=== PATIENT | female | born 1995 | race Caucasian/White ===

== ENCOUNTER 2023-06-30 10:59 | Outpatient (OUT) | payer OTHER, SELFPAY ==
[2023-06-30 11:35] LABS: HCG Quantitative <1 mIU/mL
== END 2023-06-30 11:00 | disposition home or self-care (01) ==
LOC: LAB 10:59
PROVIDERS: Visit Provider Obstetrics & Gynecology
DX: N97.0 Female infertility associated with anovulation (principal)
CPT/HCPCS: 36415; 84702

== ENCOUNTER 2023-11-11 10:37 | Outpatient (RCR) | payer OTHER, SELFPAY ==
[2023-11-11 12:44] LABS: HCG Quantitative 1284 mIU/mL
== END 2023-11-12 12:00 | disposition home or self-care (01) ==
LOC: LAB 10:37
PROVIDERS: Visit Provider Obstetrics & Gynecology
DX: N92.6 Irregular menstruation, unspecified (principal)
CPT/HCPCS: 36415; 84702

== ENCOUNTER 2023-11-13 10:53 | Outpatient (OUT) | payer OTHER, SELFPAY ==
[2023-11-13 13:01] LABS: HCG Quantitative 2647 mIU/mL
--- OUTSIDE RECORDS SUMMARY | 2023-12-04 08:49 | XMS_ITS | CCD ---
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 [place] [address] Dr. Ashley Castaneda pH (U) 7.0 [pH] Normal 5-9 [facility] Comment on above: Performed By: #### H BSANS #### [facility] [address] [place] [address] Dr. Ashley Castaneda SPEC GRAVITY 1.010 Normal 1.005-<=1.02 5 [facility] Comment on above: Performed By: #### H BSANS #### [facility] [address] [place] [address] Dr. Ashley Castaneda UA PROTEIN Negative Normal NEGATIVE/ TRACE [facility] Comment on above: Performed By: #### H BSANS #### [facility] [address] [place] [address] Dr. Ashley Castaneda UR MICRO IND INDICATED Normal [facility] Comment on above: Performed By: #### H BSANS #### [facility] [address] [place] [address] Dr. Ashley Castaneda Urobilinogen Qn (U) 0.2 {Dorothy'U}/dL Normal 0.2 - 1. 0 [facility] Comment on above: Performed By: #### H BSANS #### [facility] [address] [place] [address] Dr. Ashley Castaneda URINE MICROSCOPIC ONLYon BACTERIA NONE SEEN Normal NONE SEEN [facility] Comment on above: Performed By: #### H BSANS #### [facility] [address] [place] [address] Dr. Ashley Castaneda Bacteria identified Cx Nom (U) NOT INDICATED Normal [facility] Comment on above: Performed By: #### H BSANS #### [facility] [address] [place] [address] Dr. Ashley Castaneda CAST NONE SEEN Normal NONE SEEN [facility] Comment on above: Performed By: #### H BSANS #### [facility] [address] [place] [address] Dr. Ashley Castaneda Crystals LM Nom (Urine sed) NONE SEEN Normal NONE SEEN [facility] Comment on above: Performed By: #### H BSANS #### [facility] [address] [place] [address] Dr. Ashley Castaneda Epithelial cells LM Ql (Urine sed) RARE Normal NONE SEEN /RARE [facility] Comment on above: Performed By: #### H BSANS #### [facility] [address] [place] [address] Dr. Ashley Castaneda MUCOUS NONE SEEN Normal NONE SEEN [facility] Comment on above: Performed By: #### H BSANS #### [facility] [address] [place] [address] Dr. Ashley Castaneda RBC 0-2 Normal 0-2 [facility] Comment on above: Performed By: #### H BSANS #### [facility] [address] [place] [address] Dr. Ashley Castaneda WBC 0-2 Abnormal NONE SEEN [facility] Comment on above: Performed By: #### H BSANS #### [facility] [address] [place] [address] Dr. Ashley Castaneda GROUP B STREP CULTUREon S. agalactiae Ag Ql (Unsp spec) Culture Observations: NEGATIVE FOR GROUP B STREPTOCOCCUS. Normal [facility] Comment on above: Performed By: #### G BSCX #### [facility] [address] [place] [address] Dr. Ashley Castaneda PREG GROWTHon 10-21-2022 US PREG GROWTH EXAMINATION: US PREG GROWTH HISTORY: Uterine size for dates discrepancy COMPARISON: Ultrasound growth 09/30/2022 FINDINGS: Heart Rate: 160.7 bpm Number: 1.0 Position: CEPHALIC Amniotic Fluid Volume: 15.3 cm Maximum Vertical Pocket: 6.0 cm BIOMETRY: BPD: 9.7 cm cm; 39 weeks 4 days; >97% HC: 32.8 cmcm; 37 weeks 2 days; 56% AC: 33.4 cm cm; 37 weeks 2 days; 92% FL: 6.9 cm cm; 35 weeks 3 days; 36% EFW: 3113.0 grams; 85% FL/AC: 20.7 FL/BPD: 71.2 HC/AC: 1.0 GESTATIONAL AGE: Age by EDC: 35 weeks 5 days ANTONIO by EDC: 11/20/2022 Age by US: 37 weeks 3 days ANTONIO by US: 11/08/2022 IMPRESSION: 1. Single live intrauterine with growth detailed above. 2. BPD greater than 97th percentile. Electronically authenticated by: ASPEN KIRKLAND Date: 2022-10-21 16:22 Normal [facility] US PREG GROWTHon 10-01-2022 US PREG GROWTH EXAMINATION: US PREG GROWTH HISTORY: Uterine size for dates discrepancy COMPARISON: No relevant comparison available. FINDINGS: Heart Rate: 131.1 bpm Amniotic Fluid Volume: 17.0 cm Number: 1.0 Position: Cephalic presentation, longitudinal lie Maximum Vertical Pocket: 7.3 cm cm 2.5 cm cm 3.0 cm cm 4.2 cm cm BIOMETRY: BPD: 9.3 cm cm; 37 weeks 4 days; > 97% HC: 32.1 cmcm; 36 weeks 1 days, 92% AC: 31.0 cm cm; 35 weeks 0 days, 96% FL: 5.9 cm cm; 30 weeks 5 days; 3.8 % % EFW: 2366.3 grams, 5 lbs. 3 oz., 84% FL/AC: 19.0 FL/BPD: 63.7 HC/AC: 1.0 GESTATIONAL AGE: Age by EDC: 32 weeks 5 days ANTONIO by EDC: 11/20/2022 Age by US: 34 weeks 6 days ANTONIO by US: 11/05/2022 IMPRESSION: BPD greater than the 97th percentile Abdominal circumference 96th percentile Estimated weight 84th percentile Electronically authenticated by: YENI LINO Date: 2022-10-01 16:02 Normal [facility] OVA AND PARASITE EXAMINATION on 09-18-2022 Ova + Parasite Exam Final report Normal [facility] Comment on above: Result Comment: Thes e results were obtained using wet preparation(s) and trichrome stained smear. This test does not include testing for Cryptosporidium parvum, Cyclospora, or Microsporidia. Performed By: #### B MP #### [facility] [address] [place] [address] Dr. Ashley Castaneda Result 1 Comment [facility] Comment on above: Result Comment: No o va, cysts, or parasites seen. . One negative specimen does not rule out the possibility of a parasitic infection. Performed By: #### B MP #### [facility] [address] [place] [address] Dr. Ashley Castaneda PAP ACOG PANEL 2: 21 to 29on 08-28-2022 . . Normal [facility] Comment on above: Performed By: #### [id number] #### [facility] [address] [place] [address] Dr. Ashley Castaneda Age Gdln ACOG Testing 21-29 [facility] Comment on above: Performed By: #### [id number] #### [facility] [address] [place] [address] Dr. Ashley Castaneda DIAGNOSIS: Comment Normal [facility] Comment on above: Result Comment: NEGA TIVE FOR INTRAEPITHELIAL LESION OR MALIGNANCY. Performed By: #### [id number] #### [facility] [address] [place] [address] Dr. Ashley Castaneda Methodology: Comment [facility] Comment on above: Result Comment: This liquid based ThinPrep(R) pap test was screened with the use of an image guided system. Performed By: #### [id number] #### [facility] [address] [place] [address] Dr. Ashley Castaneda Note: Comment Normal [facility] Comment on above: Result Comment: The Pap smear is a screening test designed to aid in the detection of premalignant and malignant conditions of the uterine cervix. It is not a diagnostic procedure and should not be used as the sole means of detecting cervical cancer. Both false-positive and false-negative reports do occur. . Performed By: #### [id number] #### [facility] [address] [place] [address] Dr. Ashley Castaneda Performed by: Comment Normal [facility] Comment on above: Result Comment: Marialuisa [employer], [employer] (ASCP) Performed By: #### [id number] #### [facility] [address] [place] [address] Dr. Ashley Castaneda Reflex Criteria: Comment Normal [facility] Comment on above: Result Comment: The HPV DNA reflex criteria were not met with this specimen result therefore, no HPV testing was performed. . Performed By: #### [id number] #### [facility] [address] [place] [address] Dr. Ashley Castaneda Specimen adequacy: Comment Normal [facility] Comment on above: Result Comment: Sati sfactory for evaluation. No endocervical component is identified. Performed By: #### [id number] #### [facility] [address] [place] [address] Dr. Ashley Castaneda CHLAMYDIA/GONOCOCCUS LANE (SW AB/URINE/PAPon 08-22-[address] trachomatis, LANE Negative Normal Negative [facility] Comment on above: Performed By: #### H BSANS #### [facility] [address] [place] [address] Dr. Ashley Castaneda Neisseria gonorrhoeae, LANE Negative Normal Negative [facility] Comment on above: Performed By: #### H BSANS #### [facility] [address] [place] [address] Dr. Ashley Castaneda VAGINITIS/VAGINOSIS DNA PROB Stephon 08-21-2022 Brina species Negative Normal Negative [facility] Comment on above: Performed By: #### V AGINT #### [facility] [address] [address] [address] Ashley Castaneda Gardnerella vaginalis Negative Normal Negative [facility] Comment on above: Performed By: #### V AGINT #### [facility] [address] [address] [address] Ashley Castaneda Trichomonas vaginalis Negative Normal Negative [facility] Comment on above: Performed By: #### V AGINT #### [facility] [address] [address] [address] Ashley Castaneda US PREG PLACENTAon 2 US PREG PLACENTA EXAMINATION: US PREG PLACENTA HISTORY: Low lying placenta COMPARISON: Ultrasound anatomy single 07/03/2022 FINDINGS: PLACENTA: Posterior-fundal, grade 0, with lower margin 7.0 cm from internal os. CERVIX LENGTH: Not measured. HEART RATE: 167 bpm OTHER: None. IMPRESSION: 1. Posterior-fundal placenta which is no longer low-lying. 2. Single live intrauterine . Electronically authenticated by: ASPEN KIRKLAND Date: 2022-08-20 06:34 Normal [facility] GTT 3 HR PREGon 08-09-2022 Glucose [Mass/Vol] 96 mg/dL Normal 74-106 [facility] Comment on above: Performed By: #### G TT3P #### [facility] [address] [place] [address] Dr. Ashley Castaneda Glucose [Mass/Vol] 155 mg/dL Normal [facility] Comment on above: Performed By: #### G TT3P #### [facility] [address] [address] [address] Ashley Castaneda Glucose [Mass/Vol] 141 mg/dL Normal [facility] Comment on above: Performed By: #### G TT3P #### [facility] [address] [place] [address] Dr. Aslhey Castaneda Glucose [Mass/Vol] 129 mg/dL Normal [facility] Comment on above: Performed By: #### G TT3P #### [facility] [address] [address] [address] Ashley Castaneda CBC AUTO DIFFon 08-02-2022 BASO # 0.1 103/ul Normal 0.0-0.1 [facility] Comment on above: Performed By: #### B MP #### [facility] [address] [address] [address] Ashley Castaneda Basophils/100 WBC (Bld) 0.6 % Normal 0.2-2.0 [facility] Comment on above: Performed By: #### B MP #### [facility] [address] [address] [address] Ashley Castaneda EO # 0.1 103/ul Normal 0.0-0.7 [facility] Comment on above: Performed By: #### B MP #### [facility] [address] [place] [address] Dr. Ashley Castaneda Eosinophils/100 WBC (Bld) 0.9 % Normal 0.9-7.0 [facility] Comment on above: Performed By: #### B MP #### [facility] [address] [place] [address] Dr. Ashley Castaneda Erythrocyte distribution width (RBC) [Ratio] 13.4 % Normal 11.0-15.0 [facility] Comment on above: Performed By: #### B MP #### [facility] [address] [place] [address] Dr. Ashley Castaneda Hematocrit (Bld) [Volume fraction] 36.2 % Normal 36.0-48.0 [facility] Comment on above: Performed By: #### B MP #### [facility] [address] [place] [address] Dr. Ashley Castaneda Hemoglobin (Bld) [Mass/Vol] 12.6 g/dL Normal 12.0-16.0 [facility] Comment on above: Performed By: #### B MP #### [facility] [address] [place] [address] Dr. Ashley Castaneda IG # 0.18 10e3/ul Critically high 0.00-0.03 [facility] Comment on above: Performed By: #### B MP #### [facility] [address] [place] [address] Dr. Ashley Castaneda IG % 1.7 % Critically high 0.0-0.5 [facility] Comment on above: Performed By: #### B MP #### [facility] [address] [place] [address] Dr. Ashley Castaneda LYMPH # 1.7 103/ul Normal 1.2-3.8 [facility] Comment on above: Performed By: #### B MP #### [facility] [address] [place] [address] Dr. Ashley Castaneda Lymphocytes/100 WBC (Bld) 16.6 % Critically low 20.5-6 0.0 [facility] Comment on above: Performed By: #### B MP #### [facility] [address] [place] [address] Dr. Ashley Castaneda MANUAL DIFF REQ NO Normal [facility] Comment on above: Performed By: #### B MP #### [facility] [address] [place] [address] Dr. Ashley Castaneda MCH (RBC) [Entitic mass] 30.3 pg Normal 26.7-34.0 [facility] Comment on above: Performed By: #### B MP #### [facility] [address] [place] [address] Dr. Ashley Castaneda MCHC (RBC) [Mass/Vol] 34.8 g/dL Normal 29.9-35.2 [facility] Comment on above: Performed By: #### B MP #### [facility] [address] [place] [address] Dr. Ashley Castaneda MCV (RBC) [Entitic vol] 87.0 fL Normal 81.0-99.0 [facility] Comment on above: Performed By: #### B MP #### [facility] [address] [place] [address] Dr. Ashley Castaneda MONO # 0.7 103/ul Normal 0.3-0.8 [facility] Comment on above: Performed By: #### B MP #### [facility] [address] [place] [address] Dr. Ashley Castaneda Monocytes/100 WBC (Bld) 6.8 % Normal 1.7-12.0 [facility] Comment on above: Performed By: #### B MP #### [facility] [address] [address] [address] Ashley Castaneda NEUT # 7.7 103/ul Critically high 1.4-6.5 [facility] Comment on above: Performed By: #### B MP #### [facility] [address] [address] [address] Ashley Castaneda Neutrophils/100 WBC (Bld) 73.4 % Normal 43.0-75.0 [facility] Comment on above: Performed By: #### B MP #### [facility] [address] [place] [address] Dr. Ashley Castaneda Platelet mean volume (Bld) [Entitic vol] 10.1 fL Normal 9.5-13.5 [facility] Comment on above: Performed By: #### B MP #### [facility] [address] [address] [address] Ashley Castaneda PLT 232 103/ul Normal 150-450 [facility] Comment on above: Performed By: #### B MP #### [facility] [address] [place] [address] Dr. Ashley Castaneda RBC 4.16 106/ul Critically low 4.20-5.40 [facility] Comment on above: Performed By: #### B MP #### [facility] [address] [address] [address] Ashley Castaneda WBC 10.5 103/ul Normal 4.0-11.0 [facility] Comment on above: Performed By: #### B MP #### [facility] [address] [address] [address] Ashley Castaneda GLUCOSE - 1HRon 08-02-2022 Glucose [Mass/Vol] 152 mg/dL Critically high 74-106 [facility] Comment on above: Performed By: #### V AGINT #### [facility] [address] [place] [address] Dr. Ashley Castaneda AFP MATERNAL FOR SPINA BIFID Aon 2022 AFP MoM 0.45 Normal [facility] Comment on above: Performed By: #### A FPMAT #### [facility] [address] [address] [address] Ashley Castaneda AFP Value 22.5 ng/mL Normal [facility] Comment on above: Performed By: #### A FPMAT #### [facility] [address] [address] [address] Ashley Castaneda AFP, Serum for Spina Bifida Report Normal [facility] Comment on above: Performed By: #### A FPMAT #### [facility] [address] [address] [address] Ashley Castaneda Comment Comment Normal [facility] Comment on above: Result Comment: Duncan Koo, Ph.D., [facility] Director . References: Available Upon Request. . Multiples Of Median Cutoffs For AFP Elevations Chavez 2.5 Black 2.8 IDD 2.0 Twins 4.5 Abbreviation Definitions IDD - Insulin Dep Diabetes OSBR - Open Spina Bifida Risk . For further inquiries contact [employer] at [phone]. . This test was developed and its performance characteristics determined by [employer]. It has not been cleared or approved by the Food and Drug Administration. Performed By: #### A FPMAT #### [facility] [address] [place] [address] Dr. Ashley Morin Age Collection Date 20.0 weeks Normal [facility] Comment on above: Performed By: #### A FPMAT #### [facility] [address] [place] [address] Dr. Ashley Castaneda Gestat, Age Based on ANTONIO [facility] Comment on above: Result Comment: 05/2023 Recalculations are not recommended when gestational dating by LMP and ultrasound are within 10 days. Performed By: #### A FPMAT #### [facility] [address] [place] [address] Dr. Ashley Castaneda Insulin Dep Diabetes No Normal [facility] Comment on above: Performed By: #### A FPMAT #### [facility] [address] [place] [address] Dr. Ashley Castaneda Interpretation Comment Normal [facility] Comment on above: Result Comment: Inte rpretation: Screen Negative . This result is screen negative for OSB. The AFP MoM calculated is based on the gestational age provided. MS-AFP can identify up to 80% of open neural tube defects. Closed neural tube defects and some open defects may not be detected by this test. This test does not screen for Down Syndrome or Trisomy 18. If screening for Down Syndrome or Trisomy 18 is desired, contact [employer] to discuss available options. The [employer] recommends amniocentesis be offered to women age 35 and older. Performed By: #### A FPMAT #### [facility] [address] [place] [address] Dr. Ashley Castaneda [age] Normal [facility] Comment on above: Performed By: #### A FPMAT #### [facility] [address] [place] [address] Dr. Ashley Castaneda Multiple Gestation No Normal [facility] Comment on above: Performed By: #### A FPMAT #### [facility] [address] [place] [address] Dr. Ashley Castaneda OSBR [place] [id number] Normal [facility] Comment on above: Performed By: #### A FPMAT #### [facility] [address] [place] [address] Dr. Ashley Castaneda PDF . Normal [facility] Comment on above: Performed By: #### A FPMAT #### [facility] [address] [place] [address] Dr. Ashley Castaneda Race Normal [facility] Comment on above: Performed By: #### A FPMAT #### [facility] [address] [place] [address] Dr. Ashley Castaneda Test Results: Negative Normal [facility] Comment on above: Performed By: #### A FPMAT #### [facility] [address] [place] [address] Dr. Ashley Castaneda PREG ANATOMY SINGLEon US PREG ANATOMY SINGLE EXAMINATION: US PREG ANATOMY SINGLE HISTORY: screening COMPARISON: No relevant comparison available. TECHNIQUE: Transabdominal sonographic examination was performed for obstetrical and evaluation. FINDINGS: Number: 1 Heart Rate: 166.0 bpm H.B. /min Amniotic Fluid Volume: Subjectively normal position: Cephalic presentation, longitudinal lie Placental Location: Posterior, low lying. Grade 0. Placental edge 2.1 cm from the cervical os Cervix Length: 6.8 cm, closed Normally visualized anatomy: Cerebellum, choroid plexus, cisterna magna, lateral cerebral ventricles, orbits, midline falx, hard palate, four-chamber heart, RVOT, LVOT, stomach, kidneys, bladder, umbilical cord insertion into the abdomen, three-vessel cord, cervical spine, thoracic spine, lumbar spine, sacral spine, right upper extremity, left upper extremity, right lower extremity, left lower extremity Suboptimally visualized anatomy: None BIOMETRY: BPD: 5.1 cm 21 weeks 3 days , 93% HC: 18.3 cm 20 weeks 5 days, 74% AC: 16.5 cm 21 weeks 4 days, 88% FL: 3.3 cm 20 weeks 3 days, 59% GESTATIONAL AGE: Age by EDC: 20 weeks 0 days ANTONIO by EDC: 11/20/2022 Age by current US: 21 weeks 0 days ANTONIO by current US: 11/13/2022 IMPRESSION: Low lying placenta, 2.1 cm from the cervical os Otherwise normal anatomy scan *Reference: AIUM Practice Guideline for the performance of Obstetric Ultrasound Examinations, June 14, 2007. Electronically authenticated by: YENI LINO Date: 2022-07-03 16:45 Normal [facility] HEP B SURFACE ANTIGEN SCREEN on 05-01-2022 HBsAg Screen Negative Normal Negative [facility] Comment on above: Performed By: #### H BSANS #### [facility] [address] [place] [address] Dr. Ashley Castaneda HEPATITIS C VIRUS AB W/ REFL EX QUANTon 05-01-2022 HCV AB <0.1 Normal 0.0-0.9 [facility] Comment on above: Performed By: #### V AGINT #### [facility] [address] [place] [address] Dr. Ashley Castaneda Interpretation: Comment Normal [facility] Comment on above: Result Comment: Nega tive Not infected with HCV, unless recent infection is suspected or other evidence exists to indicate HCV infection. Performed By: #### V AGINT #### [facility] [address] [place] [address] Dr. Ashley Castaneda HIV 1 AND 2 WITH REFLEXon HIV Screen 4th Generation wRfx Non-Reactive Normal Non Reactive [facility] Comment on above: Result Comment: HIV Negative HIV-1/HIV-2 antibodies and HIV-1 p24 antigen were NOT detected. There is no laboratory evidence of HIV infection. Performed By: #### B MP #### [facility] [address] [place] [address] Dr. Ashley Castaneda RPR QUANTon 05-01-2022 Rapid Plasma Reagin, Quant Non-Reactive Normal NonRea< 1:1 [facility] Comment on above: Result Comment: Plea se Note: This test does not meet current guidelines for screening and diagnosis of syphilis. This test is intended for following treatment response in patients being treated for syphilis infection. To screen for syphilis infection, a reflex cascade that includes both RPR and a treponema-specific assay should be utilized, such as Treponema pallidum (Syphilis) Screening [place] (331827) or Rapid Plasma Reagin (RPR) Test With Reflex to Quantitative RPR and Confirmatory Treponema pallidum Antibodies (686364). Performed By: #### B MP #### [facility] [address] [place] [address] Dr. Ashley Castaneda RUBELLA AB IGGon 05-01-2022 Rubella Antibodies, IgG 4.62 index Normal Immune >0.99 [facility] Comment on above: Result Comment: Non- immune <0.90 Equivocal 0.90 - 0.99 Immune >0.99 Performed By: #### B MP #### [facility] [address] [place] [address] Dr. Ashley Castaneda CBC AUTO DIFFon 04-30-2022 BASO # 0.0 103/ul Normal 0.0-0.1 [facility] Comment on above: Performed By: #### H BSANS #### [facility] [address] [address] [address] Ashley Castaneda Basophils/100 WBC (Bld) 0.3 % Normal 0.2-2.0 [facility] Comment on above: Performed By: #### H BSANS #### [facility] [address] [address] [address] Ashley Castaneda EO # 0.1 103/ul Normal 0.0-0.7 [facility] Comment on above: Performed By: #### H BSANS #### [facility] [address] [address] [address] Ashley Castaneda Eosinophils/100 WBC (Bld) 0.9 % Normal 0.9-7.0 [facility] Comment on above: Performed By: #### H BSANS #### [facility] [address] [place] [address] Dr. Ashley Castaneda Erythrocyte distribution width (RBC) [Ratio] 12.2 % Normal 11.0-15.0 [facility] Comment on above: Performed By: #### H BSANS #### [facility] [address] [address] [address] Ashley Castaneda Hematocrit (Bld) [Volume fraction] 40.5 % Normal 36.0-48.0 [facility] Comment on above: Performed By: #### H BSANS #### [facility] [address] [place] [address] Dr. Ashley Castaneda Hemoglobin (Bld) [Mass/Vol] 14.0 g/dL Normal 12.0-16.0 [facility] Comment on above: Performed By: #### H BSANS #### [facility] [address] [address] [address] Ashley Castaneda IG # 0.08 10e3/ul Critically high 0.00-0.03 [facility] Comment on above: Performed By: #### H BSANS #### [facility] [address] [address] [address] Ashley Castaneda IG % 0.8 % Critically high 0.0-0.5 [facility] Comment on above: Performed By: #### H BSANS #### [facility] [address] [address] [address] Ashley Castaneda LYMPH # 1.9 103/ul Normal 1.2-3.8 [facility] Comment on above: Performed By: #### H BSANS #### [facility] [address] [address] [address] Ashley Castaneda Lymphocytes/100 WBC (Bld) 19.4 % Critically low 20.5-6 0.0 [facility] Comment on above: Performed By: #### H BSANS #### [facility] [address] [address] [address] Ashley Castaneda MANUAL DIFF REQ NO Normal [facility] Comment on above: Performed By: #### H BSANS #### [facility] [address] [address] [address] Ashley Castaneda MCH (RBC) [Entitic mass] 30.9 pg Normal 26.7-34.0 [facility] Comment on above: Performed By: #### H BSANS #### [facility] [address] [address] [address] Ashley Castaneda MCHC (RBC) [Mass/Vol] 34.6 g/dL Normal 29.9-35.2 [facility] Comment on above: Performed By: #### H BSANS #### [facility] [address] [address] [address] Ashley Castaneda MCV (RBC) [Entitic vol] 89.4 fL Normal 81.0-99.0 [facility] Comment on above: Performed By: #### H BSANS #### [facility] [address] [address] [address] Ashley Castaneda MONO # 0.8 103/ul Normal 0.3-0.8 [facility] Comment on above: Performed By: #### H BSANS #### [facility] [address] [address] [address] Ashley Castaneda Monocytes/100 WBC (Bld) 8.4 % Normal 1.7-12.0 [facility] Comment on above: Performed By: #### H BSANS #### [facility] [address] [address] [address] Ashley Castaneda NEUT # 7.0 103/ul Critically high 1.4-6.5 [facility] Comment on above: Performed By: #### H BSANS #### [facility] [address] [address] [address] Ashley Castaneda Neutrophils/100 WBC (Bld) 70.2 % Normal 43.0-75.0 [facility] Comment on above: Performed By: #### H BSANS #### [facility] [address] [address] [address] Ashley Castaneda Platelet mean volume (Bld) [Entitic vol] 10.1 fL Normal 9.5-13.5 [facility] Comment on above: Performed By: #### H BSANS #### [facility] [address] [place] [address] Dr. Ashley Castaneda PLT 234 103/ul Normal 150-450 [facility] Comment on above: Performed By: #### H BSANS #### [facility] [address] [address] [address] Ashley Castaneda RBC 4.53 106/ul Normal 4.20-5.40 [facility] Comment on above: Performed By: #### H BSANS #### [facility] [address] [address] [address] Ashley Castaneda WBC 10.0 103/ul Normal 4.0-11.0 [facility] Comment on above: Performed By: #### H BSANS #### [facility] [address] [place] [address] Dr. Ashley Castaneda CULTURE URINEon 04-30-2022 CULTURE URINE Culture Observations: NO GROWTH. Normal [facility] Comment on above: Performed By: #### H BSANS #### [facility] [address] [place] [address] Dr. Ashley Castaneda GLYCOHEMOGLOBIN A1Con 2021 ADA RECOMMENDATION SEE BELOW Normal [facility] Comment on above: Result Comment: ADA RECOMMENDED LIMIT 4.0 - 6.0 ADA THERAPEUTIC TARGET < 7.0 ACTION SUGGESTED > 7.0 Performed By: #### A FPMAT #### [facility] [address] [address] [address] Ashley Castaneda Glucose [Mass/Vol] 100 mg/dL Normal [facility] Comment on above: Performed By: #### A FPMAT #### [facility] [address] [address]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 0.1.272968.3.579.2.593 1996 Unknown [id number] 2.16.84 0.1.530310.3.579.2.593 1996 Unknown [id number] 2.16.84 0.1.309397.3.579.2.593 1996 Unknown [id number] 2.16.84 0.1.939714.3.579.2.593 1996 Unknown [id number] 2.16.84 0.1.400440.3.579.2.593 1996 Unknown [id number] 2.16.84 0.1.471923.3.579.2.593 1996 Unknown [id number] 2.16.84 0.1.706904.3.579.2.593 1996 Unknown [id number] 2.16.84 0.1.424110.3.579.2.593 1996 Unknown [id number] 2.16.84 0.1.291869.3.579.2.593 1996 Unknown [id number] 2.16.84 0.1.251733.3.579.2.593 1959 Private Health Insurance [id number] Self-pay [id number] Unknown [id number] 2.16.84 0.1.176343.3.579.2.593 Social History Date Type Detail Facility Tobacco smoking stat [facility] Unknown if ever smoked [facility] Work Phone: Start: 1995 Sex Assigned At Female F [facility] Evaluation note Note Date & Type Note Facility Evaluation note No assessment information availa ble [facility] Work Phone: Summary Purpose Family History No Family History Records FoundNo Family History Records Found Advance Directives No Advanced Directives Records Found Advance Directive Response Recorded Date/ Time Advance Directives No April 16 022 2:03am Chief Complaint and Reason for Visit Chief Complaint Additional Source Comments INFORMATION SOURCE (unrecogn ized section and content) DATE CREATED AUTHOR 04/26/2022 [facility] DATE CREATED AUTHOR AUTHOR'S ORGANIZ ATION 11/24/2022 [facility] Care Teams (unrecognized sec tion and content) Team Status: Inactive Member Role Status Dates Swetha Phoenix MD Primary Care Provider Active Stoney Good MD Attending Provider Active Team Status: Active Member Role Status Dates Swetha Phoenix MD Primary Care Provider Active Goals (unrecognized section and content) Goals may be documented in a n alternate section FOR RECORDS PERTAINING TO PATIENTS WHO ARE OR HAVE BEEN ENROLLED IN A CHEMICAL DEPENDENCY/SUBSTANCEABUSE PROGRAM, SOME INFORMATION MAY BE OMITTED. This clinical summary was aggregated from multiple sources. Caution should be exercised in using it in the provision of clinical care. This summary normalizes information from multiple sources, and as a consequence, information in this document may materially change the coding, format and clinical context of patient data. In addition, data may be omitted in some cases. CLINICAL DECISIONS SHOULD BE BASED ON THE PRIMARY CLINICAL RECORDS. [facility] provides no warranty or guarantee of the accuracy or completeness of information in this document.
== END 2023-11-13 10:54 | disposition home or self-care (01) ==
LOC: LAB 12-04 08:45
PROVIDERS: Visit Provider Obstetrics & Gynecology
DX: N92.6 Irregular menstruation, unspecified (principal)
CPT/HCPCS: 36415; 84702

== ENCOUNTER 2023-12-18 09:28 | Outpatient (OUT) | payer OTHER, SELFPAY ==
--- OUTSIDE RECORDS SUMMARY | 2023-12-18 09:45 | XMS_ITS | CCD ---
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 Name Role Phone MD Swetha Phoenix Primary Care Provider MD Stoney Good Attending Provider YULIYA ., DR HAZEL Admitting Unavailable YULIYA ., DR HAZEL Attending Unavailable MISC, DR CHAMPION Primary Care Unavailable YULIYA ., DR HAZEL Consulting Unavailable ZIEBER, DR APSEN Abrams Consulting Unavailable YULIYA ., DR HAZEL Admitting Unavailable YULIYA ., DR HAZEL Attending Unavailable MISC, DR CHAMPION Primary Care Unavailable KILLDEER, DR EYNI Cuenca Consulting Unavailable YULIYA ., DR HAZEL Consulting Unavailable YULIYA ., DR HAZEL Admitting Unavailable YULIYA ., DR HAZEL Attending Unavailable [facility] Unava ilable YULIYA ., DR HAZEL Consulting Unavailable YULIYA ., DR HAZEL Admitting Unavailable YULIYA ., DR HAZEL Attending Unavailable [facility] Care Unava ilable YULIYA ., DR HAZEL Admitting Unavailable YULIYA ., DR HAZEL Attending Unavailable [facility] Unava ilable YULIYA ., DR HAZEL Consulting [...] Unavailable YULIYA ., DR HAZEL Attending Unavailable [facility] Unava ilable YULIYA ., DR HAZEL Consulting [...] Unavailable MISC, DR CHAMPION Primary Care Unavailable KILLDEER, DR YENI Cuenca Consulting Unavailable CASSANDRA ., [...] Unavailable YULIYA ., DR HAZEL Attending Unavailable [facility] Unava ilable YULIYA ., DR HAZEL Consulting Unavailable YULIYA ., DR HAZEL Admitting Unavailable YULIYA ., DR HAZEL Attending Unavailable [facility] Primary Care Unavailable YULIYA ., DR HAZEL Admitting Unavailable YULIYA ., DR HAZEL Attending Unavailable [facility] Primary Care Unava ilable KILLDEER, DR YENI Cuenca Consulting Unavailable YULIYA ., [...] Unavailable YULIYA ., DR HAZEL Attending Unavailable [facility] Primary Care Unavailable YULIYA ., DR [...] advice on procreation; Translations: [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 Ashley Castaneda Basophils/100 WBC (Bld) 0.1 % Critically low 0.2-2.0 [facility] Comment on above: Performed By: #### V AGINT #### [facility] [address] [place] [address] Dr. Ashley Castaneda EO # 0.0 103/ul Normal 0.0-0.7 [facility] Comment on above: Performed By: #### V AGINT #### [facility] [address] [place] [address] Dr. Ashley Castaneda Eosinophils/100 WBC (Bld) 0.0 % Critically low 0.9-7. 0 [facility] Comment on above: Performed By: #### V AGINT #### [facility] [address] [place] [address] Dr. Ashley Castaneda Erythrocyte distribution width (RBC) [Ratio] 14.8 % Normal 11.0-15.0 [facility] Comment on above: Performed By: #### V AGINT #### [facility] [address] [place] [address] Dr. Ashley Castaneda Hematocrit (Bld) [Volume fraction] 35.5 % Critically low 36.0-48.0 [facility] Comment on above: Performed By: #### V AGINT #### [facility] [address] [place] [address] Dr. Ashley Castaneda Hemoglobin (Bld) [Mass/Vol] 11.8 g/dL Critically low 12.0-16.0 [facility] Comment on above: Performed By: #### V AGINT #### [facility] [address] [place] [address] Dr. Ashley Castaneda IG # 0.07 10e3/ul Critically high 0.00-0.03 [facility] Comment on above: Performed By: #### V AGINT #### [facility] [address] [place] [address] Dr. Ashley Castaneda IG % 0.5 % Normal 0.0-0.5 [facility] Comment on above: Performed By: #### V AGINT #### [facility] [address] [address] [address] Ashley Castaneda LYMPH # 1.7 103/ul Normal 1.2-3.8 [facility] Comment on above: Performed By: #### V AGINT #### [facility] [address] [address] [address] Ashley Castaneda Lymphocytes/100 WBC (Bld) 12.8 % Critically low 20.5-6 0.0 [facility] Comment on above: Performed By: #### V AGINT #### [facility] [address] [place] [address] Dr. Ashley Castaneda MANUAL DIFF REQ NO Normal [facility] Comment on above: Performed By: #### V AGINT #### [facility] [address] [place] [address] Dr. Ashley Castaneda MCH (RBC) [Entitic mass] 27.9 pg Normal 26.7-34.0 [facility] Comment on above: Performed By: #### V AGINT #### [facility] [address] [place] [address] Dr. Ashley Castaneda MCHC (RBC) [Mass/Vol] 33.2 g/dL Normal 29.9-35.2 [facility] Comment on above: Performed By: #### V AGINT #### [facility] [address] [place] [address] Dr. Ashley Castaneda MCV (RBC) [Entitic vol] 83.9 fL Normal 81.0-99.0 [facility] Comment on above: Performed By: #### V AGINT #### [facility] [address] [place] [address] Dr. Ashley Castaneda MONO # 1.3 103/ul Critically high 0.3-0.8 [facility] Comment on above: Performed By: #### V AGINT #### [facility] [address] [place] [address] Dr. Ashley Castaneda Monocytes/100 WBC (Bld) 9.7 % Normal 1.7-12.0 [facility] Comment on above: Performed By: #### V AGINT #### [facility] [address] [address] [address] Ashley Castaneda NEUT # 10.3 103/ul Critically high 1.4-6.5 [facility] Comment on above: Performed By: #### V AGINT #### [facility] [address] [place] [address] Dr. Ashley Castaneda Neutrophils/100 WBC (Bld) 76.9 % Critically high 43.0- 75.0 [facility] Comment on above: Performed By: #### V AGINT #### [facility] [address] [place] [address] Dr. Ashley Castaneda Platelet mean volume (Bld) [Entitic vol] 11.1 fL Normal 9.5-13.5 [facility] Comment on above: Performed By: #### V AGINT #### [facility] [address] [place] [address] Dr. Ashley Castaneda PLT 186 103/ul Normal 150-450 [facility] Comment on above: Performed By: #### V AGINT #### [facility] [address] [place] [address] Dr. Ashley Castaneda RBC 4.23 106/ul Normal 4.20-5.40 [facility] Comment on above: Performed By: #### V AGINT #### [facility] [address] [place] [address] Dr. Ashley Castaneda WBC 13.5 103/ul Critically high 4.0-11.0 [facility] Comment on above: Performed By: #### V AGINT #### [facility] [address] [place] [address] Dr. Ashley Castaneda CBC AUTO DIFFon 11-04-2022 BASO # 0.0 103/ul Normal 0.0-0.1 [facility] Comment on above: Performed By: #### B MP #### [facility] [address] [place] [address] Dr. Ashley Castaneda Basophils/100 WBC (Bld) 0.2 % Normal 0.2-2.0 [facility] Comment on above: Performed By: #### B MP #### [facility] [address] [address] [address] Ashley Castaneda EO # 0.0 103/ul Normal 0.0-0.7 [facility] Comment on above: Performed By: #### B MP #### [facility] [address] [address] [address] Ashley Castaneda Eosinophils/100 WBC (Bld) 0.1 % Critically low 0.9-7. 0 [facility] Comment on above: Performed By: #### B MP #### [facility] [address] [place] [address] Dr. Ashley Castaneda Erythrocyte distribution width (RBC) [Ratio] 14.6 % Normal 11.0-15.0 [facility] Comment on above: Performed By: #### B MP #### [facility] [address] [place] [address] Dr. Ashley Castaneda Hematocrit (Bld) [Volume fraction] 39.9 % Normal 36.0-48.0 [facility] Comment on above: Performed By: #### B MP #### [facility] [address] [place] [address] Dr. Ashley Castaneda Hemoglobin (Bld) [Mass/Vol] 13.6 g/dL Normal 12.0-16.0 [facility] Comment on above: Performed By: #### B MP #### [facility] [address] [address] [address] Ashley Castaneda IG # 0.06 10e3/ul Critically high 0.00-0.03 [facility] Comment on above: Performed By: #### B MP #### [facility] [address] [address] [address] Ashley Castaneda IG % 0.7 % Critically high 0.0-0.5 [facility] Comment on above: Performed By: #### B MP #### [facility] [address] [address] [address] Ashley Castaneda LYMPH # 1.6 103/ul Normal 1.2-3.8 [facility] Comment on above: Performed By: #### B MP #### [facility] [address] [place] [address] Dr. Ashley Castaneda Lymphocytes/100 WBC (Bld) 18.3 % Critically low 20.5-6 0.0 [facility] Comment on above: Performed By: #### B MP #### [facility] [address] [place] [address] Dr. Ashley Castaneda MANUAL DIFF REQ NO Normal [facility] Comment on above: Performed By: #### B MP #### [facility] [address] [place] [address] Dr. Ashley Castaneda MCH (RBC) [Entitic mass] 28.2 pg Normal 26.7-34.0 [facility] Comment on above: Performed By: #### B MP #### [facility] [address] [place] [address] Dr. Ashley Castaneda MCHC (RBC) [Mass/Vol] 34.1 g/dL Normal 29.9-35.2 [facility] Comment on above: Performed By: #### B MP #### [facility] [address] [place] [address] Dr. Ashley Castaneda MCV (RBC) [Entitic vol] 82.8 fL Normal 81.0-99.0 [facility] Comment on above: Performed By: #### B MP #### [facility] [address] [place] [address] Dr. Ashley Castaneda MONO # 0.8 103/ul Normal 0.3-0.8 [facility] Comment on above: Performed By: #### B MP #### [facility] [address] [place] [address] Dr. Ashley Castaneda Monocytes/100 WBC (Bld) 9.4 % Normal 1.7-12.0 [facility] Comment on above: Performed By: #### B MP #### [facility] [address] [place] [address] Dr. Ashley Castaneda NEUT # 6.3 103/ul Normal 1.4-6.5 [facility] Comment on above: Performed By: #### B MP #### [facility] [address] [place] [address] Dr. Ashley Castaneda Neutrophils/100 WBC (Bld) 71.3 % Normal 43.0-75.0 [facility] Comment on above: Performed By: #### B MP #### [facility] [address] [place] [address] Dr. Ashley Castaneda Platelet mean volume (Bld) [Entitic vol] 10.9 fL Normal 9.5-13.5 [facility] Comment on above: Performed By: #### B MP #### [facility] [address] [place] [address] Dr. Ashley Castaneda PLT 216 103/ul Normal 150-450 [facility] Comment on above: Performed By: #### B MP #### [facility] [address] [place] [address] Dr. Ashley Castaneda RBC 4.82 106/ul Normal 4.20-5.40 [facility] Comment on above: Performed By: #### B MP #### [facility] [address] [place] [address] Dr. Ashley Castaneda WBC 8.9 103/ul Normal 4.0-11.0 [facility] Comment on above: Performed By: #### B MP #### [facility] [address] [place] [address] Dr. Ashley Castaneda DRUG SCREEN RAPID (URINE)on 11-04-2022 AMP Negative Normal NEGATIVE [facility] Comment on above: Performed By: #### A FPMAT #### [facility] [address] [place] [address] Dr. Ashley Castaneda BAR Negative Normal NEGATIVE [facility] Comment on above: Performed By: #### A FPMAT #### [facility] [address] [place] [address] Dr. Ashley Castaneda BUP Negative Normal NEGATIVE [facility] Comment on above: Performed By: #### A FPMAT #### [facility] [address] [place] [address] Dr. Ashley Castaneda BZO Negative Normal NEGATIVE [facility] Comment on above: Performed By: #### A FPMAT #### [facility] [address] [place] [address] Dr. Ashley Castaneda ROMELIA Negative Normal NEGATIVE [facility] Comment on above: Performed By: #### A FPMAT #### [facility] [address] [place] [address] Dr. Ashley Castaneda CUT-OFFS SEE BELOW Normal [facility] Comment on above: Result Comment: AMP (Amphetamine): 500ng/mL, BAR (Barbituates): 200 ng/mL, BZO (Benzodiazepines): 150 ng/mL, BUP (Buprenorphine): 10 ng/mL, ROMELIA (Cocaine): 150 ng/mL, mAMP (Methamphetamine): 500 ng/mL, MTD (Methadone): 200 ng/mL, OPI (Opiates): 100 ng/mL, OXY (Oxycodone): 100 ng/mL, PCP (Phencyclidine): 25 ng/mL, PPX (Propoxyphene): 300 ng/mL, THC (Cannabinoids): 50 ng/mL, TCA (Trycyclic Antidepressants): 300 ng/mL Performed By: #### A FPMAT #### [facility] [address] [place] [address] Dr. Ashley Castaneda DRUG CUT HEADER DRUG CLASS TEST SYSTEM CUT-OFF CONCENTRATIONS ARE FOLLOWS: Normal [facility] Comment on above: Performed By: #### A FPMAT #### [facility] [address] [place] [address] Dr. Ashley Castaneda mAMP Negative Normal NEGATIVE [facility] Comment on above: Performed By: #### A FPMAT #### [facility] [address] [place] [address] Dr. Ashley Castaneda MTD Negative Normal NEGATIVE [facility] Comment on above: Performed By: #### A FPMAT #### [facility] [address] [place] [address] Dr. Ashley Castaneda OPI Negative Normal NEGATIVE [facility] Comment on above: Performed By: #### A FPMAT #### [facility] [address] [place] [address] Dr. Ashley Castaneda OXY Negative Normal NEGATIVE [facility] Comment on above: Performed By: #### A FPMAT #### [facility] [address] [place] [address] Dr. Ashley Castaneda PCP Negative Normal NEGATIVE [facility] Comment on above: Performed By: #### A FPMAT #### [facility] [address] [place] [address] Dr. Ashley Castaneda PPX Negative Normal NEGATIVE [facility] Comment on above: Performed By: #### A FPMAT #### [facility] [address] [place] [address] Dr. Ashley Castaneda TCA Negative Normal NEGATIVE [facility] Comment on above: Performed By: #### A FPMAT #### [facility] [address] [place] [address] Dr. Ashley Castaneda THC Negative Normal NEGATIVE [facility] Comment on above: Performed By: #### A FPMAT #### [facility] [address] [place] [address] Dr. Ashley Castaneda TYPE AND SCREENon 11-04-2022 TYPE AND SCREEN Negative Normal [facility] Comment on above: Performed By: #### T NS #### [facility] [address] [place] [address] Dr. Ashley Castaneda CBC AUTO DIFFon 10-24-2022 BASO # 0.1 103/ul Normal 0.0-0.1 [facility] Comment on above: Performed By: #### V AGINT #### [facility] [address] [place] [address] Dr. Ashley Castaneda Basophils/100 WBC (Bld) 0.5 % Normal 0.2-2.0 [facility] Comment on above: Performed By: #### V AGINT #### [facility] [address] [place] [address] Dr. Ashley Castaneda EO # 0.0 103/ul Normal 0.0-0.7 [facility] Comment on above: Performed By: #### V AGINT #### [facility] [address] [place] [address] Dr. Ashley Castaneda Eosinophils/100 WBC (Bld) 0.4 % Critically low 0.9-7. 0 [facility] Comment on above: Performed By: #### V AGINT #### [facility] [address] [place] [address] Dr. Ashley Castaneda Erythrocyte distribution width (RBC) [Ratio] 14.2 % Normal 11.0-15.0 [facility] Comment on above: Performed By: #### V AGINT #### [facility] [address] [place] [address] Dr. Ashley Castaneda Hematocrit (Bld) [Volume fraction] 39.1 % Normal 36.0-48.0 [facility] Comment on above: Performed By: #### V AGINT #### [facility] [address] [place] [address] Dr. Ashley Castaneda Hemoglobin (Bld) [Mass/Vol] 13.4 g/dL Normal 12.0-16.0 [facility] Comment on above: Performed By: #### V AGINT #### [facility] [address] [place] [address] Dr. Ashley Castaneda IG # 0.14 10e3/ul Critically high 0.00-0.03 [facility] Comment on above: Performed By: #### V AGINT #### [facility] [address] [place] [address] Dr. Ashley Castaneda IG % 1.3 % Critically high 0.0-0.5 [facility] Comment on above: Performed By: #### V AGINT #### [facility] [address] [place] [address] Dr. Ashley Castaneda LYMPH # 2.6 103/ul Normal 1.2-3.8 [facility] Comment on above: Performed By: #### V AGINT #### [facility] [address] [place] [address] Dr. Ashley Castaneda Lymphocytes/100 WBC (Bld) 24.3 % Normal 20.5-60.0 [facility] Comment on above: Performed By: #### V AGINT #### [facility] [address] [place] [address] Dr. Ashley Castaneda MANUAL DIFF REQ NO Normal [facility] Comment on above: Performed By: #### V AGINT #### [facility] [address] [place] [address] Dr. Ashley Castaneda MCH (RBC) [Entitic mass] 28.6 pg Normal 26.7-34.0 [facility] Comment on above: Performed By: #### V AGINT #### [facility] [address] [place] [address] Dr. Ashley Castaneda MCHC (RBC) [Mass/Vol] 34.3 g/dL Normal 29.9-35.2 [facility] Comment on above: Performed By: #### V AGINT #### [facility] [address] [place] [address] Dr. Ashley Castaneda MCV (RBC) [Entitic vol] 83.5 fL Normal 81.0-99.0 [facility] Comment on above: Performed By: #### V AGINT #### [facility] [address] [place] [address] Dr. Ashley Castaneda MONO # 1.1 103/ul Critically high 0.3-0.8 [facility] Comment on above: Performed By: #### V AGINT #### [facility] [address] [place] [address] Dr. Ashley Castaneda Monocytes/100 WBC (Bld) 9.9 % Normal 1.7-12.0 [facility] Comment on above: Performed By: #### V AGINT #### [facility] [address] [place] [address] Dr. Ashley Castaneda NEUT # 6.9 103/ul Critically high 1.4-6.5 [facility] Comment on above: Performed By: #### V AGINT #### [facility] [address] [place] [address] Dr. Ashley Castaneda Neutrophils/100 WBC (Bld) 63.6 % Normal 43.0-75.0 [facility] Comment on above: Performed By: #### V AGINT #### [facility] [address] [place] [address] Dr. Ashley Castaneda Platelet mean volume (Bld) [Entitic vol] 11.2 fL Normal 9.5-13.5 [facility] Comment on above: Performed By: #### V AGINT #### [facility] [address] [place] [address] Dr. Ashley Castaneda PLT 260 103/ul Normal 150-450 [facility] Comment on above: Performed By: #### V AGINT #### [facility] [address] [place] [address] Dr. Ashley Castaneda RBC 4.68 106/ul Normal 4.20-5.40 [facility] Comment on above: Performed By: #### V AGINT #### [facility] [address] [place] [address] Dr. Ashley Castaneda WBC 10.9 103/ul Normal 4.0-11.0 [facility] Comment on above: Performed By: #### V AGINT #### [facility] [address] [place] [address] Dr. Ashley Castaneda TYPE AND SCREENon 10-24-2022 TYPE AND SCREEN Negative Normal [facility] Comment on above: Performed By: #### T NS #### [facility] [address] [place] [address] Dr. 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 Ashley Castaneda Clarity (U) CLEAR Normal CLEAR [facility] Comment on above: Performed By: #### H BSANS #### [facility] [address] [place] [address] Dr. Ashley Castaneda Color (U) LT. YELLOW Normal YELLOW [facility] Comment on above: Performed By: #### H BSANS #### [facility] [address] [place] [address] Dr. Ashley Castaneda Glucose Ql (U) Negative Normal NEGATIVE [facility] Comment on above: Performed By: #### H BSANS #### [facility] [address] [place] [address] Dr. Ashley Castaneda Hemoglobin Ql (U) TRACE-INTACT Abnormal NEGATIVE [facility] Comment on above: Performed By: #### H BSANS #### [facility] [address] [address] [address] Ashley Castaneda Ketones Ql (U) Negative Normal NEGATIVE [facility] Comment on above: Performed By: #### H BSANS #### [facility] [address] [place] [address] Dr. Ashley Castaneda LEUKOCYTES SMALL Abnormal NEGATIVE [facility] Comment on above: Performed By: #### H BSANS #### [facility] [address] [place] [address] Dr. Ashley Castaneda Nitrite Ql (U) Negative Normal NEGATIVE [facility] Comment on above: Performed By: #### H BSANS #### [facility] [address] [place] [address] Dr. Ashley Castaneda pH (U) 7.0 [pH] Normal 5-9 [facility] Comment on above: Performed By: #### H BSANS #### [facility] [address] [place] [address] Dr. Ashley Castaneda SPEC GRAVITY 1.010 Normal 1.005-<=1.02 5 [facility] Comment on above: Performed By: #### H BSANS #### [facility] [address] [place] [address] Dr. Ashley Castaneda UA PROTEIN Negative Normal NEGATIVE/ TRACE [facility] Comment on above: Performed By: #### H BSANS #### [facility] [address] [place] [address] Dr. Ashley Castaneda UR MICRO IND INDICATED Normal [facility] Comment on above: Performed By: #### H BSANS #### [facility] [address] [place] [address] Dr. Ashley Castaneda Urobilinogen Qn (U) 0.2 {Dorothy'U}/dL Normal 0.2 - 1. 0 [facility] Comment on above: Performed By: #### H BSANS #### [facility] [address] [place] [address] Dr. Ashley Castaneda URINE MICROSCOPIC ONLYon BACTERIA NONE SEEN Normal NONE SEEN [facility] Comment on above: Performed By: #### H BSANS #### [facility] [address] [place] [address] Dr. Ashley Castaneda Bacteria identified Cx Nom (U) NOT INDICATED Normal [facility] Comment on above: Performed By: #### H BSANS #### [facility] [address] [place] [address] Dr. Ashley Castaneda CAST NONE SEEN Normal NONE SEEN [facility] Comment on above: Performed By: #### H BSANS #### [facility] [address] [place] [address] Dr. Ashley Castaneda Crystals LM Nom (Urine sed) NONE SEEN Normal NONE SEEN [facility] Comment on above: Performed By: #### H BSANS #### [facility] [address] [place] [address] Dr. Ashley Castaneda Epithelial cells LM Ql (Urine sed) RARE Normal NONE SEEN /RARE [facility] Comment on above: Performed By: #### H BSANS #### [facility] [address] [place] [address] Dr. Ashley Castaneda MUCOUS NONE SEEN Normal NONE SEEN [facility] Comment on above: Performed By: #### H BSANS #### [facility] [address] [place] [address] Dr. Ashley Castaneda RBC 0-2 Normal 0-2 [facility] Comment on above: Performed By: #### H BSANS #### [facility] [address] [place] [address] Dr. Ashley Castaneda WBC 0-2 Abnormal NONE SEEN [facility] Comment on above: Performed By: #### H BSANS #### [facility] [address] [place] [address] Dr. Ashley Castaneda GROUP B STREP CULTUREon S. agalactiae Ag Ql (Unsp spec) Culture Observations: NEGATIVE FOR GROUP B STREPTOCOCCUS. Normal [facility] Comment on above: Performed By: #### G BSCX #### [facility] [address] [place] [address] Dr. Ashley Castaneda PREG GROWTHon 10-21-2022 US [...] ASPEN KIRKLAND Date: 2022-10-21 16:22 Normal [facility] US PREG GROWTHon 10-01-2022 US PREG GROWTH [...] by: YENI LINO Date: 2022-10-01 16:02 Normal [facility] OVA AND PARASITE EXAMINATION on 09-18-2022 Ova + Parasite Exam Final report Normal [facility] Comment on above: Result Comment: Thes e results were obtained using wet preparation(s) and trichrome stained smear. This test does not include testing for Cryptosporidium parvum, Cyclospora, or Microsporidia. Performed By: #### B MP #### [facility] [address] [place] [address] Dr. Ashley Castaneda Result 1 Comment [facility] Comment on above: Result Comment: No o va, cysts, or parasites seen. . One negative specimen does not rule out the possibility of a parasitic infection. Performed By: #### B MP #### [facility] [address] [place] [address] Dr. Ashley Castaneda PAP ACOG PANEL 2: 21 to 29on 08-28-2022 . . Normal [facility] Comment on above: Performed By: #### [id number] #### [facility] [address] [place] [address] Dr. Ashley Castaneda Age Gdln ACOG Testing 21-29 [facility] Comment on above: Performed By: #### [id number] #### [facility] [address] [place] [address] Dr. Ashley Castaneda DIAGNOSIS: Comment Normal [facility] Comment on above: Result Comment: NEGA TIVE FOR INTRAEPITHELIAL LESION OR MALIGNANCY. Performed By: #### [id number] #### [facility] [address] [place] [address] Dr. Ashley Castaneda Methodology: Comment [facility] Comment on above: Result Comment: This liquid based ThinPrep(R) pap test was screened with the use of an image guided system. Performed By: #### [id number] #### [facility] [address] [place] [address] Dr. Ashley Castaneda Note: Comment Normal [facility] Comment on above: Result Comment: The Pap smear is a screening test designed to aid in the detection of premalignant and malignant conditions of the uterine cervix. It is not a diagnostic procedure and should not be used as the sole means of detecting cervical cancer. Both false-positive and false-negative reports do occur. . Performed By: #### [id number] #### [facility] [address] [place] [address] Dr. Ashley Castaneda Performed by: Comment Normal [facility] Comment on above: Result Comment: Marialuisa Mo, Dining Room Supervisor (ASCP) Performed By: #### [id number] #### [facility] [address] [place] [address] Dr. Ashley Castaneda Reflex Criteria: Comment Normal [facility] Comment on above: Result Comment: The HPV DNA reflex criteria were not met with this specimen result therefore, no HPV testing was performed. . Performed By: #### [id number] #### [facility] [address] [place] [address] Dr. Ashley Castaneda Specimen adequacy: Comment Normal [facility] Comment on above: Result Comment: Sati sfactory for evaluation. No endocervical component is identified. Performed By: #### [id number] #### [facility] [address] [place] [address] Dr. Ashley Castaneda CHLAMYDIA/GONOCOCCUS LANE (SW AB/URINE/PAPon 08-22-[address]ydia trachomatis, LANE Negative Normal Negative [facility] Comment on above: Performed By: #### H BSANS #### [facility] [address] [place] [address] Dr. Ashley Castaneda Neisseria gonorrhoeae, LANE Negative Normal Negative [facility] Comment on above: Performed By: #### H BSANS #### [facility] [address] [place] [address] Dr. Ashley Castaneda VAGINITIS/VAGINOSIS DNA PROB Stephon 08-21-2022 Brina species Negative Normal Negative [facility] Comment on above: Performed By: #### V AGINT #### [facility] [address] [address] [address] Ashley Castaneda Gardnerella vaginalis Negative Normal Negative [facility] Comment on above: Performed By: #### V AGINT #### [facility] [address] [address] [address] Ashley Castaneda Trichomonas vaginalis Negative Normal Negative [facility] Comment on above: Performed By: #### V AGINT #### [facility] [address] [address] [address] Ashley Castaneda US PREG PLACENTAon 2 [...] ASPEN KIRKLAND Date: 2022-08-20 06:34 Normal [facility] GTT 3 HR PREGon 08-09-2022 Glucose [Mass/Vol] 96 mg/dL Normal 74-106 [facility] Comment on above: Performed By: #### G TT3P #### [facility] [address] [place] [address] Dr. Ashley Castaneda Glucose [Mass/Vol] 155 mg/dL Normal [facility] Comment on above: Performed By: #### G TT3P #### [facility] [address] [address] [address] Ashley Castaneda Glucose [Mass/Vol] 141 mg/dL Normal [facility] Comment on above: Performed By: #### G TT3P #### [facility] [address] [place] [address] Dr. Ashley Castaneda Glucose [Mass/Vol] 129 mg/dL Normal [facility] Comment on above: Performed By: #### G TT3P #### [facility] [address] [address] [address] Ashley Castaneda CBC AUTO DIFFon 08-02-2022 BASO # 0.1 103/ul Normal 0.0-0.1 [facility] Comment on above: Performed By: #### B MP #### [facility] [address] [address] [address] Ashley Castaneda Basophils/100 WBC (Bld) 0.6 % Normal 0.2-2.0 [facility] Comment on above: Performed By: #### B MP #### [facility] [address] [address] [address] Ashley Castaneda EO # 0.1 103/ul Normal 0.0-0.7 [facility] Comment on above: Performed By: #### B MP #### [facility] [address] [place] [address] Dr. Ashley Castaneda Eosinophils/100 WBC (Bld) 0.9 % Normal 0.9-7.0 [facility] Comment on above: Performed By: #### B MP #### [facility] [address] [place] [address] Dr. Ashley Castaneda Erythrocyte distribution width (RBC) [Ratio] 13.4 % Normal 11.0-15.0 [facility] Comment on above: Performed By: #### B MP #### [facility] [address] [place] [address] Dr. Ashley Castaneda Hematocrit (Bld) [Volume fraction] 36.2 % Normal 36.0-48.0 [facility] Comment on above: Performed By: #### B MP #### [facility] [address] [place] [address] Dr. Ashley Castaneda Hemoglobin (Bld) [Mass/Vol] 12.6 g/dL Normal 12.0-16.0 [facility] Comment on above: Performed By: #### B MP #### [facility] [address] [place] [address] Dr. Ashley Castaneda IG # 0.18 10e3/ul Critically high 0.00-0.03 [facility] Comment on above: Performed By: #### B MP #### [facility] [address] [place] [address] Dr. Ashley Castaneda IG % 1.7 % Critically high 0.0-0.5 [facility] Comment on above: Performed By: #### B MP #### [facility] [address] [place] [address] Dr. Ashley Castaneda LYMPH # 1.7 103/ul Normal 1.2-3.8 [facility] Comment on above: Performed By: #### B MP #### [facility] [address] [place] [address] Dr. Ashley Castaneda Lymphocytes/100 WBC (Bld) 16.6 % Critically low 20.5-6 0.0 [facility] Comment on above: Performed By: #### B MP #### [facility] [address] [place] [address] Dr. Ashley Castaneda MANUAL DIFF REQ NO Normal [facility] Comment on above: Performed By: #### B MP #### [facility] [address] [place] [address] Dr. Ashley Castaneda MCH (RBC) [Entitic mass] 30.3 pg Normal 26.7-34.0 [facility] Comment on above: Performed By: #### B MP #### [facility] [address] [place] [address] Dr. Ashley Castaneda MCHC (RBC) [Mass/Vol] 34.8 g/dL Normal 29.9-35.2 [facility] Comment on above: Performed By: #### B MP #### [facility] [address] [place] [address] Dr. Ashley Castaneda MCV (RBC) [Entitic vol] 87.0 fL Normal 81.0-99.0 [facility] Comment on above: Performed By: #### B MP #### [facility] [address] [place] [address] Dr. Ashley Castaneda MONO # 0.7 103/ul Normal 0.3-0.8 [facility] Comment on above: Performed By: #### B MP #### [facility] [address] [place] [address] Dr. Ashley Castaneda Monocytes/100 WBC (Bld) 6.8 % Normal 1.7-12.0 [facility] Comment on above: Performed By: #### B MP #### [facility] [address] [address] [address] Ashley Castaneda NEUT # 7.7 103/ul Critically high 1.4-6.5 [facility] Comment on above: Performed By: #### B MP #### [facility] [address] [address] [address] Ashley Castaneda Neutrophils/100 WBC (Bld) 73.4 % Normal 43.0-75.0 [facility] Comment on above: Performed By: #### B MP #### [facility] [address] [place] [address] Dr. Ashley Castaneda Platelet mean volume (Bld) [Entitic vol] 10.1 fL Normal 9.5-13.5 [facility] Comment on above: Performed By: #### B MP #### [facility] [address] [address] [address] Ashley Castaneda PLT 232 103/ul Normal 150-450 [facility] Comment on above: Performed By: #### B MP #### [facility] [address] [place] [address] Dr. Ashley Castaneda RBC 4.16 106/ul Critically low 4.20-5.40 [facility] Comment on above: Performed By: #### B MP #### [facility] [address] [address] [address] Ashley Castaneda WBC 10.5 103/ul Normal 4.0-11.0 [facility] Comment on above: Performed By: #### B MP #### [facility] [address] [address] [address] Ashley Castaneda GLUCOSE - 1HRon 08-02-2022 Glucose [Mass/Vol] 152 mg/dL Critically high 74-106 [facility] Comment on above: Performed By: #### V AGINT #### [facility] [address] [place] [address] Dr. Ashley Castaneda AFP MATERNAL FOR SPINA BIFID Aon 2022 AFP MoM 0.45 Normal [facility] Comment on above: Performed By: #### A FPMAT #### [facility] [address] [address] [address] Ashley Castaneda AFP Value 22.5 ng/mL Normal [facility] Comment on above: Performed By: #### A FPMAT #### [facility] [address] [address] [address] Ashley Castaneda AFP, Serum for Spina Bifida Report Normal [facility] Comment on above: Performed By: #### A FPMAT #### [facility] [address] [address] [address] Ashley Castaneda Comment Comment Normal [facility] Comment on above: Result Comment: Duncan Koo, Ph.D., [facility] Director . References: Available Upon Request. . Multiples Of Median Cutoffs For AFP Elevations Chavez 2.5 Black 2.8 IDD 2.0 Twins 4.5 Abbreviation Definitions IDD - Insulin Dep Diabetes OSBR - Open Spina Bifida Risk . For further inquiries contact [employer] [facility] at [phone]. . This test was developed and its performance characteristics determined by [facility]. It has not been cleared or approved by the Food and Drug Administration. Performed By: #### A FPMAT #### [facility] [address] [place] [address] Dr. Ashley Morin Age Collection Date 20.0 weeks Normal [facility] Comment on above: Performed By: #### A FPMAT #### [facility] [address] [place] [address] Dr. Ashley Castaneda Gestat, Age Based on ANTONIO [facility] Comment on above: Result Comment: 05/2023 Recalculations are not recommended when gestational dating by LMP and ultrasound are within 10 days. Performed By: #### A FPMAT #### [facility] [address] [place] [address] Dr. Ashley Castaneda Insulin Dep Diabetes No Normal [facility] Comment on above: Performed By: #### A FPMAT #### [facility] [address] [place] [address] Dr. Ashley Castaneda Interpretation Comment Normal [facility] Comment on above: Result Comment: [...] Customer Services to discuss available options. The [employer] recommends amniocentesis be offered to women age 35 and older. Performed By: #### A FPMAT #### [facility] [address] [place] [address] Dr. Ashley Castaneda [age] Normal [facility] Comment on above: Performed By: #### A FPMAT #### [facility] [address] [place] [address] Dr. Ashley Castaneda Multiple Gestation No Normal [facility] Comment on above: Performed By: #### A FPMAT #### [facility] [address] [place] [address] Dr. Ashley Castaneda OSBR [place] 1 [place] [address] Normal [facility] Comment on above: Performed By: #### A FPMAT #### [facility] [address] [place] [address] Dr. Ashley Castaneda PDF . Normal [facility] Comment on above: Performed By: #### A FPMAT #### [facility] [address] [place] [address] Dr. Ashley Castaneda Race Normal [facility] Comment on above: Performed By: #### A FPMAT #### [facility] [address] [place] [address] Dr. Ashley Castaneda Test Results: Negative Normal [facility] Comment on above: Performed By: #### A FPMAT #### [facility] [address] [place] [address] Dr. Ashley Castaneda PREG ANATOMY SINGLEon US [...] by: YENI LINO Date: 2022-07-03 16:45 Normal [facility] HEP B SURFACE ANTIGEN SCREEN on 05-01-2022 HBsAg Screen Negative Normal Negative [facility] Comment on above: Performed By: #### H BSANS #### [facility] [address] [place] [address] Dr. Ashley Castaneda HEPATITIS C VIRUS AB W/ REFL EX QUANTon 05-01-2022 HCV AB <0.1 Normal 0.0-0.9 [facility] Comment on above: Performed By: #### V AGINT #### [facility] [address] [place] [address] Dr. Ashley Castaneda Interpretation: Comment Normal [facility] Comment on above: Result Comment: Nega tive Not infected with HCV, unless recent infection is suspected or other evidence exists to indicate HCV infection. Performed By: #### V AGINT #### [facility] [address] [place] [address] Dr. Ashley Castaneda HIV 1 AND 2 WITH REFLEXon HIV Screen 4th Generation wRfx Non-Reactive Normal Non Reactive [facility] Comment on above: Result Comment: HIV Negative HIV-1/HIV-2 antibodies and HIV-1 p24 antigen were NOT detected. There is no laboratory evidence of HIV infection. Performed By: #### B MP #### [facility] [address] [place] [address] Dr. Ashley Castaneda RPR QUANTon 05-01-2022 Rapid Plasma Reagin, Quant Non-Reactive Normal NonRea< 1:1 [facility] Comment on above: Result Comment: Plea se Note: This test does not meet current guidelines for screening and diagnosis of syphilis. This test is intended for following treatment response in patients being treated for syphilis infection. To screen for syphilis infection, a reflex cascade that includes both RPR and a treponema-specific assay should be utilized, such as Treponema pallidum (Syphilis) Screening [place] (379187) or Rapid Plasma Reagin (RPR) Test With Reflex to Quantitative RPR and Confirmatory Treponema pallidum Antibodies (733889). Performed By: #### B MP #### [facility] [address] [place] [address] Dr. Ashley Castaneda RUBELLA AB IGGon 05-01-2022 Rubella Antibodies, IgG 4.62 index Normal Immune >0.99 [facility] Comment on above: Result Comment: Non- immune <0.90 Equivocal 0.90 - 0.99 Immune >0.99 Performed By: #### B MP #### [facility] [address] [place] [address] Dr. Ashley Castaneda CBC AUTO DIFFon 04-30-2022 BASO # 0.0 103/ul Normal 0.0-0.1 [facility] Comment on above: Performed By: #### H BSANS #### [facility] [address] [address] [address] Ashley Castaneda Basophils/100 WBC (Bld) 0.3 % Normal 0.2-2.0 [facility] Comment on above: Performed By: #### H BSANS #### [facility] [address] [address] [address] Ashley Castaneda EO # 0.1 103/ul Normal 0.0-0.7 [facility] Comment on above: Performed By: #### H BSANS #### [facility] [address] [address] [address] Ashley Castaneda Eosinophils/100 WBC (Bld) 0.9 % Normal 0.9-7.0 [facility] Comment on above: Performed By: #### H BSANS #### [facility] [address] [place] [address] Dr. Ashley Castaneda Erythrocyte distribution width (RBC) [Ratio] 12.2 % Normal 11.0-15.0 [facility] Comment on above: Performed By: #### H BSANS #### [facility] [address] [address] [address] Ashley Castaneda Hematocrit (Bld) [Volume fraction] 40.5 % Normal 36.0-48.0 [facility] Comment on above: Performed By: #### H BSANS #### [facility] [address] [place] [address] Dr. Ashley Castaneda Hemoglobin (Bld) [Mass/Vol] 14.0 g/dL Normal 12.0-16.0 [facility] Comment on above: Performed By: #### H BSANS #### [facility] [address] [address] [address] Ashley Castaneda IG # 0.08 10e3/ul Critically high 0.00-0.03 [facility] Comment on above: Performed By: #### H BSANS #### [facility] [address] [address] [address] Ashley Castaneda IG % 0.8 % Critically high 0.0-0.5 [facility] Comment on above: Performed By: #### H BSANS #### [facility] [address] [address] [address] Ashley Castaneda LYMPH # 1.9 103/ul Normal 1.2-3.8 [facility] Comment on above: Performed By: #### H BSANS #### [facility] [address] [address] [address] Ashley Castaneda Lymphocytes/100 WBC (Bld) 19.4 % Critically low 20.5-6 0.0 [facility] Comment on above: Performed By: #### H BSANS #### [facility] [address] [address] [address] Ashley Castaneda MANUAL DIFF REQ NO Normal [facility] Comment on above: Performed By: #### H BSANS #### [facility] [address] [address] [address] Ashley Castaneda MCH (RBC) [Entitic mass] 30.9 pg Normal 26.7-34.0 [facility] Comment on above: Performed By: #### H BSANS #### [facility] [address] [address] [address] Ashley Castaneda MCHC (RBC) [Mass/Vol] 34.6 g/dL Normal 29.9-35.2 [facility] Comment on above: Performed By: #### H BSANS #### [facility] [address] [address] [address] Ashley Castaneda MCV (RBC) [Entitic vol] 89.4 fL Normal 81.0-99.0 [facility] Comment on above: Performed By: #### H BSANS #### [facility] [address] [address] [address] Ashley Castaneda MONO # 0.8 103/ul Normal 0.3-0.8 [facility] Comment on above: Performed By: #### H BSANS #### [facility] [address] [address] [address] Ashley Castaneda Monocytes/100 WBC (Bld) 8.4 % Normal 1.7-12.0 [facility] Comment on above: Performed By: #### H BSANS #### [facility] [address] [address] [address] Ashley Castaneda NEUT # 7.0 103/ul Critically high 1.4-6.5 [facility] Comment on above: Performed By: #### H BSANS #### [facility] [address] [address] [address] Ashley Castaneda Neutrophils/100 WBC (Bld) 70.2 % Normal 43.0-75.0 [facility] Comment on above: Performed By: #### H BSANS #### [facility] [address] [address] [address] Ashley Castaneda Platelet mean volume (Bld) [Entitic vol] 10.1 fL Normal 9.5-13.5 [facility] Comment on above: Performed By: #### H BSANS #### [facility] [address] [place] [address] Dr. Ashley Castaneda PLT 234 103/ul Normal 150-450 [facility] Comment on above: Performed By: #### H BSANS #### [facility] [address] [address] [address] Ashley Castaneda RBC 4.53 106/ul Normal 4.20-5.40 [facility] Comment on above: Performed By: #### H BSANS #### [facility] [address] [address] [address] Ashley Castaneda WBC 10.0 103/ul Normal 4.0-11.0 [facility] Comment on above: Performed By: #### H BSANS #### [facility] [address] [place] [address] Dr. Ashley Castaneda CULTURE URINEon 04-30-2022 CULTURE URINE Culture Observations: NO GROWTH. Normal [facility] Comment on above: Performed By: #### H BSANS #### [facility] [address] [place] [address] Dr. Ashley Castaneda GLYCOHEMOGLOBIN A1Con 2021 ADA RECOMMENDATION SEE BELOW Normal [facility] Comment on above: Result Comment: ADA RECOMMENDED LIMIT 4.0 - 6.0 ADA THERAPEUTIC TARGET < 7.0 ACTION SUGGESTED > 7.0 Performed By: #### A FPMAT #### [facility] [address] [address] [address] Ashley Castaneda Glucose [Mass/Vol] 100 mg/dL Normal [facility] Comment on above: Performed By: #### A FPMAT #### [facility] [address] [address] [address] Ashley Castaneda HbA1c (Bld) [Mass fraction] 5.1 % Normal 4.5-6.2 [facility] Comment on above: Performed By: #### A FPMAT #### [facility] [address] [place] [address] Dr. Ashley Castaneda DELILAH BOX TEST PT SEND OUTo n 04-30-2022 SENT TO REF LAB 04/30/2022 Normal [facility] Comment on above: Performed By: #### V AGINT #### [facility] [address] [place] [address] Dr. Ashley Castaneda TYPE AND SCREENon 04-30-2022 TYPE AND SCREEN Negative Normal [facility] Comment on above: Performed By: #### T NS #### [facility] [address] [place] [address] Dr. Ashley Castaneda GENITAL CULTUREon 04-23-2022 Genital Culture, Routine Final report Normal [facility] Comment on above: Result Comment: Spec imen stability note: A swab transport (ie., ESwab, Amies agar gel) received by the lab more than 24 hours after collection may result in reduced recovery of Neisseria gonorrhoeae (GC). (This is informational only and may not apply to this specimen.) Performed By: #### G TT3P #### [facility] [address] [place] [address] Dr. Ashley Castaneda Result 1 Comment Normal [facility] Comment on above: Result Comment: Rout ine genital jordan. Performed By: #### G TT3P #### [facility] [address] [place] [address] Dr. Ashley Castaneda US PREG TVon 04-22-2022 [...] YENI LINO Date: 2022-04-22 18:29 Normal [facility] ABO AND RH TYPEon 04-16-2022 ABO and Rh group Nom (Bld) ABO Rh Typing A Rh Positive Normal [facility] Comment on above: Performed By: #### H BSANS #### [facility] [address] [place] [address] Dr. Ashley Castaneda CBC AUTO DIFFon 04-16-2022 BASO # 0.0 103/ul Normal 0.0-0.1 [facility] Comment on above: Performed By: #### H BSANS #### [facility] [address] [place] [address] Dr. Ashley Castaneda Basophils/100 WBC (Bld) 0.2 % Normal 0.2-2.0 [facility] Comment on above: Performed By: #### H BSANS #### [facility] [address] [place] [address] Dr. Ashley Castaneda EO # 0.1 103/ul Normal 0.0-0.7 [facility] Comment on above: Performed By: #### H BSANS #### [facility] [address] [place] [address] Dr. Ashley Castaneda Eosinophils/100 WBC (Bld) 0.5 % Critically low 0.9-7. 0 [facility] Comment on above: Performed By: #### H BSANS #### [facility] [address] [place] [address] Dr. Ashley Castaneda Erythrocyte distribution width (RBC) [Ratio] 12.0 % Normal 11.0-15.0 [facility] Comment on above: Performed By: #### H BSANS #### [facility] [address] [place] [address] Dr. Ashley Castaneda Hematocrit (Bld) [Volume fraction] 40.2 % Normal 36.0-48.0 [facility] Comment on above: Performed By: #### H BSANS #### [facility] [address] [place] [address] Dr. Ashley Castaneda Hemoglobin (Bld) [Mass/Vol] 13.8 g/dL Normal 12.0-16.0 [facility] Comment on above: Performed By: #### H BSANS #### [facility] [address] [place] [address] Dr. Ashley Castaneda IG # 0.07 10e3/ul Critically high 0.00-0.03 [facility] Comment on above: Performed By: #### H BSANS #### [facility] [address] [place] [address] Dr. Ashley Castaneda IG % 0.5 % Normal 0.0-0.5 [facility] Comment on above: Performed By: #### H BSANS #### [facility] [address] [place] [address] Dr. Ashley Castaneda LYMPH # 2.7 103/ul Normal 1.2-3.8 [facility] Comment on above: Performed By: #### H BSANS #### [facility] [address] [place] [address] Dr. Ashley Castaneda Lymphocytes/100 WBC (Bld) 19.8 % Critically low 20.5-6 0.0 [facility] Comment on above: Performed By: #### H BSANS #### [facility] [address] [place] [address] Dr. Ashley Castaneda MANUAL DIFF REQ NO Normal [facility] Comment on above: Performed By: #### H BSANS #### [facility] [address] [place] [address] Dr. Ashley Castaneda MCH (RBC) [Entitic mass] 30.7 pg Normal 26.7-34.0 [facility] Comment on above: Performed By: #### H BSANS #### [facility] [address] [place] [address] Dr. Ashley Castaneda MCHC (RBC) [Mass/Vol] 34.3 g/dL Normal 29.9-35.2 [facility] Comment on above: Performed By: #### H BSANS #### [facility] [address] [place] [address] Dr. Ashley Castaneda MCV (RBC) [Entitic vol] 89.5 fL Normal 81.0-99.0 [facility] Comment on above: Performed By: #### H BSANS #### [facility] [address] [place] [address] Dr. Ashley Castaneda MONO # 1.0 103/ul Critically high 0.3-0.8 [facility] Comment on above: Performed By: #### H BSANS #### [facility] [address] [place] [address] Dr. Ashley Castaneda Monocytes/100 WBC (Bld) 7.7 % Normal 1.7-12.0 [facility] Comment on above: Performed By: #### H BSANS #### [facility] [address] [place] [address] Dr. Ashley Castaneda NEUT # 9.6 103/ul Critically high 1.4-6.5 [facility] Comment on above: Performed By: #### H BSANS #### [facility] [address] [place] [address] Dr. Ashley Castaneda Neutrophils/100 WBC (Bld) 71.3 % Normal 43.0-75.0 [facility] Comment on above: Performed By: #### H BSANS #### [facility] [address] [place] [address] Dr. Ashley Castaneda Platelet mean volume (Bld) [Entitic vol] 10.2 fL Normal 9.5-13.5 [facility] Comment on above: Performed By: #### H BSANS #### [facility] [address] [place] [address] Dr. Ashley Castaneda PLT 243 103/ul Normal 150-450 [facility] Comment on above: Performed By: #### H BSANS #### [facility] [address] [place] [address] Dr. Ashley Castaneda RBC 4.49 106/ul Normal 4.20-5.40 [facility] Comment on above: Performed By: #### H BSANS #### [facility] [address] [place] [address] Dr. Ashley Castaneda WBC 13.5 103/ul Critically high 4.0-11.0 [facility] Comment on above: Performed By: #### H BSANS #### [facility] [address] [place] [address] Dr. Ashley Castaneda ER URINE PROFILEon 2 Bilirubin Ql (U) Negative Normal NEGATIVE [facility] Comment on above: Performed By: #### A FPMAT #### [facility] [address] [place] [address] Dr. Ashley Castaneda Clarity (U) CLEAR Normal CLEAR [facility] Comment on above: Performed By: #### A FPMAT #### [facility] [address] [place] [address] Dr. Ashley Castaneda Color (U) LT. YELLOW Normal YELLOW [facility] Comment on above: Performed By: #### A FPMAT #### [facility] [address] [place] [address] Dr. Ashley SUMMERSSarah A micrscopic examination will be performed if indicated. Normal [facility] Comment on above: Performed By: #### A FPMAT #### [facility] [address] [place] [address] Dr. Ashley Castaneda Glucose Ql (U) Negative Normal NEGATIVE [facility] Comment on above: Performed By: #### A FPMAT #### [facility] [address] [place] [address] Dr. Ashley Castaneda Hemoglobin Ql (U) Negative Normal NEGATIVE The [facility] Comment on above: Performed By: #### A FPMAT #### [facility] [address] [place] [address] Dr. Ashley Castaneda Ketones Ql (U) Negative Normal NEGATIVE [facility] Comment on above: Performed By: #### A FPMAT #### [facility] [address] [place] [address] Dr. Ashley Castaneda LEUKOCYTES Negative Normal NEGATIVE [facility] Comment on above: Performed By: #### A FPMAT #### [facility] [address] [place] [address] Dr. Ashley Castaneda Nitrite Ql (U) Negative Normal NEGATIVE [facility] Comment on above: Performed By: #### A FPMAT #### [facility] [address] [place] [address] Dr. Ashley Castaneda pH (U) 6.0 [pH] Normal 5-9 [facility] Comment on above: Performed By: #### A FPMAT #### [facility] [address] [place] [address] Dr. Ashley Castaneda SPEC GRAVITY 1.025 Normal 1.005-<=1.02 5 [facility] Comment on above: Performed By: #### A FPMAT #### [facility] [address] [place] [address] Dr. Ashley Castaneda UA PROTEIN Negative Normal NEGATIVE/ TRACE [facility] Comment on above: Performed By: #### A FPMAT #### [facility] [address] [place] [address] Dr. Ashley Castaneda UR MICRO IND NOT INDICATED Normal [facility] Comment on above: Performed By: #### A FPMAT #### [facility] [address] [place] [address] Dr. Ashley Castaneda Urobilinogen Qn (U) 0.2 {Dorothy'U}/dL Normal 0.2 - 1. 0 [facility] Comment on above: Performed By: #### A FPMAT #### [facility] [address] [place] [address] Dr. Ashley Castaneda HCG,Quantitativeon 2 HCG,Quantitative 488132.00 m[iU]/mL Normal [facility] Comment on above: Order Comment: LISA Mirlande FAX TO [phone] Result Comment: Appr oximate Approximate hCG Gestational Age Range (mIU/ml) (weeks) 0.2-1 5-50 1-2 50-500 2-3 100-5,000 3-4 500-10,000 4-5 1,000-50,000 5-6 10,000-100,000 6-8 15,000-200,000 8-12 10,000-100,000 PERFORMED BY: [place] [address] PATHOLOGIST PETROLOGY TEACHER KASSANDRA JONES M.D. Performed By: #### H CGQNT #### [place] [address] [place] PREG QUANT HCGon 04-16-2022 HCG QUANT 358590 mIU/mL Normal [facility] Comment on above: Performed By: #### B MP #### [facility] [address] [place] [address] Dr. Ashley Castaneda HCG RANGE SEE BELOW Normal [facility] Comment on above: Result Comment: 5-50 0.2-1 WEEK 50-500 1-2 WEEKS 100-5,000 2-3 WEEKS 500-10,000 3-4 WEEKS 1,000-50,000 4-5 WEEKS 10,000-100,000 5-6 WEEKS 15,000-200,000 6-8 WEEKS 10,000-100,000 2-3 MONTHS Performed By: #### B MP #### [facility] [address] [address] [address] Ashley Castaneda Result Comment: TEST PERFORMED AT: [facility] [address] [place] [address] URon 04-16-2022 , QUAL Positive Abnormal NEGATIVE [facility] Comment on above: Performed By: #### A FPMAT #### [facility] [address] [place] [address] Dr. Ashley Castaneda PROF CHEM 8 (BAS METB)on Anion gap [Moles/Vol] 13.3 mmol/L Normal Th e [facility] Comment on above: Performed By: #### B MP #### [facility] [address] [address] [address] Ashley Castaneda Calcium [Mass/Vol] 9.4 mg/dL Normal 8.5-10.1 [facility] Comment on above: Performed By: #### B MP #### [facility] [address] [address] [address] Ashley Castaneda Chloride [Moles/Vol] 101 mmol/L Normal 98-107 [facility] Comment on above: Performed By: #### B MP #### [facility] [address] [address] [address] Ashley Castaneda CO2 [Moles/Vol] 26.8 mmol/L Normal 21.0-32.0 [facility] Comment on above: Performed By: #### B MP #### [facility] [address] [place] [address] Dr. Ashley Castaneda Creatinine [Mass/Vol] 0.70 mg/dL Normal 0.55-1.02 [facility] Comment on above: Performed By: #### B MP #### [facility] [address] [place] [address] Dr. Ashley Castaneda EGFR-AF ISRAELI >60 Normal >=60 [facility] Comment on above: Performed By: #### B MP #### [facility] [address] [place] [address] Dr. Ashley Castaneda EGFR-NON AF ISRAELI >60 Normal >=60 [facility] Comment on above: Performed By: #### B MP #### [facility] [address] [address] [address] Ashley Castaneda Glucose [Mass/Vol] 99 mg/dL Normal 74-106 [facility] Comment on above: Performed By: #### B MP #### [facility] [address] [place] [address] Dr. Ashley Castaneda Potassium [Moles/Vol] 4.1 mmol/L Normal 3.5-5.1 [facility] Comment on above: Performed By: #### B MP #### [facility] [address] [place], [place] [address] Dr. Ashley Castaneda Sodium [Moles/Vol] 137 mmol/L Normal 136-145 [facility] Comment on above: Performed By: #### B MP #### [facility] [address] [place], [place] [address] Dr. Ashley Castaneda Urea nitrogen [Mass/Vol] 14.0 mg/dL Normal 7.0-18.0 [facility] Comment on above: Performed By: #### B MP #### [facility] [address] [place], [place] [address] Dr. Ashley Castaneda Urea nitrogen/Creatinine [Mass ratio] 20.0 mg/mg Normal [facility] Comment on above: Performed By: #### B MP #### [facility] [address], [place] [address] Dr. Ashley Castnaeda Serum or plasma beta choriog onadotropin measurement (units/volume)Ordered By: Stoney Good on 04-16-2022 HCG.beta subunit Qn 613913.00 m[IU]/mL [facility] Comment on above: Approximate Approxim ate hCG [...] ASPEN KIRKLAND Date: 2022-04-16 17:18 Normal [facility] WET PREPon 04-16-2022 CLUE CELLS NONE SEEN Normal NONE SEEN [facility] Comment on above: Performed By: #### B MP #### [facility] [address] [address] [address] Ashley Castaneda FUNGAL ELEMENTS NONE SEEN Normal NONE SEEN [facility] Comment on above: Performed By: #### B MP #### [facility] [address] [place] [address] Dr. Ashley Castaneda RBC -WET PREP NONE SEEN Normal NONE SEEN [facility] Comment on above: Performed By: #### B MP #### [facility] [address] [address] [address] Ashley Castaneda TRICHOMONAS NONE SEEN Normal NONE SEEN [facility] Comment on above: Performed By: #### B MP #### [facility] [address] [address] [address] Ashley Castaneda WBC- WET PREP RARE Abnormal NONE SEEN [facility] Comment on above: Performed By: #### B MP #### [facility] [address] [address] [address] Ashley Castaneda WET PREP BACTERIA FEW Abnormal NONE SEEN The [facility] Comment on above: Performed By: #### B MP #### [facility] [address] [place] [address] Dr. Ashley Castaneda PREG QUANT HCGon 03-13-2022 HCG QUANT 155 mIU/mL Normal [facility] Comment on above: Performed By: #### H BSANS #### [facility] [address] [place] [address] Dr. Ashley Castaneda HCG RANGE SEE BELOW Normal [facility] Comment on above: Result Comment: 5-50 0-1 WEEK 40-300 1-2 WEEKS 100-1,000 2-3 WEEKS 500-6,000 3-4 WEEKS 5,000-200,000 1-2 MONTHS 10,000-100,000 2-3 MONTHS 3,000-50,000 2ND TRIMESTER 1,000-50,000 3RD TRIMESTER Performed By: #### H BSANS #### [facility] [address] [address] [address] Ashley Castaneda PREG QUANT HCGon 03-11-2022 HCG QUANT 53 mIU/mL Normal [facility] Comment on above: Performed By: #### B MP #### [facility] [address] [address] [address] Ashley Castaneda HCG RANGE SEE BELOW Normal [facility] Comment on above: Result Comment: 5-50 0-1 WEEK 40-300 1-2 WEEKS 100-1,000 2-3 WEEKS 500-6,000 3-4 WEEKS 5,000-200,000 1-2 MONTHS 10,000-100,000 2-3 MONTHS 3,000-50,000 2ND TRIMESTER 1,000-50,000 3RD TRIMESTER Performed By: #### B MP #### [facility] [address] [place] [address] Dr. Ashley Castaneda DHEA SERUMon 01-29-2022 Dehydroepiandrosterone (DHEA) 459 ng/dL Normal 31-701 [facility] Comment on above: Result Comment: Age 2 [...] [birth year] Performed By: #### V AGINT #### [facility] [address] [place] [address] Dr. Ashley Castaneda DHEA-SULFATEon 01-17-2022 DHEA-Sulfate 292.0 ug/dL Normal 84.8-378.0 [facility] Comment on above: Performed By: #### V AGINT #### [facility] [address] [address] [address] Ashley Castaneda FSHon 01-17-2022 FSH 5.2 mIU/mL Normal [facility] Comment on above: Result Comment: Adul t Female: Follicular phase 3.5 - 12.5 Ovulation phase 4.7 - 21.5 Luteal phase 1.7 - 7.7 Postmenopausal 25.8 - 134.8 Performed By: #### B MP #### [facility] [address] [place] [address] Dr. Ashley Castaneda LUTEINIZING HORMONE (LH)on 0 01-17-2022 LH 7.5 mIU/mL Normal [facility] Comment on above: Result Comment: Adul t Female: Follicular phase 2.4 - 12.6 Ovulation phase 14.0 - 95.6 Luteal phase 1.0 - 11.4 Postmenopausal 7.7 - 58.5 Performed By: #### V AGINT #### [facility] [address] [place] [address] Dr. Ashley Castaneda CBC AUTO DIFFon 01-16-2022 BASO # 0.0 103/ul Normal 0.0-0.1 [facility] Comment on above: Performed By: #### A FPMAT #### [facility] [address] [place] [address] Dr. Ashley Castaneda Basophils/100 WBC (Bld) 0.5 % Normal 0.2-2.0 [facility] Comment on above: Performed By: #### A FPMAT #### [facility] [address] [place] [address] Dr. Ashley Castaneda EO # 0.0 103/ul Normal 0.0-0.7 [facility] Comment on above: Performed By: #### A FPMAT #### [facility] [address] [place] [address] Dr. Ashley Castaneda Eosinophils/100 WBC (Bld) 0.5 % Critically low 0.9-7. 0 [facility] Comment on above: Performed By: #### A FPMAT #### [facility] [address] [place] [address] Dr. Ashley Castaneda Erythrocyte distribution width (RBC) [Ratio] 12.3 % Normal 11.0-15.0 [facility] Comment on above: Performed By: #### A FPMAT #### [facility] [address] [place] [address] Dr. Ashley Castaneda Hematocrit (Bld) [Volume fraction] 43.0 % Normal 36.0-48.0 [facility] Comment on above: Performed By: #### A FPMAT #### [facility] [address] [place] [address] Dr. Ashley Castaneda Hemoglobin (Bld) [Mass/Vol] 14.7 g/dL Normal 12.0-16.0 [facility] Comment on above: Performed By: #### A FPMAT #### [facility] [address] [place] [address] Dr. Ashley Castaneda IG # 0.02 10e3/ul Normal 0.00-0.03 [facility] Comment on above: Performed By: #### A FPMAT #### [facility] [address] [place] [address] Dr. Ashley Castaneda IG % 0.4 % Normal 0.0-0.5 [facility] Comment on above: Performed By: #### A FPMAT #### [facility] [address] [place] [address] Dr. Ashley Castaneda LYMPH # 2.0 103/ul Normal 1.2-3.8 [facility] Comment on above: Performed By: #### A FPMAT #### [facility] [address] [place] [address] Dr. Ashley Castaneda Lymphocytes/100 WBC (Bld) 36.0 % Normal 20.5-60.0 [facility] Comment on above: Performed By: #### A FPMAT #### [facility] [address] [place] [address] Dr. Ashley Castaneda MANUAL DIFF REQ NO Normal [facility] Comment on above: Performed By: #### A FPMAT #### [facility] [address] [place] [address] Dr. Ashley Castaneda MCH (RBC) [Entitic mass] 30.6 pg Normal 26.7-34.0 [facility] Comment on above: Performed By: #### A FPMAT #### [facility] [address] [place] [address] Dr. Ashley Castaneda MCHC (RBC) [Mass/Vol] 34.2 g/dL Normal 29.9-35.2 [facility] Comment on above: Performed By: #### A FPMAT #### [facility] [address] [place] [address] Dr. Ashley Castaneda MCV (RBC) [Entitic vol] 89.6 fL Normal 81.0-99.0 [facility] Comment on above: Performed By: #### A FPMAT #### [facility] [address] [place] [address] Dr. Ashley Castaneda MONO # 0.4 103/ul Normal 0.3-0.8 [facility] Comment on above: Performed By: #### A FPMAT #### [facility] [address] [place] [address] Dr. Ashley Castaneda Monocytes/100 WBC (Bld) 7.9 % Normal 1.7-12.0 [facility] Comment on above: Performed By: #### A FPMAT #### [facility] [address] [place] [address] Dr. Ashley Castaneda NEUT # 3.0 103/ul Normal 1.4-6.5 [facility] Comment on above: Performed By: #### A FPMAT #### [facility] [address] [place] [address] Dr. Ashley Castaneda Neutrophils/100 WBC (Bld) 54.7 % Normal 43.0-75.0 [facility] Comment on above: Performed By: #### A FPMAT #### [facility] [address] [place] [address] Dr. Ashley Castaneda Platelet mean volume (Bld) [Entitic vol] 9.8 fL Normal 9.5-13.5 [facility] Comment on above: Performed By: #### A FPMAT #### [facility] [address] [place] [address] Dr. Ashley Castaneda PLT 266 103/ul Normal 150-450 [facility] Comment on above: Performed By: #### A FPMAT #### [facility] [address] [place] [address] Dr. Ashley Castaneda RBC 4.80 106/ul Normal 4.20-5.40 [facility] Comment on above: Performed By: #### A FPMAT #### [facility] [address] [address] [address] Ashley Castaneda WBC 5.5 103/ul Normal 4.0-11.0 [facility] Comment on above: Performed By: #### A FPMAT #### [facility] [address] [place] [address] Dr. Ashley Castaneda FREE T3on 01-16-2022 FREE T3 2.66 pg/mlL Normal 2.18-3.98 [facility] Comment on above: Performed By: #### V AGINT #### [facility] [address] [place] [address] Dr. Ashley Castaneda GLYCOHEMOGLOBIN A1Con 2021 ADA RECOMMENDATION SEE BELOW Normal [facility] Comment on above: Result Comment: ADA RECOMMENDED LIMIT 4.0 - 6.0 ADA THERAPEUTIC TARGET < 7.0 ACTION SUGGESTED > 7.0 Performed By: #### H BSANS #### [facility] [address] [place] [address] Dr. Ashley Castaneda Glucose [Mass/Vol] 100 mg/dL Normal [facility] Comment on above: Performed By: #### H BSANS #### [facility] [address] [place] [address] Dr. Ashley Castaneda HbA1c (Bld) [Mass fraction] 5.1 % Normal 4.5-6.2 [facility] Comment on above: Performed By: #### H BSANS #### [facility] [address] [place] [address] Dr. Ashley Castaneda TSHon 01-16-2022 TSH 1.242 uIU/mL Normal 0.358-3.740 [facility] Comment on above: Performed By: #### V AGINT #### [facility] [address] [place] [address] Dr. Ashley Castaneda TSH RANGE SEE BELOW Normal [facility] Comment on above: Result Comment: <0.3 4 UIU/ml HYPERTHYROID 0.34-5.60 UIU/ml EUTHYROID >5.60 UIU/ml HYPOTHYROID Performed By: #### V AGINT #### [facility] [address] [address] [address] Ashley Castaneda Vital Signs Date Time Vital Sign Value Performing Clinician Samra singh 2022 17:06-0400 Body weight 89.[address] ILIR DWYER . [facility] Comment on above: Performed By: #### A FPMAT #### [facility] [address] [address] [address] Ashley Castaneda Encounters Encounter Date Encounter [...] Departed Referred MD Swetha Phoenix Work Phone: [facility] [place] Start: 04-16-2022 End: 04-16-[address] DOCTOR [...] . Payers Date Payer Category Payer Unknown [id number] 2.16.84 [id number] 1996 Unknown [id number] 2.16.84 [id number] 1996 Unknown [id number] 2.16.84 0.1.953581.3.579.2.593 1996 Unknown [id number] 2.16.84 0.1.517725.3.579.2.593 1996 Unknown [id number] 2.16.84 0.1.462548.3.579.2.593 1996 Unknown [id number] 2.16.84 0.1.423643.3.579.2.593 1996 Unknown [id number] 2.16.84 0.1.058576.3.579.2.593 1996 Unknown [id number] 2.16.84 0.1.136264.3.579.2.593 1996 Unknown [id number] 2.16.84 0.1.847380.3.579.2.593 1996 Unknown [id number] 2.16.84 0.1.466019.3.579.2.593 1996 Unknown [id number] 2.16.84 0.1.162029.3.579.2.593 1996 Unknown [id number] 2.16.84 0.1.929866.3.579.2.593 1996 Unknown [id number] 2.16.84 0.1.756785.3.579.2.593 1996 Unknown [id number] 2.16.84 0.1.576863.3.579.2.593 1996 Unknown [id number] 2.16.84 0.1.387149.3.579.2.593 1996 Unknown [id number] 2.16.84 0.1.189301.3.579.2.593 1996 Unknown [id number] 2.16.84 0.1.191449.3.579.2.593 1996 Unknown [id number] 2.16.84 0.1.981755.3.579.2.593 1996 Unknown [id number] 2.16.84 0.1.219030.3.579.2.593 1996 Unknown [id number] 2.16.84 0.1.253271.3.579.2.593 1996 Unknown [id number] 2.16.84 0.1.626261.3.579.2.593 1996 Unknown [id number] 2.16.84 0.1.240445.3.579.2.593 1996 Unknown [id number] 2.16.84 0.1.112213.3.579.2.593 1959 Private Health Insurance [id number] Self-pay [id number] Unknown [id number] 2.16.84 0.1.375209.3.579.2.593 Social History Date Type Detail Facility Tobacco smoking stat [facility] Unknown if ever smoked [facility] Work Phone: Start: 1995 Sex Assigned At Female [facility] Evaluation note Note Date & Type Note Facility Evaluation note No assessment information availa ble [facility] Work Phone: Summary Purpose Family History No Family History Records FoundNo Family History Records Found Advance Directives No Advanced Directives Records Found Advance Directive Response Recorded Date/ Time Advance Directives No April 16 022 2:03am Chief Complaint and Reason for Visit Chief Complaint Additional Source Comments INFORMATION SOURCE (unrecogn ized section and content) DATE CREATED AUTHOR 04/26/2022 [facility] DATE CREATED AUTHOR AUTHOR'S ORGANIZ ATION 11/24/2022 [facility] Care Teams (unrecognized sec tion and [...] BE BASED ON THE PRIMARY CLINICAL RECORDS. [facility] [employer] [facility]. provides no warranty or guarantee of the accuracy or completeness of information in this document.
--- NOTE | 2023-12-18 10:34 | US_ITS ---
[address] [address] Patient Name: BRYON PONCE MRN: [id number] date: 1995 Sex: F Assigned Patient Location: [facility] Current Patient Location: [facility] Accession/Order Number: [id number] Exam Date: 12/18/2023 10:34 Report Date: 12/18/2023 11:24 At the request of: ILIR DWYER Procedure: US OB transvaginal EXAMINATION: US OB transvaginal HISTORY: MISSED MENSES COMPARISON: No relevant comparison available. FINDINGS: GESTATIONAL SAC: Present and normal appearing. YOLK SAC: Present and normal appearing. POLE: Present and normal appearing. CARDIAC: Present. UTERUS: Normal size and appearance. OVARIES: Right: Normal. Left: Normal. CERVIX: 3.9 cm in length and closed. CUL-DE-SAC: Normal. OTHER: None. AGE BY LMP: 10 weeks 1 day ANTONIO BY LMP: 07/14/2024 AGE BY US CRL: 9 weeks 5 days ANTONIO BY US CRL: 07/17/2024 US/US OB transvaginal IMPRESSION: 1. Single live intrauterine . Electronically authenticated by: ASPEN KIRKLAND Date: 12/18/2023 11:24
== END 2023-12-18 09:29 | disposition home or self-care (01) ==
LOC: NOMS 09:28
PROVIDERS: Visit Provider Obstetrics & Gynecology
DX: Z34.91 Encounter for supervision of normal pregnancy, unspecified, first trimester (principal); Z3A.10 10 weeks gestation of pregnancy
CPT/HCPCS: 76817

== ENCOUNTER 2023-12-18 11:28 | Outpatient (OUT) | payer OTHER, SELFPAY ==
[2023-12-18 12:43] LABS: Basophils Percent Auto 0.3 % (0.2-2.0); Eosinophils Percent Auto 0.3 % (0.9-7.0); Hematocrit 42.2 % (36.0-48.0); Hemoglobin 14.1 g/dL (12.0-16.0); Immature Granulocytes Abs Auto 0.03 10^3/uL (0.00-0.03); Immature Granulocytes Pct Auto 0.3 % (0.0-0.5); Lymphocytes Absolute Auto 1.9 10^3/uL (1.2-3.8); Lymphocytes Percent Auto 20.8 % (20.5-60.0); Mean Corpuscular HGB Conc 33.4 g/dL (29.9-35.2); Mean Corpuscular Hemoglobin 29.7 pg (26.7-34.0); Mean Corpuscular Volume 88.8 fL (81.0-99.0); Mean Platelet Volume 10.3 fL (9.5-13.5); Monocytes Absolute Auto 0.8 10^3/uL (0.3-0.8); Monocytes Percent Auto 8.4 % (1.7-12.0); Neutrophils Absolute Auto 6.3 10^3/uL (1.4-6.5); Neutrophils Percent Auto 69.9 % (43.0-75.0); Platelet Count 248 10^3/uL (150-450); Red Blood Count 4.75 10^6/uL (4.20-5.40); Red Cell Distribution Width 12.3 % (11.0-15.0)
[2023-12-18 12:59] LABS: Estimated Average Glucose 88 mg/dL; Glycohemoglobin A1C 4.7 % (4.5-6.2)
[2023-12-19 06:09] LABS: HBsAg Screen Negative (Negative); HCV Ab Non Reactive (Non Reactive); HIV Ab/p24 Ag Screen Non Reactive (Non Reactive); Rubella Antibodies, IgG 4.56 index (Immune >0.99)
[2023-12-19 12:08] LABS: Rapid Plasma Reagin, Quant Non Reactive titer (NonRea<1:1)
== END 2023-12-18 11:29 | disposition home or self-care (01) ==
LOC: LAB 11:30
PROVIDERS: Visit Provider Obstetrics & Gynecology
DX: Z36.0 Encounter for antenatal screening for chromosomal anomalies (principal); Z3A.10 10 weeks gestation of pregnancy
CPT/HCPCS: 36415; 76817; 83036; 85025; 86592; 86762; 86803; 86850; 86900; 86901; 87086; 87340; 87389

== ENCOUNTER 2024-02-15 20:52 | Outpatient (REF) | payer OTHER, SELFPAY ==
--- OUTSIDE RECORDS SUMMARY | 2024-02-15 20:58 | XMS_ITS ---
Patient Summarization (C-CDA 2.1 CCD) Created on: February 15, 2024 BRYON PONCE : 1995 Sex: Female Author Organization Sample organization Care Team Providers Care Inside Sales Coordinator Name Role Phone MD Swetha Phoenix Primary Care Provider MD Stoney Good Attending Provider YULIYA ., DR HAZEL Admitting Unavailable YULIYA ., DR HAZEL Attending Unavailable MISC, DR CHAMPION Primary Care Unavailable YULIYA ., DR HAZEL Consulting Unavailable ZIEBER, DR ASPEN Abrams Consulting Unavailable YULIYA ., DR HAZEL Admitting Unavailable YULIYA ., DR HAZEL Attending Unavailable MISC, DR CHAMPION Primary Care Unavailable KERBY, DR YENI Cuenca Consulting Unavailable YULIYA ., DR HAZEL Consulting Unavailable YULIYA ., DR HAZEL Admitting Unavailable YULIYA ., DR HAZEL Attending Unavailable [facility] Unava ilable YULIYA ., DR HAZEL Consulting Unavailable YULIYA ., DR HAZEL Admitting Unavailable YULIYA ., DR HAZEL Attending Unavailable [facility] Unava ilable YULIYA ., DR HAZEL Admitting Unavailable YULIYA ., DR HAZEL Attending Unavailable [facility] Unava ilable YULIYA ., DR HAZEL Consulting [...] Unavailable YULIYA ., DR HAZEL Attending Unavailable [facility] Unava ilable YULIYA ., DR HAZEL Consulting [...] Unavailable MISC, DR CHAMPION Primary Care Unavailable KERBY, DR YENI Cuenca Consulting Unavailable CASSANDRA ., [...] Unavailable YULIYA ., DR HAZEL Attending Unavailable [facility] Unava ilable YULIYA ., DR HAZEL Consulting Unavailable YULIYA ., DR HAZEL Admitting Unavailable YULIYA ., DR HAZEL Attending Unavailable [facility] Unavailable YULIYA ., DR HAZEL Admitting Unavailable YULIYA ., DR HAZEL Attending Unavailable [facility] Primary Care Unava ilable KERBY, DR YENI Cuenca Consulting Unavailable YULIYA ., DR HAZEL Consulting Unavailable YULIYA ., DR HAZEL Admitting Unavailable YULIYA ., DR HAZEL Attending Unavailable REQUEST, DR NONE LISTED Primary Care Unavaila ble YULIYA ., DR HAZEL Consulting Unavailable MIS, DR CHAMPION Primary Care Unavailable STONEY GOOD Admitting Unavailable STONEY GOOD Attending Unavailable STONEY GOOD Consulting Unavailable YULIYA ., DR HAZEL Admitting Unavailable YULIYA ., DR HAZEL Attending Unavailable [facility] Primary Care Unavailable YULIYA ., DR HAZLE Consulting Unavailable YULIYA ., DR HAZEL Procedure Practitioner Unavail able PHOENIX, SWETHA Primary Care Unavailable KARASIK ., DR COLON Admitting Unavailabl e KARASIK ., DR COLON Attending Unavailabl e KARASIK ., DR COLON Consulting Unavailabl e YULIYA ., DR HAZEL Consulting Unavailable YULIYA ., DR HAZEL Admitting Unavailable YULIYA ., DR HAZEL Attending Unavailable MIS, DOCTOR Primary Care Unavailable YULIYA ., DR HAZEL Consulting Unavailable YULIYA, ILIR Attending Unavailable Encounters Encounter Date Encounter Type Care Provider Facility Start: 01-18-2024 End: 01-18-2024 ambulatory ILIR DWYER Not Available Start: 12-18-2023 End: 12-18-2023 ambulatory ILIR DWYER Not Available Start: 11-11-2022 End: 11-11-[address] ILIR DWYER . Facility: Start: 11-04-2022 End: 11-06-2022 Evaluation and management of inpatient DR ILIR DWYER . Facility: Start: 10-23-2022 End: 10-24-2022 ambulatory SWETHA PHOENIX Facility:[facility] Start: 10-21-2022 End: 10-21-[address] ILIR DWYER . Facility: Start: 10-21-2022 End: 10-22-2022 ambulatory BHUMI TRUJILLO [...] Departed Referred MD Swetha Phoenix Work Phone: [facility] [place] Start: 04-16-2022 End: 04-16-[address] DOCTOR AVALOS Facility:[facility] Start: 03-13-2022 End: 03-14-[address] ILIR DWYER . Facility:[facility] Start: 03-11-2022 End: 03-12-[address] ILIR DWYER . Facility:[facility] Start: 01-16-2022 End: 01-17-[address] ILIR DWYER . Facility:[facility] Payers Date Payer Category Payer Unknown [id number] . [id number] 1995 Unknown [id number] 2..84 [id number] 1995 Unknown [id number] 2..84 0.1.935401.3.579.2.593 1996 Unknown [id number] 2..84 0.1.733867.3.579.2.593 1996 Unknown [id number] 2..84 0.1.723644.3.579.2.593 1996 Unknown [id number] 2..84 0.1.225275.3.579.2.593 1996 Unknown [id number] 2.16.84 0.1.159597.3.579.2.593 1996 Unknown [id number] 2.16.84 0.1.971962.3.579.2.593 1996 Unknown [id number] 2.16.84 0.1.943312.3.579.2.593 1996 Unknown [id number] 2.16.84 0.1.602973.3.579.2.593 1996 Unknown [id number] 2.16.84 0.1.522718.3.579.2.593 1996 Unknown [id number] 2.16.84 0.1.230655.3.579.2.593 1996 Unknown [id number] 2.16.84 0.1.879321.3.579.2.593 1996 Unknown [id number] 2.16.84 0.1.239549.3.579.2.593 1996 Unknown [id number] 2.16.84 0.1.629629.3.579.2.593 1996 Unknown [id number] 2.16.84 0.1.508317.3.579.2.593 1996 Unknown [id number] 2.16.84 0.1.328745.3.579.2.593 1996 Unknown [id number] 2.16.84 0.1.350630.3.579.2.593 1996 Unknown [id number] 2.16.84 0.1.197811.3.579.2.593 1996 Unknown [id number] 2.16.84 0.1.223057.3.579.2.593 1996 Unknown [id number] 2.16.84 0.1.830080.3.579.2.593 1996 Unknown [id number] 2.16.84 0.1.568162.3.579.2.593 1996 Unknown [id number] 2.16.84 0.1.527720.3.579.2.593 1996 Unknown [id number] 2.16.84 0.1.073279.3.579.2.1259 1996 Unknown [id number] 2.16.84 0.1.528093.3.579.2.1259 1958 Private Health Insurance [id number] Self-pay [id number] Unknown [id number] 2.16.84 0.1.957856.3.579.2.593 Problems Active Problems Problem Classification Problem Date [...] advice on procreation; Translations: [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 Results Test Name Value Interpretation Reference Range Facility CBC AUTO DIFFon 11-05-2022 BASO # 0.0 103/ul Normal 0.0-0.1 [facility] Comment on above: Performed By: #### V AGINT #### [facility] [address] [place] [address] Dr. Ashley Castaneda Basophils/100 WBC (Bld) 0.1 % Critically low 0.2-2.0 [facility] Comment on above: Performed By: #### V AGINT #### [facility] [address] [place] [address] Dr. Ashley Castaneda EO # 0.0 103/ul Normal 0.0-0.7 [facility] Comment on above: Performed By: #### V AGINT #### [facility] [address] [place] [address] Dr. Ashley Castaneda Eosinophils/100 WBC (Bld) 0.0 % Critically low 0.9-7. 0 [facility] Comment on above: Performed By: #### V AGINT #### [facility] [address] [address] [address] Ashley Castaneda Erythrocyte distribution width (RBC) [Ratio] 14.8 % Normal 11.0-15.0 [facility] Comment on above: Performed By: #### V AGINT #### [facility] [address] [place] [address] Dr. Ashley Castaneda Hematocrit (Bld) [Volume fraction] 35.5 % Critically low 36.0-48.0 [facility] Comment on above: Performed By: #### V AGINT #### [facility] [address] [address] [address] Ashley Castaneda Hemoglobin (Bld) [Mass/Vol] 11.8 g/dL Critically low 12.0-16.0 [facility] Comment on above: Performed By: #### V AGINT #### [facility] [address] [address] [address] Ashley Castaneda IG # 0.07 10e3/ul Critically high 0.00-0.03 [facility] Comment on above: Performed By: #### V AGINT #### [facility] [address] [address] [address] Ashley Castaneda IG % 0.5 % Normal 0.0-0.5 [facility] Comment on above: Performed By: #### V AGINT #### [facility] [address] [place] [address] Dr. Ashley Castaneda LYMPH # 1.7 103/ul Normal 1.2-3.8 [facility] Comment on above: Performed By: #### V AGINT #### [facility] [address] [place] [address] Dr. Ashley Castaneda Lymphocytes/100 WBC (Bld) 12.8 % Critically low 20.5-6 0.0 [facility] Comment on above: Performed By: #### V AGINT #### [facility] [address] [place] [address] Dr. Ashley Castaneda MANUAL DIFF REQ NO Normal [facility] Comment on above: Performed By: #### V AGINT #### [facility] [address] [place] [address] Dr. Ashley Castaneda MCH (RBC) [Entitic mass] 27.9 pg Normal 26.7-34.0 [facility] Comment on above: Performed By: #### V AGINT #### [facility] [address] [place] [address] Dr. Ashley Castaneda MCHC (RBC) [Mass/Vol] 33.2 g/dL Normal 29.9-35.2 [facility] Comment on above: Performed By: #### V AGINT #### [facility] [address] [address] [address] Ashley Castaneda MCV (RBC) [Entitic vol] 83.9 fL Normal 81.0-99.0 [facility] Comment on above: Performed By: #### V AGINT #### [facility] [address] [place] [address] Dr. Ashley Castaneda MONO # 1.3 103/ul Critically high 0.3-0.8 [facility] Comment on above: Performed By: #### V AGINT #### [facility] [address] [place] [address] Dr. Ashley Castaneda Monocytes/100 WBC (Bld) 9.7 % Normal 1.7-12.0 [facility] Comment on above: Performed By: #### V AGINT #### [facility] [address] [place] [address] Dr. Ashley Castaneda NEUT # 10.3 103/ul Critically high 1.4-6.5 [facility] Comment on above: Performed By: #### V AGINT #### [facility] [address] [place] [address] Dr. Ashley Castaneda Neutrophils/100 WBC (Bld) 76.9 % Critically high 43.0- 75.0 [facility] Comment on above: Performed By: #### V AGINT #### [facility] [address] [place] [address] Dr. Ashley Castaneda Platelet mean volume (Bld) [Entitic vol] 11.1 fL Normal 9.5-13.5 [facility] Comment on above: Performed By: #### V AGINT #### [facility] [address] [place] [address] Dr. Ashley Castaneda PLT 186 103/ul Normal 150-450 [facility] Comment on above: Performed By: #### V AGINT #### [facility] [address] [place] [address] Dr. Ashley Castaneda RBC 4.23 106/ul Normal 4.20-5.40 [facility] Comment on above: Performed By: #### V AGINT #### [facility] [address] [place] [address] Dr. Ashley Castaneda WBC 13.5 103/ul Critically high 4.0-11.0 [facility] Comment on above: Performed By: #### V AGINT #### [facility] [address] [place] [address] Dr. Ashley Castaneda CBC AUTO DIFFon 11-04-2022 BASO # 0.0 103/ul Normal 0.0-0.1 [facility] Comment on above: Performed By: #### B MP #### [facility] [address] [place] [address] Dr. Ashley Castaneda Basophils/100 WBC (Bld) 0.2 % Normal 0.2-2.0 [facility] Comment on above: Performed By: #### B MP #### [facility] [address] [place] [address] Dr. Ashley Castaneda EO # 0.0 103/ul Normal 0.0-0.7 [facility] Comment on above: Performed By: #### B MP #### [facility] [address] [place] [address] Dr. Ashley Castaneda Eosinophils/100 WBC (Bld) 0.1 % Critically low 0.9-7. 0 [facility] Comment on above: Performed By: #### B MP #### [facility] [address] [place] [address] Dr. Ashley Castaneda Erythrocyte distribution width (RBC) [Ratio] 14.6 % Normal 11.0-15.0 [facility] Comment on above: Performed By: #### B MP #### [facility] [address] [place] [address] Dr. Ashley Castaneda Hematocrit (Bld) [Volume fraction] 39.9 % Normal 36.0-48.0 [facility] Comment on above: Performed By: #### B MP #### [facility] [address] [place] [address] Dr. Ashley Castaneda Hemoglobin (Bld) [Mass/Vol] 13.6 g/dL Normal 12.0-16.0 [facility] Comment on above: Performed By: #### B MP #### [facility] [address] [address] [address] Ashley Castaneda IG # 0.06 10e3/ul Critically high 0.00-0.03 [facility] Comment on above: Performed By: #### B MP #### [facility] [address] [address] [address] Ashley Castaneda IG % 0.7 % Critically high 0.0-0.5 [facility] Comment on above: Performed By: #### B MP #### [facility] [address] [place] [address] Dr. Ashley Castaneda LYMPH # 1.6 103/ul Normal 1.2-3.8 [facility] Comment on above: Performed By: #### B MP #### [facility] [address] [place] [address] Dr. Ashley Castaneda Lymphocytes/100 WBC (Bld) 18.3 % Critically low 20.5-6 0.0 [facility] Comment on above: Performed By: #### B MP #### [facility] [address] [place] [address] Dr. Ashley Castaneda MANUAL DIFF REQ NO Normal [facility] Comment on above: Performed By: #### B MP #### [facility] [address] [place] [address] Dr. Ashley Castaneda MCH (RBC) [Entitic mass] 28.2 pg Normal 26.7-34.0 [facility] Comment on above: Performed By: #### B MP #### [facility] [address] [place] [address] Dr. Ashley Castaneda MCHC (RBC) [Mass/Vol] 34.1 g/dL Normal 29.9-35.2 [facility] Comment on above: Performed By: #### B MP #### [facility] [address] [place] [address] Dr. Ashley Castaneda MCV (RBC) [Entitic vol] 82.8 fL Normal 81.0-99.0 [facility] Comment on above: Performed By: #### B MP #### [facility] [address] [place] [address] Dr. Ashley Castaneda MONO # 0.8 103/ul Normal 0.3-0.8 [facility] Comment on above: Performed By: #### B MP #### [facility] [address] [place] [address] Dr. Ashley Castaneda Monocytes/100 WBC (Bld) 9.4 % Normal 1.7-12.0 [facility] Comment on above: Performed By: #### B MP #### [facility] [address] [place] [address] Dr. Ashley Castaneda NEUT # 6.3 103/ul Normal 1.4-6.5 [facility] Comment on above: Performed By: #### B MP #### [facility] [address] [place] [address] Dr. Ashley Castaneda Neutrophils/100 WBC (Bld) 71.3 % Normal 43.0-75.0 [facility] Comment on above: Performed By: #### B MP #### [facility] [address] [place] [address] Dr. Ashley Castaneda Platelet mean volume (Bld) [Entitic vol] 10.9 fL Normal 9.5-13.5 [facility] Comment on above: Performed By: #### B MP #### [facility] [address] [place] [address] Dr. Ashley Castanead PLT 216 103/ul Normal 150-450 [facility] Comment on above: Performed By: #### B MP #### [facility] [address] [place] [address] Dr. Ashley Castaneda RBC 4.82 106/ul Normal 4.20-5.40 [facility] Comment on above: Performed By: #### B MP #### [facility] [address] [place] [address] Dr. Ashley Castaneda WBC 8.9 103/ul Normal 4.0-11.0 [facility] Comment on above: Performed By: #### B MP #### [facility] [address] [place] [address] Dr. Ashley Castaneda DRUG SCREEN RAPID (URINE)on 11-04-2022 AMP Negative Normal NEGATIVE [facility] Comment on above: Performed By: #### A FPMAT #### [facility] [address] [place] [address] Dr. Ashley Castaneda BAR Negative Normal NEGATIVE [facility] Comment on above: Performed By: #### A FPMAT #### [facility] [address] [place] [address] Dr. Ashley Castaneda BUP Negative Normal NEGATIVE [facility] Comment on above: Performed By: #### A FPMAT #### [facility] [address] [place] [address] Dr. Ashley Castaneda BZO Negative Normal NEGATIVE [facility] Comment on above: Performed By: #### A FPMAT #### [facility] [address] [place] [address] Dr. Ashley Castaneda ROMELIA Negative Normal NEGATIVE [facility] Comment on above: Performed By: #### A FPMAT #### [facility] [address] [place] [address] Dr. Ashley Castaneda CUT-OFFS SEE BELOW Normal [facility] Comment on above: Result Comment: AMP (Amphetamine): 500ng/mL, BAR (Barbituates): 200 ng/mL, BZO (Benzodiazepines): 150 ng/mL, BUP (Buprenorphine): 10 ng/mL, ROMELIA (Cocaine): 150 ng/mL, mAMP (Methamphetamine): 500 ng/mL, MTD (Methadone): 200 ng/mL, OPI (Opiates): 100 ng/mL, OXY (Oxycodone): 100 ng/mL, PCP (Phencyclidine): 25 ng/mL, PPX (Propoxyphene): 300 ng/mL, THC (Cannabinoids): 50 ng/mL, TCA (Trycyclic Antidepressants): 300 ng/mL Performed By: #### A FPMAT #### [facility] [address] [place] [address] Dr. Ashley Castaneda DRUG CUT HEADER DRUG CLASS TEST SYSTEM CUT-OFF CONCENTRATIONS ARE FOLLOWS: Normal [facility] Comment on above: Performed By: #### A FPMAT #### [facility] [address] [place] [address] Dr. Ashley Castaneda mAMP Negative Normal NEGATIVE [facility] Comment on above: Performed By: #### A FPMAT #### [facility] [address] [address] [address] Ashley Castaneda MTD Negative Normal NEGATIVE [facility] Comment on above: Performed By: #### A FPMAT #### [facility] [address] [place] [address] Dr. Ashley Castaneda OPI Negative Normal NEGATIVE [facility] Comment on above: Performed By: #### A FPMAT #### [facility] [address] [place] [address] Dr. Ashley Castaneda OXY Negative Normal NEGATIVE [facility] Comment on above: Performed By: #### A FPMAT #### [facility] [address] [place] [address] Dr. Ashley Castaneda PCP Negative Normal NEGATIVE [facility] Comment on above: Performed By: #### A FPMAT #### [facility] [address] [place] [address] Dr. Ashley Castaneda PPX Negative Normal NEGATIVE [facility] Comment on above: Performed By: #### A FPMAT #### [facility] [address] [place] [address] Dr. Ashley Castaneda TCA Negative Normal NEGATIVE [facility] Comment on above: Performed By: #### A FPMAT #### [facility] [address] [place] [address] Dr. Ashley Castaneda THC Negative Normal NEGATIVE [facility] Comment on above: Performed By: #### A FPMAT #### [facility] [address] [place] [address] Dr. Ashley Castaneda TYPE AND SCREENon 11-04-2022 TYPE AND SCREEN Negative Normal [facility] Comment on above: Performed By: #### T NS #### [facility] [address] [place] [address] Dr. Ashley Castaneda CBC AUTO DIFFon 10-24-2022 BASO # 0.1 103/ul Normal 0.0-0.1 [facility] Comment on above: Performed By: #### V AGINT #### [facility] [address] [place] [address] Dr. Ashley Castaneda Basophils/100 WBC (Bld) 0.5 % Normal 0.2-2.0 [facility] Comment on above: Performed By: #### V AGINT #### [facility] [address] [place] [address] Dr. Ashley Castaneda EO # 0.0 103/ul Normal 0.0-0.7 [facility] Comment on above: Performed By: #### V AGINT #### [facility] [address] [place] [address] Dr. Ashley Castaneda Eosinophils/100 WBC (Bld) 0.4 % Critically low 0.9-7. 0 [facility] Comment on above: Performed By: #### V AGINT #### [facility] [address] [place] [address] Dr. Ashley Castaneda Erythrocyte distribution width (RBC) [Ratio] 14.2 % Normal 11.0-15.0 [facility] Comment on above: Performed By: #### V AGINT #### [facility] [address] [place] [address] Dr. Ashley Castaneda Hematocrit (Bld) [Volume fraction] 39.1 % Normal 36.0-48.0 [facility] Comment on above: Performed By: #### V AGINT #### [facility] [address] [place] [address] Dr. Ashley Castaneda Hemoglobin (Bld) [Mass/Vol] 13.4 g/dL Normal 12.0-16.0 [facility] Comment on above: Performed By: #### V AGINT #### [facility] [address] [place] [address] Dr. Ashley Castaneda IG # 0.14 10e3/ul Critically high 0.00-0.03 [facility] Comment on above: Performed By: #### V AGINT #### [facility] [address] [place] [address] Dr. Ashley Castaneda IG % 1.3 % Critically high 0.0-0.5 [facility] Comment on above: Performed By: #### V AGINT #### [facility] [address] [place] [address] Dr. Ashley Castaneda LYMPH # 2.6 103/ul Normal 1.2-3.8 [facility] Comment on above: Performed By: #### V AGINT #### [facility] [address] [place] [address] Dr. Ashley Castaneda Lymphocytes/100 WBC (Bld) 24.3 % Normal 20.5-60.0 [facility] Comment on above: Performed By: #### V AGINT #### [facility] [address] [place] [address] Dr. Ashley Castaneda MANUAL DIFF REQ NO Normal [facility] Comment on above: Performed By: #### V AGINT #### [facility] [address] [place] [address] Dr. Ashley Castaneda MCH (RBC) [Entitic mass] 28.6 pg Normal 26.7-34.0 [facility] Comment on above: Performed By: #### V AGINT #### [facility] [address] [place] [address] Dr. Ashley Castaneda MCHC (RBC) [Mass/Vol] 34.3 g/dL Normal 29.9-35.2 [facility] Comment on above: Performed By: #### V AGINT #### [facility] [address] [place] [address] Dr. Ashley Castaneda MCV (RBC) [Entitic vol] 83.5 fL Normal 81.0-99.0 [facility] Comment on above: Performed By: #### V AGINT #### [facility] [address] [place] [address] Dr. Ashley Castaneda MONO # 1.1 103/ul Critically high 0.3-0.8 [facility] Comment on above: Performed By: #### V AGINT #### [facility] [address] [place] [address] Dr. Ashley Castaneda Monocytes/100 WBC (Bld) 9.9 % Normal 1.7-12.0 [facility] Comment on above: Performed By: #### V AGINT #### [facility] [address] [place] [address] Dr. Ashley Castaneda NEUT # 6.9 103/ul Critically high 1.4-6.5 [facility] Comment on above: Performed By: #### V AGINT #### [facility] [address] [place] [address] Dr. Ashley Castaneda Neutrophils/100 WBC (Bld) 63.6 % Normal 43.0-75.0 [facility] Comment on above: Performed By: #### V AGINT #### [facility] [address] [place] [address] Dr. Ashley Castaneda Platelet mean volume (Bld) [Entitic vol] 11.2 fL Normal 9.5-13.5 [facility] Comment on above: Performed By: #### V AGINT #### [facility] [address] [place] [address] Dr. Ashley Castaneda PLT 260 103/ul Normal 150-450 [facility] Comment on above: Performed By: #### V AGINT #### [facility] [address] [place] [address] Dr. Ashley Castaneda RBC 4.68 106/ul Normal 4.20-5.40 [facility] Comment on above: Performed By: #### V AGINT #### [facility] [address] [place] [address] Dr. Ashley Castaneda WBC 10.9 103/ul Normal 4.0-11.0 [facility] Comment on above: Performed By: #### V AGINT #### [facility] [address] [place] [address] Dr. Ashley Castaneda TYPE AND SCREENon 10-24-2022 TYPE AND SCREEN Negative Normal [facility] Comment on above: Performed By: #### T NS #### [facility] [address] [place] [address] Dr. 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 Ashley Castaneda Clarity (U) CLEAR Normal CLEAR [facility] Comment on above: Performed By: #### H BSANS #### [facility] [address] [place] [address] Dr. Ashley Castaneda Color (U) LT. YELLOW Normal YELLOW [facility] Comment on above: Performed By: #### H BSANS #### [facility] [address] [place] [address] Dr. Ashley Castaneda Glucose Ql (U) Negative Normal NEGATIVE [facility] Comment on above: Performed By: #### H BSANS #### [facility] [address] [place] [address] Dr. Ashley Castaneda Hemoglobin Ql (U) TRACE-INTACT Abnormal NEGATIVE [facility] Comment on above: Performed By: #### H BSANS #### [facility] [address] [place] [address] Dr. Ashley Castaneda Ketones Ql (U) Negative Normal NEGATIVE [facility] Comment on above: Performed By: #### H BSANS #### [facility] [address] [place] [address] Dr. Ashley Castaneda LEUKOCYTES SMALL Abnormal NEGATIVE [facility] Comment on above: Performed By: #### H BSANS #### [facility] [address] [place] [address] Dr. Ashley Castaneda Nitrite Ql (U) Negative Normal NEGATIVE [facility] Comment on above: Performed By: #### H BSANS #### [facility] [address] [place] [address] Dr. Ashley Castaneda pH (U) 7.0 [pH] Normal 5-9 [facility] Comment on above: Performed By: #### H BSANS #### [facility] [address] [place] [address] Dr. Ashley Castaneda SPEC GRAVITY 1.010 Normal 1.005-<=1.02 5 [facility] Comment on above: Performed By: #### H BSANS #### [facility] [address] [address] [address] Ashley Castaneda UA PROTEIN Negative Normal NEGATIVE/ TRACE [facility] Comment on above: Performed By: #### H BSANS #### [facility] [address] [address] [address] Ashley Castaneda UR MICRO IND INDICATED Normal [facility] Comment on above: Performed By: #### H BSANS #### [facility] [address] [place] [address] Dr. Ashley Castaneda Urobilinogen Qn (U) 0.2 {Dorothy'U}/dL Normal 0.2 - 1. 0 [facility] Comment on above: Performed By: #### H BSANS #### [facility] [address] [place] [address] Dr. Ashley Castnaeda URINE MICROSCOPIC ONLYon BACTERIA NONE SEEN Normal NONE SEEN [facility] Comment on above: Performed By: #### H BSANS #### [facility] [address] [place] [address] Dr. Ashley Castaneda Bacteria identified Cx Nom (U) NOT INDICATED Normal [facility] Comment on above: Performed By: #### H BSANS #### [facility] [address] [place] [address] Dr. Ashley Castaneda CAST NONE SEEN Normal NONE SEEN [facility] Comment on above: Performed By: #### H BSANS #### [facility] [address] [place] [address] Dr. Ashley Castaneda Crystals LM Nom (Urine sed) NONE SEEN Normal NONE SEEN [facility] Comment on above: Performed By: #### H BSANS #### [facility] [address] [place] [address] Dr. Ashley Castaneda Epithelial cells LM Ql (Urine sed) RARE Normal NONE SEEN /RARE [facility] Comment on above: Performed By: #### H BSANS #### [facility] [address] [place] [address] Dr. Ashley Castaneda MUCOUS NONE SEEN Normal NONE SEEN [facility] Comment on above: Performed By: #### H BSANS #### [facility] [address] [address] [address] Ashley Castaneda RBC 0-2 Normal 0-2 [facility] Comment on above: Performed By: #### H BSANS #### [facility] [address] [address] [address] Ashley Castaneda WBC 0-2 Abnormal NONE SEEN [facility] Comment on above: Performed By: #### H BSANS #### [facility] [address] [address] [address] Ashley Castaneda GROUP B STREP CULTUREon S. agalactiae Ag Ql (Unsp spec) Culture Observations: NEGATIVE FOR GROUP B STREPTOCOCCUS. Normal [facility] Comment on above: Performed By: #### G BSCX #### [facility] [address] [place] [address] Dr. Ashley Castaneda US PREG GROWTHon 10-21-2022 US PREG GROWTH EXAMINATION: [...] ASPEN KIRKLAND Date: 2022-10-21 16:22 Normal [facility] US PREG GROWTHon 10-01-2022 US PREG [...] by: YENI LINO Date: 2022-10-01 16:02 Normal [facility] OVA AND PARASITE EXAMINATION on 09-18-2022 Ova + Parasite Exam Final report Normal [facility] Comment on above: Result Comment: Thes e results were obtained using wet preparation(s) and trichrome stained smear. This test does not include testing for Cryptosporidium parvum, Cyclospora, or Microsporidia. Performed By: #### B MP #### [facility] [address] [place] [address] Dr. Ashley Castaneda Result 1 Comment Normal [facility] Comment on above: Result Comment: No o va, cysts, or parasites seen. . One negative specimen does not rule out the possibility of a parasitic infection. Performed By: #### B MP #### [facility] [address] [place] [address] Dr. Ashley Castaneda PAP ACOG PANEL 2: 21 to 29on 08-28-2022 . . Normal [facility] Comment on above: Performed By: #### [id number] #### [facility] [address] [place] [address] Dr. Ashley Castaneda Age Gdln ACOG Testing 21-29 Normal [facility] Comment on above: Performed By: #### [id number] #### [facility] [address] [place] [address] Dr. Ashley Castaneda DIAGNOSIS: Comment Normal [facility] Comment on above: Result Comment: NEGA TIVE FOR INTRAEPITHELIAL LESION OR MALIGNANCY. Performed By: #### [id number] #### [facility] [address] [place] [address] Dr. Ashley Castaneda Methodology: Comment Normal [facility] Comment on above: Result Comment: This liquid based ThinPrep(R) pap test was screened with the use of an image guided system. Performed By: #### [id number] #### [facility] [address] [place] [address] Dr. Ashley Castaneda Note: Comment Normal [facility] Comment on above: Result Comment: The Pap smear is a screening test designed to aid in the detection of premalignant and malignant conditions of the uterine cervix. It is not a diagnostic procedure and should not be used as the sole means of detecting cervical cancer. Both false-positive and false-negative reports do occur. . Performed By: #### 4 [id number] #### [facility] [address] [place] [address] Dr. Ashley Castaneda Performed by: Comment Normal [facility] Comment on above: Result Comment: Marialuisa Mo Black Topper (ASCP) Performed By: #### [id number] #### [facility] [address] [place] [address] Dr. Ashley Castaneda Reflex Criteria: Comment Normal [facility] Comment on above: Result Comment: The HPV DNA reflex criteria were not met with this specimen result therefore, no HPV testing was performed. . Performed By: #### [id number] #### [facility] [address] [place] [address] Dr. Ashley Castaneda Specimen adequacy: Comment Normal [facility] Comment on above: Result Comment: Sati sfactory for evaluation. No endocervical component is identified. Performed By: #### [id number] #### [facility] [address] [address] [address] Ashley Castaneda CHLAMYDIA/GONOCOCCUS LANE ( AB/URINE/PAPon 08-22-[address] trachomatis, LANE Negative Normal Negative [facility] Comment on above: Performed By: #### H BSANS #### [facility] [address] [address] [address] Ashley Castaneda Neisseria gonorrhoeae, LANE Negative Normal Negative [facility] Comment on above: Performed By: #### H BSANS #### [facility] [address] [address] [address] Ashley Castaneda VAGINITIS/VAGINOSIS DNA PROB Stephon 08-21-2022 Brina species Negative Normal Negative [facility] Comment on above: Performed By: #### V AGINT #### [facility] [address] [place] [address] Dr. Ashley Castaneda Gardnerella vaginalis Negative Normal Negative [facility] Comment on above: Performed By: #### V AGINT #### [facility] [address] [place] [address] Dr. Ashley Castaneda Trichomonas vaginalis Negative Normal Negative [facility] Comment on above: Performed By: #### V AGINT #### [facility] [address] [place] [address] Dr. Ashley Castaneda US PREG PLACENTAon 2 [...] ASPEN KIRKLAND Date: 2022-08-20 06:34 Normal [facility] GTT 3 HR PREGon 08-09-2022 Glucose [Mass/Vol] 96 mg/dL Normal 74-[address] [facility] Comment on above: Performed By: #### G TT3P #### [facility] [address] [place] [address] Dr. Ashley Castaneda Glucose [Mass/Vol] 155 mg/dL Normal [facility] Comment on above: Performed By: #### G TT3P #### [facility] [address] [place] [address] Dr. Ashley Castaneda Glucose [Mass/Vol] 141 mg/dL Normal [facility] Comment on above: Performed By: #### G TT3P #### [facility] [address] [place] [address] Dr. Ashley Castaneda Glucose [Mass/Vol] 129 mg/dL Normal [facility] Comment on above: Performed By: #### G TT3P #### [facility] [address] [place] [address] Dr. Ashley Castaneda CBC AUTO DIFFon 08-02-2022 BASO # 0.1 103/ul Normal 0.0-0.1 [facility] Comment on above: Performed By: #### B MP #### [facility] [address] [place] [address] Dr. Ashley Castaneda Basophils/100 WBC (Bld) 0.6 % Normal 0.2-2.0 [facility] Comment on above: Performed By: #### B MP #### [facility] [address] [place] [address] Dr. Ashley Castaneda EO # 0.1 103/ul Normal 0.0-0.7 [facility] Comment on above: Performed By: #### B MP #### [facility] [address] [place] [address] Dr. Ashley Castaneda Eosinophils/100 WBC (Bld) 0.9 % Normal 0.9-7.0 [facility] Comment on above: Performed By: #### B MP #### [facility] [address] [place] [address] Dr. Ashley Castaneda Erythrocyte distribution width (RBC) [Ratio] 13.4 % Normal 11.0-15.0 [facility] Comment on above: Performed By: #### B MP #### [facility] [address] [place] [address] Dr. Ashley Castaneda Hematocrit (Bld) [Volume fraction] 36.2 % Normal 36.0-48.0 [facility] Comment on above: Performed By: #### B MP #### [facility] [address] [place] [address] Dr. Ashley Castaneda Hemoglobin (Bld) [Mass/Vol] 12.6 g/dL Normal 12.0-16.0 [facility] Comment on above: Performed By: #### B MP #### [facility] [address] [place] [address] Dr. Ashley Castaneda IG # 0.18 10e3/ul Critically high 0.00-0.03 [facility] Comment on above: Performed By: #### B MP #### [facility] [address] [place] [address] Dr. Ashley Castaneda IG % 1.7 % Critically high 0.0-0.5 [facility] Comment on above: Performed By: #### B MP #### [facility] [address] [place] [address] Dr. Ashley Castaneda LYMPH # 1.7 103/ul Normal 1.2-3.8 [facility] Comment on above: Performed By: #### B MP #### [facility] [address] [place] [address] Dr. Ashley Castaneda Lymphocytes/100 WBC (Bld) 16.6 % Critically low 20.5-6 0.0 [facility] Comment on above: Performed By: #### B MP #### [facility] [address] [place] [address] Dr. Ashley Castaneda MANUAL DIFF REQ NO Normal [facility] Comment on above: Performed By: #### B MP #### [facility] [address] [place] [address] Dr. Ashley Castaneda MCH (RBC) [Entitic mass] 30.3 pg Normal 26.7-34.0 [facility] Comment on above: Performed By: #### B MP #### [facility] [address] [place] [address] Dr. Ashley Castaneda MCHC (RBC) [Mass/Vol] 34.8 g/dL Normal 29.9-35.2 [facility] Comment on above: Performed By: #### B MP #### [facility] [address] [address] [address] Ashley Castaneda MCV (RBC) [Entitic vol] 87.0 fL Normal 81.0-99.0 [facility] Comment on above: Performed By: #### B MP #### [facility] [address] [address] [address] Ashley Castaneda MONO # 0.7 103/ul Normal 0.3-0.8 [facility] Comment on above: Performed By: #### B MP #### [facility] [address] [place] [address] Dr. Ashley Castaneda Monocytes/100 WBC (Bld) 6.8 % Normal 1.7-12.0 [facility] Comment on above: Performed By: #### B MP #### [facility] [address] [place] [address] Dr. Ashley Castaneda NEUT # 7.7 103/ul Critically high 1.4-6.5 [facility] Comment on above: Performed By: #### B MP #### [facility] [address] [place] [address] Dr. Ashley Castaneda Neutrophils/100 WBC (Bld) 73.4 % Normal 43.0-75.0 [facility] Comment on above: Performed By: #### B MP #### [facility] [address] [place] [address] Dr. Ashley Castaneda Platelet mean volume (Bld) [Entitic vol] 10.1 fL Normal 9.5-13.5 [facility] Comment on above: Performed By: #### B MP #### [facility] [address] [place] [address] Dr. Ashley Castaneda PLT 232 103/ul Normal 150-450 [facility] Comment on above: Performed By: #### B MP #### [facility] [address] [place] [address] Dr. Ashley Castaneda RBC 4.16 106/ul Critically low 4.20-5.40 [facility] Comment on above: Performed By: #### B MP #### [facility] [address] [address] [address] Ashley Castaneda WBC 10.5 103/ul Normal 4.0-11.0 [facility] Comment on above: Performed By: #### B MP #### [facility] [address] [address] [address] Ashley Castaneda GLUCOSE - 1HRon 08-02-2022 Glucose [Mass/Vol] 152 mg/dL Critically high 74-106 T [facility] Comment on above: Performed By: #### V AGINT #### [facility] [address] [address] [address] Ashley Castaneda AFP MATERNAL FOR SPINA BIFID Aon 2022 AFP MoM 0.45 Normal [facility] Comment on above: Performed By: #### A FPMAT #### [facility] [address] [address] [address] Ashley Castaneda AFP Value 22.5 ng/mL Normal [facility] Comment on above: Performed By: #### A FPMAT #### [facility] [address] [address] [address] Ashley Castaneda AFP, Serum for Spina Bifida Report Normal [facility] Comment on above: Performed By: #### A FPMAT #### [facility] [address] [address] [address] Ashley Castaneda Comment Comment Normal [facility] Comment on above: Result Comment: Duncan Koo, Ph.D., [facility] Director . References: Available Upon Request. . Multiples Of Median Cutoffs For AFP Elevations Chavez 2.5 Black 2.8 IDD 2.0 Twins 4.5 Abbreviation Definitions IDD - Insulin Dep Diabetes OSBR - Open Spina Bifida Risk . For further inquiries contact [employer] at [phone]. . This test was developed and its performance characteristics determined by [employer]. It has not been cleared or approved by the Food and Drug Administration. Performed By: #### A FPMAT #### [facility] [address] [address] [address] Ashley Castaneda Gest Age Collection Date 20.0 weeks Normal [facility] Comment on above: Performed By: #### A FPMAT #### [facility] [address] [place] [address] Dr. Ashley Castaneda Gestat, Age Based on ANTONIO Normal [facility] Comment on above: Result Comment: 05/2023 Recalculations are not recommended when gestational dating by LMP and ultrasound are within 10 days. Performed By: #### A FPMAT #### [facility] [address] [address] [address] Ashley Castaneda Insulin Dep Diabetes No Normal [facility] Comment on above: Performed By: #### A FPMAT #### [facility] [address] [address] [address] Ashley Castaneda Interpretation Comment Normal [facility] Comment on above: Result Comment: Inte rpretation: [...] Customer Services to discuss available options. The [employer] recommends amniocentesis be offered to women age 35 and older. Performed By: #### A FPMAT #### [facility] [address] [place] [address] Dr. Ashley Castaneda [age] Normal [facility] Comment on above: Performed By: #### A FPMAT #### [facility] [address] [address] [address] Ashley Castaneda Multiple Gestation No Normal [facility] Comment on above: Performed By: #### A FPMAT #### [facility] [address] [place] [address] Dr. Ashley Castaneda [place] [address] Normal [facility] Comment on above: Performed By: #### A FPMAT #### [facility] [address] [address] [address] Ashley Castaneda PDF . Normal [facility] Comment on above: Performed By: #### A FPMAT #### [facility] [address] [address] [address] Ashley Castaneda Race Normal [facility] Comment on above: Performed By: #### A FPMAT #### [facility] [address] [address] [address] Ashley Castaneda Test Results: Negative [facility] Comment on above: Performed By: #### A FPMAT #### [facility] [address] [address] [address] Ashley Castaneda US PREG ANATOMY SINGLEon US PREG ANATOMY SINGLE [...] by: YENI LINO Date: 2022-07-03 16:45 Normal [facility] HEP B SURFACE ANTIGEN SCREEN on 05-01-2022 HBsAg Screen Negative Normal Negative [facility] Comment on above: Performed By: #### H BSANS #### [facility] [address] [place] [address] Dr. Ashley Castaneda HEPATITIS C VIRUS AB W/ REFL EX QUANTon 05-01-2022 HCV AB <0.1 Normal 0.0-0.9 [facility] Comment on above: Performed By: #### V AGINT #### [facility] [address] [place] [address] Dr. Ashley Castaneda Interpretation: Comment Normal [facility] Comment on above: Result Comment: Nega tive Not infected with HCV, unless recent infection is suspected or other evidence exists to indicate HCV infection. Performed By: #### V AGINT #### [facility] [address] [address] [address] Ashley Castaneda HIV 1 AND 2 WITH REFLEXon HIV Screen 4th Generation wRfx Non-Reactive Normal Non Reactive [facility] Comment on above: Result Comment: HIV Negative HIV-1/HIV-2 antibodies and HIV-1 p24 antigen were NOT detected. There is no laboratory evidence of HIV infection. Performed By: #### B MP #### [facility] [address] [place] [address] Dr. Ashley Castaneda RPR QUANTon 05-01-2022 Rapid Plasma Reagin, Quant Non-Reactive Normal NonRea< 1:1 [facility] Comment on above: Result Comment: Plea se Note: This test does not meet current guidelines for screening and diagnosis of syphilis. This test is intended for following treatment response in patients being treated for syphilis infection. To screen for syphilis infection, a reflex cascade that includes both RPR and a treponema-specific assay should be utilized, such as Treponema pallidum (Syphilis) Screening Knott (233297) or Rapid Plasma Reagin (RPR) Test With Reflex to Quantitative RPR and Confirmatory Treponema pallidum Antibodies (525624). Performed By: #### B MP #### [facility] [address] [place] [address] Dr. Ashley Castaneda RUBELLA AB IGGon 05-01-2022 Rubella Antibodies, IgG 4.62 index Normal Immune >0.99 [facility] Comment on above: Result Comment: Non- immune <0.90 Equivocal 0.90 - 0.99 Immune >0.99 Performed By: #### B MP #### [facility] [address] [place] [address] Dr. Ashley Castaneda CBC AUTO DIFFon 04-30-2022 BASO # 0.0 103/ul Normal 0.0-0.1 [facility] Comment on above: Performed By: #### H BSANS #### [facility] [address] [place] [address] Dr. Ashley Castaneda Basophils/100 WBC (Bld) 0.3 % Normal 0.2-2.0 [facility] Comment on above: Performed By: #### H BSANS #### [facility] [address] [place] [address] Dr. Ashley Castaneda EO # 0.1 103/ul Normal 0.0-0.7 [facility] Comment on above: Performed By: #### H BSANS #### [facility] [address] [place] [address] Dr. Ashley Castaneda Eosinophils/100 WBC (Bld) 0.9 % Normal 0.9-7.0 [facility] Comment on above: Performed By: #### H BSANS #### [facility] [address] [place] [address] Dr. Ashley Castaneda Erythrocyte distribution width (RBC) [Ratio] 12.2 % Normal 11.0-15.0 [facility] Comment on above: Performed By: #### H BSANS #### [facility] [address] [place] [address] Dr. Ashley Castaneda Hematocrit (Bld) [Volume fraction] 40.5 % Normal 36.0-48.0 [facility] Comment on above: Performed By: #### H BSANS #### [facility] [address] [place] [address] Dr. Ashley Castaneda Hemoglobin (Bld) [Mass/Vol] 14.0 g/dL Normal 12.0-16.0 [facility] Comment on above: Performed By: #### H BSANS #### [facility] [address] [address] [address] Ashley Castaneda IG # 0.08 10e3/ul Critically high 0.00-0.03 [facility] Comment on above: Performed By: #### H BSANS #### [facility] [address] [address] [address] Ashley Castaneda IG % 0.8 % Critically high 0.0-0.5 [facility] Comment on above: Performed By: #### H BSANS #### [facility] [address] [address] [address] Ashley Castaneda LYMPH # 1.9 103/ul Normal 1.2-3.8 [facility] Comment on above: Performed By: #### H BSANS #### [facility] [address] [address] [address] Ashley Castaneda Lymphocytes/100 WBC (Bld) 19.4 % Critically low 20.5-6 0.0 [facility] Comment on above: Performed By: #### H BSANS #### [facility] [address] [place] [address] Dr. Ashley Castaneda MANUAL DIFF REQ NO Normal [facility] Comment on above: Performed By: #### H BSANS #### [facility] [address] [address] [address] Ashley Castaneda MCH (RBC) [Entitic mass] 30.9 pg Normal 26.7-34.0 [facility] Comment on above: Performed By: #### H BSANS #### [facility] [address] [address] [address] Ashley Castaneda MCHC (RBC) [Mass/Vol] 34.6 g/dL Normal 29.9-35.2 [facility] Comment on above: Performed By: #### H BSANS #### [facility] [address] [address] [address] Ashley Castaneda MCV (RBC) [Entitic vol] 89.4 fL Normal 81.0-99.0 [facility] Comment on above: Performed By: #### H BSANS #### [facility] [address] [place] [address] Dr. Ashley Castaneda MONO # 0.8 103/ul Normal 0.3-0.8 [facility] Comment on above: Performed By: #### H BSANS #### [facility] [address] [address] [address] Ashley Castaneda Monocytes/100 WBC (Bld) 8.4 % Normal 1.7-12.0 [facility] Comment on above: Performed By: #### H BSANS #### [facility] [address] [place] [address] Dr. Ashley Castaneda NEUT # 7.0 103/ul Critically high 1.4-6.5 [facility] Comment on above: Performed By: #### H BSANS #### [facility] [address] [place] [address] Dr. Ashley Castaneda Neutrophils/100 WBC (Bld) 70.2 % Normal 43.0-75.0 [facility] Comment on above: Performed By: #### H BSANS #### [facility] [address] [place] [address] Dr. Ashley Castaneda Platelet mean volume (Bld) [Entitic vol] 10.1 fL Normal 9.5-13.5 [facility] Comment on above: Performed By: #### H BSANS #### [facility] [address] [place] [address] Dr. Ashley Castaneda PLT 234 103/ul Normal 150-450 [facility] Comment on above: Performed By: #### H BSANS #### [facility] [address] [address] [address] Ashley Castaneda RBC 4.53 106/ul Normal 4.20-5.40 [facility] Comment on above: Performed By: #### H BSANS #### [facility] [address] [place] [address] Dr. Ashley Castaneda WBC 10.0 103/ul Normal 4.0-11.0 [facility] Comment on above: Performed By: #### H BSANS #### [facility] [address] [place] [address] Dr. Ashley Castaneda CULTURE URINEon 04-30-2022 CULTURE URINE Culture Observations: NO GROWTH. Normal [facility] Comment on above: Performed By: #### H BSANS #### [facility] [address] [place] [address] Dr. Ashley Castaneda GLYCOHEMOGLOBIN A1Con 2021 ADA RECOMMENDATION SEE BELOW Normal [facility] Comment on above: Result Comment: ADA RECOMMENDED LIMIT 4.0 - 6.0 ADA THERAPEUTIC TARGET < 7.0 ACTION SUGGESTED > 7.0 Performed By: #### A FPMAT #### [facility] [address] [place] [address] Dr. Ashley Castaneda Glucose [Mass/Vol] 100 mg/dL Normal [facility] Comment on above: Performed By: #### A FPMAT #### [facility] [address] [place] [address] Dr. Ashley Castaneda HbA1c (Bld) [Mass fraction] 5.1 % Normal 4.5-6.2 [facility] Comment on above: Performed By: #### A FPMAT #### [facility] [address] [place] [address] Dr. Ashley Castaneda DELILAH BOX TEST PT SEND OUTo n 04-30-2022 SENT TO REF LAB 04/30/2022 Normal [facility] Comment on above: Performed By: #### V AGINT #### [facility] [address] [place] [address] Dr. Ashley Castaneda TYPE AND SCREENon 04-30-2022 TYPE AND SCREEN Negative Normal [facility] Comment on above: Performed By: #### T NS #### [facility] [address] [place] [address] Dr. Ashley Castaneda GENITAL CULTUREon 04-23-2022 Genital Culture, Routine Final report Normal [facility] Comment on above: Result Comment: Spec imen stability note: A swab transport (ie., ESwab, Amies agar gel) received by the lab more than 24 hours after collection may result in reduced recovery of Neisseria gonorrhoeae (GC). (This is informational only and may not apply to this specimen.) Performed By: #### G TT3P #### [facility] [address] [address] [address] Ashley Castaneda Result 1 Comment Normal [facility] Comment on above: Result Comment: Rout ine genital jordan. Performed By: #### G TT3P #### [facility] [address] [address] [address] Ashley Castaneda US PREG TVon 04-22-2022 [...] YENI LINO Date: 2022-04-22 18:29 Normal [facility] ABO AND RH TYPEon 04-16-2022 ABO and Rh group Nom (Bld) ABO Rh Typing A Rh Positive Normal [facility] Comment on above: Performed By: #### H BSANS #### [facility] [address] [address] [address] Ashley Castaneda CBC AUTO DIFFon 04-16-2022 BASO # 0.0 103/ul Normal 0.0-0.1 [facility] Comment on above: Performed By: #### H BSANS #### [facility] [address] [address] [address] Ashley Castaneda Basophils/100 WBC (Bld) 0.2 % Normal 0.2-2.0 [facility] Comment on above: Performed By: #### H BSANS #### [facility] [address] [place] [address] Dr. Ashley Castaneda EO # 0.1 103/ul Normal 0.0-0.7 [facility] Comment on above: Performed By: #### H BSANS #### [facility] [address] [place] [address] Dr. Ashley Castaneda Eosinophils/100 WBC (Bld) 0.5 % Critically low 0.9-7. 0 [facility] Comment on above: Performed By: #### H BSANS #### [facility] [address] [place] [address] Dr. Ashley Castaneda Erythrocyte distribution width (RBC) [Ratio] 12.0 % Normal 11.0-15.0 [facility] Comment on above: Performed By: #### H BSANS #### [facility] [address] [place] [address] Dr. Ashley Castaneda Hematocrit (Bld) [Volume fraction] 40.2 % Normal 36.0-48.0 [facility] Comment on above: Performed By: #### H BSANS #### [facility] [address] [place] [address] Dr. Ashley Castaneda Hemoglobin (Bld) [Mass/Vol] 13.8 g/dL Normal 12.0-16.0 [facility] Comment on above: Performed By: #### H BSANS #### [facility] [address] [place] [address] Dr. Ashley Castaneda IG # 0.07 10e3/ul Critically high 0.00-0.03 [facility] Comment on above: Performed By: #### H BSANS #### [facility] [address] [place] [address] Dr. Ashley Castaneda IG % 0.5 % Normal 0.0-0.5 [facility] Comment on above: Performed By: #### H BSANS #### [facility] [address] [place] [address] Dr. Ashley Castaneda LYMPH # 2.7 103/ul Normal 1.2-3.8 [facility] Comment on above: Performed By: #### H BSANS #### [facility] [address] [place] [address] Dr. Ashley Castaneda Lymphocytes/100 WBC (Bld) 19.8 % Critically low 20.5-6 0.0 [facility] Comment on above: Performed By: #### H BSANS #### [facility] [address] [place] [address] Dr. Ashley Castaneda MANUAL DIFF REQ NO Normal [facility] Comment on above: Performed By: #### H BSANS #### [facility] [address] [place] [address] Dr. Ashley Castaneda MCH (RBC) [Entitic mass] 30.7 pg Normal 26.7-34.0 [facility] Comment on above: Performed By: #### H BSANS #### [facility] [address] [place] [address] Dr. Ashley Castaneda MCHC (RBC) [Mass/Vol] 34.3 g/dL Normal 29.9-35.2 [facility] Comment on above: Performed By: #### H BSANS #### [facility] [address] [place] [address] Dr. Ashley Castaneda MCV (RBC) [Entitic vol] 89.5 fL Normal 81.0-99.0 [facility] Comment on above: Performed By: #### H BSANS #### [facility] [address] [place] [address] Dr. Ashley Castaneda MONO # 1.0 103/ul Critically high 0.3-0.8 [facility] Comment on above: Performed By: #### H BSANS #### [facility] [address] [place] [address] Dr. Ashley Castaneda Monocytes/100 WBC (Bld) 7.7 % Normal 1.7-12.0 [facility] Comment on above: Performed By: #### H BSANS #### [facility] [address] [place] [address] Dr. Ashley Castaneda NEUT # 9.6 103/ul Critically high 1.4-6.5 [facility] Comment on above: Performed By: #### H BSANS #### [facility] [address] [place] [address] Dr. Ashley Castaneda Neutrophils/100 WBC (Bld) 71.3 % Normal 43.0-75.0 [facility] Comment on above: Performed By: #### H BSANS #### [facility] [address] [place] [address] Dr. Ashley Castaneda Platelet mean volume (Bld) [Entitic vol] 10.2 fL Normal 9.5-13.5 [facility] Comment on above: Performed By: #### H BSANS #### [facility] [address] [place] [address] Dr. Ashley Castaneda PLT 243 103/ul Normal 150-450 [facility] Comment on above: Performed By: #### H BSANS #### [facility] [address] [place] [address] Dr. Ashley Castaneda RBC 4.49 106/ul Normal 4.20-5.40 [facility] Comment on above: Performed By: #### H BSANS #### [facility] [address] [place] [address] Dr. Ashley Castaneda WBC 13.5 103/ul Critically high 4.0-11.0 [facility] Comment on above: Performed By: #### H BSANS #### [facility] [address] [place] [address] Dr. Ashley Castaneda ER URINE PROFILEon 2 Bilirubin Ql (U) Negative Normal NEGATIVE [facility] Comment on above: Performed By: #### A FPMAT #### [facility] [address] [place] [address] Dr. Ashley Castaneda Clarity (U) CLEAR Normal CLEAR [facility] Comment on above: Performed By: #### A FPMAT #### [facility] [address] [place] [address] Dr. Ashley Castaneda Color (U) LT. YELLOW Normal YELLOW [facility] Comment on above: Performed By: #### A FPMAT #### [facility] [address] [place] [address] Dr. Ashley Shah micrscopic examination will be performed if indicated. Normal [facility] Comment on above: Performed By: #### A FPMAT #### [facility] [address] [place] [address] Dr. Ashley Castaneda Glucose Ql (U) Negative Normal NEGATIVE [facility] Comment on above: Performed By: #### A FPMAT #### [facility] [address] [address] [address] Ashley Castaneda Hemoglobin Ql (U) Negative Normal NEGATIVE [facility] Comment on above: Performed By: #### A FPMAT #### [facility] [address] [place] [address] Dr. Ashley Castaneda Ketones Ql (U) Negative Normal NEGATIVE [facility] Comment on above: Performed By: #### A FPMAT #### [facility] [address] [place] [address] Dr. Ashley Castaneda LEUKOCYTES Negative Normal NEGATIVE [facility] Comment on above: Performed By: #### A FPMAT #### [facility] [address] [place] [address] Dr. Ashley Castaneda Nitrite Ql (U) Negative Normal NEGATIVE [facility] Comment on above: Performed By: #### A FPMAT #### [facility] [address] [place] [address] Dr. Ashley Castaneda pH (U) 6.0 [pH] Normal 5-9 [facility] Comment on above: Performed By: #### A FPMAT #### [facility] [address] [place] [address] Dr. Ashley Castaneda SPEC GRAVITY 1.025 Normal 1.005-<=1.02 5 [facility] Comment on above: Performed By: #### A FPMAT #### [facility] [address] [place] [address] Dr. Ashley Castaneda UA PROTEIN Negative Normal NEGATIVE/ TRACE [facility] Comment on above: Performed By: #### A FPMAT #### [facility] [address] [address] [address] Ashley Castaneda UR MICRO IND NOT INDICATED Normal [facility] Comment on above: Performed By: #### A FPMAT #### [facility] [address] [id number] Ashley Castaneda Urobilinogen Qn (U) 0.2 {Dorothy'U}/dL Normal 0.2 - 1. 0 [facility] Comment on above: Performed By: #### A FPMAT #### [facility] [address] [address] [address] Ashley Castaneda HCG,Quantitativeon HCG,Quantitative [id number] m[iU]/mL Normal [facility] Comment on above: Order Comment: LISA Nogueira FAX TO [phone] Result Comment: Appr oximate Approximate hCG Gestational Age Range (mIU/ml) (weeks) 0.2-1 5-50 1-2 50-500 2-3 100-5,000 3-4 500-10,000 4-5 1,000-50,000 5-6 10,000-100,000 6-8 15,000-200,000 8-12 10,000-100,000 PERFORMED BY: [place] [address] PATHOLOGIST NURSE[employer] COMPANION KASSANDRA JONES M.D. Performed By: #### H CGQNT #### [facility] [address] [place] [address] [place] PREG QUANT HCGon 04-16-2022 HCG QUANT [id number] mIU/mL Normal [facility] Comment on above: Performed By: #### B MP #### [facility] [address] [place] [address] Dr. Ashley Castaneda HCG RANGE SEE BELOW Normal [facility] Comment on above: Result Comment: 5-50 0.2-1 WEEK 50-500 1-2 WEEKS 100-5,000 2-3 WEEKS 500-10,000 3-4 WEEKS 1,000-50,000 4-5 WEEKS 10,000-100,000 5-6 WEEKS 15,000-200,000 6-8 WEEKS 10,000-100,000 2-3 MONTHS Performed By: #### B MP #### [facility] [address] [place] [address] Dr. Ashley Castaneda Result Comment: TEST PERFORMED AT: [facility] [address] [place] [address] URon 04-16-2022 , QUAL Positive Abnormal NEGATIVE [facility] Comment on above: Performed By: #### A FPMAT #### [facility] [address] [place] [address] Dr. Ashley Castaneda PROF CHEM 8 (BAS METB)on Anion gap [Moles/Vol] 13.3 mmol/L Normal [facility] Comment on above: Performed By: #### B MP #### [facility] [address] [place] [address] Dr. Ashley Castaneda Calcium [Mass/Vol] 9.4 mg/dL Normal 8.5-10.1 [facility] Comment on above: Performed By: #### B MP #### [facility] [address] [place] [address] Dr. Ashley Castaneda Chloride [Moles/Vol] 101 mmol/L Normal 98-107 [facility] Comment on above: Performed By: #### B MP #### [facility] [address] [place] [address] Dr. Ashley Castaneda CO2 [Moles/Vol] 26.8 mmol/L Normal 21.0-32.0 [facility] Comment on above: Performed By: #### B MP #### [facility] [address] [place] [address] Dr. Ashley Castaneda Creatinine [Mass/Vol] 0.70 mg/dL Normal 0.55-1.02 [facility] Comment on above: Performed By: #### B MP #### [facility] [address] [place] [address] Dr. Ashley Castaneda EGFR-AF DANISH >60 Normal >=60 [facility] Comment on above: Performed By: #### B MP #### [facility] [address] [address] [address] Ashley Castaneda EGFR-NON AF DANISH >60 Normal >=60 [facility] Comment on above: Performed By: #### B MP #### [facility] [address] [address] [address] Ashley Castaneda Glucose [Mass/Vol] 99 mg/dL Normal 74-[address] [facility] Comment on above: Performed By: #### B MP #### [facility] [address] [address] [address] Ashley Castaneda Potassium [Moles/Vol] 4.1 mmol/L Normal 3.5-5.1 [facility] Comment on above: Performed By: #### B MP #### [facility] [address] [address] [address] Ashley Castaneda Sodium [Moles/Vol] 137 mmol/L Normal 136-[address] [facility] Comment on above: Performed By: #### B MP #### [facility] [address] [address] [address] Ashley Castaneda Urea nitrogen [Mass/Vol] 14.0 mg/dL Normal 7.0-18.0 [facility] Comment on above: Performed By: #### B MP #### [facility] [address] [address] [address] Ashley Castaneda Urea nitrogen/Creatinine [Mass ratio] 20.0 mg/mg Normal [facility] Comment on above: Performed By: #### B MP #### [facility] [address] [address] [address] Ashley Castaneda Serum or plasma beta choriog onadotropin measurement (units/volume)Ordered By: Stoney Good on 04-16-2022 HCG.beta subunit Qn [id number] m[IU]/mL [facility] Comment on above: Approximate Approxim ate [...] ASPEN KIRKLAND Date: 2022-04-16 17:18 Normal [facility] WET PREPon 04-16-2022 CLUE CELLS NONE SEEN Normal NONE SEEN [facility] Comment on above: Performed By: #### B MP #### [facility] [address] [place] [address] Dr. Ashley Castaneda FUNGAL ELEMENTS NONE SEEN Normal NONE SEEN [facility] Comment on above: Performed By: #### B MP #### [facility] [address] [address] [address] Ashley Castaneda RBC -WET PREP NONE SEEN Normal NONE SEEN [facility] Comment on above: Performed By: #### B MP #### [facility] [address] [address] [address] Ashley Castaneda TRICHOMONAS NONE SEEN Normal NONE SEEN [facility] Comment on above: Performed By: #### B MP #### [facility] [address] [address] [address] Ashley Castaneda WBC- WET PREP RARE Abnormal NONE SEEN [facility] Comment on above: Performed By: #### B MP #### [facility] [address] [address] [address] Ashley Castaneda WET PREP BACTERIA FEW Abnormal NONE SEEN [facility] Comment on above: Performed By: #### B MP #### [facility] [address] [place] [address] Dr. Ashley Castaneda PREG QUANT HCGon 03-13-2022 HCG QUANT 155 mIU/mL Normal [facility] Comment on above: Performed By: #### H JERRY #### [facility] [address] [place] [address] Dr. Ashley Castaneda HCG RANGE SEE BELOW Normal [facility] Comment on above: Result Comment: 5-50 0-1 WEEK 40-300 1-2 WEEKS 100-1,000 2-3 WEEKS 500-6,000 3-4 WEEKS 5,000-200,000 1-2 MONTHS 10,000-100,000 2-3 MONTHS 3,000-50,000 2ND TRIMESTER 1,000-50,000 3RD TRIMESTER Performed By: #### H JERRY #### [facility] [address] [place] [address] Dr. Ashley Castaneda PREG QUANT HCGon 03-11-2022 HCG QUANT 53 mIU/mL Normal [facility] Comment on above: Performed By: #### B MP #### [facility] [address] [place] [address] Dr. Ashley Castaneda HCG RANGE SEE BELOW Normal [facility] Comment on above: Result Comment: 5-50 0-1 WEEK 40-300 1-2 WEEKS 100-1,000 2-3 WEEKS 500-6,000 3-4 WEEKS 5,000-200,000 1-2 MONTHS 10,000-100,000 2-3 MONTHS 3,000-50,000 2ND TRIMESTER 1,000-50,000 3RD TRIMESTER Performed By: #### B MP #### [facility] [address] [place] [address] Dr. Ashley Castaneda DHEA SERUMon 01-29-2022 Dehydroepiandrosterone (DHEA) 459 ng/dL Normal [facility] Comment on above: Result Comment: Age 1 - 5 years 0 - 67 6 - 7 years 0 - 110 8 - 10 years 0 - 185 11 - 12 years 0 - 201 13 - 14 years 0 - 318 15 - 16 years 39 - 481 17 - 19 years 40 - 491 >19 years 31 - 70 Performed By: #### V AGINT #### [facility] [address] [place] [address] Dr. Ashley Castaneda DHEA-SULFATEon 01-17-2022 DHEA-Sulfate 292.0 ug/dL Normal 84.8-378.[address] [facility] Comment on above: Performed By: #### V AGINT #### [facility] [address] [place] [address] Dr. Ashley Castaneda FSHon 01-17-2022 FSH 5.2 mIU/mL Normal [facility] Comment on above: Result Comment: Adul t Female: Follicular phase 3.5 - 12.5 Ovulation phase 4.7 - 21.5 Luteal phase 1.7 - 7.7 Postmenopausal 25.8 - 134.8 Performed By: #### B MP #### [facility] [address] [place] [address] Dr. Ashley Castaneda LUTEINIZING HORMONE (LH)on 0 01-17-2022 LH 7.5 mIU/mL Normal [facility] Comment on above: Result Comment: Adul t Female: Follicular phase 2.4 - 12.6 Ovulation phase 14.0 - 95.6 Luteal phase 1.0 - 11.4 Postmenopausal 7.7 - 58.5 Performed By: #### V AGINT #### [facility] [address] [place] [address] Dr. Ashley Castaneda CBC AUTO DIFFon 01-16-2022 BASO # 0.0 103/ul Normal 0.0-0.1 [facility] Comment on above: Performed By: #### A FPMAT #### [facility] [address] [place] [address] Dr. Ashley Castaneda Basophils/100 WBC (Bld) 0.5 % Normal 0.2-2.0 [facility] Comment on above: Performed By: #### A FPMAT #### [facility] [address] [place] [address] Dr. Ashley Castaneda EO # 0.0 103/ul Normal 0.0-0.7 [facility] Comment on above: Performed By: #### A FPMAT #### [facility] [address] [place] [address] Dr. Ashley Castaneda Eosinophils/100 WBC (Bld) 0.5 % Critically low 0.9-7. 0 [facility] Comment on above: Performed By: #### A FPMAT #### [facility] [address] [place] [address] Dr. Ashley Castaneda Erythrocyte distribution width (RBC) [Ratio] 12.3 % Normal 11.0-15.0 [facility] Comment on above: Performed By: #### A FPMAT #### [facility] [address] [place] [address] Dr. Ashley Castaneda Hematocrit (Bld) [Volume fraction] 43.0 % Normal 36.0-48.0 [facility] Comment on above: Performed By: #### A FPMAT #### [facility] [address] [place] [address] Dr. Ashley Castaneda Hemoglobin (Bld) [Mass/Vol] 14.7 g/dL Normal 12.0-16.0 [facility] Comment on above: Performed By: #### A FPMAT #### [facility] [address] [place] [address] Dr. Ashley Castaneda IG # 0.02 10e3/ul Normal 0.00-0.03 [facility] Comment on above: Performed By: #### A FPMAT #### [facility] [address] [place] [address] Dr. Ashley Castaneda IG % 0.4 % Normal 0.0-0.5 [facility] Comment on above: Performed By: #### A FPMAT #### [facility] [address] [place] [address] Dr. Ashley Castaneda LYMPH # 2.0 103/ul Normal 1.2-3.8 [facility] Comment on above: Performed By: #### A FPMAT #### [facility] [address] [place] [address] Dr. Ashley Castaneda Lymphocytes/100 WBC (Bld) 36.0 % Normal 20.5-60.0 [facility] Comment on above: Performed By: #### A FPMAT #### [facility] [address] [place] [address] Dr. Ashley Castaneda MANUAL DIFF REQ NO Normal [facility] Comment on above: Performed By: #### A FPMAT #### [facility] [address] [place] [address] Dr. Ashley Castaneda MCH (RBC) [Entitic mass] 30.6 pg Normal 26.7-34.0 [facility] Comment on above: Performed By: #### A FPMAT #### [facility] [address] [place] [address] Dr. Ashley Castaneda MCHC (RBC) [Mass/Vol] 34.2 g/dL Normal 29.9-35.2 [facility] Comment on above: Performed By: #### A FPMAT #### [facility] [address] [place] [address] Dr. Ashley Castaneda MCV (RBC) [Entitic vol] 89.6 fL Normal 81.0-99.0 [facility] Comment on above: Performed By: #### A FPMAT #### [facility] [address] [place] [address] Dr. Ashley Castaneda MONO # 0.4 103/ul Normal 0.3-0.8 [facility] Comment on above: Performed By: #### A FPMAT #### [facility] [address] [place] [address] Dr. Ashley Castaneda Monocytes/100 WBC (Bld) 7.9 % Normal 1.7-12.0 [facility] Comment on above: Performed By: #### A FPMAT #### [facility] [address] [place] [address] Dr. Ashley Castaneda NEUT # 3.0 103/ul Normal 1.4-6.5 [facility] Comment on above: Performed By: #### A FPMAT #### [facility] [address] [place] [address] Dr. Ashley Castaneda Neutrophils/100 WBC (Bld) 54.7 % Normal 43.0-75.0 [facility] Comment on above: Performed By: #### A FPMAT #### [facility] [address] [address] [address] Ashley Castaenda Platelet mean volume (Bld) [Entitic vol] 9.8 fL Normal 9.5-13.5 [facility] Comment on above: Performed By: #### A FPMAT #### [facility] [address] [place] [address] Dr. Ashley Castaneda PLT 266 103/ul Normal 150-450 [facility] Comment on above: Performed By: #### A FPMAT #### [facility] [address] [address] [address] Ashley Castaneda RBC 4.80 106/ul Normal 4.20-5.40 [facility] Comment on above: Performed By: #### A FPMAT #### [facility] [address] [place] [address] Dr. Ashley Castaneda WBC 5.5 103/ul Normal 4.0-11.0 [facility] Comment on above: Performed By: #### A FPMAT #### [facility] [address] [place] [address] Dr. Ashley Castaneda FREE T3on 01-16-2022 FREE T3 2.66 pg/mlL Normal 2.18-3.98 [facility] Comment on above: Performed By: #### V AGINT #### [facility] [address] [place] [address] Dr. Ashley Castaneda GLYCOHEMOGLOBIN A1Con 2021 ADA RECOMMENDATION SEE BELOW Normal [facility] Comment on above: Result Comment: ADA RECOMMENDED LIMIT 4.0 - 6.0 ADA THERAPEUTIC TARGET < 7.0 ACTION SUGGESTED > 7.0 Performed By: #### H BSANS #### [facility] [address] [place] [address] Dr. Ashley Castaneda Glucose [Mass/Vol] 100 mg/dL Normal [facility] Comment on above: Performed By: #### H BSANS #### [facility] [address] [place] [address] Dr. Ashley Castaneda HbA1c (Bld) [Mass fraction] 5.1 % Normal 4.5-6.2 [facility] Comment on above: Performed By: #### H BSANS #### [facility] [address] [place], [place] [address] Dr. Ashley Castaneda TSHon 01-16-2022 TSH 1.242 uIU/mL Normal 0.358-3.[address] [facility] Comment on above: Performed By: #### V AGINT #### [facility] [address] [id number] Ashley Castaneda TSH RANGE SEE BELOW Normal [facility] Comment on above: Result Comment: <0.3 4 UIU/ml HYPERTHYROID 0.34-5.60 UIU/ml EUTHYROID >5.60 UIU/ml HYPOTHYROID Performed By: #### V AGINT #### [facility] [address] [address] [address] Ashley Castaneda Social History Date Type Detail Facility Start: 1995 Sex Assigned At Female F [facility] Tobacco smoking stat [facility] Unknown if ever smoked [facility] Work Phone: Vital Signs Date Time Vital Sign Value Performing Clinician Faci lity 2022 17:06-0400 Body weight 89.[address] ILIR DWYER . [facility] Comment on above: Performed By: #### A FPMAT #### [facility] [address] [place] [address] Dr. Ashley Castaneda Evaluation note Note Date & Type Note Facility Evaluation note No assessment information availa ble [facility] Work Phone: Summary Purpose Family History No Family History Records FoundNo Family History Records FoundNo Family History Records Found Advance Directives No Advanced Directives Records Found Advance Directive Response Recorded Date/ Time Advance Directives No April 16 022 2:03am Chief Complaint and Reason for Visit Chief Complaint Additional Source Comments INFORMATION SOURCE (unrecogn ized section and content) DATE CREATED AUTHOR 04/26/2022 [facility] DATE CREATED AUTHOR AUTHOR'S ORGANIZ ATION 11/24/2022 [facility] DATE CREATED AUTHOR AUTHOR'S ORGANIZ ATION 01/19/2024 [facility] EPIC Care Teams (unrecognized sec tion and content) [...] BE BASED ON THE PRIMARY CLINICAL RECORDS. [employer] provides no warranty or guarantee of the accuracy or completeness of information in this document.
== END 2024-02-15 20:53 | disposition home or self-care (01) ==
LOC: LAB 20:52
PROVIDERS: Visit Provider Obstetrics & Gynecology
DX: Z01.419 Encounter for gynecological examination (general) (routine) without abnormal findings (principal)
CPT/HCPCS: 88175

== ENCOUNTER 2024-02-26 10:47 | Outpatient (OUT) | payer OTHER, SELFPAY ==
--- NOTE | 2024-02-26 10:56 | US_ITS ---
[address] [address] Patient Name: BRYON PONCE MRN: [id number] date: 1995 Sex: F Assigned Patient Location: LAB Current Patient Location: LAB Accession/Order Number: [id number] Exam Date: 02/26/2024 11:05 Report Date: 02/26/2024 12:18 At the request of: ILIR DWYER Procedure: US OB cervical length EXAMINATION: US OB anatomy, US OB cervical length HISTORY: Screening For Anatomic Survey Z36.89 COMPARISON: No relevant comparison available. TECHNIQUE: Transabdominal sonographic examination was performed for obstetrical and evaluation. FINDINGS: Number: 1 Heart Rate: 147.5 bpm H.B. /min Amniotic Fluid Volume: Subjectively normal position: Cephalic presentation, longitudinal lie Placental Location: Posterior, grade 1. Placental edge is 3.4 cm from the internal os Cervix Length: 3.8 cm, closed Normal anatomy: Lateral ventricles, cerebellum, posterior fossa, nose, lips, orbits, four-chamber heart, RVOT, LVOT, diaphragm, stomach, kidneys, abdominal cord insertion, bladder, umbilical arteries, three-vessel cord, spine, extremities BIOMETRY: BPD: 4.8 cm 20 weeks 4 days , 71% HC: 17.6 cm 20 weeks 1 days, 41% AC: 14.2 cm 19 weeks 4 days, 25% FL: 3.0 cm 19 weeks 2 days , 16% EFW:298.2 grams; 11 ounces, 17% FL/AC: 21.3 FL/BPD: 62.3 HC/AC: 1.2 GESTATIONAL AGE: Age by EDC: 20 weeks 1 days ANTONIO by EDC: 07/14/2024 Age by current US: 19 weeks 6 days ANTONIO by current US: 07/16/2024 US/US OB cervical length IMPRESSION: Normal anatomy scan Closed cervix measuring 3.8 cm normal *Reference: [employer] Practice Guideline for the performance of Obstetric Ultrasound Examinations, June 14, 2007. Electronically authenticated by: YENI LINO Date: 02/26/2024 12:18
--- NOTE | 2024-02-26 10:56 | US_ITS ---
[address] [address] Patient Name: BRYON PONCE MRN: [id number] date: 1995 Sex: F Assigned Patient Location: LAB Current Patient Location: LAB Accession/Order Number: [id number] Exam Date: 02/26/2024 11:05 Report Date: 02/26/2024 12:18 At the request of: ILIR DWYER Procedure: US OB anatomy EXAMINATION: US OB anatomy, US OB cervical length HISTORY: Screening For Anatomic Survey Z36.89 COMPARISON: No relevant comparison available. TECHNIQUE: Transabdominal sonographic examination was performed for obstetrical and evaluation. FINDINGS: Number: 1 Heart Rate: 147.5 bpm H.B. /min Amniotic Fluid Volume: Subjectively normal position: Cephalic presentation, longitudinal lie Placental Location: Posterior, grade 1. Placental edge is 3.4 cm from the internal os Cervix Length: 3.8 cm, closed Normal anatomy: Lateral ventricles, cerebellum, posterior fossa, nose, lips, orbits, four-chamber heart, RVOT, LVOT, diaphragm, stomach, kidneys, abdominal cord insertion, bladder, umbilical arteries, three-vessel cord, spine, extremities BIOMETRY: BPD: 4.8 cm 20 weeks 4 days , 71% HC: 17.6 cm 20 weeks 1 days, 41% AC: 14.2 cm 19 weeks 4 days, 25% FL: 3.0 cm 19 weeks 2 days , 16% EFW:298.2 grams; 11 ounces, 17% FL/AC: 21.3 FL/BPD: 62.3 HC/AC: 1.2 GESTATIONAL AGE: Age by EDC: 20 weeks 1 days ANTONIO by EDC: 07/14/2024 Age by current US: 19 weeks 6 days ANTONIO by current US: 07/16/2024 US/US OB anatomy IMPRESSION: Normal anatomy scan Closed cervix measuring 3.8 cm normal *Reference: [employer] Practice Guideline for the performance of Obstetric Ultrasound Examinations, June 14, 2007. Electronically authenticated by: YENI LINO Date: 02/26/2024 12:18
--- OUTSIDE RECORDS SUMMARY | 2024-02-26 11:03 | XMS_ITS | CCD ---
Author Organization [facility]ini[facility] Care Team Providers Care Extension Educator Name Role Phone MD Swetha Phoenix Primary Care Provider [phone] MD Stoney Good Attending Provider [phone] YULIYA ., DR HAZEL Admitting Unavailable YULIYA ., DR HAZEL Attending Unavailable MISC, DR CHAMPION Primary Care Unavailable YULIYA ., DR HAZEL Consulting Unavailable ZIEBER, DR ASPEN Abrams Consulting Unavailable YULIYA ., DR HAZEL Admitting Unavailable YULIYA ., DR HAZEL Attending Unavailable MISC, DR CHAMPION Primary Care Unavailable DALE, DR YENI Cuenca Consulting Unavailable YULIYA ., DR HAZEL Consulting Unavailable YULIYA ., DR HAZEL Admitting Unavailable YULIYA ., DR HAZEL Attending Unavailable [facility] Unava ilable YULIYA ., DR HAZEL Consulting Unavailable YULIYA ., DR HAZEL Admitting Unavailable YULIYA ., DR HAZEL Attending Unavailable [facility] Unava ilable YULIYA ., DR HAZEL Admitting Unavailable YULIYA ., DR HAZEL Attending Unavailable [facility] Unava ilable YULIYA ., DR HAZEL [...] ., DR HAZEL Attending Unavailable [facility] Primary Care Unava ilable YULIYA ., DR HAZEL [...] Unavailable MISC, DR CHAMPION Primary Care Unavailable DALE, DR YENI Cuenca Consulting Unavailable CASSANDRA ., [...] ., DR HAZEL Attending Unavailable [facility] Primary [facility] Unava ilable YULIYA ., DR HAZEL Consulting Unavailable YULIYA ., DR HAZEL Admitting Unavailable YULIYA ., DR HAZEL Attending Unavailable [facility] Primary Care Unavailable YULIYA ., DR HAZEL Admitting Unavailable YULIYA ., DR HAZEL Attending Unavailable [facility] Primary Care Unava ilable DALE, DR YENI Cuenca Consulting Unavailable YULIYA ., DR HAZEL Consulting Unavailable UYLIYA ., DR HAZEL Admitting Unavailable YULIYA ., DR HAZEL Attending Unavailable REQUEST, DR NONE LISTED Primary Care Unavaila ble YULIYA ., DR HAZEL Consulting Unavailable MISC, DR CHAMPION Primary Care Unavailable STONEY GOOD Admitting Unavailable STONEY GOOD Attending Unavailable STONEY GOOD Consulting Unavailable YULIYA ., DR HAZEL Admitting Unavailable YULIYA ., DR HAZEL Attending Unavailable PHOENIX, SWETHA Primary Care Unavailable YULIYA ., DR HAZEL [...] HAZEL Consulting Unavailable YULIYA, ILIR Attending Unavailable YULIYA, ILIR Attending Unavailable JEZAKTYRA Attending Unavailable PHOENIX, SWETHA L Referring Unavailable PHOENIX, SWETHA L Primary Care Unavailable IVONNEZATYRA Billy Attending Unavailable PHOENIX, SWETHA L Referring Unavailable PHOENIX, SWETHA L Primary Care Unavailable Problems Active Problems Problem Classification Problem Date Documented Da te Episodic/Chronic Hemorrhage during ; abruptio placenta; placenta previa (14 sources) Antepartum hemorrhage, unspecified, third trimester; Translations: [Low lying placenta NOS or without hemorrhage, second trimester] Onset: 04-16-2022 Episodic Menstrual disorders (4 sources) Irregular menstruation, unspecified; Translations: [IRREGULAR MENSTRUATION UNSPECIFIED] Onset: 04-30-2022 Chronic Mood disorders (1 source) Mood disorders; Translations: [Depression, unspecified] Onset: 02-15-2024 OB-related trauma to perineum and vulva (1 [...] advice on procreation; Translations: [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 Ashley Castaneda Basophils/100 WBC (Bld) 0.1 % Critically low 0.2-2.0 [facility] Comment on above: Performed By: #### V AGINT #### [facility] [address] [place] [address] Dr. Ashley Castaneda EO # 0.0 103/ul Normal 0.0-0.7 [facility] Comment on above: Performed By: #### V AGINT #### [facility] [address] [place] [address] Dr. Ashley Castaneda Eosinophils/100 WBC (Bld) 0.0 % Critically low 0.9-7. 0 [facility] Comment on above: Performed By: #### V AGINT #### [facility] [address] [place] [address] Dr. Ashley Castaneda Erythrocyte distribution width (RBC) [Ratio] 14.8 % Normal 11.0-15.0 [facility] Comment on above: Performed By: #### V AGINT #### [facility] [address] [place] [address] Dr. Ashley Castaneda Hematocrit (Bld) [Volume fraction] 35.5 % Critically low 36.0-48.0 [facility] Comment on above: Performed By: #### V AGINT #### [facility] [address] [place] [address] Dr. Ashley Castaneda Hemoglobin (Bld) [Mass/Vol] 11.8 g/dL Critically low 12.0-16.0 [facility] Comment on above: Performed By: #### V AGINT #### [facility] [address] [address] [address] Ashley Castaneda IG # 0.07 10e3/ul Critically high 0.00-0.[address] [facility] Comment on above: Performed By: #### V AGINT #### [facility] [address] [address] [address] Ashley Castaneda IG % 0.5 % Normal 0.0-0.5 [facility] Comment on above: Performed By: #### V AGINT #### [facility] [address] [place] [address] Dr. Ashley Castaneda LYMPH # 1.7 103/ul Normal 1.2-3.8 [facility] Comment on above: Performed By: #### V AGINT #### [facility] [address] [place] [address] Dr. Ashley Castaneda Lymphocytes/100 WBC (Bld) 12.8 % Critically low 20.5-6 0.0 [facility] Comment on above: Performed By: #### V AGINT #### [facility] [address] [place] [address] Dr. Ashley Castaneda MANUAL DIFF REQ NO Normal [facility] Comment on above: Performed By: #### V AGINT #### [facility] [address] [place] [address] Dr. Ashley Castaneda MCH (RBC) [Entitic mass] 27.9 pg Normal 26.7-34.0 [facility] Comment on above: Performed By: #### V AGINT #### [facility] [address] [place] [address] Dr. Ashley Castaneda MCHC (RBC) [Mass/Vol] 33.2 g/dL Normal 29.9-35.2 [facility] Comment on above: Performed By: #### V AGINT #### [facility] [address] [place] [address] Dr. Ashley Castaneda MCV (RBC) [Entitic vol] 83.9 fL Normal 81.0-99.0 [facility] Comment on above: Performed By: #### V AGINT #### [facility] [address] [address] [address] Ashley Castaneda MONO # 1.3 103/ul Critically high 0.3-0.8 [facility] Comment on above: Performed By: #### V AGINT #### [facility] [address] [place] [address] Dr. Ashley Castaneda Monocytes/100 WBC (Bld) 9.7 % Normal 1.7-12.0 [facility] Comment on above: Performed By: #### V AGINT #### [facility] [address] [place] [address] Dr. Ashley Castaneda NEUT # 10.3 103/ul Critically high 1.4-6.[address] [facility] Comment on above: Performed By: #### V AGINT #### [facility] [address] [place] [address] Dr. Ashley Castaneda Neutrophils/100 WBC (Bld) 76.9 % Critically high 43.0- 75.0 [facility] Comment on above: Performed By: #### V AGINT #### [facility] [address] [place] [address] Dr. Ashley Castaneda Platelet mean volume (Bld) [Entitic vol] 11.1 fL Normal 9.5-13.5 [facility] Comment on above: Performed By: #### V AGINT #### [facility] [address] [place] [address] Dr. Ashley Castaneda PLT 186 103/ul Normal 150-450 [facility] Comment on above: Performed By: #### V AGINT #### [facility] [address] [place] [address] Dr. Ashley Castaneda RBC 4.23 106/ul Normal 4.20-5.40 [facility] Comment on above: Performed By: #### V AGINT #### [facility] [address] [place] [address] Dr. Ashley Castaneda WBC 13.5 103/ul Critically high 4.0-11.0 [facility] Comment on above: Performed By: #### V AGINT #### [facility] [address] [place], [place] [id number] Dr. Ashley Castaneda CBC AUTO DIFFon 11-04-2022 BASO # 0.0 103/ul Normal 0.0-0.1 [facility] Comment on above: Performed By: #### B MP #### [facility] [address] [address] [address] Ashley Castaneda Basophils/100 WBC (Bld) 0.2 % Normal 0.2-2.0 [facility] Comment on above: Performed By: #### B MP #### [facility] [address] [address] [address] Ashley Castaneda EO # 0.0 103/ul Normal 0.0-0.7 [facility] Comment on above: Performed By: #### B MP #### [facility] [address] [place] [address] Dr. Ashley Castaneda Eosinophils/100 WBC (Bld) 0.1 % Critically low 0.9-7. 0 [facility] Comment on above: Performed By: #### B MP #### [facility] [address] [place] [address] Dr. Ashley Castaneda Erythrocyte distribution width (RBC) [Ratio] 14.6 % Normal 11.0-15.0 [facility] Comment on above: Performed By: #### B MP #### [facility] [address] [place] [address] Dr. Ashley Castaneda Hematocrit (Bld) [Volume fraction] 39.9 % Normal 36.0-48.0 [facility] Comment on above: Performed By: #### B MP #### [facility] [address] [place] [address] Dr. Ashley Castaneda Hemoglobin (Bld) [Mass/Vol] 13.6 g/dL Normal 12.0-16.0 [facility] Comment on above: Performed By: #### B MP #### [facility] [address] [place] [address] Dr. Ashley Castaneda IG # 0.06 10e3/ul Critically high 0.00-0.[address] [facility] Comment on above: Performed By: #### B MP #### [facility] [address] [place] [address] Dr. Ashley Castaneda IG % 0.7 % Critically high 0.0-0.5 [facility] Comment on above: Performed By: #### B MP #### [facility] [address] [place] [address] Dr. Ashley Castaneda LYMPH # 1.6 103/ul Normal 1.2-3.8 [facility] Comment on above: Performed By: #### B MP #### [facility] [address] [place] [address] Dr. Ashley Castaneda Lymphocytes/100 WBC (Bld) 18.3 % Critically low 20.5-6 0.0 [facility] Comment on above: Performed By: #### B MP #### [facility] [address] [place] [address] Dr. Ashley Castaneda MANUAL DIFF REQ NO Normal [facility] Comment on above: Performed By: #### B MP #### [facility] [address] [place] [address] Dr. Ashley Castaneda MCH (RBC) [Entitic mass] 28.2 pg Normal 26.7-34.0 [facility] Comment on above: Performed By: #### B MP #### [facility] [address] [place] [address] Dr. Ashley Castaneda MCHC (RBC) [Mass/Vol] 34.1 g/dL Normal 29.9-35.2 [facility] Comment on above: Performed By: #### B MP #### [facility] [address] [place] [address] Dr. Ashley Castaneda MCV (RBC) [Entitic vol] 82.8 fL Normal 81.0-99.0 [facility] Comment on above: Performed By: #### B MP #### [facility] [address] [place] [address] Dr. Ashley Castaneda MONO # 0.8 103/ul Normal 0.3-0.8 [facility] Comment on above: Performed By: #### B MP #### [facility] [address] [address] [address] Ashley Castaneda Monocytes/100 WBC (Bld) 9.4 % Normal 1.7-12.0 [facility] Comment on above: Performed By: #### B MP #### [facility] [address] [place] [address] Dr. Ashley Castaneda NEUT # 6.3 103/ul Normal 1.4-6.5 [facility] Comment on above: Performed By: #### B MP #### [facility] [address] [place] [address] Dr. Ashley Castaneda Neutrophils/100 WBC (Bld) 71.3 % Normal 43.0-75.0 [facility] Comment on above: Performed By: #### B MP #### [facility] [address] [place] [address] Dr. Ashley Castaneda Platelet mean volume (Bld) [Entitic vol] 10.9 fL Normal 9.5-13.5 [facility] Comment on above: Performed By: #### B MP #### [facility] [address] [place] [address] Dr. Ashley Castaneda PLT 216 103/ul Normal 150-450 [facility] Comment on above: Performed By: #### B MP #### [facility] [address] [place] [address] Dr. Ashley Castaneda RBC 4.82 106/ul Normal 4.20-5.40 [facility] Comment on above: Performed By: #### B MP #### [facility] [address] [place] [address] Dr. Ashley Castaneda WBC 8.9 103/ul Normal 4.0-11.0 [facility] Comment on above: Performed By: #### B MP #### [facility] [address] [place] [address] Dr. Ashley Castaneda DRUG SCREEN RAPID (URINE)on 11-04-2022 AMP Negative Normal NEGATIVE [facility] Comment on above: Performed By: #### A FPMAT #### [facility] [address] [place] [address] Dr. Ashley Castaneda BAR Negative Normal NEGATIVE [facility] Comment on above: Performed By: #### A FPMAT #### [facility] [address] [place] [address] Dr. sAhley Castaneda BUP Negative Normal NEGATIVE [facility] Comment on above: Performed By: #### A FPMAT #### [facility] [address] [place] [address] Dr. Ashley Castaneda BZO Negative Normal NEGATIVE [facility] Comment on above: Performed By: #### A FPMAT #### [facility] [address] [place] [address] Dr. Ashley Castaneda ROMELIA Negative Normal NEGATIVE [facility] Comment on above: Performed By: #### A FPMAT #### [facility] [address] [place] [address] Dr. Ashley Castaneda CUT-OFFS SEE BELOW Normal [facility] Comment on above: Result Comment: [...] ng/mL Performed By: #### A FPMAT #### [facility] [address] [place] [address] Dr. Ashley Castaneda DRUG CUT HEADER DRUG CLASS TEST SYSTEM CUT-OFF CONCENTRATIONS ARE FOLLOWS: Normal [facility] Comment on above: Performed By: #### A FPMAT #### [facility] [address] [place] [address] Dr. Ashley Castaneda mAMP Negative Normal NEGATIVE [facility] Comment on above: Performed By: #### A FPMAT #### [facility] [address] [place] [address] Dr. Ashley Castaneda MTD Negative Normal NEGATIVE [facility] Comment on above: Performed By: #### A FPMAT #### [facility] [address] [place] [address] Dr. Ashley Castaneda OPI Negative Normal NEGATIVE [facility] Comment on above: Performed By: #### A FPMAT #### [facility] [address] [place] [address] Dr. Ashley Castaneda OXY Negative Normal NEGATIVE [facility] Comment on above: Performed By: #### A FPMAT #### [facility] [address] [place] [address] Dr. Ashley Castaneda PCP Negative Normal NEGATIVE [facility] Comment on above: Performed By: #### A FPMAT #### [facility] [address] [place] [address] Dr. Ashley Castaneda PPX Negative Normal NEGATIVE [facility] Comment on above: Performed By: #### A FPMAT #### [facility] [address] [place] [address] Dr. Ashley Castaneda TCA Negative Normal NEGATIVE [facility] Comment on above: Performed By: #### A FPMAT #### [facility] [address] [place] [address] Dr. Ashley Castaneda THC Negative Normal NEGATIVE [facility] Comment on above: Performed By: #### A FPMAT #### [facility] [address] [place] [address] Dr. Ashley Castaneda TYPE AND SCREENon 11-04-2022 TYPE AND SCREEN Negative Normal [facility] Comment on above: Performed By: #### T NS #### [facility] [address] [place] [address] Dr. Ashley Castaneda CBC AUTO DIFFon 10-24-2022 BASO # 0.1 103/ul Normal 0.0-0.1 [facility] Comment on above: Performed By: #### V AGINT #### [facility] [address] [place] [address] Dr. Ashley Castaneda Basophils/100 WBC (Bld) 0.5 % Normal 0.2-2.0 [facility] Comment on above: Performed By: #### V AGINT #### [facility] [address] [place] [address] Dr. Ashley Castaneda EO # 0.0 103/ul Normal 0.0-0.7 [facility] Comment on above: Performed By: #### V AGINT #### [facility] [address] [place] [address] Dr. Ashley Castaneda Eosinophils/100 WBC (Bld) 0.4 % Critically low 0.9-7. 0 [facility] Comment on above: Performed By: #### V AGINT #### [facility] [address] [place] [address] Dr. Ashley Castaneda Erythrocyte distribution width (RBC) [Ratio] 14.2 % Normal 11.0-15.0 [facility] Comment on above: Performed By: #### V AGINT #### [facility] [address] [place] [address] Dr. Ashley Castaneda Hematocrit (Bld) [Volume fraction] 39.1 % Normal 36.0-48.0 [facility] Comment on above: Performed By: #### V AGINT #### [facility] [address] [place] [address] Dr. Ashley Castaneda Hemoglobin (Bld) [Mass/Vol] 13.4 g/dL Normal 12.0-16.0 [facility] Comment on above: Performed By: #### V AGINT #### [facility] [address] [place] [address] Dr. Ashley Castaneda IG # 0.14 10e3/ul Critically high 0.00-0.[address] [facility] Comment on above: Performed By: #### V AGINT #### [facility] [address] [place] [address] Dr. Ashley Castaneda IG % 1.3 % Critically high 0.0-0.5 [facility] Comment on above: Performed By: #### V AGINT #### [facility] [address] [place] [address] Dr. Ashley Castaneda LYMPH # 2.6 103/ul Normal 1.2-3.8 [facility] Comment on above: Performed By: #### V AGINT #### [facility] [address] [place] [address] Dr. Ashley Castaneda Lymphocytes/100 WBC (Bld) 24.3 % Normal 20.5-60.0 [facility] Comment on above: Performed By: #### V AGINT #### [facility] [address] [place] [address] Dr. Ashley Castaneda MANUAL DIFF REQ NO Normal [facility] Comment on above: Performed By: #### V AGINT #### [facility] [address] [place] [address] Dr. Ashley Castaneda MCH (RBC) [Entitic mass] 28.6 pg Normal 26.7-34.0 [facility] Comment on above: Performed By: #### V AGINT #### [facility] [address] [place] [address] Dr. Ashley Castaneda MCHC (RBC) [Mass/Vol] 34.3 g/dL Normal 29.9-35.2 [facility] Comment on above: Performed By: #### V AGINT #### [facility] [address] [place] [address] Dr. Ashley Castaneda MCV (RBC) [Entitic vol] 83.5 fL Normal 81.0-99.0 [facility] Comment on above: Performed By: #### V AGINT #### [facility] [address] [place] [address] Dr. Ashley Castaneda MONO # 1.1 103/ul Critically high 0.3-0.8 [facility] Comment on above: Performed By: #### V AGINT #### [facility] [address] [place] [address] Dr. Ashley Castaneda Monocytes/100 WBC (Bld) 9.9 % Normal 1.7-12.0 [facility] Comment on above: Performed By: #### V AGINT #### [facility] [address] [place] [address] Dr. Ashley Castaneda NEUT # 6.9 103/ul Critically high 1.4-6.5 [facility] Comment on above: Performed By: #### V AGINT #### [facility] [address] [place] [address] Dr. Ashley Castaneda Neutrophils/100 WBC (Bld) 63.6 % Normal 43.0-75.0 [facility] Comment on above: Performed By: #### V AGINT #### [facility] [address] [place] [address] Dr. Ashley Castaneda Platelet mean volume (Bld) [Entitic vol] 11.2 fL Normal 9.5-13.5 [facility] Comment on above: Performed By: #### V AGINT #### [facility] [address] [place] [address] Dr. Ashley Castaneda PLT 260 103/ul Normal 150-450 [facility] Comment on above: Performed By: #### V AGINT #### [facility] [address] [place] [address] Dr. Ashley Castaneda RBC 4.68 106/ul Normal 4.20-5.40 [facility] Comment on above: Performed By: #### V AGINT #### [facility] [address] [place] [address] Dr. Ashley Castaneda WBC 10.9 103/ul Normal 4.0-11.0 [facility] Comment on above: Performed By: #### V AGINT #### [facility] [address] [place] [address] Dr. Ashley Castaneda TYPE AND SCREENon 10-24-2022 TYPE AND SCREEN Negative Normal [facility] Comment on above: Performed By: #### T NS #### [facility] [address] [place] [address] Dr. 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 Ashley Castaneda Clarity (U) CLEAR Normal CLEAR [facility] Comment on above: Performed By: #### H BSANS #### [facility] [address] [address] [address] Ashley Castaneda Color (U) LT. YELLOW Normal YELLOW [facility] Comment on above: Performed By: #### H BSANS #### [facility] [address] [address] [address] Ashley Castaneda Glucose Ql (U) Negative Normal NEGATIVE [facility] Comment on above: Performed By: #### H BSANS #### [facility] [address] [address] [address] Ashley Castaneda Hemoglobin Ql (U) TRACE-INTACT Abnormal NEGATIVE [facility] Comment on above: Performed By: #### H BSANS #### [facility] [address] [place] [address] Dr. Ashley Castaneda Ketones Ql (U) Negative Normal NEGATIVE [facility] Comment on above: Performed By: #### H BSANS #### [facility] [address] [address] [address] Ashley Castaneda LEUKOCYTES SMALL Abnormal NEGATIVE [facility] Comment on above: Performed By: #### H BSANS #### [facility] [address] [place] [address] Dr. Ashley Castaneda Nitrite Ql (U) Negative Normal NEGATIVE [facility] Comment on above: Performed By: #### H BSANS #### [facility] [address] [place] [address] Dr. Ashley Castaneda pH (U) 7.0 [pH] Normal 5-9 [facility] Comment on above: Performed By: #### H BSANS #### [facility] [address] [place] [address] Dr. Ashley Castaneda SPEC GRAVITY 1.010 Normal 1.005-<=1.02 5 [facility] Comment on above: Performed By: #### H BSANS #### [facility] [address] [place] [address] Dr. Ashley Castaneda UA PROTEIN Negative Normal NEGATIVE/ TRACE [facility] Comment on above: Performed By: #### H BSANS #### [facility] [address] [place] [address] Dr. Ashley Castaneda UR MICRO IND INDICATED Normal [facility] Comment on above: Performed By: #### H BSANS #### [facility] [address] [place] [address] Dr. Ashley Castaneda Urobilinogen Qn (U) 0.2 {Dorothy'U}/dL Normal 0.2 - 1. 0 [facility] Comment on above: Performed By: #### H BSANS #### [facility] [address] [place] [address] Dr. Ashley Castaneda URINE MICROSCOPIC ONLYon BACTERIA NONE SEEN Normal NONE SEEN [facility] Comment on above: Performed By: #### H BSANS #### [facility] [address] [place] [address] Dr. Ashley Castaneda Bacteria identified Cx Nom (U) NOT INDICATED Normal [facility] Comment on above: Performed By: #### H BSANS #### [facility] [address] [place] [address] Dr. Ashley Castaneda CAST NONE SEEN Normal NONE SEEN [facility] Comment on above: Performed By: #### H BSANS #### [facility] [address] [place] [address] Dr. Ashley Castaneda Crystals LM Nom (Urine sed) NONE SEEN Normal NONE SEEN [facility] Comment on above: Performed By: #### H BSANS #### [facility] [address] [place] [address] Dr. Ashley Castaneda Epithelial cells LM Ql (Urine sed) RARE Normal NONE SEEN /RARE [facility] Comment on above: Performed By: #### H BSANS #### [facility] [address] [place] [address] Dr. Ashley Castaneda MUCOUS NONE SEEN Normal NONE SEEN [facility] Comment on above: Performed By: #### H BSANS #### [facility] [address] [place] [address] Dr. Ashley Castaneda RBC 0-2 Normal 0-2 [facility] Comment on above: Performed By: #### H BSANS #### [facility] [address] [address] [address] Ashley Castaneda WBC 0-2 Abnormal NONE SEEN [facility] Comment on above: Performed By: #### H BSANS #### [facility] [address] [address] [address] Ashley Castaneda GROUP B STREP CULTUREon S. agalactiae Ag Ql (Unsp spec) Culture Observations: NEGATIVE FOR GROUP B STREPTOCOCCUS. Normal [facility] Comment on above: Performed By: #### G BSCX #### [facility] [address] [address] [address] Ashley Castaneda US PREG GROWTHon 10-21-2022 [...] ASPEN KIRKLAND Date: 2022-10-21 16:22 Normal [facility] US PREG GROWTHon 10-01-2022 US PREG [...] by: YENI LINO Date: 2022-10-01 16:02 Normal [facility] OVA AND PARASITE EXAMINATION on 09-18-2022 Ova + Parasite Exam Final report [facility] Comment on above: Result Comment: Thes e results were obtained using wet preparation(s) and trichrome stained smear. This test does not include testing for Cryptosporidium parvum, Cyclospora, or Microsporidia. Performed By: #### B MP #### [facility] [address] [place] [address] Dr. Ashley Castaneda Result 1 Comment [facility] Comment on above: Result Comment: No o va, cysts, or parasites seen. . One negative specimen does not rule out the possibility of a parasitic infection. Performed By: #### B MP #### [facility] [address] [place] [address] Dr. Ashley Castaneda PAP ACOG PANEL 2: 21 to 29on 08-28-2022 . . Normal [facility] Comment on above: Performed By: #### [id number] #### [facility] [address] [place] [address] Dr. Ashley Castaneda Age Gdln ACOG Testing - [facility] Comment on above: Performed By: #### [id number] #### [facility] [address] [place] [address] Dr. Ashley Castaneda DIAGNOSIS: Comment [facility] Comment on above: Result Comment: NEGA TIVE FOR INTRAEPITHELIAL LESION OR MALIGNANCY. Performed By: #### [id number] #### [facility] [address] [place] [address] Dr. Ashley Castaneda Methodology: Comment Normal [facility] Comment on above: Result Comment: This liquid based ThinPrep(R) pap test was screened with the use of an image guided system. Performed By: #### [id number] #### [facility] [address] [place] [address] Dr. Ashley Castaneda Note: Comment Normal [facility] Comment on above: Result Comment: The Pap smear is a screening test designed to aid in the detection of premalignant and malignant conditions of the uterine cervix. It is not a diagnostic procedure and should not be used as the sole means of detecting cervical cancer. Both false-positive and false-negative reports do occur. . Performed By: #### [id number] #### [facility] [address] [place] [address] Dr. Ashley Castaneda Performed by: Comment Normal [facility] Comment on above: Result Comment: Marialuisa Mo, It Risk Analyst (ASCP) Performed By: #### [id number] #### [facility] [address] [place] [address] Dr. Ashley Castaneda Reflex Criteria: Comment Normal [facility] Comment on above: Result Comment: The HPV DNA reflex criteria were not met with this specimen result therefore, no HPV testing was performed. . Performed By: #### [id number] #### [facility] [address] [place] [address] Dr. Ashley Castaneda Specimen adequacy: Comment Normal [facility] Comment on above: Result Comment: Sati sfactory for evaluation. No endocervical component is identified. Performed By: #### [id number] #### [facility] [address] [place] [address] Dr. Ashley Castaneda CHLAMYDIA/GONOCOCCUS LANE (SW AB/URINE/PAPon 08-22-20[address]lamydia trachomatis, LANE Negative Normal Negative [facility] Comment on above: Performed By: #### H BSANS #### [facility] [address] [address] [address] Ashley Castaneda Neisseria gonorrhoeae, LANE Negative Normal Negative [facility] Comment on above: Performed By: #### H BSANS #### [facility] [address] [address] [address] Ashley Castaneda VAGINITIS/VAGINOSIS DNA PROB Stephon 08-21-2022 Brina species Negative Normal Negative [facility] Comment on above: Performed By: #### V AGINT #### [facility] [address] [address] [address] Ashley Castaneda Gardnerella vaginalis Negative Normal Negative [facility] Comment on above: Performed By: #### V AGINT #### [facility] [address] [address] [address] Ashley Castaneda Trichomonas vaginalis Negative Normal Negative [facility] Comment on above: Performed By: #### V AGINT #### [facility] [address] [address] [address] Ashley Castaneda US PREG PLACENTAon 2 [...] ASPEN KIRKLAND Date: 2022-08-20 06:34 Normal [facility] GTT 3 HR PREGon 08-09-2022 Glucose [Mass/Vol] 96 mg/dL Normal 74-106 [facility] Comment on above: Performed By: #### G TT3P #### [facility] [address] [place] [address] Dr. Ashley Castaneda Glucose [Mass/Vol] 155 mg/dL Normal [facility] Comment on above: Performed By: #### G TT3P #### [facility] [address] [address] [address] Ashley Castaneda Glucose [Mass/Vol] 141 mg/dL Normal [facility] Comment on above: Performed By: #### G TT3P #### [facility] [address] [place] [address] Dr. Ashley Castaneda Glucose [Mass/Vol] 129 mg/dL Normal [facility] Comment on above: Performed By: #### G TT3P #### [facility] [address] [place] [address] Dr. Ashley Castaneda CBC AUTO DIFFon 08-02-2022 BASO # 0.1 103/ul Normal 0.0-0.1 [facility] Comment on above: Performed By: #### B MP #### [facility] [address] [place] [address] Dr. Ashley Castaneda Basophils/100 WBC (Bld) 0.6 % Normal 0.2-2.0 [facility] Comment on above: Performed By: #### B MP #### [facility] [address] [place] [address] Dr. Ashley Castaneda EO # 0.1 103/ul Normal 0.0-0.7 [facility] Comment on above: Performed By: #### B MP #### [facility] [address] [place] [address] Dr. Ashley Castaneda Eosinophils/100 WBC (Bld) 0.9 % Normal 0.9-7.0 [facility] Comment on above: Performed By: #### B MP #### [facility] [address] [place] [address] Dr. Ashley Castaneda Erythrocyte distribution width (RBC) [Ratio] 13.4 % Normal 11.0-15.0 [facility] Comment on above: Performed By: #### B MP #### [facility] [address] [place] [address] Dr. Ashley Castaneda Hematocrit (Bld) [Volume fraction] 36.2 % Normal 36.0-48.0 [facility] Comment on above: Performed By: #### B MP #### [facility] [address] [place] [address] Dr. Ashley Castaneda Hemoglobin (Bld) [Mass/Vol] 12.6 g/dL Normal 12.0-16.0 [facility] Comment on above: Performed By: #### B MP #### [facility] [address] [place] [address] Dr. Ashley Castaneda IG # 0.18 10e3/ul Critically high 0.00-0.[address] [facility] Comment on above: Performed By: #### B MP #### [facility] [address] [place] [address] Dr. Ashley Castaneda IG % 1.7 % Critically high 0.0-0.5 [facility] Comment on above: Performed By: #### B MP #### [facility] [address] [place] [address] Dr. Ashley Castaneda LYMPH # 1.7 103/ul Normal 1.2-3.8 [facility] Comment on above: Performed By: #### B MP #### [facility] [address] [place] [address] Dr. Ashley Castaneda Lymphocytes/100 WBC (Bld) 16.6 % Critically low 20.5-6 0.0 [facility] Comment on above: Performed By: #### B MP #### [facility] [address] [place] [address] Dr. Ashley Castaneda MANUAL DIFF REQ NO Normal [facility] Comment on above: Performed By: #### B MP #### [facility] [address] [place] [address] Dr. Ashley Castaneda MCH (RBC) [Entitic mass] 30.3 pg Normal 26.7-34.0 [facility] Comment on above: Performed By: #### B MP #### [facility] [address] [place] [address] Dr. Ashley Castaneda MCHC (RBC) [Mass/Vol] 34.8 g/dL Normal 29.9-35.2 [facility] Comment on above: Performed By: #### B MP #### [facility] [address] [place] [address] Dr. Ashley Castaneda MCV (RBC) [Entitic vol] 87.0 fL Normal 81.0-99.0 [facility] Comment on above: Performed By: #### B MP #### [facility] [address] [address] [address] Ashley Castaneda MONO # 0.7 103/ul Normal 0.3-0.8 [facility] Comment on above: Performed By: #### B MP #### [facility] [address] [address] [address] Ashley Castaneda Monocytes/100 WBC (Bld) 6.8 % Normal 1.7-12.0 [facility] Comment on above: Performed By: #### B MP #### [facility] [address] [address] [address] Ashley Castaneda NEUT # 7.7 103/ul Critically high 1.4-6.5 [facility] Comment on above: Performed By: #### B MP #### [facility] [address] [place] [address] Dr. Ashley Castaneda Neutrophils/100 WBC (Bld) 73.4 % Normal 43.0-75.0 [facility] Comment on above: Performed By: #### B MP #### [facility] [address] [place] [address] Dr. Ashley Castaneda Platelet mean volume (Bld) [Entitic vol] 10.1 fL Normal 9.5-13.5 [facility] Comment on above: Performed By: #### B MP #### [facility] [address] [place] [address] Dr. Ashley Castaneda PLT 232 103/ul Normal 150-450 [facility] Comment on above: Performed By: #### B MP #### [facility] [address] [place] [address] Dr. Ashley Castaneda RBC 4.16 106/ul Critically low 4.20-5.40 [facility] Comment on above: Performed By: #### B MP #### [facility] [address] [place] [address] Dr. Ashley Castaneda WBC 10.5 103/ul Normal 4.0-11.0 [facility] Comment on above: Performed By: #### B MP #### [facility] [address] [address] [address] Ashley Castaneda GLUCOSE - 1HRon 08-02-2022 Glucose [Mass/Vol] 152 mg/dL Critically high 74-106 [facility] Comment on above: Performed By: #### V AGINT #### [facility] [address] [address] [address] Ashley Castaneda AFP MATERNAL FOR SPINA BIFID Aon 2022 AFP MoM 0.45 Normal [facility] Comment on above: Performed By: #### A FPMAT #### [facility] [address] [address] [address] Ashley Castaneda AFP Value 22.5 ng/mL Normal [facility] Comment on above: Performed By: #### A FPMAT #### [facility] [address] [place] [address] Dr. Ashley Castaneda AFP, Serum for Spina Bifida Report Normal [facility] Comment on above: Performed By: #### A FPMAT #### [facility] [address] [address] [address] Ashley Castaneda Comment Comment Normal [facility] Comment on above: Result Comment: Duncan Koo, Ph.D., [facility] Director . References: Available Upon Request. . Multiples Of Median Cutoffs For AFP Elevations Chavez 2.5 Black 2.8 IDD 2.0 Twins 4.5 Abbreviation Definitions IDD - Insulin Dep Diabetes OSBR - Open Spina Bifida Risk . For further inquiries contact [facility] at [phone]. . This test was developed and its performance characteristics determined by [facility]. It has not been cleared or approved by the Food and Drug Administration. Performed By: #### A FPMAT #### [facility] [address] [address] [address] Ashley Morin Age Collection Date 20.0 weeks Normal [facility] Comment on above: Performed By: #### A FPMAT #### [facility] [address] [address] [address] Ashley Castaneda Gestat, Age Based on ANTONIO Normal [facility] Comment on above: Result Comment: 05/2023 Recalculations are not recommended when gestational dating by LMP and ultrasound are within 10 days. Performed By: #### A FPMAT #### [facility] [address] [place] [address] Dr. Ashley Castaneda Insulin Dep Diabetes No Normal [facility] Comment on above: Performed By: #### A FPMAT #### [facility] [address] [place] [address] Dr. Ashley Castaneda Interpretation Comment Normal [facility] Comment on above: Result Comment: Inte rpretation: [...] Customer Services to discuss available options. The [employer] recommends amniocentesis be offered to women age 35 and older. Performed By: #### A FPMAT #### [facility] [address] [place] [address] Dr. Ashley Castaneda [age] [facility] Comment on above: Performed By: #### A FPMAT #### [facility] [address] [place] [address] Dr. Ashley Castaneda Multiple Gestation No Normal [facility] Comment on above: Performed By: #### A FPMAT #### [facility] [address] [place] [address] Dr. Ashley Castaneda OSBR Risk [place] [address] [facility] Comment on above: Performed By: #### A FPMAT #### [facility] [address] [place] [address] Dr. Ashley Castaneda PDF . Normal [facility] Comment on above: Performed By: #### A FPMAT #### [facility] [address] [place] [address] Dr. Ashley Castaneda Race Normal [facility] Comment on above: Performed By: #### A FPMAT #### [facility] [address] [address] [address] Ashley Castaneda Test Results: Negative Normal [facility] Comment on above: Performed By: #### A FPMAT #### [facility] [address] [address] [address] Ashley Castaneda US PREG ANATOMY SINGLEon [...] YENI LINO Date: 2022-07-03 16:45 Normal [facility] HEP B SURFACE ANTIGEN SCREEN on 05-01-2022 HBsAg Screen Negative Normal Negative [facility] Comment on above: Performed By: #### H BSANS #### [facility] [address] [address] [address] Ashley Castaneda HEPATITIS C VIRUS AB W/ REFL EX QUANTon 05-01-2022 HCV AB <0.1 Normal 0.0-0.9 [facility] Comment on above: Performed By: #### V AGINT #### [facility] [address] [address] [address] Ashley Castaneda Interpretation: Comment Normal [facility] Comment on above: Result Comment: Nega tive Not infected with HCV, unless recent infection is suspected or other evidence exists to indicate HCV infection. Performed By: #### V AGINT #### [facility] [address] [place] [address] Dr. Ashley Castaneda HIV 1 AND 2 WITH REFLEXon HIV Screen 4th Generation wRfx Non-Reactive Normal Non Reactive [facility] Comment on above: Result Comment: HIV Negative HIV-1/HIV-2 antibodies and HIV-1 p24 antigen were NOT detected. There is no laboratory evidence of HIV infection. Performed By: #### B MP #### [facility] [address] [place] [address] Dr. Ashley Castaneda RPR QUANTon 05-01-2022 Rapid Plasma Reagin, Quant Non-Reactive Normal NonRea< 1:1 [facility] Comment on above: Result Comment: Plea se Note: This test does not meet current guidelines for screening and diagnosis of syphilis. This test is intended for following treatment response in patients being treated for syphilis infection. To screen for syphilis infection, a reflex cascade that includes both RPR and a treponema-specific assay should be utilized, such as Treponema pallidum (Syphilis) Screening [place] (424088) or Rapid Plasma Reagin (RPR) Test With Reflex to Quantitative RPR and Confirmatory Treponema pallidum Antibodies (671413). Performed By: #### B MP #### [facility] [address] [place] [address] Dr. Ashley Castaneda RUBELLA AB IGGon 05-01-2022 Rubella Antibodies, IgG 4.62 index Normal Immune >0.99 [facility] Comment on above: Result Comment: Non- immune <0.90 Equivocal 0.90 - 0.99 Immune >0.99 Performed By: #### B MP #### [facility] [address] [place] [address] Dr. Ashley Castaneda CBC AUTO DIFFon 04-30-2022 BASO # 0.0 103/ul Normal 0.0-0.1 [facility] Comment on above: Performed By: #### H BSANS #### [facility] [address] [place] [address] Dr. Ashley Castaneda Basophils/100 WBC (Bld) 0.3 % Normal 0.2-2.0 [facility] Comment on above: Performed By: #### H BSANS #### [facility] [address] [place] [address] Dr. Ashley Castaneda EO # 0.1 103/ul Normal 0.0-0.7 [facility] Comment on above: Performed By: #### H BSANS #### [facility] [address] [place] [address] Dr. Ashley Castaneda Eosinophils/100 WBC (Bld) 0.9 % Normal 0.9-7.0 [facility] Comment on above: Performed By: #### H BSANS #### [facility] [address] [place] [address] Dr. Ashley Castaneda Erythrocyte distribution width (RBC) [Ratio] 12.2 % Normal 11.0-15.0 [facility] Comment on above: Performed By: #### H BSANS #### [facility] [address] [place] [address] Dr. Ashley Castaneda Hematocrit (Bld) [Volume fraction] 40.5 % Normal 36.0-48.0 [facility] Comment on above: Performed By: #### H BSANS #### [facility] [address] [place] [address] Dr. Ashley Castaneda Hemoglobin (Bld) [Mass/Vol] 14.0 g/dL Normal 12.0-16.0 [facility] Comment on above: Performed By: #### H BSANS #### [facility] [address] [address] [address] Ashley Castaneda IG # 0.08 10e3/ul Critically high 0.00-0.[address] [facility] Comment on above: Performed By: #### H BSANS #### [facility] [address] [place] [address] Dr. Ashley Castaneda IG % 0.8 % Critically high 0.0-0.5 [facility] Comment on above: Performed By: #### H BSANS #### [facility] [address] [place] [address] Dr. Ashley Castaneda LYMPH # 1.9 103/ul Normal 1.2-3.8 [facility] Comment on above: Performed By: #### H BSANS #### [facility] [facility] [address] [place] [address] Dr. Ashley Castaneda Lymphocytes/100 WBC (Bld) 19.4 % Critically low 20.5-6 0.0 [facility] Comment on above: Performed By: #### H BSANS #### [facility] [address] [place] [address] Dr. Ashley Castaneda MANUAL DIFF REQ NO Normal [facility] Comment on above: Performed By: #### H BSANS #### [facility] [address] [place] [address] Dr. Ashley Castaneda MCH (RBC) [Entitic mass] 30.9 pg Normal 26.7-34.0 [facility] Comment on above: Performed By: #### H BSANS #### [facility] [address] [place] [address] Dr. Ashley Castaneda MCHC (RBC) [Mass/Vol] 34.6 g/dL Normal 29.9-35.2 [facility] Comment on above: Performed By: #### H BSANS #### [facility] [address] [place] [address] Dr. Ashley Castaneda MCV (RBC) [Entitic vol] 89.4 fL Normal 81.0-99.0 [facility] Comment on above: Performed By: #### H BSANS #### [facility] [address] [place], [place] [id number] Dr. Ashley Castaneda MONO # 0.8 103/ul Normal 0.3-0.8 [facility] Comment on above: Performed By: #### H BSANS #### [facility] [address] [place] [address] Dr. Ashley Castaneda Monocytes/100 WBC (Bld) 8.4 % Normal 1.7-12.0 [facility] Comment on above: Performed By: #### H BSANS #### [facility] [address] [place] [address] Dr. Ashley Castaneda NEUT # 7.0 103/ul Critically high 1.4-6.5 [facility] Comment on above: Performed By: #### H BSANS #### [facility] [address] [place] [address] Dr. Ashley Castaneda Neutrophils/100 WBC (Bld) 70.2 % Normal 43.0-75.0 [facility] Comment on above: Performed By: #### H BSANS #### [facility] [address] [place] [address] Dr. Ashley Castaneda Platelet mean volume (Bld) [Entitic vol] 10.1 fL Normal 9.5-13.5 [facility] Comment on above: Performed By: #### H BSANS #### [facility] [address] [place] [address] Dr. Ashley Castaneda PLT 234 103/ul Normal 150-450 [facility] Comment on above: Performed By: #### H BSANS #### [facility] [address] [place] [address] Dr. Ashley Castaneda RBC 4.53 106/ul Normal 4.20-5.40 [facility] Comment on above: Performed By: #### H BSANS #### [facility] [address] [place] [address] Dr. Ashley Castaneda WBC 10.0 103/ul Normal 4.0-11.0 [facility] Comment on above: Performed By: #### H BSANS #### [facility] [address] [place] [address] Dr. Ashley Castaneda CULTURE URINEon 08-17-2022 CULTURE URINE Culture Observations: NO GROWTH. Normal [facility] Comment on above: Performed By: #### H BSANS #### [facility] [address] [place] [address] Dr. Ashley Castaneda GLYCOHEMOGLOBIN A1Con 2021 ADA RECOMMENDATION SEE BELOW Normal [facility] Comment on above: Result Comment: ADA RECOMMENDED LIMIT 4.0 - 6.0 ADA THERAPEUTIC TARGET < 7.0 ACTION SUGGESTED > 7.0 Performed By: #### A FPMAT #### [facility] [address] [address] [address] Ashley Castaneda Glucose [Mass/Vol] 100 mg/dL Normal [facility] Comment on above: Performed By: #### A FPMAT #### [facility] [address] [place] [address] Dr. Ashley Castaneda HbA1c (Bld) [Mass fraction] 5.1 % Normal 4.5-6.2 [facility] Comment on above: Performed By: #### A FPMAT #### [facility] [address] [place] [address] Dr. Ashley Castaneda DELILAH BOX TEST PT SEND OUTo n 04-30-2022 SENT TO REF LAB 04/30/2022 Normal [facility] Comment on above: Performed By: #### V AGINT #### [facility] [address] [place] [address] Dr. Ashley Castaneda TYPE AND SCREENon 04-30-2022 TYPE AND SCREEN Negative Normal [facility] Comment on above: Performed By: #### T NS #### [facility] [address] [place] [address] Dr. Ashley Castaneda GENITAL CULTUREon 04-23-2022 Genital Culture, Routine Final report Normal [facility] Comment on above: Result Comment: Spec imen stability note: A swab transport (ie., ESwab, Amies agar gel) received by the lab more than 24 hours after collection may result in reduced recovery of Neisseria gonorrhoeae (GC). (This is informational only and may not apply to this specimen.) Performed By: #### G TT3P #### [facility] [address] [address] [address] Ashley Castaneda Result 1 Comment Normal [facility] Comment on above: Result Comment: Marika becerra genital jordan. Performed By: #### G TT3P #### [facility] [address] [place] [address] Dr. Ashley Castaneda US PREG TVon 04-22-2022 [...] by: YENI LINO Date: 2022-04-22 18:29 Normal [facility] ABO AND RH TYPEon 04-16-2022 ABO and Rh group Nom (Bld) ABO Rh Typing A Rh Positive Normal [facility] Comment on above: Performed By: #### H BSANS #### [facility] [address] [place] [address] Dr. Ashley Castaneda CBC AUTO DIFFon 04-16-2022 BASO # 0.0 103/ul Normal 0.0-0.1 [facility] Comment on above: Performed By: #### H BSANS #### [facility] [address] [place] [address] Dr. Ashley Castaneda Basophils/100 WBC (Bld) 0.2 % Normal 0.2-2.0 [facility] Comment on above: Performed By: #### H BSANS #### [facility] [address] [place] [address] Dr. Ashley Castaneda EO # 0.1 103/ul Normal 0.0-0.7 [facility] Comment on above: Performed By: #### H BSANS #### [facility] [address] [place] [address] Dr. Ashley Castaneda Eosinophils/100 WBC (Bld) 0.5 % Critically low 0.9-7. 0 [facility] Comment on above: Performed By: #### H BSANS #### [facility] [address] [place] [address] Dr. Ashley Castaneda Erythrocyte distribution width (RBC) [Ratio] 12.0 % Normal 11.0-15.0 [facility] Comment on above: Performed By: #### H BSANS #### [facility] [address] [place] [address] Dr. Ashley Castaneda Hematocrit (Bld) [Volume fraction] 40.2 % Normal 36.0-48.0 [facility] Comment on above: Performed By: #### H BSANS #### [facility] [address] [place] [address] Dr. Ashley Castaneda Hemoglobin (Bld) [Mass/Vol] 13.8 g/dL Normal 12.0-16.0 [facility] Comment on above: Performed By: #### H BSANS #### [facility] [address] [place] [address] Dr. Ashley Castaneda IG # 0.07 10e3/ul Critically high 0.00-0.[address] [facility] Comment on above: Performed By: #### H BSANS #### [facility] [address] [place] [address] Dr. Ashley Castaneda IG % 0.5 % Normal 0.0-0.5 [facility] Comment on above: Performed By: #### H BSANS #### [facility] [address] [place] [address] Dr. Ashley Castaneda LYMPH # 2.7 103/ul Normal 1.2-3.8 [facility] Comment on above: Performed By: #### H BSANS #### [facility] [address] [place] [address] Dr. Ashley Castaneda Lymphocytes/100 WBC (Bld) 19.8 % Critically low 20.5-6 0.0 [facility] Comment on above: Performed By: #### H BSANS #### [facility] [address] [place] [address] Dr. Ashley Castaneda MANUAL DIFF REQ NO Normal [facility] Comment on above: Performed By: #### H BSANS #### [facility] [address] [place] [address] Dr. Ashley Castaneda MCH (RBC) [Entitic mass] 30.7 pg Normal 26.7-34.0 [facility] Comment on above: Performed By: #### H BSANS #### [facility] [address] [place] [address] Dr. Ashley Castaneda MCHC (RBC) [Mass/Vol] 34.3 g/dL Normal 29.9-35.2 [facility] Comment on above: Performed By: #### H BSANS #### [facility] [address] [place] [address] Dr. Ashley Castaneda MCV (RBC) [Entitic vol] 89.5 fL Normal 81.0-99.0 [facility] Comment on above: Performed By: #### H BSANS #### [facility] [address] [place] [address] Dr. Ashley Castaneda MONO # 1.0 103/ul Critically high 0.3-0.8 [facility] Comment on above: Performed By: #### H BSANS #### [facility] [address] [place] [address] Dr. Ashley Castaneda Monocytes/100 WBC (Bld) 7.7 % Normal 1.7-12.0 [facility] Comment on above: Performed By: #### H BSANS #### [facility] [address] [place] [address] Dr. Ashley Castaneda NEUT # 9.6 103/ul Critically high 1.4-6.5 [facility] Comment on above: Performed By: #### H BSANS #### [facility] [address] [place] [address] Dr. Ashley Castaneda Neutrophils/100 WBC (Bld) 71.3 % Normal 43.0-75.0 [facility] Comment on above: Performed By: #### H BSANS #### [facility] [address] [place] [address] Dr. Ashley Castaneda Platelet mean volume (Bld) [Entitic vol] 10.2 fL Normal 9.5-13.5 [facility] Comment on above: Performed By: #### H BSANS #### [facility] [address] [place] [address] Dr. Ashley Castaneda PLT 243 103/ul Normal 150-450 [facility] Comment on above: Performed By: #### H BSANS #### [facility] [address] [place] [address] Dr. Ashley Castaneda RBC 4.49 106/ul Normal 4.20-5.40 [facility] Comment on above: Performed By: #### H BSANS #### [facility] [address] [place] [address] Dr. Ashley Castaneda WBC 13.5 103/ul Critically high 4.0-11.[address] [facility] Comment on above: Performed By: #### H BSANS #### [facility] [address] [place] [address] Dr. Ashley Castaneda ER URINE PROFILEon 2 Bilirubin Ql (U) Negative Normal NEGATIVE [facility] Comment on above: Performed By: #### A FPMAT #### [facility] [address] [place] [address] Dr. Ashley Castaneda Clarity (U) CLEAR Normal CLEAR [facility] Comment on above: Performed By: #### A FPMAT #### [facility] [address] [place] [address] Dr. Ashley Castaneda Color (U) LT. YELLOW Normal YELLOW [facility] Comment on above: Performed By: #### A FPMAT #### [facility] [address] [place] [address] Dr. Ashley Castaneda ERUAHD A micrscopic examination will be performed if indicated. Normal [facility] Comment on above: Performed By: #### A FPMAT #### [facility] [address] [place] [address] Dr. Ashley Castaneda Glucose Ql (U) Negative Normal NEGATIVE [facility] Comment on above: Performed By: #### A FPMAT #### [facility] [address] [place] [address] Dr. Ashley Castaneda Hemoglobin Ql (U) Negative Normal NEGATIVE [facility] Comment on above: Performed By: #### A FPMAT #### [facility] [address] [place] [address] Dr. Ashley Castaneda Ketones Ql (U) Negative Normal NEGATIVE [facility] Comment on above: Performed By: #### A FPMAT #### [facility] [address] [place] [address] Dr. Ashley Castaneda LEUKOCYTES Negative Normal NEGATIVE [facility] Comment on above: Performed By: #### A FPMAT #### [facility] [address] [place] [address] Dr. Ashley Castaneda Nitrite Ql (U) Negative Normal NEGATIVE [facility] Comment on above: Performed By: #### A FPMAT #### [facility] [address] [place] [address] Dr. Ashley Castaneda pH (U) 6.0 [pH] Normal 5-9 [facility] Comment on above: Performed By: #### A FPMAT #### [facility] [address] [place] [address] Dr. Ashley Castaneda SPEC GRAVITY 1.025 Normal 1.005-<=1.02 5 [facility] Comment on above: Performed By: #### A FPMAT #### [facility] [address] [place] [address] Dr. Ashley Castaneda UA PROTEIN Negative Normal NEGATIVE/ TRACE [facility] Comment on above: Performed By: #### A FPMAT #### [facility] [address] [place] [address] Dr. Ashley Castaneda UR MICRO IND NOT INDICATED Normal [facility] Comment on above: Performed By: #### A FPMAT #### [facility] [address] [place] [address] Dr. Ashley Castaneda Urobilinogen Qn (U) 0.2 {Dorothy'U}/dL Normal 0.2 - 1. 0 [facility] Comment on above: Performed By: #### A FPMAT #### [facility] [address] [place] [address] Dr. Ashley Castaneda HCG,Quantitativeon 2 HCG,Quantitative 068348.00 m[iU]/mL Normal [facility] Comment on above: Order Comment: LISA Nogueira FAX TO [phone] Result Comment: Appr oximate Approximate hCG Gestational Age Range (mIU/ml) (weeks) 0.2-1 5-50 1-2 50-500 2-3 100-5,000 3-4 500-10,000 4-5 1,000-50,000 5-6 10,000-100,000 6-8 15,000-200,000 8-12 10,000-100,000 PERFORMED BY: [place] [address] PATHOLOGIST SCOWMAN KASSANDRA JONES M.D. Performed By: #### H CGQNT #### [place] [address] [place] PREG QUANT HCGon 04-16-2022 HCG QUANT 115021 mIU/mL Normal [facility] Comment on above: Performed By: #### B MP #### [facility] [address] [place] [address] Dr. Ashley Castaneda HCG RANGE SEE BELOW Normal [facility] Comment on above: Result Comment: 5-50 0.2-1 WEEK 50-500 1-2 WEEKS 100-5,000 2-3 WEEKS 500-10,000 3-4 WEEKS 1,000-50,000 4-5 WEEKS 10,000-100,000 5-6 WEEKS 15,000-200,000 6-8 WEEKS 10,000-100,000 2-3 MONTHS Performed By: #### B MP #### [facility] [address] [place] [address] Dr. Ashley Castaneda Result Comment: TEST PERFORMED AT: [facility] [address] [place] [address] URon 04-16-2022 , QUAL Positive Abnormal NEGATIVE [facility] Comment on above: Performed By: #### A FPMAT #### [facility] [address] [address] [address] Ashley Castaneda PROF CHEM 8 (BAS METB)on Anion gap [Moles/Vol] 13.3 mmol/L Normal [facility] Comment on above: Performed By: #### B MP #### [facility] [address] [address] [address] Ashley Castaneda Calcium [Mass/Vol] 9.4 mg/dL Normal 8.5-10.1 [facility] Comment on above: Performed By: #### B MP #### [facility] [address] [address] [address] Ashley Castaneda Chloride [Moles/Vol] 101 mmol/L Normal 98-107 [facility] Comment on above: Performed By: #### B MP #### [facility] [address] [address] [address] Ashley Castaneda CO2 [Moles/Vol] 26.8 mmol/L Normal 21.0-32.[address] [facility] Comment on above: Performed By: #### B MP #### [facility] [address] [address] [address] Ashley Castaneda Creatinine [Mass/Vol] 0.70 mg/dL Normal 0.55-1.02 [facility] Comment on above: Performed By: #### B MP #### [facility] [address] [address] [address] Ashley Castaneda EGFR-AF ENGLISH >60 Normal >=[address] [facility] Comment on above: Performed By: #### B MP #### [facility] [address] [address] [address] Ashley Castaneda EGFR-NON AF ENGLISH >60 Normal >=60 [facility] Comment on above: Performed By: #### B MP #### [facility] [address] [address] [address] Ashley Castaneda Glucose [Mass/Vol] 99 mg/dL Normal 74-106 [facility] Comment on above: Performed By: #### B MP #### [facility] [address] [address] [address] Ashley Castaneda Potassium [Moles/Vol] 4.1 mmol/L Normal 3.5-5.1 [facility] Comment on above: Performed By: #### B MP #### [facility] [address] [address] [address] Ashley Castaneda Sodium [Moles/Vol] 137 mmol/L Normal 136-145 [facility] Comment on above: Performed By: #### B MP #### [facility] [address] [address] [address] Ashley Castaneda Urea nitrogen [Mass/Vol] 14.0 mg/dL Normal 7.0-18.0 [facility] Comment on above: Performed By: #### B MP #### [facility] [address] [address] [address] Ashley Castaneda Urea nitrogen/Creatinine [Mass ratio] 20.0 mg/mg Normal [facility] Comment on above: Performed By: #### B MP #### [facility] [address] [address] [address] Ashley Castaneda Serum or plasma beta choriog onadotropin measurement (units/volume)Ordered By: Stoney Good on 04-16-2022 HCG.beta subunit Qn 074446.00 m[IU]/mL [facility] Comment on above: Approximate Approxim ate hCG [...] ASPEN KIRKLAND Date: 2022-04-16 17:18 Normal [facility] WET PREPon 04-16-2022 CLUE CELLS NONE SEEN Normal NONE SEEN [facility] Comment on above: Performed By: #### B MP #### [facility] [address] [place] [address] Dr. Ashley Castandea FUNGAL ELEMENTS NONE SEEN Normal NONE SEEN [facility] Comment on above: Performed By: #### B MP #### [facility] [address] [address] [address] Ashley Castaneda RBC -WET PREP NONE SEEN Normal NONE SEEN [facility] Comment on above: Performed By: #### B MP #### [facility] [address] [address] [address] Ashley Castaneda TRICHOMONAS NONE SEEN Normal NONE SEEN [facility] Comment on above: Performed By: #### B MP #### [facility] [address] [address] [address] Ashley Castaneda WBC- WET PREP RARE Abnormal NONE SEEN [facility] Comment on above: Performed By: #### B MP #### [facility] [address] [address] [address] Ashley Castaneda WET PREP BACTERIA FEW Abnormal NONE SEEN [facility] Comment on above: Performed By: #### B MP #### [facility] [address] [place] [address] Dr. Ashley Castaneda PREG QUANT HCGon 03-13-2022 HCG QUANT 155 mIU/mL Normal [facility] Comment on above: Performed By: #### H BSANS #### [facility] [address] [place] [address] Dr. Ashley Castaneda HCG RANGE SEE BELOW Normal [facility] Comment on above: Result Comment: 5-50 0-1 WEEK 40-300 1-2 WEEKS 100-1,000 2-3 WEEKS 500-6,000 3-4 WEEKS 5,000-200,000 1-2 MONTHS 10,000-100,000 2-3 MONTHS 3,000-50,000 2ND TRIMESTER 1,000-50,000 3RD TRIMESTER Performed By: #### H BSANS #### [facility] [address] [place] [address] Dr. Ashley Castaneda PREG QUANT HCGon 03-11-2022 HCG QUANT 53 mIU/mL Normal [facility] Comment on above: Performed By: #### B MP #### [facility] [address] [place] [address] Dr. Ashley Castaneda HCG RANGE SEE BELOW Normal [facility] Comment on above: Result Comment: 5-50 0-1 WEEK 40-300 1-2 WEEKS 100-1,000 2-3 WEEKS 500-6,000 3-4 WEEKS 5,000-200,000 1-2 MONTHS 10,000-100,000 2-3 MONTHS 3,000-50,000 2ND TRIMESTER 1,000-50,000 3RD TRIMESTER Performed By: #### B MP #### [facility] [address] [place] [address] Dr. Ashley Castaneda DHEA SERUMon 01-29-2022 Dehydroepiandrosterone (DHEA) 459 ng/dL Normal 31-701 [facility] Comment on above: Result Comment: [...] 701 Performed By: #### V AGINT #### [facility] [address] [place] [address] Dr. Ashley Castaneda DHEA-SULFATEon 01-17-2022 DHEA-Sulfate 292.0 ug/dL Normal 84.8-378.0 [facility] Comment on above: Performed By: #### V AGINT #### [facility] [address] [place] [address] Dr. Ashley Castaneda FSHon 01-17-2022 FSH 5.2 mIU/mL Normal [facility] Comment on above: Result Comment: Adul t Female: Follicular phase 3.5 - 12.5 Ovulation phase 4.7 - 21.5 Luteal phase 1.7 - 7.7 Postmenopausal 25.8 - 134.8 Performed By: #### B MP #### [facility] [address] [place] [address] Dr. Ashley Castaneda LUTEINIZING HORMONE (LH)on 0 01-17-2022 LH 7.5 mIU/mL Normal [facility] Comment on above: Result Comment: Adul t Female: Follicular phase 2.4 - 12.6 Ovulation phase 14.0 - 95.6 Luteal phase 1.0 - 11.4 Postmenopausal 7.7 - 58.5 Performed By: #### V AGINT #### [facility] [address] [place] [address] Dr. Ashley Castaneda CBC AUTO DIFFon 01-16-2022 BASO # 0.0 103/ul Normal 0.0-0.1 [facility] Comment on above: Performed By: #### A FPMAT #### [facility] [address] [place] [address] Dr. Ashley Castaneda Basophils/100 WBC (Bld) 0.5 % Normal 0.2-2.0 [facility] Comment on above: Performed By: #### A FPMAT #### [facility] [address] [place] [address] Dr. Ashley Castaneda EO # 0.0 103/ul Normal 0.0-0.7 [facility] Comment on above: Performed By: #### A FPMAT #### [facility] [address] [place] [address] Dr. Ashley Castaneda Eosinophils/100 WBC (Bld) 0.5 % Critically low 0.9-7. 0 [facility] Comment on above: Performed By: #### A FPMAT #### [facility] [address] [place] [address] Dr. Ashley Castaneda Erythrocyte distribution width (RBC) [Ratio] 12.3 % Normal 11.0-15.0 [facility] Comment on above: Performed By: #### A FPMAT #### [facility] [address] [place] [address] Dr. Ashley Castaneda Hematocrit (Bld) [Volume fraction] 43.0 % Normal 36.0-48.0 [facility] Comment on above: Performed By: #### A FPMAT #### [facility] [address] [place] [address] Dr. Ashley Castaneda Hemoglobin (Bld) [Mass/Vol] 14.7 g/dL Normal 12.0-16.0 [facility] Comment on above: Performed By: #### A FPMAT #### [facility] [address] [place] [address] Dr. Ashley Castaneda IG # 0.02 10e3/ul Normal 0.00-0.03 [facility] Comment on above: Performed By: #### A FPMAT #### [facility] [address] [place] [address] Dr. Ashley Castaneda IG % 0.4 % Normal 0.0-0.5 [facility] Comment on above: Performed By: #### A FPMAT #### [facility] [address] [place] [address] Dr. Ashley Castaneda LYMPH # 2.0 103/ul Normal 1.2-3.8 [facility] Comment on above: Performed By: #### A FPMAT #### [facility] [address] [place] [address] Dr. Ashley Castaneda Lymphocytes/100 WBC (Bld) 36.0 % Normal 20.5-60.0 [facility] Comment on above: Performed By: #### A FPMAT #### [facility] [address] [place] [address] Dr. Ashley Castaneda MANUAL DIFF REQ NO Normal [facility] Comment on above: Performed By: #### A FPMAT #### [facility] [address] [place] [address] Dr. Ashley Castaneda MCH (RBC) [Entitic mass] 30.6 pg Normal 26.7-34.0 [facility] Comment on above: Performed By: #### A FPMAT #### [facility] [address] [place] [address] Dr. Ashley Castaneda MCHC (RBC) [Mass/Vol] 34.2 g/dL Normal 29.9-35.2 [facility] Comment on above: Performed By: #### A FPMAT #### [facility] [address] [place] [address] Dr. Ashley Castaneda MCV (RBC) [Entitic vol] 89.6 fL Normal 81.0-99.0 [facility] Comment on above: Performed By: #### A FPMAT #### [facility] [address] [place] [address] Dr. Ashley Castaneda MONO # 0.4 103/ul Normal 0.3-0.8 [facility] Comment on above: Performed By: #### A FPMAT #### [facility] [address] [place] [address] Dr. Ashley Castaneda Monocytes/100 WBC (Bld) 7.9 % Normal 1.7-12.0 [facility] Comment on above: Performed By: #### A FPMAT #### [facility] [address] [place] [address] Dr. Ashley Castaneda NEUT # 3.0 103/ul Normal 1.4-6.5 [facility] Comment on above: Performed By: #### A FPMAT #### [facility] [address] [place] [address] Dr. Ashley Castaneda Neutrophils/100 WBC (Bld) 54.7 % Normal 43.0-75.0 [facility] Comment on above: Performed By: #### A FPMAT #### [facility] [address] [place] [address] Dr. Ashley Castaneda Platelet mean volume (Bld) [Entitic vol] 9.8 fL Normal 9.5-13.5 [facility] Comment on above: Performed By: #### A FPMAT #### [facility] [address] [address] [address] Ashley Castaneda PLT 266 103/ul Normal 150-450 [facility] Comment on above: Performed By: #### A FPMAT #### [facility] [address] [address] [address] Ashley Castaneda RBC 4.80 106/ul Normal 4.20-5.40 [facility] Comment on above: Performed By: #### A FPMAT #### [facility] [address] [address] [address] Ashley Castaneda WBC 5.5 103/ul Normal 4.0-11.0 [facility] Comment on above: Performed By: #### A FPMAT #### [facility] [address] [place] [address] Dr. Ashley Castaneda FREE T3on 01-16-2022 FREE T3 2.66 pg/mlL Normal 2.18-3.98 [facility] Comment on above: Performed By: #### V AGINT #### [facility] [address] [place] [address] Dr. Ashley Castaneda GLYCOHEMOGLOBIN A1Con 2021 ADA RECOMMENDATION SEE BELOW Normal [facility] Comment on above: Result Comment: ADA RECOMMENDED LIMIT 4.0 - 6.0 ADA THERAPEUTIC TARGET < 7.0 ACTION SUGGESTED > 7.0 Performed By: #### H BSANS #### [facility] [address] [place] [address] Dr. Ashley Castaneda Glucose [Mass/Vol] 100 mg/dL Normal [facility] Comment on above: Performed By: #### H BSANS #### [facility] [address] [place] [address] Dr. Ashley Castaneda HbA1c (Bld) [Mass fraction] 5.1 % Normal 4.5-6.2 [facility] Comment on above: Performed By: #### H BSANS #### [facility] [address] [place] [address] Dr. Ashley Castaneda TSHon 01-16-2022 TSH 1.242 uIU/mL Normal 0.358-3.740 [facility] Comment on above: Performed By: #### V AGINT #### [facility] [address] [place] [address] Dr. Ashley Castaneda TSH RANGE SEE BELOW Normal [facility] Comment on above: Result Comment: <0.3 4 UIU/ml HYPERTHYROID 0.34-5.60 UIU/ml EUTHYROID >5.60 UIU/ml HYPOTHYROID Performed By: #### V AGINT #### [facility] [address] [place] [address] Dr. Ashley Castaneda Vital Signs Date Time Vital Sign Value Performing Clinician Faci lity 2022 17:060400 Body weight 89.[address] ILIR DWYER . [facility] Comment on above: Performed By: #### A FPMAT #### [facility] [address] [place] [address] Dr. Ashley Castaneda Encounters Encounter Date Encounter Type Care Provider Facility Start: 02-15-2024 End: 02-15-2024 ambulatory [facility] Start: 02-15-2024 End: 02-15-2024 ambulatory ILIR DWYER Not Available Start: 01-18-2024 End: 01-18-2024 ambulatory ILIR DWYER Not Available Start: 12-18-2023 End: 12-18-2023 ambulatory ILIR DWYER Not Available Start: 11-16-2023 End: 11-16-2023 ambulatory [facility] Start: 11-11-2022 End: 11-11-[address] ILIR [...] Facility:[facility] Start: 09-30-2022 End: 10-01-2022 ambulatory BHUMI SQUIRESEY . Facility:[facility] Start: 09-12-2022 End: 09-12-2022 ambulatory [...] Departed Referred MD Swetha Phoenix Work Phone: [facility] [place] Start: 04-16-2022 End: 04-16-[address] DOCTOR AVALOS Facility:[facility] Start: 03-13-2022 End: 03-14-[address] ILIR DWYER . Facility:[facility] Start: 03-11-2022 End: 03-12-[address] ILIR DWYER . Facility:[facility] Start: 01-16-2022 End: 01-17-[address] ILIR DWYER . Facility: Procedures Date Procedure Procedure Detail Performing Clinician [...] . Payers Date Payer Category Payer Unknown [id number] 2.16.84 0.1.167338.3.579.2.593 1996 Unknown [id number] 2.16.84 0.1.356981.3.579.2.593 1996 Unknown [id number] 2.16.84 0.1.878420.3.579.2.593 1996 Unknown [id number] 2.16.84 0.1.713433.3.579.2.593 1996 Unknown [id number] 2.16.84 0.1.190130.3.579.2.593 1996 Unknown [id number] 2.16.84 0.1.826984.3.579.2.593 1996 Unknown [id number] 2.16.84 0.1.776623.3.579.2.593 1996 Unknown [id number] 2.16.84 0.1.163072.3.579.2.593 1996 Unknown [id number] 2.16.84 0.1.094778.3.579.2.593 1996 Unknown [id number] 2.16.84 0.1.363219.3.579.2.593 1996 Unknown [id number] 2.16.84 0.1.945038.3.579.2.593 1996 Unknown [id number] 2.16.84 0.1.734146.3.579.2.593 1996 Unknown [id number] 2.16.84 0.1.975713.3.579.2.593 1996 Unknown [id number] 2.16.84 0.1.549420.3.579.2.593 1996 Unknown [id number] 2.16.84 0.1.968632.3.579.2.593 1996 Unknown [id number] 2.16.84 0.1.638931.3.579.2.593 1996 Unknown [id number] 2.16.84 0.1.407325.3.579.2.593 1996 Unknown [id number] 2.16.84 0.1.123643.3.579.2.593 1996 Unknown [id number] 2.16.84 0.1.496644.3.579.2.593 1996 Unknown [id number] 2.16.84 0.1.148055.3.579.2.593 1996 Unknown [id number] 2.16.84 0.1.977284.3.579.2.593 1996 Unknown [id number] 2.16.84 0.1.015013.3.579.2.593 1996 Unknown [id number] 2.16.84 0.1.818140.3.579.2.593 1996 Unknown [id number] 2.16.84 0.1.898625.3.579.2.1259 1996 Unknown [id number] 2.16.84 0.1.309154.3.579.2.1259 1996 Unknown [id number] 2.16.84 0.1.966292.3.579.2.1259 1996 Unknown [id number] 2.16.8 40.1.276715.3.579.2.1286 1996 Unknown [id number] 2.16.8 40.1.794305.3.579.2.1286 1959 Private Health Insurance [facility] [id number] Self-pay [id number] Unknown [id number] 2.16.84 0.1.614828.3.579.2.593 Social History Date Type Detail Facility Tobacco smoking stat RUSTIS Unknown if ever smoked [facility] Work Phone: Start: 1995 Sex Assigned At Female F [facility] Evaluation note Note Date & Type Note Facility Evaluation note No assessment information availa ble [facility] Work Phone: Summary Purpose Family History No Family History Records FoundNo Family History Records FoundNo Family History Records FoundNo Family History Records Found Advance Directives No Advanced Directives Records Found Advance Directive Response Recorded Date/ Time Advance Directives No April 16, 022 2:03am Chief Complaint and Reason for Visit Chief Complaint Additional Source Comments INFORMATION SOURCE (unrecogn ized section and content) DATE CREATED AUTHOR 04/26/2022 [facility] DATE CREATED AUTHOR AUTHOR'S ORGANIZ ATION 11/24/2022 [facility] DATE CREATED AUTHOR AUTHOR'S ORGANIZ ATION 02/16/2024 [facility] EPIC DATE CREATED AUTHOR AUTHOR'S ORGANIZ ATION 02/16/2024 [facility] Care Teams (unrecognized sec tion and content) [...] BE BASED ON THE PRIMARY CLINICAL RECORDS. [facility] [employer] [facility]. provides no warranty or guarantee of the accuracy or completeness of information in this document.
[2024-02-28 01:07] LABS: AFP Value 42.8 ng/mL (.); Gest. Age on Collection Date 20.1 weeks (.); Insulin Dep Diabetes No (.); OSBR Risk 1 IN 10000 (.); Results Report (.)
== END 2024-02-26 10:48 | disposition home or self-care (01) ==
LOC: LAB 10:47
PROVIDERS: Visit Provider Obstetrics & Gynecology
DX: Z34.92 Encounter for supervision of normal pregnancy, unspecified, second trimester (principal); Z3A.19 19 weeks gestation of pregnancy
CPT/HCPCS: 36415; 76805; 76817; 82105

== ENCOUNTER 2024-03-10 09:50 | Emergency (ER) | payer OTHER, SELFPAY ==
[2024-03-10 09:54] VITALS: BP 122/72; PULSE 80; TEMP 36.7; O2SAT 99; BMI 29.0
--- OUTSIDE RECORDS SUMMARY | 2024-03-10 11:49 | XMS_ITS ---
Patient Summarization (C-CDA 2.1 CCD) Created on: March 10, 2024 BRYON PONCE : 1995 Sex: Undifferentiated Author Organization Sample organization Care Team Providers Care Faucets Assembler Name Role Phone MD Swetha Phoenix Primary Care Provider [phone] MD Stoney Good Attending Provider [phone] YULIYA ., DR HAZEL Admitting Unavailable YULIYA ., DR HAZEL Attending Unavailable MISC, DR CHAMPION Primary Care Unavailable YULIYA ., DR HAZEL Consulting Unavailable ZIEBER, DR ASPEN Abrams Consulting Unavailable YULIYA ., DR HAZEL Admitting Unavailable YULIYA ., DR HAZEL Attending Unavailable MISC, DR CHAMPION Primary Care Unavailable FULTON, DR YENI Cuenca Consulting Unavailable YULIYA ., DR HAZEL Consulting Unavailable YULIYA ., DR HAZEL Admitting Unavailable YULIYA ., DR HAZEL Attending Unavailable [facility] Unava ilable YULIYA ., DR HAZEL Consulting Unavailable YULIYA ., DR HAZEL Admitting Unavailable YULIYA ., DR HAZEL Attending Unavailable [facility] Care Unava ilable YULIYA ., DR HAZEL Admitting Unavailable YULIYA ., DR HAZEL Attending Unavailable [facility] Unava ilable YULIYA ., DR [...] Unavailable YULIYA ., DR HAZEL Attending Unavailable [facility] Unava ilable YULIYA ., DR [...] Unavailable MISC, DR CHAMPION Primary Care Unavailable FULTON, DR YENI Cuenca Consulting Unavailable CASSANDRA ., [...] Unavailable YULIYA ., DR HAZEL Attending Unavailable [facility] Unava ilable YULIYA ., DR HAZEL Consulting Unavailable YULIYA ., DR HAZEL Admitting Unavailable YULIYA ., DR HAZEL Attending Unavailable [facility] Unavailable YULIYA ., DR HAZEL Admitting Unavailable YULIYA ., DR HAZEL Attending Unavailable [facility] Unava ilable FULTON, DR YENI Cuenca Consulting Unavailable YULIYA ., [...] YULIYA ., DR HAZEL Attending Unavailable MISC, DOCTOR Primary Care Unavailable YULIYA ., DR HAZEL Consulting Unavailable YULIYA, ILIR Attending Unavailable YULIYA, ILIR Attending Unavailable JEZAK, TYRA LINO Attending Unavailable PHOENIX, SWETHA L Referring Unavailable PHOENIX, SWETHA L Primary Care Unavailable JEZAMariajose, TYRA LINO Attending Unavailable PHOENIX, SWETHA L Referring Unavailable PHOENIX, SWETHA L Primary Care Unavailable Encounters Encounter Date Encounter Type Care Provider Facility Start: 02-15-2024 End: [facility]: 02-15-2024 End: 02-15-2024 ambulatory ILIR DWYER Not Available Start: 01-18-2024 End: 01-18-2024 ambulatory ILIR DWYER Not Available Start: 12-18-2023 End: 12-18-2023 ambulatory ILIR DWYER Not Available Start: 11-16-2023 End: 11-16-2023 ambulatory TYRA LIVINGSTON [facility] Start: 11-11-2022 End: 11-11-[address] ILIR [...] Facility:[facility] Start: 09-30-2022 End: 10-01-2022 ambulatory BHUMI CASSANDRA . Facility:[facility] Start: 09-12-2022 End: 09-12-2022 ambulatory [...] Work Phone: [facility] [place] Start: 04-16-2022 End: 04-16-[address] DOCTOR AVALOS Facility:[facility] Start: 03-13-2022 End: 03-14-[address] ILIR DWYER . Facility:[facility] Start: 03-11-2022 End: 03-12-[address] ILIR DWYER . Facility:[facility] Start: 01-16-2022 End: 01-17-[address] ILIR DWYER . Facility:[facility] Payers Date Payer Category Payer Unknown [id number] 2.16.84 [id number] 1995 Unknown [id number] 2.16.84 0.1.105627.3.579.2.593 1996 Unknown [id number] 2.16.84 0.1.742684.3.579.2.593 1996 Unknown [id number] 2.16.84 0.1.399050.3.579.2.593 1996 Unknown [id number] 2.16.84 0.1.451761.3.579.2.593 1996 Unknown [id number] 2.16.84 0.1.429860.3.579.2.593 1996 Unknown [id number] 2.16.84 0.1.408037.3.579.2.593 1996 Unknown [id number] 2.16.84 0.1.752689.3.579.2.593 1996 Unknown [id number] 2.16.84 0.1.803131.3.579.2.593 1996 Unknown [id number] 2.16.84 0.1.738231.3.579.2.593 1996 Unknown [id number] 2.16.84 0.1.523828.3.579.2.593 1996 Unknown [id number] 2.16.84 0.1.416976.3.579.2.593 1996 Unknown [id number] 2.16.84 0.1.232386.3.579.2.593 1996 Unknown [id number] 2.16.84 0.1.929528.3.579.2.593 1996 Unknown [id number] 2.16.84 0.1.570170.3.579.2.593 1996 Unknown [id number] 2.16.84 0.1.987308.3.579.2.593 1996 Unknown [id number] 2.16.84 0.1.798810.3.579.2.593 1996 Unknown [id number] 2.16.84 0.1.958935.3.579.2.593 1996 Unknown [id number] 2.16.84 0.1.460920.3.579.2.593 1996 Unknown [id number] 2.16.84 0.1.923296.3.579.2.593 1996 Unknown [id number] 2.16.84 0.1.128712.3.579.2.593 1996 Unknown [id number] 2.16.84 0.1.598820.3.579.2.593 1996 Unknown [id number] 2.16.84 0.1.962691.3.579.2.593 1996 Unknown [id number] 2.16.84 0.1.206398.3.579.2.1259 1996 Unknown [id number] 2.16.84 0.1.023102.3.579.2.1259 1996 Unknown [id number] 2.16.84 0.1.151555.3.579.2.1259 1996 Unknown [id number] 2.16.8 40.1.738448.3.579.2.1286 1996 Unknown [id number] 2.16.8 40.1.642148.3.579.2.1286 1959 Private Health Insurance [id number] Self-pay [id number] Unknown [id number] 2.16.84 0.1.695970.3.579.2.593 Problems Active Problems Problem Classification Problem Date [...] advice on procreation; Translations: [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 Ashley Castaneda Basophils/100 WBC (Bld) 0.1 % Critically low 0.2-2.0 [facility] Comment on above: Performed By: #### V AGINT #### [facility] [address] [address] [address] Ashley Castaneda EO # 0.0 103/ul Normal 0.0-0.7 [facility] Comment on above: Performed By: #### V AGINT #### [facility] [address] [place] [address] Dr. Ashley Castaneda Eosinophils/100 WBC (Bld) 0.0 % Critically low 0.9-7. 0 [facility] Comment on above: Performed By: #### V AGINT #### [facility] [address] [place] [address] Dr. Ashley Castaneda Erythrocyte distribution width (RBC) [Ratio] 14.8 % Normal 11.0-15.0 [facility] Comment on above: Performed By: #### V AGINT #### [facility] [address] [place] [address] Dr. Ashley Castaneda Hematocrit (Bld) [Volume fraction] 35.5 % Critically low 36.0-48.0 [facility] Comment on above: Performed By: #### V AGINT #### [facility] [address] [place] [address] Dr. Ashley Castaneda Hemoglobin (Bld) [Mass/Vol] 11.8 g/dL Critically low 12.0-16.0 [facility] Comment on above: Performed By: #### V AGINT #### [facility] [address] [place] [address] Dr. Ashley Castaneda IG # 0.07 10e3/ul Critically high 0.00-0.03 [facility] Comment on above: Performed By: #### V AGINT #### [facility] [address] [place] [address] Dr. Ashley Castaneda IG % 0.5 % Normal 0.0-0.5 [facility] Comment on above: Performed By: #### V AGINT #### [facility] [address] [place] [address] Dr. Ashley Castaneda LYMPH # 1.7 103/ul Normal 1.2-3.8 [facility] Comment on above: Performed By: #### V AGINT #### [facility] [address] [address] [address] Ashley Castaneda Lymphocytes/100 WBC (Bld) 12.8 % Critically low 20.5-6 0.0 [facility] Comment on above: Performed By: #### V AGINT #### [facility] [address] [address] [address] Ashley Castaneda MANUAL DIFF REQ NO Normal [facility] Comment on above: Performed By: #### V AGINT #### [facility] [address] [place] [address] Dr. Ashley Castaneda MCH (RBC) [Entitic mass] 27.9 pg Normal 26.7-34.0 [facility] Comment on above: Performed By: #### V AGINT #### [facility] [address] [place] [address] Dr. Ashley Castaneda MCHC (RBC) [Mass/Vol] 33.2 g/dL Normal 29.9-35.2 [facility] Comment on above: Performed By: #### V AGINT #### [facility] [address] [place] [address] Dr. Ashley Castaneda MCV (RBC) [Entitic vol] 83.9 fL Normal 81.0-99.0 [facility] Comment on above: Performed By: #### V AGINT #### [facility] [address] [place] [address] Dr. Ashley Castaneda MONO # 1.3 103/ul Critically high 0.3-0.8 [facility] Comment on above: Performed By: #### V AGINT #### [facility] [address] [place] [address] Dr. Ashley Castaneda Monocytes/100 WBC (Bld) 9.7 % Normal 1.7-12.0 [facility] Comment on above: Performed By: #### V AGINT #### [facility] [address] [place] [address] Dr. Ashley Castaneda NEUT # 10.3 103/ul Critically high 1.4-6.5 [facility] Comment on above: Performed By: #### V AGINT #### [facility] [address] [address] [address] Ashley Castaneda Neutrophils/100 WBC (Bld) 76.9 % Critically high 43.0- 75.0 [facility] Comment on above: Performed By: #### V AGINT #### [facility] [address] [place] [address] Dr. Ashley Castaneda Platelet mean volume (Bld) [Entitic vol] 11.1 fL Normal 9.5-13.5 [facility] Comment on above: Performed By: #### V AGINT #### [facility] [address] [place] [address] Dr. Ashley Castaneda PLT 186 103/ul Normal 150-450 [facility] Comment on above: Performed By: #### V AGINT #### [facility] [address] [place] [address] Dr. Ashley Castaneda RBC 4.23 106/ul Normal 4.20-5.40 [facility] Comment on above: Performed By: #### V AGINT #### [facility] [address] [place] [address] Dr. Ashley Castaneda WBC 13.5 103/ul Critically high 4.0-11.0 [facility] Comment on above: Performed By: #### V AGINT #### [facility] [address] [place] [address] Dr. Ashley Castaneda CBC AUTO DIFFon 11-04-2022 BASO # 0.0 103/ul Normal 0.0-0.1 [facility] Comment on above: Performed By: #### B MP #### [facility] [address] [place] [address] Dr. Ashley Castaneda Basophils/100 WBC (Bld) 0.2 % Normal 0.2-2.0 [facility] Comment on above: Performed By: #### B MP #### [facility] [address] [place] [address] Dr. Ashley Castaneda EO # 0.0 103/ul Normal 0.0-0.7 [facility] Comment on above: Performed By: #### B MP #### [facility] [address] [address] [address] Ashley Castaneda Eosinophils/100 WBC (Bld) 0.1 % Critically low 0.9-7. 0 [facility] Comment on above: Performed By: #### B MP #### [facility] [address] [place] [address] Dr. Ashley Castaneda Erythrocyte distribution width (RBC) [Ratio] 14.6 % Normal 11.0-15.0 [facility] Comment on above: Performed By: #### B MP #### [facility] [address] [place] [address] Dr. Ashley Castaneda Hematocrit (Bld) [Volume fraction] 39.9 % Normal 36.0-48.0 [facility] Comment on above: Performed By: #### B MP #### [facility] [address] [place] [address] Dr. Ashley Castaneda Hemoglobin (Bld) [Mass/Vol] 13.6 g/dL Normal 12.0-16.0 [facility] Comment on above: Performed By: #### B MP #### [facility] [address] [place] [address] Dr. Ashley Castaneda IG # 0.06 10e3/ul Critically high 0.00-0.03 [facility] Comment on above: Performed By: #### B MP #### [facility] [address] [place] [address] Dr. Ashley Castaneda IG % 0.7 % Critically high 0.0-0.5 [facility] Comment on above: Performed By: #### B MP #### [facility] [address] [place] [address] Dr. Ashley Castaneda LYMPH # 1.6 103/ul Normal 1.2-3.8 [facility] Comment on above: Performed By: #### B MP #### [facility] [address] [place] [address] Dr. Ashley Castaneda Lymphocytes/100 WBC (Bld) 18.3 % Critically low 20.5-6 0.0 [facility] Comment on above: Performed By: #### B MP #### [facility] [address] [place] [address] Dr. Ashley Castaneda MANUAL DIFF REQ NO Normal [facility] Comment on above: Performed By: #### B MP #### [facility] [address] [place] [address] Dr. Ashley Castaneda MCH (RBC) [Entitic mass] 28.2 pg Normal 26.7-34.0 [facility] Comment on above: Performed By: #### B MP #### [facility] [address] [place] [address] Dr. Ashley Castaneda MCHC (RBC) [Mass/Vol] 34.1 g/dL Normal 29.9-35.2 [facility] Comment on above: Performed By: #### B MP #### [facility] [address] [place] [address] Dr. Ashley Castaneda MCV (RBC) [Entitic vol] 82.8 fL Normal 81.0-99.0 [facility] Comment on above: Performed By: #### B MP #### [facility] [address] [place] [address] Dr. Ashley Castaneda MONO # 0.8 103/ul Normal 0.3-0.8 [facility] Comment on above: Performed By: #### B MP #### [facility] [address] [place] [address] Dr. Ashley Castaneda Monocytes/100 WBC (Bld) 9.4 % Normal 1.7-12.0 [facility] Comment on above: Performed By: #### B MP #### [facility] [address] [place] [address] Dr. Ashley Castaneda NEUT # 6.3 103/ul Normal 1.4-6.5 [facility] Comment on above: Performed By: #### B MP #### [facility] [address] [place] [address] Dr. Ashley Castaneda Neutrophils/100 WBC (Bld) 71.3 % Normal 43.0-75.0 [facility] Comment on above: Performed By: #### B MP #### [facility] [address] [place] [address] Dr. Ashley Castaneda Platelet mean volume (Bld) [Entitic vol] 10.9 fL Normal 9.5-13.5 [facility] Comment on above: Performed By: #### B MP #### [facility] [address] [place] [address] Dr. Ashley Castaneda PLT 216 103/ul Normal 150-450 [facility] Comment on above: Performed By: #### B MP #### [facility] [address] [place] [address] Dr. Ashley Castaneda RBC 4.82 106/ul Normal 4.20-5.40 [facility] Comment on above: Performed By: #### B MP #### [facility] [address] [place] [address] Dr. Ashley Castaneda WBC 8.9 103/ul Normal 4.0-11.0 [facility] Comment on above: Performed By: #### B MP #### [facility] [address] [place] [address] Dr. Ashley Castaneda DRUG SCREEN RAPID (URINE)on 11-04-2022 AMP Negative Normal NEGATIVE [facility] Comment on above: Performed By: #### A FPMAT #### [facility] [address] [place] [address] Dr. Ashley Castaneda BAR Negative Normal NEGATIVE [facility] Comment on above: Performed By: #### A FPMAT #### [facility] [address] [place] [address] Dr. Ashley Castaneda BUP Negative Normal NEGATIVE [facility] Comment on above: Performed By: #### A FPMAT #### [facility] [address] [place] [address] Dr. Ashley Castaneda BZO Negative Normal NEGATIVE [facility] Comment on above: Performed By: #### A FPMAT #### [facility] [address] [place] [address] Dr. Ashley Castaneda ROMELIA Negative Normal NEGATIVE [facility] Comment on above: Performed By: #### A FPMAT #### [facility] [address] [place] [address] Dr. Ashley Castaneda CUT-OFFS SEE BELOW Normal [facility] Comment on above: Result Comment: AMP [...] ng/mL Performed By: #### A FPMAT #### [facility] [address] [place] [address] Dr. Ashley Castaneda DRUG CUT HEADER DRUG CLASS TEST SYSTEM CUT-OFF CONCENTRATIONS ARE FOLLOWS: Normal [facility] Comment on above: Performed By: #### A FPMAT #### [facility] [address] [place] [address] Dr. Ashley Castaneda mAMP Negative Normal NEGATIVE [facility] Comment on above: Performed By: #### A FPMAT #### [facility] [address] [place] [address] Dr. Ashley Castaneda MTD Negative Normal NEGATIVE [facility] Comment on above: Performed By: #### A FPMAT #### [facility] [address] [place] [address] Dr. Ashley Castaneda OPI Negative Normal NEGATIVE [facility] Comment on above: Performed By: #### A FPMAT #### [facility] [address] [place] [address] Dr. Ashley Castaneda OXY Negative Normal NEGATIVE [facility] Comment on above: Performed By: #### A FPMAT #### [facility] [address] [place] [address] Dr. Ashley Castaneda PCP Negative Normal NEGATIVE [facility] Comment on above: Performed By: #### A FPMAT #### [facility] [address] [place] [address] Dr. Ashley Castaneda PPX Negative Normal NEGATIVE [facility] Comment on above: Performed By: #### A FPMAT #### [facility] [address] [place] [address] Dr. Ashley Castaneda TCA Negative Normal NEGATIVE [facility] Comment on above: Performed By: #### A FPMAT #### [facility] [address] [place] [address] Dr. Ashley Castaneda THC Negative Normal NEGATIVE [facility] Comment on above: Performed By: #### A FPMAT #### [facility] [address] [place] [address] Dr. Ashley Castaneda TYPE AND SCREENon 11-04-2022 TYPE AND SCREEN Negative Normal [facility] Comment on above: Performed By: #### T NS #### [facility] [address] [place] [address] Dr. Ashley Castaneda CBC AUTO DIFFon 10-24-2022 BASO # 0.1 103/ul Normal 0.0-0.1 [facility] Comment on above: Performed By: #### V AGINT #### [facility] [address] [place] [address] Dr. Ashley Castaneda Basophils/100 WBC (Bld) 0.5 % Normal 0.2-2.0 [facility] Comment on above: Performed By: #### V AGINT #### [facility] [address] [place] [address] Dr. Ashley Castaneda EO # 0.0 103/ul Normal 0.0-0.7 [facility] Comment on above: Performed By: #### V AGINT #### [facility] [address] [place] [address] Dr. Ashley Castaneda Eosinophils/100 WBC (Bld) 0.4 % Critically low 0.9-7. 0 [facility] Comment on above: Performed By: #### V AGINT #### [facility] [address] [place] [address] Dr. Ashley Castaneda Erythrocyte distribution width (RBC) [Ratio] 14.2 % Normal 11.0-15.0 [facility] Comment on above: Performed By: #### V AGINT #### [facility] [address] [place] [address] Dr. Ashley Castaneda Hematocrit (Bld) [Volume fraction] 39.1 % Normal 36.0-48.0 [facility] Comment on above: Performed By: #### V AGINT #### [facility] [address] [place] [address] Dr. Ashley Castaneda Hemoglobin (Bld) [Mass/Vol] 13.4 g/dL Normal 12.0-16.0 [facility] Comment on above: Performed By: #### V AGINT #### [facility] [address] [place] [address] Dr. Ashley Castaneda IG # 0.14 10e3/ul Critically high 0.00-0.03 [facility] Comment on above: Performed By: #### V AGINT #### [facility] [address] [place] [address] Dr. Ashley Castaneda IG % 1.3 % Critically high 0.0-0.5 [facility] Comment on above: Performed By: #### V AGINT #### [facility] [address] [place] [address] Dr. Ashley Castaneda LYMPH # 2.6 103/ul Normal 1.2-3.8 [facility] Comment on above: Performed By: #### V AGINT #### [facility] [address] [place] [address] Dr. Ashley Castaneda Lymphocytes/100 WBC (Bld) 24.3 % Normal 20.5-60.0 [facility] Comment on above: Performed By: #### V AGINT #### [facility] [address] [place] [address] Dr. Ashley Castaneda MANUAL DIFF REQ NO Normal [facility] Comment on above: Performed By: #### V AGINT #### [facility] [address] [place] [address] Dr. Ashley Castaneda MCH (RBC) [Entitic mass] 28.6 pg Normal 26.7-34.0 [facility] Comment on above: Performed By: #### V AGINT #### [facility] [address] [place] [address] Dr. Ashley Castaneda MCHC (RBC) [Mass/Vol] 34.3 g/dL Normal 29.9-35.2 [facility] Comment on above: Performed By: #### V AGINT #### [facility] [address] [place] [address] Dr. Ashley Castaneda MCV (RBC) [Entitic vol] 83.5 fL Normal 81.0-99.0 [facility] Comment on above: Performed By: #### V AGINT #### [facility] [address] [place] [address] Dr. Ashley Castaneda MONO # 1.1 103/ul Critically high 0.3-0.8 [facility] Comment on above: Performed By: #### V AGINT #### [facility] [address] [place] [address] Dr. Ashley Castaneda Monocytes/100 WBC (Bld) 9.9 % Normal 1.7-12.0 [facility] Comment on above: Performed By: #### V AGINT #### [facility] [address] [place] [address] Dr. Ashley Castaneda NEUT # 6.9 103/ul Critically high 1.4-6.5 [facility] Comment on above: Performed By: #### V AGINT #### [facility] [address] [place] [address] Dr. Ashley Castaneda Neutrophils/100 WBC (Bld) 63.6 % Normal 43.0-75.0 [facility] Comment on above: Performed By: #### V AGINT #### [facility] [address] [place] [address] Dr. Ashley Castaneda Platelet mean volume (Bld) [Entitic vol] 11.2 fL Normal 9.5-13.5 [facility] Comment on above: Performed By: #### V AGINT #### [facility] [address] [place] [address] Dr. Ashley Castaneda PLT 260 103/ul Normal 150-450 [facility] Comment on above: Performed By: #### V AGINT #### [facility] [address] [place] [address] Dr. Ashley Castaneda RBC 4.68 106/ul Normal 4.20-5.40 [facility] Comment on above: Performed By: #### V AGINT #### [facility] [address] [place] [address] Dr. Ashley Castaneda WBC 10.9 103/ul Normal 4.0-11.0 [facility] Comment on above: Performed By: #### V AGINT #### [facility] [address] [place] [address] Dr. Ashley Castaneda TYPE AND SCREENon 10-24-2022 TYPE AND SCREEN Negative Normal [facility] Comment on above: Performed By: #### T NS #### [facility] [address] [place] [address] Dr. 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 Ashley Castaneda Clarity (U) CLEAR Normal CLEAR [facility] Comment on above: Performed By: #### H BSANS #### [facility] [address] [place] [address] Dr. Ashley Castaneda Color (U) LT. YELLOW Normal YELLOW [facility] Comment on above: Performed By: #### H BSANS #### [facility] [address] [place] [address] Dr. Ashley Castaneda Glucose Ql (U) Negative Normal NEGATIVE [facility] Comment on above: Performed By: #### H BSANS #### [facility] [address] [place] [address] Dr. Ashley Castaneda Hemoglobin Ql (U) TRACE-INTACT Abnormal NEGATIVE [facility] Comment on above: Performed By: #### H BSANS #### [facility] [address] [place] [address] Dr. Ashley Castaneda Ketones Ql (U) Negative Normal NEGATIVE [facility] Comment on above: Performed By: #### H BSANS #### [facility] [address] [place] [address] Dr. Ashley Castaneda LEUKOCYTES SMALL Abnormal NEGATIVE [facility] Comment on above: Performed By: #### H BSANS #### [facility] [address] [place] [address] Dr. Ashley Castaneda Nitrite Ql (U) Negative Normal NEGATIVE [facility] Comment on above: Performed By: #### H BSANS #### [facility] [address] [place] [address] Dr. Ashley Castaneda pH (U) 7.0 [pH] Normal 5-9 [facility] Comment on above: Performed By: #### H BSANS #### [facility] [address] [place] [address] Dr. Ashley Castaneda SPEC GRAVITY 1.010 Normal 1.005-<=1.02 5 [facility] Comment on above: Performed By: #### H BSANS #### [facility] [address] [place] [address] Dr. Ashley Castaneda UA PROTEIN Negative Normal NEGATIVE/ TRACE [facility] Comment on above: Performed By: #### H BSANS #### [facility] [address] [place] [address] Dr. Ashley Castaneda UR MICRO IND INDICATED Normal [facility] Comment on above: Performed By: #### H BSANS #### [facility] [address] [place] [address] Dr. Ashley Castaneda Urobilinogen Qn (U) 0.2 {Dorothy'U}/dL Normal 0.2 - 1. 0 [facility] Comment on above: Performed By: #### H BSANS #### [facility] [address] [place] [address] Dr. Ashley Castaneda URINE MICROSCOPIC ONLYon BACTERIA NONE SEEN Normal NONE SEEN [facility] Comment on above: Performed By: #### H BSANS #### [facility] [address] [place] [address] Dr. Ashley Castaneda Bacteria identified Cx Nom (U) NOT INDICATED Normal [facility] Comment on above: Performed By: #### H BSANS #### [facility] [address] [place] [address] Dr. Ashley Castaneda CAST NONE SEEN Normal NONE SEEN [facility] Comment on above: Performed By: #### H BSANS #### [facility] [address] [place] [address] Dr. Ashley Castaneda Crystals LM Nom (Urine sed) NONE SEEN Normal NONE SEEN [facility] Comment on above: Performed By: #### H BSANS #### [facility] [address] [place] [address] Dr. Ashley Castaneda Epithelial cells LM Ql (Urine sed) RARE Normal NONE SEEN /RARE [facility] Comment on above: Performed By: #### H BSANS #### [facility] [address] [place] [address] Dr. Ashley Castaneda MUCOUS NONE SEEN Normal NONE SEEN [facility] Comment on above: Performed By: #### H BSANS #### [facility] [address] [place] [address] Dr. Ashley Castaneda RBC 0-2 Normal 0-2 [facility] Comment on above: Performed By: #### H BSANS #### [facility] [address] [place] [address] Dr. Ashley Castaneda WBC 0-2 Abnormal NONE SEEN [facility] Comment on above: Performed By: #### H BSANS #### [facility] [address] [place] [address] Dr. Ashley Castaneda GROUP B STREP CULTUREon S. agalactiae Ag Ql (Unsp spec) Culture Observations: NEGATIVE FOR GROUP B STREPTOCOCCUS. Normal [facility] Comment on above: Performed By: #### G BSCX #### [facility] [address] [place] [address] Dr. Ashley Castaneda US PREG GROWTHon 10-21-2022 [...] authenticated by: ASPEN KIRKLAND Date: 2022-10-21 16:22 [facility] US PREG GROWTHon 10-01-2022 US PREG [...] LINO Date: 2022-10-01 16:02 Normal [facility] OVA AND PARASITE EXAMINATION on 09-18-2022 Ova + Parasite Exam Final report Normal [facility] Comment on above: Result Comment: Thes e results were obtained using wet preparation(s) and trichrome stained smear. This test does not include testing for Cryptosporidium parvum, Cyclospora, or Microsporidia. Performed By: #### B MP #### [facility] [address] [place] [address] Dr. Ashley Castaneda Result 1 Comment Normal [facility] Comment on above: Result Comment: No o va, cysts, or parasites seen. . One negative specimen does not rule out the possibility of a parasitic infection. Performed By: #### B MP #### [facility] [address] [place] [address] Dr. Ashley Castaneda PAP ACOG PANEL 2: 21 to 29on 08-28-2022 . . Normal [facility] Comment on above: Performed By: #### [id number] #### [facility] [address] [place] [address] Dr. Ashley Castaneda Age Gdln ACOG Testing - [facility] Comment on above: Performed By: #### [id number] #### [facility] [address] [place] [address] Dr. Ashley Castaneda DIAGNOSIS: Comment [facility] Comment on above: Result Comment: NEGA TIVE FOR INTRAEPITHELIAL LESION OR MALIGNANCY. Performed By: #### [id number] #### [facility] [address] [place] [address] Dr. Ashley Castaneda Methodology: Comment [facility] Comment on above: Result Comment: This liquid based ThinPrep(R) pap test was screened with the use of an image guided system. Performed By: #### [id number] #### [facility] [address] [place] [address] Dr. Ashley Castaneda Note: Comment Normal [facility] Comment on above: Result Comment: The Pap smear is a screening test designed to aid in the detection of premalignant and malignant conditions of the uterine cervix. It is not a diagnostic procedure and should not be used as the sole means of detecting cervical cancer. Both false-positive and false-negative reports do occur. . Performed By: #### [id number] #### [facility] [address] [place] [address] Dr. Ashley Castaneda Performed by: Comment Normal [facility] Comment on above: Result Comment: Marialuisa Mo Sap Basis Architect (ASCP) Performed By: #### [id number] #### [facility] [address] [place] [address] Dr. Ashley Castaneda Reflex Criteria: Comment Normal [facility] Comment on above: Result Comment: The HPV DNA reflex criteria were not met with this specimen result therefore, no HPV testing was performed. . Performed By: #### [id number] #### [facility] [address] [place] [address] Dr. Ashley Castaneda Specimen adequacy: Comment Normal [facility] Comment on above: Result Comment: Sati sfactory for evaluation. No endocervical component is identified. Performed By: #### [id number] #### [facility] [address] [place] [address] Dr. Ashley Castaneda CHLAMYDIA/GONOCOCCUS LANE (SW AB/URINE/PAPon 08-22-[address] trachomatis, LANE Negative Normal Negative [facility] Comment on above: Performed By: #### H BSANS #### [facility] [address] [place] [address] Dr. Ashley Castaneda Neisseria gonorrhoeae, LANE Negative Normal Negative [facility] Comment on above: Performed By: #### H BSANS #### [facility] [address] [place] [address] Dr. Ashley Castaneda VAGINITIS/VAGINOSIS DNA PROB Stephon 08-21-2022 Brina species Negative Normal Negative [facility] Comment on above: Performed By: #### V AGINT #### [facility] [address] [place] [address] Dr. Ashley Castaneda Gardnerella vaginalis Negative Normal Negative [facility] Comment on above: Performed By: #### V AGINT #### [facility] [address] [address] [address] Ashley Castaneda Trichomonas vaginalis Negative Normal Negative [facility] Comment on above: Performed By: #### V AGINT #### [facility] [address] [address] [address] Ashley Castaneda US PREG PLACENTAon US PREG PLACENTA EXAMINATION: US PREG PLACENTA HISTORY: Low lying placenta COMPARISON: Ultrasound anatomy single 07/03/2022 FINDINGS: PLACENTA: Posterior-fundal, grade 0, with lower margin 7.0 cm from internal os. CERVIX LENGTH: Not measured. HEART RATE: 167 bpm OTHER: None. IMPRESSION: 1. Posterior-fundal placenta which is no longer low-lying. 2. Single live intrauterine . Electronically authenticated by: ASPEN KIRKLAND Date: 2022-08-20 06:34 Normal [facility] GTT 3 HR PREGon 08-09-2022 Glucose [Mass/Vol] 96 mg/dL Normal 74-106 [facility] Comment on above: Performed By: #### G TT3P #### [facility] [address] [place] [address] Dr. Ashley Castaneda Glucose [Mass/Vol] 155 mg/dL Normal [facility] Comment on above: Performed By: #### G TT3P #### [facility] [address] [place] [address] Dr. Ashley Castaneda Glucose [Mass/Vol] 141 mg/dL Normal [facility] Comment on above: Performed By: #### G TT3P #### [facility] [address] [address] [address] Ashley Castaneda Glucose [Mass/Vol] 129 mg/dL Normal [facility] Comment on above: Performed By: #### G TT3P #### [facility] [address] [place] [address] Dr. Ashley Castaneda CBC AUTO DIFFon 08-02-2022 BASO # 0.1 103/ul Normal 0.0-0.1 [facility] Comment on above: Performed By: #### B MP #### [facility] [address] [address] [address] Ashley Castaneda Basophils/100 WBC (Bld) 0.6 % Normal 0.2-2.0 [facility] Comment on above: Performed By: #### B MP #### [facility] [address] [place] [address] Dr. Ashley Castaneda EO # 0.1 103/ul Normal 0.0-0.7 [facility] Comment on above: Performed By: #### B MP #### [facility] [address] [place] [address] Dr. Ashley Castaneda Eosinophils/100 WBC (Bld) 0.9 % Normal 0.9-7.0 [facility] Comment on above: Performed By: #### B MP #### [facility] [address] [place] [address] Dr. Ashley Castaneda Erythrocyte distribution width (RBC) [Ratio] 13.4 % Normal 11.0-15.0 [facility] Comment on above: Performed By: #### B MP #### [facility] [address] [place] [address] Dr. Ashley Castaneda Hematocrit (Bld) [Volume fraction] 36.2 % Normal 36.0-48.0 [facility] Comment on above: Performed By: #### B MP #### [facility] [address] [place] [address] Dr. Ashley Castaneda Hemoglobin (Bld) [Mass/Vol] 12.6 g/dL Normal 12.0-16.0 [facility] Comment on above: Performed By: #### B MP #### [facility] [address] [place] [address] Dr. Ashley Castaneda IG # 0.18 10e3/ul Critically high 0.00-0.03 [facility] Comment on above: Performed By: #### B MP #### [facility] [address] [place] [address] Dr. Ashley Castaneda IG % 1.7 % Critically high 0.0-0.5 [facility] Comment on above: Performed By: #### B MP #### [facility] [address] [address] [address] Ashley Castaneda LYMPH # 1.7 103/ul Normal 1.2-3.8 [facility] Comment on above: Performed By: #### B MP #### [facility] [address] [place] [address] Dr. Ashley Castaneda Lymphocytes/100 WBC (Bld) 16.6 % Critically low 20.5-6 0.0 [facility] Comment on above: Performed By: #### B MP #### [facility] [address] [place] [address] Dr. Ashley Castaneda MANUAL DIFF REQ NO Normal [facility] Comment on above: Performed By: #### B MP #### [facility] [address] [place] [address] Dr. Ashley Castaneda MCH (RBC) [Entitic mass] 30.3 pg Normal 26.7-34.0 [facility] Comment on above: Performed By: #### B MP #### [facility] [address] [place] [address] Dr. Ashley Castaneda MCHC (RBC) [Mass/Vol] 34.8 g/dL Normal 29.9-35.2 [facility] Comment on above: Performed By: #### B MP #### [facility] [address] [place] [address] Dr. Ashley Castaneda MCV (RBC) [Entitic vol] 87.0 fL Normal 81.0-99.0 [facility] Comment on above: Performed By: #### B MP #### [facility] [address] [place] [address] Dr. Ashley Castaneda MONO # 0.7 103/ul Normal 0.3-0.8 [facility] Comment on above: Performed By: #### B MP #### [facility] [address] [place] [address] Dr. Ashley Castaneda Monocytes/100 WBC (Bld) 6.8 % Normal 1.7-12.0 [facility] Comment on above: Performed By: #### B MP #### [facility] [address] [place] [address] Dr. Ashley Castaneda NEUT # 7.7 103/ul Critically high 1.4-6.5 [facility] Comment on above: Performed By: #### B MP #### [facility] [address] [address] [address] Ashley Castaneda Neutrophils/100 WBC (Bld) 73.4 % Normal 43.0-75.0 [facility] Comment on above: Performed By: #### B MP #### [facility] [address] [address] [address] Ashley Castaneda Platelet mean volume (Bld) [Entitic vol] 10.1 fL Normal 9.5-13.5 [facility] Comment on above: Performed By: #### B MP #### [facility] [address] [place] [address] Dr. Ashley Castaneda PLT 232 103/ul Normal 150-450 [facility] Comment on above: Performed By: #### B MP #### [facility] [address] [address] [address] Ashley Castaneda RBC 4.16 106/ul Critically low 4.20-5.40 [facility] Comment on above: Performed By: #### B MP #### [facility] [address] [place] [address] Dr. Ashley Castaneda WBC 10.5 103/ul Normal 4.0-11.0 [facility] Comment on above: Performed By: #### B MP #### [facility] [address] [place] [address] Dr. Ashley Castaneda GLUCOSE - 1HRon 08-02-2022 Glucose [Mass/Vol] 152 mg/dL Critically high 74-106 [facility] Comment on above: Performed By: #### V AGINT #### [facility] [address] [place] [address] Dr. Ashley Castaneda AFP MATERNAL FOR SPINA BIFID Aon 2022 AFP MoM 0.45 Normal [facility] Comment on above: Performed By: #### A FPMAT #### [facility] [address] [place] [address] Dr. Ashley Castaneda AFP Value 22.5 ng/mL Normal [facility] Comment on above: Performed By: #### A FPMAT #### [facility] [address] [address] [address] Ashley Castaneda AFP, Serum for Spina Bifida Report Normal [facility] Comment on above: Performed By: #### A FPMAT #### [facility] [address] [address] [address] Ashley Castaneda Comment Comment Normal [facility] Comment on above: Result Comment: Duncan Koo, Ph.D., [facility] Director . References: Available Upon Request. . Multiples Of Median Cutoffs For AFP Elevations Chavez 2.5 Black 2.8 IDD 2.0 Twins 4.5 Abbreviation Definitions IDD - Insulin Dep Diabetes OSBR - Open Spina Bifida Risk . For further inquiries contact [facility] at [phone]. . This test was developed and its performance characteristics determined by [facility]. It has not been cleared or approved by the Food and Drug Administration. Performed By: #### A FPMAT #### [facility] [address] [address] [address] Ashley Morin Age Collection Date 20.0 weeks [facility] Comment on above: Performed By: #### A FPMAT #### [facility] [address] [place] [address] Dr. Ashley Castaneda Gestat, Age Based on ANTONIO Normal [facility] Comment on above: Result Comment: 05/2023 Recalculations are not recommended when gestational dating by LMP and ultrasound are within 10 days. Performed By: #### A FPMAT #### [facility] [address] [address] [address] Ashley Castaneda Insulin Dep Diabetes No Normal [facility] Comment on above: Performed By: #### A FPMAT #### [facility] [address] [place] [address] Dr. Ashley Castaneda Interpretation Comment Normal [facility] Comment on above: Result Comment: Inte [...] Customer Services to discuss available options. The [employer] recommends amniocentesis be offered to women age 35 and older. Performed By: #### A FPMAT #### [facility] [address] [place] [address] Dr. Ashley Castaneda [age] Normal [facility] Comment on above: Performed By: #### A FPMAT #### [facility] [address] [place] [address] Dr. Ashley Castaneda Multiple Gestation No Normal [facility] Comment on above: Performed By: #### A FPMAT #### [facility] [address] [place] [address] Dr. Ashley Castaneda [place] [address] Normal [facility] Comment on above: Performed By: #### A FPMAT #### [facility] [address] [place] [address] Dr. Ashley Castaneda PDF . Normal [facility] Comment on above: Performed By: #### A FPMAT #### [facility] [address] [place] [address] Dr. Ashley Castaneda Race Normal [facility] Comment on above: Performed By: #### A FPMAT #### [facility] [address] [place] [address] Dr. Ashley Castaneda Test Results: Negative Normal [facility] Comment on above: Performed By: #### A FPMAT #### [facility] [address] [place] [address] Dr. Ashley Castaneda US PREG ANATOMY SINGLEon [...] LINO Date: 2022-07-03 16:45 Normal [facility] HEP B SURFACE ANTIGEN SCREEN on 05-01-2022 HBsAg Screen Negative Normal Negative [facility] Comment on above: Performed By: #### H BSANS #### [facility] [address] [place] [address] Dr. Ashley Castaneda HEPATITIS C VIRUS AB W/ REFL EX QUANTon 05-01-2022 HCV AB <0.1 Normal 0.0-0.9 [facility] Comment on above: Performed By: #### V AGINT #### [facility] [address] [address] [address] Ashley Castaneda Interpretation: Comment Normal [facility] Comment on above: Result Comment: Nega tive Not infected with HCV, unless recent infection is suspected or other evidence exists to indicate HCV infection. Performed By: #### V AGINT #### [facility] [address] [place] [address] Dr. Ashley Castaneda HIV 1 AND 2 WITH REFLEXon HIV Screen 4th Generation wRfx Non-Reactive Normal Non Reactive [facility] Comment on above: Result Comment: HIV Negative HIV-1/HIV-2 antibodies and HIV-1 p24 antigen were NOT detected. There is no laboratory evidence of HIV infection. Performed By: #### B MP #### [facility] [address] [place] [address] Dr. Ashley Castaneda RPR QUANTon 05-01-2022 Rapid Plasma Reagin, Quant Non-Reactive Normal NonRea< 1:1 [facility] Comment on above: Result Comment: Plea Note: This test does not meet current guidelines for screening and diagnosis of syphilis. This test is intended for following treatment response in patients being treated for syphilis infection. To screen for syphilis infection, a reflex cascade that includes both RPR and a treponema-specific assay should be utilized, such as Treponema pallidum (Syphilis) Screening Rowe (908298) or Rapid Plasma Reagin (RPR) Test With Reflex to Quantitative RPR and Confirmatory Treponema pallidum Antibodies (710906). Performed By: #### B MP #### [facility] [address] [place] [address] Dr. Ashley Castaneda RUBELLA AB IGGon 05-01-2022 Rubella Antibodies, IgG 4.62 index Normal Immune >0.99 [facility] Comment on above: Result Comment: Non- immune <0.90 Equivocal 0.90 - 0.99 Immune >0.99 Performed By: #### B MP #### [facility] [address] [place] [address] Dr. Ashley Castaneda CBC AUTO DIFFon 04-30-2022 BASO # 0.0 103/ul Normal 0.0-0.1 [facility] Comment on above: Performed By: #### H BSANS #### [facility] [address] [place] [address] Dr. Ashley Castaneda Basophils/100 WBC (Bld) 0.3 % Normal 0.2-2.0 [facility] Comment on above: Performed By: #### H BSANS #### [facility] [address] [address] [address] Ashley Castaneda EO # 0.1 103/ul Normal 0.0-0.7 [facility] Comment on above: Performed By: #### H BSANS #### [facility] [address] [place] [address] Dr. Ashley Castaneda Eosinophils/100 WBC (Bld) 0.9 % Normal 0.9-7.0 [facility] Comment on above: Performed By: #### H BSANS #### [facility] [address] [place] [address] Dr. Ashley Castaneda Erythrocyte distribution width (RBC) [Ratio] 12.2 % Normal 11.0-15.0 [facility] Comment on above: Performed By: #### H BSANS #### [facility] [address] [place] [address] Dr. Ashley Castaneda Hematocrit (Bld) [Volume fraction] 40.5 % Normal 36.0-48.0 [facility] Comment on above: Performed By: #### H BSANS #### [facility] [address] [place] [address] Dr. Ashley Castaneda Hemoglobin (Bld) [Mass/Vol] 14.0 g/dL Normal 12.0-16.0 [facility] Comment on above: Performed By: #### H BSANS #### [facility] [address] [place] [address] Dr. Ashley Castaneda IG # 0.08 10e3/ul Critically high 0.00-0.03 [facility] Comment on above: Performed By: #### H BSANS #### [facility] [address] [place] [address] Dr. Ashley Castaneda IG % 0.8 % Critically high 0.0-0.5 [facility] Comment on above: Performed By: #### H BSANS #### [facility] [address] [place] [address] Dr. Ashley Castaneda LYMPH # 1.9 103/ul Normal 1.2-3.8 [facility] Comment on above: Performed By: #### H BSANS #### [facility] [address] [place] [address] [address] Ashley Castaneda Lymphocytes/100 WBC (Bld) 19.4 % Critically low 20.5-6 0.0 [facility] Comment on above: Performed By: #### H BSANS #### [facility] [address] [place] [address] [address] Ashley Castaneda MANUAL DIFF REQ NO Normal [facility] Comment on above: Performed By: #### H BSANS #### [facility] [address] [place] [address] [address] Ashley Castaneda MCH (RBC) [Entitic mass] 30.9 pg Normal 26.7-34.0 [facility] Comment on above: Performed By: #### H BSANS #### [facility] [address] [place] [address] Dr. Ashley Castaneda MCHC (RBC) [Mass/Vol] 34.6 g/dL Normal 29.9-35.2 [facility] Comment on above: Performed By: #### H BSANS #### [facility] [address] [place] [address] Dr. Ashley Castaneda MCV (RBC) [Entitic vol] 89.4 fL Normal 81.0-99.0 [facility] [place] [facility] Comment on above: Performed By: #### H BSANS #### [facility] [address] [place] [address] Dr. Ashley Castnaeda MONO # 0.8 103/ul Normal 0.3-0.8 [facility] Comment on above: Performed By: #### H BSANS #### [facility] [address] [place] [address] Dr. Ashley Castaneda Monocytes/100 WBC (Bld) 8.4 % Normal 1.7-12.0 [facility] [place] [facility] Comment on above: Performed By: #### H BSANS #### [facility] [address] [place] [address] Dr. Ashley Castaneda NEUT # 7.0 103/ul Critically high 1.4-6.5 [facility] Comment on above: Performed By: #### H BSANS #### [facility] [address] [place] [address] [address] Ashley Castaneda Neutrophils/100 WBC (Bld) 70.2 % Normal 43.0-75.0 [facility] Comment on above: Performed By: #### H BSANS #### [facility] [address] [place] [address] [address] Ashley Castaneda Platelet mean volume (Bld) [Entitic vol] 10.1 fL Normal 9.5-13.5 [facility] Comment on above: Performed By: #### H BSANS #### [facility] [address] [place] [address] [address] Ashley Castaneda PLT 234 103/ul Normal 150-450 [facility] Comment on above: Performed By: #### H BSANS #### [facility] [address] [place] [address] Dr. Ashley Castaneda RBC 4.53 106/ul Normal 4.20-5.40 [facility] Comment on above: Performed By: #### H BSANS #### [facility] [address] [place] [address] [address] Ashley Castaneda WBC 10.0 103/ul Normal 4.0-11.0 [facility] Comment on above: Performed By: #### H BSANS #### [facility] [address] [place] [address] Dr. Ashley Castaneda CULTURE URINEon 04-30-2022 CULTURE URINE Culture Observations: NO GROWTH. Normal [facility] Comment on above: Performed By: #### H BSANS #### [facility] [address] [place] [address] [address] Ashley Castaneda GLYCOHEMOGLOBIN A1Con 2021 ADA RECOMMENDATION SEE BELOW Normal [facility] Comment on above: Result Comment: ADA RECOMMENDED LIMIT 4.0 - 6.0 ADA THERAPEUTIC TARGET < 7.0 ACTION SUGGESTED > 7.0 Performed By: #### A FPMAT #### [facility] [address] [place] [address] Dr. Ashley Castaneda Glucose [Mass/Vol] 100 mg/dL Normal [facility] Comment on above: Performed By: #### A FPMAT #### [facility] [address] [place] [address] Dr. Ashley Castaneda HbA1c (Bld) [Mass fraction] 5.1 % Normal 4.5-6.2 [facility] Comment on above: Performed By: #### A FPMAT #### [facility] [address] [place] [address] Dr. Ashley Castaneda DELILAH BOX TEST PT SEND OUTo n 04-30-2022 SENT TO REF LAB 04/30/2022 Normal [facility] Comment on above: Performed By: #### V AGINT #### [facility] [address] [place] [address] Dr. Ashley Castaneda TYPE AND SCREENon 04-30-2022 TYPE AND SCREEN Negative Normal [facility] Comment on above: Performed By: #### T NS #### [facility] [address] [place] [address] Dr. Ashley Castaneda GENITAL CULTUREon 04-23-2022 Genital Culture, Routine Final report Normal [facility] Comment on above: Result Comment: Spec imen stability note: A swab transport (ie., ESwab, Amies agar gel) received by the lab more than 24 hours after collection may result in reduced recovery of Neisseria gonorrhoeae (GC). (This is informational only and may not apply to this specimen.) Performed By: #### G TT3P #### [facility] [address] [place] [address] Dr. Ashley Castaneda Result 1 Comment Normal [facility] Comment on above: Result Comment: Rout ine genital jordan. Performed By: #### G TT3P #### [facility] [address] [place] [address] Dr. Ashley Castaneda US PREG TVon 04-22-2022 [...] YENI LINO Date: 2022-04-22 18:29 Normal [facility] ABO AND RH TYPEon 04-16-2022 ABO and Rh group Nom (Bld) ABO Rh Typing A Rh Positive Normal [facility] Comment on above: Performed By: #### H BSANS #### [facility] [address] [place] [address] Dr. Ashley Castaneda CBC AUTO DIFFon 04-16-2022 BASO # 0.0 103/ul Normal 0.0-0.1 [facility] Comment on above: Performed By: #### H BSANS #### [facility] [address] [place] [address] Dr. Ashley Castaneda Basophils/100 WBC (Bld) 0.2 % Normal 0.2-2.0 [facility] [place] [facility] Comment on above: Performed By: #### H BSANS #### [facility] [address] [place] [address] Dr. Ashley Castaneda EO # 0.1 103/ul Normal 0.0-0.7 [facility] Comment on above: Performed By: #### H BSANS #### [facility] [address] [place] [address] Dr. Ashley Castaneda Eosinophils/100 WBC (Bld) 0.5 % Critically low 0.9-7. 0 [facility] Comment on above: Performed By: #### H BSANS #### [facility] [address] [place] [address] Dr. Ashley Castaneda Erythrocyte distribution width (RBC) [Ratio] 12.0 % Normal 11.0-15.0 [facility] Comment on above: Performed By: #### H BSANS #### [facility] [address] [place] [address] [address] Ashley Castaneda Hematocrit (Bld) [Volume fraction] 40.2 % Normal 36.0-48.0 [facility] Comment on above: Performed By: #### H BSANS #### [facility] [address] [place] [address] [address] Ashley Castaneda Hemoglobin (Bld) [Mass/Vol] 13.8 g/dL Normal 12.0-16.0 [facility] Comment on above: Performed By: #### H BSANS #### [facility] [address] [place] [address] [address] Ashley Castaneda IG # 0.07 10e3/ul Critically high 0.00-0.03 [facility] Comment on above: Performed By: #### H BSANS #### [facility] [address] [place] [address] Dr. Ashley Castaneda IG % 0.5 % Normal 0.0-0.5 [facility] Comment on above: Performed By: #### H BSANS #### [facility] [address] [place] [address] [address] Ashley Castaneda LYMPH # 2.7 103/ul Normal 1.2-3.8 [facility] Comment on above: Performed By: #### H BSANS #### [facility] [address] [place] [address] Dr. Ashley Castaneda Lymphocytes/100 WBC (Bld) 19.8 % Critically low 20.5-6 0.0 [facility] Comment on above: Performed By: #### H BSANS #### [facility] [address] [place] [address] [address] Ashley Castaneda MANUAL DIFF REQ NO Normal [facility] Comment on above: Performed By: #### H BSANS #### [facility] [address] [place] [address] [address] Ashley Castaneda MCH (RBC) [Entitic mass] 30.7 pg Normal 26.7-34.0 [facility] Comment on above: Performed By: #### H BSANS #### [facility] [address] [place] [address] [address] Ashley Castaneda MCHC (RBC) [Mass/Vol] 34.3 g/dL Normal 29.9-35.2 [facility] Comment on above: Performed By: #### H BSANS #### [facility] [address] [place] [address] Dr. Ashley Castaneda MCV (RBC) [Entitic vol] 89.5 fL Normal 81.0-99.0 [facility] [place] [facility] Comment on above: Performed By: #### H BSANS #### [facility] [address] [place] [address] [address] Ashley Castaneda MONO # 1.0 103/ul Critically high 0.3-0.8 [facility] Comment on above: Performed By: #### H BSANS #### [facility] [address] [place] [address] Dr. Ashley Castaneda Monocytes/100 WBC (Bld) 7.7 % Normal 1.7-12.0 [facility] [place] [facility] Comment on above: Performed By: #### H BSANS #### [facility] [address] [place] [address] Dr. Ashley Castaneda NEUT # 9.6 103/ul Critically high 1.4-6.5 [facility] Comment on above: Performed By: #### H BSANS #### [facility] [address] [place] [address] Dr. Ashley Castaneda Neutrophils/100 WBC (Bld) 71.3 % Normal 43.0-75.0 [facility] Comment on above: Performed By: #### H BSANS #### [facility] [address] [place] [address] [address] Ashley aCstaneda Platelet mean volume (Bld) [Entitic vol] 10.2 fL Normal 9.5-13.5 [facility] Comment on above: Performed By: #### H BSANS #### [facility] [address] [place] [address] Dr. Ashley Castaneda PLT 243 103/ul Normal 150-450 [facility] Comment on above: Performed By: #### H BSANS #### [facility] [address] [place] [address] Dr. Ashley Castaneda RBC 4.49 106/ul Normal 4.20-5.40 [facility] Comment on above: Performed By: #### H BSANS #### [facility] [address] [place] [address] Dr. Ashley Castaneda WBC 13.5 103/ul Critically high 4.0-11.0 [facility] Comment on above: Performed By: #### H BSANS #### [facility] [address] [place] [address] Dr. Ashley Castaneda ER URINE PROFILEon 2 Bilirubin Ql (U) Negative Normal NEGATIVE [facility] Comment on above: Performed By: #### A FPMAT #### [facility] [address] [place] [address] Dr. Ashley Castaneda Clarity (U) CLEAR Normal CLEAR [facility] Comment on above: Performed By: #### A FPMAT #### [facility] [address] [place] [address] Dr. Ashley Castaneda Color (U) LT. YELLOW Normal YELLOW [facility] Comment on above: Performed By: #### A FPMAT #### [facility] [address] [place] [address] Dr. Ashley Shah micrscopic examination will be performed if indicated. Normal [facility] Comment on above: Performed By: #### A FPMAT #### [facility] [address] [place] [address] Dr. Ashley Castaneda Glucose Ql (U) Negative Normal NEGATIVE [facility] Comment on above: Performed By: #### A FPMAT #### [facility] [address] [place] [address] Dr. Ashley Castaneda Hemoglobin Ql (U) Negative Normal NEGATIVE [facility] Comment on above: Performed By: #### A FPMAT #### [facility] [address] [place] [address] Dr. Ashley Castaneda Ketones Ql (U) Negative Normal NEGATIVE [facility] Comment on above: Performed By: #### A FPMAT #### [facility] [address] [place] [address] Dr. Ashley Castaneda LEUKOCYTES Negative Normal NEGATIVE [facility] Comment on above: Performed By: #### A FPMAT #### [facility] [address] [place] [address] Dr. Ashley Castaneda Nitrite Ql (U) Negative Normal NEGATIVE [facility] Comment on above: Performed By: #### A FPMAT #### [facility] [address] [place] [address] Dr. Ashley Castaneda pH (U) 6.0 [pH] Normal 5-9 [facility] Comment on above: Performed By: #### A FPMAT #### [facility] [address] [place] [address] Dr. Ashley Castaneda SPEC GRAVITY 1.025 Normal 1.005-<=1.02 5 [facility] Comment on above: Performed By: #### A FPMAT #### [facility] [address] [place] [address] Dr. Ashley Castaneda UA PROTEIN Negative Normal NEGATIVE/ TRACE [facility] Comment on above: Performed By: #### A FPMAT #### [facility] [address] [place] [address] Dr. Ashley Castaneda UR MICRO IND NOT INDICATED Normal [facility] Comment on above: Performed By: #### A FPMAT #### [facility] [address] [place] [address] Dr. Ashley Castaneda Urobilinogen Qn (U) 0.2 {Dorothy'U}/dL Normal 0.2 - 1. 0 [facility] Comment on above: Performed By: #### A FPMAT #### [facility] [address] [place] [address] Dr. Ashley Castaneda HCG,Quantitativeon 2 HCG,Quantitative 005288.00 m[iU]/mL Normal [facility] Comment on above: Order Comment: LISA Nogueira FAX TO [phone] Result Comment: Appr oximate Approximate hCG Gestational Age Range (mIU/ml) (weeks) 0.2-1 5-50 1-2 50-500 2-3 100-5,000 3-4 500-10,000 4-5 1,000-50,000 5-6 10,000-100,000 6-8 15,000-200,000 8-12 10,000-100,000 PERFORMED BY: [place] [address] PATHOLOGIST [employer] KASSANDRA JONES M.D. Performed By: #### H CGQNT #### [facility] [address] [place], [place] [id number] [place] PREG QUANT HCGon 04-16-2022 HCG QUANT [id number] mIU/mL Normal [facility] Comment on above: Performed By: #### B MP #### [facility] [address] [place] [address] Dr. Ashley Castaneda HCG RANGE SEE BELOW Normal [facility] Comment on above: Result Comment: 5-50 0.2-1 WEEK 50-500 1-2 WEEKS 100-5,000 2-3 WEEKS 500-10,000 3-4 WEEKS 1,000-50,000 4-5 WEEKS 10,000-100,000 5-6 WEEKS 15,000-200,000 6-8 WEEKS 10,000-100,000 2-3 MONTHS Performed By: #### B MP #### [facility] [address] [place] [address] Dr. Ashley Castaneda Result Comment: TEST PERFORMED AT: [facility] [address] [place] [address] URon 04-16-2022 , QUAL Positive Abnormal NEGATIVE [facility] Comment on above: Performed By: #### A FPMAT #### [facility] [address] [place] [address] [address] Ashley Castaneda PROF CHEM 8 (BAS METB)on Anion gap [Moles/Vol] 13.3 mmol/L Normal [facility] Comment on above: Performed By: #### B MP #### [facility] [address] [place] [address] Dr. Ashley Castaneda Calcium [Mass/Vol] 9.4 mg/dL Normal 8.5-10.1 [facility] Comment on above: Performed By: #### B MP #### [facility] [address] [place] [address] Dr. Ashley Castaneda Chloride [Moles/Vol] 101 mmol/L Normal 98-107 [facility] Comment on above: Performed By: #### B MP #### [facility] [address] [place] [address] [address] Ashley Castaneda CO2 [Moles/Vol] 26.8 mmol/L Normal 21.0-32.0 [facility] Comment on above: Performed By: #### B MP #### [facility] [address] [place] [address] Dr. Ashley Castaneda Creatinine [Mass/Vol] 0.70 mg/dL Normal 0.55-1.02 [facility] Comment on above: Performed By: #### B MP #### [facility] [address] [address] [address] Ashley Castaneda EGFR-AF SWAZI >60 Normal >=60 [facility] Comment on above: Performed By: #### B MP #### [facility] [address] [place] [address] Dr. Ashley Castaneda EGFR-NON AF SWAZI >60 Normal >=60 [facility] Comment on above: Performed By: #### B MP #### [facility] [address] [address] [address] Ashley Castaneda Glucose [Mass/Vol] 99 mg/dL Normal 74-106 [facility] Comment on above: Performed By: #### B MP #### [facility] [address] [place] [address] Dr. Ashley Castaneda Potassium [Moles/Vol] 4.1 mmol/L Normal 3.5-5.1 [facility] Comment on above: Performed By: #### B MP #### [facility] [address] [place] [address] Dr. Ashley aCstaneda Sodium [Moles/Vol] 137 mmol/L Normal 136-145 [facility] Comment on above: Performed By: #### B MP #### [facility] [address] [place], [place] [address] Dr. Ashley Castaneda Urea nitrogen [Mass/Vol] 14.0 mg/dL Normal 7.0-18.0 [facility] Comment on above: Performed By: #### B MP #### [facility] [address] [place], [place] [address] Dr. Ashley Castaneda Urea nitrogen/Creatinine [Mass ratio] 20.0 mg/mg Normal [facility] Comment on above: Performed By: #### B MP #### [facility] [address] [place], [place] [address] Dr. Ashley Castaneda Serum or plasma beta choriog onadotropin measurement (units/volume)Ordered By: Stoney Good on 04-16-2022 HCG.beta subunit Qn [id number] m[IU]/mL [facility] Comment on above: Approximate Approxim ate [...] ASPEN KIRKLAND Date: 2022-04-16 17:18 Normal [facility] WET PREPon 04-16-2022 CLUE CELLS NONE SEEN Normal NONE SEEN [facility] Comment on above: Performed By: #### B MP #### [facility] [address] [address] [address] Ashley Castaneda FUNGAL ELEMENTS NONE SEEN Normal NONE SEEN [facility] Comment on above: Performed By: #### B MP #### [facility] [address] [address] [address] Ashley Castaneda RBC -WET PREP NONE SEEN Normal NONE SEEN [facility] Comment on above: Performed By: #### B MP #### [facility] [address] [address] [address] Ashley Castaneda TRICHOMONAS NONE SEEN Normal NONE SEEN [facility] Comment on above: Performed By: #### B MP #### [facility] [address] [address] [address] Ashley Castaneda WBC- WET PREP RARE Abnormal NONE SEEN [facility] Comment on above: Performed By: #### B MP #### [facility] [address] [address] [address] Ashley Castaneda WET PREP BACTERIA FEW Abnormal NONE SEEN [facility] Comment on above: Performed By: #### B MP #### [facility] [address] [address] [address] Ashley Castaneda PREG QUANT HCGon 03-13-2022 HCG QUANT 155 mIU/mL Normal [facility] Comment on above: Performed By: #### H BSANS #### [facility] [address] [address] [address] Ashley Castaneda HCG RANGE SEE BELOW Normal [facility] Comment on above: Result Comment: 5-50 0-1 WEEK 40-300 1-2 WEEKS 100-1,000 2-3 WEEKS 500-6,000 3-4 WEEKS 5,000-200,000 1-2 MONTHS 10,000-100,000 2-3 MONTHS 3,000-50,000 2ND TRIMESTER 1,000-50,000 3RD TRIMESTER Performed By: #### H BSANS #### [facility] [address] [address] [address] Ashley Castaneda PREG QUANT HCGon 03-11-2022 HCG QUANT 53 mIU/mL Normal [facility] Comment on above: Performed By: #### B MP #### [facility] [address] [address] [address] Ashley Castaneda HCG RANGE SEE BELOW Normal [facility] Comment on above: Result Comment: 5-50 0-1 WEEK 40-300 1-2 WEEKS 100-1,000 2-3 WEEKS 500-6,000 3-4 WEEKS 5,000-200,000 1-2 MONTHS 10,000-100,000 2-3 MONTHS 3,000-50,000 2ND TRIMESTER 1,000-50,000 3RD TRIMESTER Performed By: #### B MP #### [facility] [address] [address] [address] Ashley Castaneda DHEA SERUMon 01-29-2022 Dehydroepiandrosterone (DHEA) 459 ng/dL Normal 31-701 [facility] Comment on above: Result Comment: Age [...] 89 Performed By: #### V AGINT #### [facility] [address] [address] [address] Ashley Castaneda DHEA-SULFATEon 01-17-2022 DHEA-Sulfate 292.0 ug/dL Normal 84.8-378.0 [facility] Comment on above: Performed By: #### V AGINT #### [facility] [address] [address] [address] Ashley Castaneda FSHon 01-17-2022 FSH 5.2 mIU/mL Normal [facility] Comment on above: Result Comment: Adul t Female: Follicular phase 3.5 - 12.5 Ovulation phase 4.7 - 21.5 Luteal phase 1.7 - 7.7 Postmenopausal 25.8 - 134.8 Performed By: #### B MP #### [facility] [address] [place] [address] Dr. Ashley Castaneda LUTEINIZING HORMONE (LH)on 0 01-17-2022 LH 7.5 mIU/mL Normal [facility] Comment on above: Result Comment: Adul t Female: Follicular phase 2.4 - 12.6 Ovulation phase 14.0 - 95.6 Luteal phase 1.0 - 11.4 Postmenopausal 7.7 - 58.5 Performed By: #### V AGINT #### [facility] [address] [place] [address] Dr. Ashley Castaneda CBC AUTO DIFFon 01-16-2022 BASO # 0.0 103/ul Normal 0.0-0.1 [facility] Comment on above: Performed By: #### A FPMAT #### [facility] [address] [place] [address] Dr. Ashley Castaneda Basophils/100 WBC (Bld) 0.5 % Normal 0.2-2.0 [facility] Comment on above: Performed By: #### A FPMAT #### [facility] [address] [place] [address] Dr. Ashley Castaneda EO # 0.0 103/ul Normal 0.0-0.7 [facility] Comment on above: Performed By: #### A FPMAT #### [facility] [address] [place] [address] Dr. Ashley Castaneda Eosinophils/100 WBC (Bld) 0.5 % Critically low 0.9-7. 0 [facility] Comment on above: Performed By: #### A FPMAT #### [facility] [address] [place] [address] Dr. Ashley Castaneda Erythrocyte distribution width (RBC) [Ratio] 12.3 % Normal 11.0-15.0 [facility] Comment on above: Performed By: #### A FPMAT #### [facility] [address] [place] [address] Dr. Ashley Castaneda Hematocrit (Bld) [Volume fraction] 43.0 % Normal 36.0-48.0 [facility] Comment on above: Performed By: #### A FPMAT #### [facility] [address] [place] [address] Dr. Ashley Castaneda Hemoglobin (Bld) [Mass/Vol] 14.7 g/dL Normal 12.0-16.0 [facility] Comment on above: Performed By: #### A FPMAT #### [facility] [address] [place] [address] Dr. Ashley Castaneda IG # 0.02 10e3/ul Normal 0.00-0.03 [facility] Comment on above: Performed By: #### A FPMAT #### [facility] [address] [place] [address] Dr. Ashley Castaneda IG % 0.4 % Normal 0.0-0.5 [facility] Comment on above: Performed By: #### A FPMAT #### [facility] [address] [place] [address] Dr. Ashley Castaneda LYMPH # 2.0 103/ul Normal 1.2-3.8 [facility] Comment on above: Performed By: #### A FPMAT #### [facility] [address] [place] [address] Dr. Ashley Castaneda Lymphocytes/100 WBC (Bld) 36.0 % Normal 20.5-60.0 [facility] Comment on above: Performed By: #### A FPMAT #### [facility] [address] [place] [address] Dr. Ashley Castaneda MANUAL DIFF REQ NO Normal [facility] Comment on above: Performed By: #### A FPMAT #### [facility] [address] [place] [address] Dr. Ashley Castaneda MCH (RBC) [Entitic mass] 30.6 pg Normal 26.7-34.0 [facility] Comment on above: Performed By: #### A FPMAT #### [facility] [address] [place] [address] Dr. Ashley Castaneda MCHC (RBC) [Mass/Vol] 34.2 g/dL Normal 29.9-35.2 [facility] Comment on above: Performed By: #### A FPMAT #### [facility] [address] [place] [address] Dr. Ashley Castaneda MCV (RBC) [Entitic vol] 89.6 fL Normal 81.0-99.0 [facility] Comment on above: Performed By: #### A FPMAT #### [facility] [address] [place] [address] Dr. Ashley Castaneda MONO # 0.4 103/ul Normal 0.3-0.8 [facility] Comment on above: Performed By: #### A FPMAT #### [facility] [address] [place] [address] Dr. Ashley Castaneda Monocytes/100 WBC (Bld) 7.9 % Normal 1.7-12.0 [facility] Comment on above: Performed By: #### A FPMAT #### [facility] [address] [place] [address] Dr. Ashley Castaneda NEUT # 3.0 103/ul Normal 1.4-6.5 [facility] Comment on above: Performed By: #### A FPMAT #### [facility] [address] [place] [address] Dr. Ashley Castaneda Neutrophils/100 WBC (Bld) 54.7 % Normal 43.0-75.0 [facility] Comment on above: Performed By: #### A FPMAT #### [facility] [address] [place] [address] Dr. Ashley Castaneda Platelet mean volume (Bld) [Entitic vol] 9.8 fL Normal 9.5-13.5 [facility] Comment on above: Performed By: #### A FPMAT #### [facility] [address] [place] [address] Dr. Ashley Castaneda PLT 266 103/ul Normal 150-450 [facility] Comment on above: Performed By: #### A FPMAT #### [facility] [address] [place] [address] Dr. Ashley Castaneda RBC 4.80 106/ul Normal 4.20-5.40 [facility] Comment on above: Performed By: #### A FPMAT #### [facility] [address] [place] [address] Dr. Ashley Castaneda WBC 5.5 103/ul Normal 4.0-11.0 [facility] Comment on above: Performed By: #### A FPMAT #### [facility] [address] [address] [address] Ashley Castaneda FREE T3on 01-16-2022 FREE T3 2.66 pg/mlL Normal 2.18-3.98 [facility] Comment on above: Performed By: #### V AGINT #### [facility] [address] [address] [address] Ashley Castaneda GLYCOHEMOGLOBIN A1Con 2021 ADA RECOMMENDATION SEE BELOW Normal [facility] Comment on above: Result Comment: ADA RECOMMENDED LIMIT 4.0 - 6.0 ADA THERAPEUTIC TARGET < 7.0 ACTION SUGGESTED > 7.0 Performed By: #### H BSANS #### [facility] [address] [place] [address] Dr. Ashley Castaneda Glucose [Mass/Vol] 100 mg/dL Normal [facility] Comment on above: Performed By: #### H BSANS #### [facility] [address] [address] [address] Ashley Castaneda HbA1c (Bld) [Mass fraction] 5.1 % Normal 4.5-6.2 [facility] Comment on above: Performed By: #### H BSANS #### [facility] [address] [place] [address] Dr. Ashley Castaneda TSHon 01-16-2022 TSH 1.242 uIU/mL Normal 0.358-3.740 [facility] Comment on above: Performed By: #### V AGINT #### [facility] [address] [place] [address] Dr. Ashley Castaneda TSH RANGE SEE BELOW Normal [facility] Comment on above: Result Comment: <0.3 4 UIU/ml HYPERTHYROID 0.34-5.60 UIU/ml EUTHYROID >5.60 UIU/ml HYPOTHYROID Performed By: #### V AGINT #### [facility] [address] [place] [address] Dr. Ashley Castaneda Social History Date Type Detail Facility Start: 1995 Sex Assigned At Female F [facility] Work Phone: Vital Signs Date Time Vital Sign Value Performing Clinician Samra singh 2022 17:06-0400 Body weight 89.[address] ILIR DWYER . [facility] Comment on above: Performed By: #### A FPMAT #### [facility] [address] [address] [address] Ashley Castaneda Evaluation note Note Date & Type Note Facility Evaluation note No assessment information availa ble [facility] Work Phone: Summary Purpose Family History No Family History Records FoundNo Family History Records FoundNo Family History Records FoundNo Family History Records Found Advance Directives No Advanced Directives Records Found Advance Directive Response Recorded Date/ Time Advance Directives No April 16 2:03am Chief Complaint and Reason for Visit Chief Complaint Additional Source Comments INFORMATION SOURCE (unrecogn ized section and content) DATE CREATED AUTHOR 04/26/2022 [facility] DATE CREATED AUTHOR AUTHOR'S ORGANIZ ATION 11/24/2022 [facility] DATE CREATED AUTHOR AUTHOR'S ORGANIZ ATION 02/16/2024 [facility] EPIC DATE CREATED AUTHOR AUTHOR'S ORGANIZ ATION 02/16/2024 [facility] Care Teams (unrecognized sec tion and [...] BE BASED ON THE PRIMARY CLINICAL RECORDS. [facility] [facility]. provides no warranty or guarantee of the accuracy or completeness of information in this document.
== END 2024-03-10 11:31 | disposition left against medical advice (07) ==
LOC: ER 11:30
PROVIDERS: Emergency Provider Emergency Medicine Emergency Medical Services
DX: Z53.21 Procedure and treatment not carried out due to patient leaving prior to being seen by health care provider (principal)

== ENCOUNTER 2024-03-22 19:52 | Observation (INO) | payer OTHER, SELFPAY ==
[2024-03-22] VITALS (8 sets, daily range): BP systolic 120–134; BP diastolic 65–80; PULSE 76–106; TEMP 37.3
[2024-03-22 20:30] LABS: Bilirubin Urine NEGATIVE (NEGATIVE); Blood Urine LARGE (NEGATIVE); Clarity Urine CLEAR (CLEAR); Color Urine LT. YELLOW (YELLOW); Glucose Urine UA NEGATIVE (NEGATIVE); Ketones Urine NEGATIVE (NEGATIVE); Leukocyte Esterase Urine TRACE (NEGATIVE); Nitrite Urine NEGATIVE (NEGATIVE); Protein Urine NEGATIVE (NEG/TRACE); Specific Gravity Urine 1.015 (1.005-1.025); Urobilinogen Urine 0.2 EU/dL (0.2-1.0)
--- NOTE | 2024-03-22 20:30 | US_ITS ---
The [address] [address] Patient Name: BRYON PONCE MRN: [id number] date: 1995 Sex: F Assigned Patient Location: [facility] Current Patient Location: [facility] Accession/Order Number: [id number] Exam Date: 03/22/2024 21:00 Report Date: 03/22/2024 23:01 At the request of: ILIR SHELTON Procedure: US OB cervical length US PELVIS: OB Greater than 14 weeks HISTORY: 28 year old G 3 P 1AB 1 female presents for US evaluation. LMP: Not provided TECHNIQUE: Ultrasound performed of the pelvis using static images with odonnell scale, M-mode and color doppler. This exam is performed in the emergency room setting to evaluate viability. As such, it is not protocoled to evaluate anatomy as that should be performed on an outpatient basis at the patient's [employer] office. COMPARISON: None. FINDINGS: Summary: Number of Fetuses: Singlefetus in cephalic position. Placenta: Posterior heart: 141 bpm. Cervix: Cervical length: There is funneling of the cervix which appears to be open. US/US OB cervical length IMPRESSION: 1. Viable Reynoso fetus IUP 2. Cervix is dilated with funneling. Critical results were NOTIFIED by TELEPHONE BY Dr. Kimberli Montelongo MD to Dr. Shelton At 03/22/2024 10:21 PM EDT. [facility] Electronically authenticated by: KIMBERLI MONTELONGO Date: 03/22/2024 23:01
--- NOTE | 2024-03-22 20:30 | US_ITS ---
The [address] [address] Patient Name: BRYON PONCE MRN: [id number] date: 1995 Sex: F Assigned Patient Location: [facility] Current Patient Location: [facility] Accession/Order Number: [id number] Exam Date: 03/22/2024 21:00 Report Date: 03/22/2024 23:01 At the request of: ILIR SHELTON Procedure: US OB placenta US PELVIS: OB Greater than 14 weeks HISTORY: 28 year old G 3 P 1AB 1 female presents for US evaluation. LMP: Not provided TECHNIQUE: Ultrasound performed of the pelvis using static images with odonnell scale, M-mode and color doppler. This exam is performed in the emergency room setting to evaluate viability. As such, it is not protocoled to evaluate anatomy as that should be performed on an outpatient basis at the patient's [employer] [employer] office. COMPARISON: None. FINDINGS: Summary: Number of Fetuses: Singlefetus in cephalic position. Placenta: Posterior heart: 141 bpm. Cervix: Cervical length: There is funneling of the cervix which appears to be open. US/US OB placenta IMPRESSION: 1. Viable Reynoso fetus IUP 2. Cervix is dilated with funneling. Critical results were NOTIFIED by TELEPHONE BY Dr. Kimberli Montelongo MD to Dr. Shelton At 03/22/2024 10:21 PM EDT. Patient has already been transferred to a [facility] hospital Electronically authenticated by: KIMBERLI MONTELONGO Date: 03/22/2024 23:01
[2024-03-22 20:31] LABS: Urine Microscopic Indicated YES
[2024-03-22 20:41] LABS: Bacteria Urine NONE SEEN #/HPF (NONE SEEN); Cast Seen? NONE SEEN #/LPF (NONE SEEN); Crystals Seen? None Seen #/HPF (None Seen); Mucus Urine NONE SEEN (NONE SEEN); RBC Urine 0-2 #/HPF (0-2); Squamous Epithelial Cell Urine FEW #/LPF (NONE/RARE); Urine Culture Indicated YES
[2024-03-22] MEDS: 0.9 % SODIUM CHLORIDE 1,000 ML 125 ML IV (21:20)
[2024-03-22] MEDS: BETAMETHASONE ACE/BETAMETHASONE SOD PHOS 30 MG/5 ML 12 MG IM (21:22)
[2024-03-22] MEDS: AMPICILLIN SODIUM 2,000 MG in 0.9 % SODIUM CHLORIDE 100 ML 200 MG IV (21:33)
[2024-03-22] MEDS: NIFEdipine 10 MG CAPSULE 20 MG PO (21:33)
[2024-03-22] MEDS: 0.9 % SODIUM CHLORIDE 1,000 ML 75 ML IV (21:47)
[2024-03-22 21:50] LABS: Basophils Absolute Auto 0.1 10^3/uL (0.0-0.1); Basophils Percent Auto 0.4 % (0.2-2.0); Eosinophils Absolute Auto 0.1 10^3/uL (0.0-0.7); Eosinophils Percent Auto 0.6 % (0.9-7.0); Hematocrit 39.6 % (36.0-48.0); Immature Granulocytes Abs Auto 0.08 10^3/uL (0.00-0.03); Immature Granulocytes Pct Auto 0.6 % (0.0-0.5); Lymphocytes Absolute Auto 2.5 10^3/uL (1.2-3.8); Lymphocytes Percent Auto 19.4 % (20.5-60.0); Mean Corpuscular HGB Conc 35.4 g/dL (29.9-35.2); Mean Corpuscular Hemoglobin 31.3 pg (26.7-34.0); Mean Corpuscular Volume 88.6 fL (81.0-99.0); Mean Platelet Volume 12.5 fL (9.5-13.5); Monocytes Percent Auto 7.6 % (1.7-12.0); Neutrophils Absolute Auto 9.2 10^3/uL (1.4-6.5); Neutrophils Percent Auto 71.4 % (43.0-75.0); Platelet Count 196 10^3/uL (150-450); Red Blood Count 4.47 10^6/uL (4.20-5.40); Red Cell Distribution Width 12.9 % (11.0-15.0); White Blood Count 12.8 10^3/uL (4.0-11.0)
[2024-03-22] MEDS: MAGNESIUM SULFATE IN WATER 40 GM/1,000 ML IV.SOLN IV (22:15)
== END 2024-03-22 22:17 | disposition short-term general hospital (02) ==
LOC: FBC 19:54
PROVIDERS: Admitting Provider Obstetrics & Gynecology; Visit Provider Obstetrics & Gynecology
DX: O62.4 Hypertonic, incoordinate, and prolonged uterine contractions (principal); O46.92 Antepartum hemorrhage, unspecified, second trimester; Z3A.23 23 weeks gestation of pregnancy
CPT/HCPCS: 36415; 59025; 76815; 76817; 81001; 85025; 86850; 86900; 86901; 87086; 96365; 96368; 96372; 96376; G0378; G0379; J0290; J0702; J3475

== ENCOUNTER 2024-05-09 12:55 | Outpatient (OUT) | payer OTHER, SELFPAY ==
--- NOTE | 2024-05-09 12:57 | US_ITS ---
[address] [address] Patient Name: BRYON PONCE MRN: [id number] date: 1995 Sex: F Assigned Patient Location: Current Patient Location: Accession/Order Number: [id number] Exam Date: 05/09/2024 12:58 Report Date: 05/10/2024 10:57 At the request of: ILIR DWYER Procedure: US pelvis w/ transvaginal EXAMINATION: US pelvis w/ transvaginal HISTORY: Vaginal bleeding N93.9 COMPARISON: No relevant comparison available. TECHNIQUE: Transabdominal and/or transvaginal sonographic examination was performed as indicated by examination type. FINDINGS: UTERUS: Questionable, slightly heterogeneous poorly defined area within anterior uterine wall approximately 2 cm in size; possibly developing leiomyoma. This does not contact the endometrial lining. Uterus size: 8.8 x 4.3 x 4.9 cm ENDOMETRIUM: Normal homogeneous appearance. Endometrial thickness: 3 mm RIGHT OVARY: Normal size and appearance. Duplex Doppler demonstrates normal waveform and flow; resistive index 0.3. Ovary size: 3.3 x 2.3 x 2.9 cm LEFT OVARY: Normal size and appearance. Duplex Doppler demonstrates normal waveform and flow; resistive index 0.5. Ovary size: 2.8 x 1.6 1.8 cm CUL-DE-SAC: Unremarkable. No significant free fluid. BLADDER: Unremarkable. OTHER: None. US/US pelvis w/ transvaginal IMPRESSION: 1. No acute or specific findings to account for patient's symptoms. 2. Questionable, very subtle area of heterogeneity within the anterior wall myometrium; possibly a developing leiomyoma. No overtly suspicious findings. Electronically authenticated by: ASPEN KIRKLAND Date: 05/10/2024 10:57
== END 2024-05-09 12:56 | disposition home or self-care (01) ==
LOC: US 12:55
PROVIDERS: Visit Provider Obstetrics & Gynecology
DX: N93.9 Abnormal uterine and vaginal bleeding, unspecified (principal)
CPT/HCPCS: 76830; 76856

== ENCOUNTER 2024-07-04 09:59 | Outpatient (OUT) | payer OTHER, SELFPAY ==
--- NOTE | 2024-07-04 10:01 | US_ITS ---
[address] [address] Patient Name: BRYON PONCE MRN: [id number] date: 1995 Sex: F Assigned Patient Location: Current Patient Location: Accession/Order Number: [id number] Exam Date: 07/04/2024 10:02 Report Date: 07/05/2024 10:43 At the request of: ILIR DWYER Procedure: US pelvis w/ transvaginal EXAMINATION: US pelvis w/ transvaginal HISTORY: Vaginal Bleeding COMPARISON: No relevant comparison available. FINDINGS: Transabdominal and transvaginal The uterus is normal in size and contour measuring 8.0 x 4.4 x 5.6 cm. the uterus is anteverted. Identified in the anterior myometrium is a focal 1.9 x 1.8 x 2.8 cm hyperechogenic round mass. Endometrium measures 12 mm, normal. The right ovary is normal measuring 3.7 x 3.0 x 1.9 cm. Normal color and Doppler flow The left ovary is normal measuring 2.5 1.9 x 1.7 cm. Normal color and Doppler flow No ascites US/US pelvis w/ transvaginal IMPRESSION: 2.8 cm anterior myometrial mass. A fibroid is statistically favored Electronically authenticated by: YENI LINO Date: 07/05/2024 10:43
== END 2024-07-04 10:00 | disposition home or self-care (01) ==
LOC: US 09:59
PROVIDERS: Visit Provider Obstetrics & Gynecology
DX: N93.9 Abnormal uterine and vaginal bleeding, unspecified (principal); D25.9 Leiomyoma of uterus, unspecified
CPT/HCPCS: 76830; 76856

== ENCOUNTER 2024-07-19 09:35 | Emergency (ER) | payer OTHER, SELFPAY ==
[2024-07-19 09:44] VITALS: BP 127/67; PULSE 70; TEMP 36.8; O2SAT 99
--- NOTE | 2024-07-19 10:08 | PC.NURSE ---
Patient reports picking up toddler child and felt a pop to left shoulder. Now having pain to left shoulder and neck, no redness, swelling or bruising.
--- OUTSIDE RECORDS SUMMARY | 2024-07-19 10:09 | XMS_ITS | CCD ---
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 [facility] Comment on above: Performed By: #### U A #### [facility] ([id number]) [address], [address] [place] [address] Color (U) YELLOW Normal YELLOW [facility] Comment on above: Performed By: #### U A #### [facility] ([id number]) [address], [address] [place] [address] Glucose Ql (U) Negative Normal NEG [facility] Comment on above: Performed By: #### U A #### [facility] ([id number]) [address], [address] [place] [address] Ketones Ql (U) 10 mg/dL Abnormal NEG [facility] Comment on above: Performed By: #### U A #### [facility] ([id number]) [address], [address] [place] [address] Leukocyte esterase Test strip Ql (U) Negative Normal NEG [facility] Comment on above: Performed By: #### U A #### [facility] ([id number]) [address] [address] [place] [address] Nitrite Ql (U) Negative Normal NEG [facility] Comment on above: Performed By: #### U A #### [facility] ([id number]) [address] [address] [place] [address] pH (U) 7.5 [pH] Normal 5.0-8.5 [facility] Comment on above: Performed By: #### U A #### [facility] ([id number]) [address] [address] Protein Ql (U) Negative Normal NEG [facility] Comment on above: Performed By: #### U A #### [facility] ([id number]) [address] [address] R.B.CELLS 68 /hpf High 0-5 [facility] Comment on above: Performed By: #### U A #### [facility] ([id number]) [address] [address] [place] [address] Specific gravity (U) [Rel density] 1.015 Normal 1.003-1.035 [facility] Comment on above: Performed By: #### U A #### [facility] ([id number]) [address] [address] TURBIDITY HAZY Abnormal CLEAR [facility] Comment on above: Performed By: #### U A #### [facility] ([id number]) [address] [address] [place] [address] Urinalysis dipstick W Reflex Microscopic panel (U) URINE RECEIVED WITHOUT PRESERVATIVE-DELAYS IN TRANSPORT MAY AFFECT RESULTS.INTERPRET WITH CAUTION AND CLINICAL CORRELATION IS RECOMMENDED. Normal [facility] Comment on above: Performed By: #### U A #### [facility] ([id number]) [address] [place] [address] Urobilinogen (U) [Mass/Vol] mg/dL Normal <1.1 [facility] Comment on above: Performed By: #### U A #### [facility] ([id number]) [address] [place] [address] W.B.CELLS <1 Normal 0-5 [facility] Comment on above: Performed By: #### U A #### [facility] ([id number]) [address] [facility], [address] [place] [address] URINE CULTUREon 03-23-2024 Bacteria identified Cx Nom (U) SPECIMEN NOTES URINE RECEIVED WITHOUT PRESERVATIVE CULTURE RESULTS NO GROWTH AT <1000 CFU/mL Normal [facility] Comment on above: Performed By: #### 6 30-4 #### [facility] ([id number]) [address], [address] [place] [address] VAGINITIS PANEL PCRon 2023 VAGINITIS PANEL PCR BACT. VAGINOSIS DNA Not detected (qualifier value) Qualitative results are reported based on detection and quantitation of targeted organism markers which include: Lactobacillus spp. (L. crispatus and L. jensenii), Gardnerella vaginalis, Atopobium vaginae, Bacterial Vaginosis Associated Bacteria-2 (BVAB-2) and Megasphaera-1 BRINA SPECIES DNA Not detected (qualifier value) Brina species not detected include: C. albicans, C. tropicalis, C. parapsilosis or C. dubliniensis BRINA KRUSEI DNA Not detected (qualifier value) No Brina krusei detected BRINA GLABRATA DNA Not detected (qualifier value) No Brina glabrata detected TRICHOMONAS VAG DNA Not detected (qualifier value) No Trichomonas vaginalis detected NOTE BD MAX Vaginal Panel has not been evaluated for patients under 18 years old. Results for these patients should be reviewed and assessed in accordance with clinical presentation to determine patient diagnosis. Normal [facility] Comment on above: Performed By: #### V PPCR #### [facility] ([id number]) [address] [place] [address] COMPLETE BLOOD COUNTon 03-22 Erythrocyte distribution width (RBC) [Ratio] 12.9 % Normal 11.5-15.0 [facility] Comment on above: Performed By: #### Sadie PACHECO, 37818-1 #### [facility] ([id number]) [address] [place] [address] Hematocrit (Bld) [Volume fraction] 40.4 % Normal 35-47 [facility] Comment on above: Performed By: #### Sadie PACHECO, 87919-7 #### [facility] ([id number]) [address], [facility] [address] [place] [address] Hemoglobin (Bld) [Mass/Vol] 14.1 g/dL Normal 11.7-15.5 [facility] Comment on above: Performed By: #### Sadie PACHECO, 66770-6 #### [facility] ([id number]) [address] [place] [address] MCH (RBC) [Entitic mass] 31.0 pg Normal 27-34 [facility] Comment on above: Performed By: #### Sadie PACHECO, 21468-6 #### [facility] ([id number]) [address], [address] [place] [address] MCHC (RBC) [Mass/Vol] 35.0 g/dL Normal 32-[address] [facility] Comment on above: Performed By: #### Sadie PACHECO, 94517-0 #### [facility] ([id number]) [address] [address] [place] [address] MCV (RBC) [Entitic vol] 89 fL Normal 80-100 P [facility] Comment on above: Performed By: #### Sadie PACHECO, 84493-9 #### [facility] ([id number]) [address] [place] [address] Platelet mean volume (Bld) [Entitic vol] 8.8 fL Normal 7-12 [facility] Comment on above: Performed By: #### Sadie PACHECO, 79552-7 #### [facility] ([id number]) [address], [address] [place] [address] Platelets (Bld) [#/Vol] 222 10*3/uL Normal 150-450 [facility] Comment on above: Performed By: #### Sadie PACHECO, 17833-1 #### [facility] ([id number]) [address], [address] [place] [address] RBC COUNT 4.56 X10E12/L Normal 3.80-5.20 [facility] Comment on above: Performed By: #### Sadie PACHECO, 41747-9 #### [facility] ([id number]) [address], [address] [place] [address] WBC (Bld) [#/Vol] 15.1 10*3/uL High 4.0-11.0 [facility] Comment on above: Performed By: #### Sadie PACHECO, 18933-9 #### [facility] ([id number]) [address], [address] [place] [address] T. pallidum IgG+IgM IA Ql (S )on 03-22-2024 Syphilis Total <0.2 Normal 0.0-0.8 [facility] Comment on above: Result Comment: NON REACTIVE No serologic evidence of infection to Treponema pallidum (syphilis). Repeat testing may be considered in patients with suspected acute or primary syphilis in 2 to 4 weeks. Performed By: #### Sadie PACHECO, 72540-1 #### [facility] ([id number]) [address] [place] [address] CBC AUTO DIFFon 11-05-2022 BASO # 0.0 103/ul Normal 0.0-0.1 [facility] Comment on above: Performed By: #### V AGINT #### [facility] [address] [address] [address] Ashley Castaneda Basophils/100 WBC (Bld) 0.1 % Critically low 0.2-2.0 [facility] Comment on above: Performed By: #### V AGINT #### [facility] [address] [place] [address] Dr. Ashley Castaneda EO # 0.0 103/ul Normal 0.0-0.7 [facility] Comment on above: Performed By: #### V AGINT #### [facility] [address] [place] [address] Dr. Ashley Castaneda Eosinophils/100 WBC (Bld) 0.0 % Critically low 0.9-7. 0 [facility] Comment on above: Performed By: #### V AGINT #### [facility] [address] [place] [address] Dr. Ashley Castaneda Erythrocyte distribution width (RBC) [Ratio] 14.8 % Normal 11.0-15.0 [facility] Comment on above: Performed By: #### V AGINT #### [facility] [address] [place] [address] Dr. Ashley Castaneda Hematocrit (Bld) [Volume fraction] 35.5 % Critically low 36.0-48.0 [facility] Comment on above: Performed By: #### V AGINT #### [facility] [address] [place] [address] Dr. Ashley Castaneda Hemoglobin (Bld) [Mass/Vol] 11.8 g/dL Critically low 12.0-16.0 [facility] Comment on above: Performed By: #### V AGINT #### [facility] [address] [place] [address] Dr. Ashley Castaneda IG # 0.07 10e3/ul Critically high 0.00-0.03 [facility] Comment on above: Performed By: #### V AGINT #### [facility] [address] [place] [address] Dr. Ashley Castaneda IG % 0.5 % Normal 0.0-0.5 [facility] Comment on above: Performed By: #### V AGINT #### [facility] [address] [address] [address] Ashley Castaneda LYMPH # 1.7 103/ul Normal 1.2-3.8 [facility] Comment on above: Performed By: #### V AGINT #### [facility] [address] [address] [address] Ashley Castaneda Lymphocytes/100 WBC (Bld) 12.8 % Critically low 20.5-6 0.0 [facility] Comment on above: Performed By: #### V AGINT #### [facility] [address] [place] [address] Dr. Ashley Castaneda MANUAL DIFF REQ NO Normal [facility] Comment on above: Performed By: #### V AGINT #### [facility] [address] [place] [address] Dr. Ashley Castaneda MCH (RBC) [Entitic mass] 27.9 pg Normal 26.7-34.0 [facility] Comment on above: Performed By: #### V AGINT #### [facility] [address] [place] [address] Dr. Ashley Castaneda MCHC (RBC) [Mass/Vol] 33.2 g/dL Normal 29.9-35.2 [facility] Comment on above: Performed By: #### V AGINT #### [facility] [address] [place] [address] Dr. Ashley Castaneda MCV (RBC) [Entitic vol] 83.9 fL Normal 81.0-99.0 [facility] Comment on above: Performed By: #### V AGINT #### [facility] [address] [address] [address] Ashley Castaneda MONO # 1.3 103/ul Critically high 0.3-0.8 [facility] Comment on above: Performed By: #### V AGINT #### [facility] [address] [address] [address] Ashley Castaneda Monocytes/100 WBC (Bld) 9.7 % Normal 1.7-12.0 [facility] Comment on above: Performed By: #### V AGINT #### [facility] [address] [place] [address] Dr. Ashley Castaneda NEUT # 10.3 103/ul Critically high 1.4-6.5 [facility] Comment on above: Performed By: #### V AGINT #### [facility] [address] [place] [address] Dr. Ashley Castaneda Neutrophils/100 WBC (Bld) 76.9 % Critically high 43.0- 75.0 [facility] Comment on above: Performed By: #### V AGINT #### [facility] [address] [place] [address] Dr. Ashley Castaneda Platelet mean volume (Bld) [Entitic vol] 11.1 fL Normal 9.5-13.5 [facility] Comment on above: Performed By: #### V AGINT #### [facility] [address] [place] [address] Dr. Ashley Castaneda PLT 186 103/ul Normal 150-450 [facility] Comment on above: Performed By: #### V AGINT #### [facility] [address] [place] [address] Dr. Ashley Castaneda RBC 4.23 106/ul Normal 4.20-5.40 [facility] Comment on above: Performed By: #### V AGINT #### [facility] [address] [place] [address] Dr. Ashley Castaneda WBC 13.5 103/ul Critically high 4.0-11.0 [facility] Comment on above: Performed By: #### V AGINT #### [facility] [address] [place] [address] Dr. Ashley Castaneda CBC AUTO DIFFon 11-04-2022 BASO # 0.0 103/ul Normal 0.0-0.1 [facility] Comment on above: Performed By: #### B MP #### [facility] [address] [place] [address] Dr. Ashley Castaneda Basophils/100 WBC (Bld) 0.2 % Normal 0.2-2.0 [facility] Comment on above: Performed By: #### B MP #### [facility] [address] [place] [address] Dr. Ashley Castaneda EO # 0.0 103/ul Normal 0.0-0.7 [facility] Comment on above: Performed By: #### B MP #### [facility] [address] [place] [address] Dr. Ashley Castaneda Eosinophils/100 WBC (Bld) 0.1 % Critically low 0.9-7. 0 [facility] Comment on above: Performed By: #### B MP #### [facility] [address] [place] [address] Dr. Ashley Castanead Erythrocyte distribution width (RBC) [Ratio] 14.6 % Normal 11.0-15.0 [facility] Comment on above: Performed By: #### B MP #### [facility] [address] [place] [address] Dr. Ashley Castaneda Hematocrit (Bld) [Volume fraction] 39.9 % Normal 36.0-48.0 [facility] Comment on above: Performed By: #### B MP #### [facility] [address] [place] [address] Dr. Ashley Castaneda Hemoglobin (Bld) [Mass/Vol] 13.6 g/dL Normal 12.0-16.0 [facility] Comment on above: Performed By: #### B MP #### [facility] [address] [place] [address] Dr. Ashley Castaneda IG # 0.06 10e3/ul Critically high 0.00-0.03 [facility] Comment on above: Performed By: #### B MP #### [facility] [address] [place] [address] Dr. Ashley Castaneda IG % 0.7 % Critically high 0.0-0.5 [facility] Comment on above: Performed By: #### B MP #### [facility] [address] [place] [address] Dr. Ashley Castaneda LYMPH # 1.6 103/ul Normal 1.2-3.8 [facility] Comment on above: Performed By: #### B MP #### [facility] [address] [place] [address] Dr. Ashley Castaneda Lymphocytes/100 WBC (Bld) 18.3 % Critically low 20.5-6 0.0 [facility] Comment on above: Performed By: #### B MP #### [facility] [address] [place] [address] Dr. Ashley Castaneda MANUAL DIFF REQ NO Normal [facility] Comment on above: Performed By: #### B MP #### [facility] [address] [address] [address] Ashley Castaneda MCH (RBC) [Entitic mass] 28.2 pg Normal 26.7-34.0 [facility] Comment on above: Performed By: #### B MP #### [facility] [address] [place] [address] Dr. Ashley Castaneda MCHC (RBC) [Mass/Vol] 34.1 g/dL Normal 29.9-35.2 [facility] Comment on above: Performed By: #### B MP #### [facility] [address] [place] [address] Dr. Ashley Castaneda MCV (RBC) [Entitic vol] 82.8 fL Normal 81.0-99.0 [facility] Comment on above: Performed By: #### B MP #### [facility] [address] [place] [address] Dr. Ashley Castaneda MONO # 0.8 103/ul Normal 0.3-0.8 [facility] Comment on above: Performed By: #### B MP #### [facility] [address] [place] [address] Dr. Ashley Castaneda Monocytes/100 WBC (Bld) 9.4 % Normal 1.7-12.0 [facility] Comment on above: Performed By: #### B MP #### [facility] [address] [place] [address] Dr. Ashley Castaneda NEUT # 6.3 103/ul Normal 1.4-6.5 [facility] Comment on above: Performed By: #### B MP #### [facility] [address] [place] [address] Dr. Ashley Castaneda Neutrophils/100 WBC (Bld) 71.3 % Normal 43.0-75.0 [facility] Comment on above: Performed By: #### B MP #### [facility] [address] [place] [address] Dr. Ashley Castnaeda Platelet mean volume (Bld) [Entitic vol] 10.9 fL Normal 9.5-13.5 [facility] Comment on above: Performed By: #### B MP #### [facility] [address] [place] [address] Dr. Ashley Castaneda PLT 216 103/ul Normal 150-450 [facility] Comment on above: Performed By: #### B MP #### [facility] [address] [place] [address] Dr. Ashley Castaneda RBC 4.82 106/ul Normal 4.20-5.40 [facility] Comment on above: Performed By: #### B MP #### [facility] [address] [place] [address] Dr. Ashley Castaneda WBC 8.9 103/ul Normal 4.0-11.0 [facility] Comment on above: Performed By: #### B MP #### [facility] [address] [place] [address] Dr. Ashley Castaneda DRUG SCREEN RAPID (URINE)on 11-04-2022 AMP Negative Normal NEGATIVE [facility] Comment on above: Performed By: #### A FPMAT #### [facility] [address] [place] [address] Dr. Ashley Castaneda BAR Negative Normal NEGATIVE [facility] Comment on above: Performed By: #### A FPMAT #### [facility] [address] [place] [address] Dr. Ashley Castaneda BUP Negative Normal NEGATIVE [facility] Comment on above: Performed By: #### A FPMAT #### [facility] [address] [place] [address] Dr. Ashley Castaneda BZO Negative Normal NEGATIVE [facility] Comment on above: Performed By: #### A FPMAT #### [facility] [address] [place] [address] Dr. Ashley Castaneda ROMELIA Negative Normal NEGATIVE [facility] Comment on above: Performed By: #### A FPMAT #### [facility] [address] [place] [address] Dr. Ashley Castaneda CUT-OFFS SEE BELOW Normal [facility] Comment on above: Result Comment: AMP [...] ng/mL Performed By: #### A FPMAT #### [facility] [address] [place] [address] Dr. Ashley Castaneda DRUG CUT HEADER DRUG CLASS TEST SYSTEM CUT-OFF CONCENTRATIONS ARE FOLLOWS: Normal [facility] Comment on above: Performed By: #### A FPMAT #### [facility] [address] [place] [address] Dr. Ashley Castaneda mAMP Negative Normal NEGATIVE [facility] Comment on above: Performed By: #### A FPMAT #### [facility] [address] [place] [address] Dr. Ashley Castaneda MTD Negative Normal NEGATIVE [facility] Comment on above: Performed By: #### A FPMAT #### [facility] [address] [place] [address] Dr. Ashley Castaneda OPI Negative Normal NEGATIVE [facility] Comment on above: Performed By: #### A FPMAT #### [facility] [address] [place] [address] Dr. Ashley Castaneda OXY Negative Normal NEGATIVE [facility] Comment on above: Performed By: #### A FPMAT #### [facility] [address] [place] [address] Dr. Ashley Castaneda PCP Negative Normal NEGATIVE [facility] Comment on above: Performed By: #### A FPMAT #### [facility] [address] [place] [address] Dr. Ashley Castaneda PPX Negative Normal NEGATIVE [facility] Comment on above: Performed By: #### A FPMAT #### [facility] [address] [place] [address] Dr. Ashley Castaneda TCA Negative Normal NEGATIVE [facility] Comment on above: Performed By: #### A FPMAT #### [facility] [address] [place] [address] Dr. Ashley Castaneda THC Negative Normal NEGATIVE [facility] Comment on above: Performed By: #### A FPMAT #### [facility] [address] [place] [address] Dr. Ashley Castaneda TYPE AND SCREENon 11-04-2022 TYPE AND SCREEN Negative Normal [facility] Comment on above: Performed By: #### T NS #### [facility] [address] [place] [address] Dr. Ashley Castaneda CBC AUTO DIFFon 10-24-2022 BASO # 0.1 103/ul Normal 0.0-0.1 [facility] Comment on above: Performed By: #### V AGINT #### [facility] [address] [place] [address] Dr. Ashley Castaneda Basophils/100 WBC (Bld) 0.5 % Normal 0.2-2.0 [facility] Comment on above: Performed By: #### V AGINT #### [facility] [address] [place] [address] Dr. Ashley Castaneda EO # 0.0 103/ul Normal 0.0-0.7 [facility] Comment on above: Performed By: #### V AGINT #### [facility] [address] [place] [address] Dr. Ashley Castaneda Eosinophils/100 WBC (Bld) 0.4 % Critically low 0.9-7. 0 [facility] Comment on above: Performed By: #### V AGINT #### [facility] [address] [place] [address] Dr. Ashley Castaneda Erythrocyte distribution width (RBC) [Ratio] 14.2 % Normal 11.0-15.0 [facility] Comment on above: Performed By: #### V AGINT #### [facility] [address] [place] [address] Dr. Ashley Castaneda Hematocrit (Bld) [Volume fraction] 39.1 % Normal 36.0-48.0 [facility] Comment on above: Performed By: #### V AGINT #### [facility] [address] [place] [address] Dr. Ashley Castaneda Hemoglobin (Bld) [Mass/Vol] 13.4 g/dL Normal 12.0-16.0 [facility] Comment on above: Performed By: #### V AGINT #### [facility] [address] [place] [address] Dr. Ashley Castaneda IG # 0.14 10e3/ul Critically high 0.00-0.03 [facility] Comment on above: Performed By: #### V AGINT #### [facility] [address] [place] [address] Dr. Ashley Castandea IG % 1.3 % Critically high 0.0-0.5 [facility] Comment on above: Performed By: #### V AGINT #### [facility] [address] [place] [address] Dr. Ashley Castaneda LYMPH # 2.6 103/ul Normal 1.2-3.8 [facility] Comment on above: Performed By: #### V AGINT #### [facility] [address] [place] [address] Dr. Ashley Castaneda Lymphocytes/100 WBC (Bld) 24.3 % Normal 20.5-60.0 [facility] Comment on above: Performed By: #### V AGINT #### [facility] [address] [place] [address] Dr. Ashley Castaneda MANUAL DIFF REQ NO Normal [facility] Comment on above: Performed By: #### V AGINT #### [facility] [address] [place] [address] Dr. Ashley Castaneda MCH (RBC) [Entitic mass] 28.6 pg Normal 26.7-34.0 [facility] Comment on above: Performed By: #### V AGINT #### [facility] [address] [place] [address] Dr. Ashley Castaneda MCHC (RBC) [Mass/Vol] 34.3 g/dL Normal 29.9-35.2 [facility] Comment on above: Performed By: #### V AGINT #### [facility] [address] [place] [address] Dr. Ashley Castaneda MCV (RBC) [Entitic vol] 83.5 fL Normal 81.0-99.0 [facility] Comment on above: Performed By: #### V AGINT #### [facility] [address] [place] [address] Dr. Ashley Castaneda MONO # 1.1 103/ul Critically high 0.3-0.8 [facility] Comment on above: Performed By: #### V AGINT #### [facility] [address] [place] [address] Dr. Ashley Castaneda Monocytes/100 WBC (Bld) 9.9 % Normal 1.7-12.0 [facility] Comment on above: Performed By: #### V AGINT #### [facility] [address] [place] [address] Dr. Ashley Castaneda NEUT # 6.9 103/ul Critically high 1.4-6.5 [facility] Comment on above: Performed By: #### V AGINT #### [facility] [address] [place] [address] Dr. Ashley Castaneda Neutrophils/100 WBC (Bld) 63.6 % Normal 43.0-75.0 [facility] Comment on above: Performed By: #### V AGINT #### [facility] [address] [place] [address] Dr. Ashley Castaneda Platelet mean volume (Bld) [Entitic vol] 11.2 fL Normal 9.5-13.5 [facility] Comment on above: Performed By: #### V AGINT #### [facility] [address] [place] [address] Dr. Ashley Castaneda PLT 260 103/ul Normal 150-450 [facility] Comment on above: Performed By: #### V AGINT #### [facility] [address] [place] [address] Dr. Ashley Castaneda RBC 4.68 106/ul Normal 4.20-5.40 [facility] Comment on above: Performed By: #### V AGINT #### [facility] [address] [place] [address] Dr. Ashley Castaneda WBC 10.9 103/ul Normal 4.0-11.0 [facility] Comment on above: Performed By: #### V AGINT #### [facility] [address] [place] [address] Dr. Ashley Castaneda TYPE AND SCREENon 10-24-2022 TYPE AND SCREEN Negative Normal [facility] Comment on above: Performed By: #### T NS #### [facility] [address] [place] [address] Dr. 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 Ashley Castaneda Clarity (U) CLEAR Normal CLEAR [facility] Comment on above: Performed By: #### H BSANS #### [facility] [address] [place] [address] Dr. Ashley Castaneda Color (U) LT. YELLOW Normal YELLOW [facility] Comment on above: Performed By: #### H BSANS #### [facility] [address] [place] [address] Dr. Ashley Castaneda Glucose Ql (U) Negative Normal NEGATIVE [facility] Comment on above: Performed By: #### H BSANS #### [facility] [address] [address] [address] Ashley Castaneda Hemoglobin Ql (U) TRACE-INTACT Abnormal NEGATIVE [facility] Comment on above: Performed By: #### H BSANS #### [facility] [address] [address] [address] Ashley Castaneda Ketones Ql (U) Negative Normal NEGATIVE [facility] Comment on above: Performed By: #### H BSANS #### [facility] [address] [address] [address] Ashley Castaneda LEUKOCYTES SMALL Abnormal NEGATIVE [facility] Comment on above: Performed By: #### H BSANS #### [facility] [address] [place] [address] Dr. Ashley Castaneda Nitrite Ql (U) Negative Normal NEGATIVE [facility] Comment on above: Performed By: #### H BSANS #### [facility] [address] [place] [address] Dr. Ashley Castaneda pH (U) 7.0 [pH] Normal 5-9 [facility] Comment on above: Performed By: #### H BSANS #### [facility] [address] [address] [address] Ashley Castaneda SPEC GRAVITY 1.010 Normal 1.005-<=1.02 5 [facility] Comment on above: Performed By: #### H BSANS #### [facility] [address] [address] [address] Ashley Castaneda UA PROTEIN Negative Normal NEGATIVE/ TRACE [facility] Comment on above: Performed By: #### H BSANS #### [facility] [address] [address] [address] Ashley Castaneda UR MICRO IND INDICATED Normal [facility] Comment on above: Performed By: #### H BSANS #### [facility] [address] [place] [address] Dr. Ashley Castaneda Urobilinogen Qn (U) 0.2 {Dorothy'U}/dL Normal 0.2 - 1. 0 [facility] Comment on above: Performed By: #### H BSANS #### [facility] [address] [place] [address] Dr. Ashley Castaneda URINE MICROSCOPIC ONLYon BACTERIA NONE SEEN Normal NONE SEEN [facility] Comment on above: Performed By: #### H BSANS #### [facility] [address] [place] [address] Dr. Ashley Castaneda Bacteria identified Cx Nom (U) NOT INDICATED Normal [facility] Comment on above: Performed By: #### H BSANS #### [facility] [address] [place] [address] Dr. Ashley Castaneda CAST NONE SEEN Normal NONE SEEN [facility] Comment on above: Performed By: #### H BSANS #### [facility] [address] [place] [address] Dr. Ashley Castaneda Crystals LM Nom (Urine sed) NONE SEEN Normal NONE SEEN [facility] Comment on above: Performed By: #### H BSANS #### [facility] [address] [place] [address] Dr. Ashley Castaneda Epithelial cells LM Ql (Urine sed) RARE Normal NONE SEEN /RARE [facility] Comment on above: Performed By: #### H BSANS #### [facility] [address] [place] [address] Dr. Ashley Castaneda MUCOUS NONE SEEN Normal NONE SEEN [facility] Comment on above: Performed By: #### H BSANS #### [facility] [address] [place] [address] Dr. Ashley Castaneda RBC 0-2 Normal 0-2 [facility] Comment on above: Performed By: #### H BSANS #### [facility] [address] [place] [address] Dr. Ashley Castaneda WBC 0-2 Abnormal NONE SEEN [facility] Comment on above: Performed By: #### H BSANS #### [facility] [address] [place] [address] Dr. Ashley Castaneda GROUP B STREP CULTUREon S. agalactiae Ag Ql (Unsp spec) Culture Observations: NEGATIVE FOR GROUP B STREPTOCOCCUS. Normal [facility] Comment on above: Performed By: #### G BSCX #### [facility] [address] [place] [address] Dr. Ashley Castaneda PREG GROWTHon 10-21-2022 US [...] than 97th percentile. Electronically authenticated by: ASPEN KIRKLNAD Date: 2022-10-21 16:22 Normal [facility] US PREG GROWTHon 10-01-2022 US PREG [...] by: YENI LINO Date: 2022-10-01 16:02 Normal [facility] OVA AND PARASITE EXAMINATION on 09-18-2022 Ova + Parasite Exam Final report Normal [facility] Comment on above: Result Comment: Thes e results were obtained using wet preparation(s) and trichrome stained smear. This test does not include testing for Cryptosporidium parvum, Cyclospora, or Microsporidia. Performed By: #### B MP #### [facility] [address] [place] [address] Dr. Ashley Castaneda Result 1 Comment Normal [facility] Comment on above: Result Comment: No o va, cysts, or parasites seen. . One negative specimen does not rule out the possibility of a parasitic infection. Performed By: #### B MP #### [facility] [address] [place] [address] Dr. Ashley Castaneda PAP ACOG PANEL 2: 21 to 30on 08-28-2022 . . Normal [facility] Comment on above: Performed By: #### [id number] #### [facility] [address] [place] [address] Dr. Ashley Castaneda Age Gdln ACOG Testing - Normal [facility] Comment on above: Performed By: #### [id number] #### [facility] [address] [place] [address] Dr. Ashley Castaneda DIAGNOSIS: Comment [facility] Comment on above: Result Comment: NEGA TIVE FOR INTRAEPITHELIAL LESION OR MALIGNANCY. Performed By: #### [id number] #### [facility] [address] [place] [address] Dr. Ashley Castaneda Methodology: Comment Normal [facility] Comment on above: Result Comment: This liquid based ThinPrep(R) pap test was screened with the use of an image guided system. Performed By: #### [id number] #### [facility] [address] [place] [address] Dr. Ashley Castaneda Note: Comment Normal [facility] Comment on above: Result Comment: The Pap smear is a screening test designed to aid in the detection of premalignant and malignant conditions of the uterine cervix. It is not a diagnostic procedure and should not be used as the sole means of detecting cervical cancer. Both false-positive and false-negative reports do occur. . Performed By: #### [id number] #### [facility] [address] [place] [address] Dr. Ashley Castaneda Performed by: Comment Normal [facility] Comment on above: Result Comment: Marialuisa Mo, Scientific Publications Editor (ASCP) Performed By: #### [id number] #### [facility] [address] [place] [address] Dr. Ashley Castaneda Reflex Criteria: Comment Normal [facility] Comment on above: Result Comment: The HPV DNA reflex criteria were not met with this specimen result therefore, no HPV testing was performed. . Performed By: #### [id number] #### [facility] [address] [place] [address] Dr. Ashley Castaneda Specimen adequacy: Comment Normal [facility] Comment on above: Result Comment: Sati sfactory for evaluation. No endocervical component is identified. Performed By: #### [id number] #### [facility] [address] [place] [address] Dr. Ashley Castaneda CHLAMYDIA/GONOCOCCUS LANE (SW AB/URINE/PAPon 08-22-[address]achomatis, LANE Negative Normal Negative [facility] Comment on above: Performed By: #### H BSANS #### [facility] [address] [place] [address] Dr. Ashley Castaneda Neisseria gonorrhoeae, LANE Negative Normal Negative [facility] Comment on above: Performed By: #### H BSANS #### [facility] [address] [place] [address] Dr. Ashley Castaneda VAGINITIS/VAGINOSIS DNA PROB Stephon 08-21-2022 Brina species Negative Normal Negative [facility] Comment on above: Performed By: #### V AGINT #### [facility] [address] [address] [address] Ashley Castaneda Gardnerella vaginalis Negative Normal Negative [facility] Comment on above: Performed By: #### V AGINT #### [facility] [address] [address] [address] Ashley Castaneda Trichomonas vaginalis Negative Normal Negative [facility] Comment on above: Performed By: #### V AGINT #### [facility] [address] [address] [address] Ashley Castaneda US PREG PLACENTAon 2 [...] ASPEN KIRKLAND Date: 2022-08-20 06:34 Normal [facility] GTT 3 HR PREGon 08-09-2022 Glucose [Mass/Vol] 96 mg/dL Normal 74-106 [facility] Comment on above: Performed By: #### G TT3P #### [facility] [address] [address] [address] Ashley Castaneda Glucose [Mass/Vol] 155 mg/dL Normal [facility] Comment on above: Performed By: #### G TT3P #### [facility] [address] [address] [address] Ashley Castaneda Glucose [Mass/Vol] 141 mg/dL Normal [facility] Comment on above: Performed By: #### G TT3P #### [facility] [address] [address] [address] Ashley Castaneda Glucose [Mass/Vol] 129 mg/dL Normal [facility] Comment on above: Performed By: #### G TT3P #### [facility] [address] [address] [address] Ashley Castaneda CBC AUTO DIFFon 08-02-2022 BASO # 0.1 103/ul Normal 0.0-0.1 [facility] Comment on above: Performed By: #### B MP #### [facility] [address] [address] [address] Ashley Castaneda Basophils/100 WBC (Bld) 0.6 % Normal 0.2-2.0 [facility] Comment on above: Performed By: #### B MP #### [facility] [address] [address] [address] Ashley Castaneda EO # 0.1 103/ul Normal 0.0-0.7 [facility] Comment on above: Performed By: #### B MP #### [facility] [address] [address] [address] Ashley Castaneda Eosinophils/100 WBC (Bld) 0.9 % Normal 0.9-7.0 [facility] Comment on above: Performed By: #### B MP #### [facility] [address] [place] [address] Dr. Ashley Castaneda Erythrocyte distribution width (RBC) [Ratio] 13.4 % Normal 11.0-15.0 [facility] Comment on above: Performed By: #### B MP #### [facility] [address] [address] [address] Ashley Castaneda Hematocrit (Bld) [Volume fraction] 36.2 % Normal 36.0-48.0 [facility] Comment on above: Performed By: #### B MP #### [facility] [address] [place] [address] Dr. Ashley Castaneda Hemoglobin (Bld) [Mass/Vol] 12.6 g/dL Normal 12.0-16.0 [facility] Comment on above: Performed By: #### B MP #### [facility] [address] [address] [address] Ashley Castaneda IG # 0.18 10e3/ul Critically high 0.00-0.03 [facility] Comment on above: Performed By: #### B MP #### [facility] [address] [address] [address] Ashley Castaneda IG % 1.7 % Critically high 0.0-0.5 [facility] Comment on above: Performed By: #### B MP #### [facility] [address] [place] [address] Dr. Ashley Castaneda LYMPH # 1.7 103/ul Normal 1.2-3.8 [facility] Comment on above: Performed By: #### B MP #### [facility] [address] [place] [address] Dr. Ashley Castaneda Lymphocytes/100 WBC (Bld) 16.6 % Critically low 20.5-6 0.0 [facility] Comment on above: Performed By: #### B MP #### [facility] [address] [place] [address] Dr. Ashley Castaneda MANUAL DIFF REQ NO Normal [facility] Comment on above: Performed By: #### B MP #### [facility] [address] [place] [address] Dr. Ashley Castaneda MCH (RBC) [Entitic mass] 30.3 pg Normal 26.7-34.0 [facility] Comment on above: Performed By: #### B MP #### [facility] [address] [place] [address] Dr. Ashley Castaneda MCHC (RBC) [Mass/Vol] 34.8 g/dL Normal 29.9-35.2 [facility] Comment on above: Performed By: #### B MP #### [facility] [address] [place] [address] Dr. Ashley Castaneda MCV (RBC) [Entitic vol] 87.0 fL Normal 81.0-99.0 [facility] Comment on above: Performed By: #### B MP #### [facility] [address] [place] [address] Dr. Ashley Castaneda MONO # 0.7 103/ul Normal 0.3-0.8 [facility] Comment on above: Performed By: #### B MP #### [facility] [address] [place] [address] Dr. Ashley Castaneda Monocytes/100 WBC (Bld) 6.8 % Normal 1.7-12.0 [facility] Comment on above: Performed By: #### B MP #### [facility] [address] [place] [address] Dr. Ashley Castaneda NEUT # 7.7 103/ul Critically high 1.4-6.5 [facility] Comment on above: Performed By: #### B MP #### [facility] [address] [place] [address] Dr. Ashley Castaneda Neutrophils/100 WBC (Bld) 73.4 % Normal 43.0-75.0 [facility] Comment on above: Performed By: #### B MP #### [facility] [address] [place] [address] Dr. Ashley Castaneda Platelet mean volume (Bld) [Entitic vol] 10.1 fL Normal 9.5-13.5 [facility] Comment on above: Performed By: #### B MP #### [facility] [address] [place] [address] Dr. Ashley Castaneda PLT 232 103/ul Normal 150-450 [facility] Comment on above: Performed By: #### B MP #### [facility] [address] [place] [address] Dr. Ashley Castaneda RBC 4.16 106/ul Critically low 4.20-5.40 [facility] Comment on above: Performed By: #### B MP #### [facility] [address] [place] [address] Dr. Ashley Castaneda WBC 10.5 103/ul Normal 4.0-11.0 [facility] Comment on above: Performed By: #### B MP #### [facility] [address] [place] [address] Dr. Ashley Castaneda GLUCOSE - 1HRon 08-02-2022 Glucose [Mass/Vol] 152 mg/dL Critically high 74-106 [facility] Comment on above: Performed By: #### V AGINT #### [facility] [address] [place] [address] Dr. Ashley Castaneda AFP MATERNAL FOR SPINA BIFID Aon 2022 AFP MoM 0.45 Normal [facility] Comment on above: Performed By: #### A FPMAT #### [facility] [address] [address] [address] Ashley Castaneda AFP Value 22.5 ng/mL Normal [facility] Comment on above: Performed By: #### A FPMAT #### [facility] [address] [address] [address] Ashlye Castaneda AFP, Serum for Spina Bifida Report Normal [facility] Comment on above: Performed By: #### A FPMAT #### [facility] [address] [address] [address] Ashley Castaneda Comment Comment Normal [facility] Comment on above: Result Comment: Duncan Koo, Ph.D., [facility] Director . References: Available Upon Request. . Multiples Of Median Cutoffs For AFP Elevations Chavez 2.5 Black 2.8 IDD 2.0 Twins 4.5 Abbreviation Definitions IDD - Insulin Dep Diabetes OSBR - Open Spina Bifida Risk . For further inquiries contact [employer] [facility] [facility] at [phone]. . This test was developed and its performance characteristics determined by Who@. It has not been cleared or approved by the Food and Drug Administration. Performed By: #### A FPMAT #### [facility] [address] [place] [address] Dr. Ashley Morin Age Collection Date 20.0 weeks Normal [facility] Comment on above: Performed By: #### A FPMAT #### [facility] [address] [place] [address] Dr. Ashley Castaneda Gestat, Age Based on ANTONIO [facility] Comment on above: Result Comment: 05/2023 Recalculations are not recommended when gestational dating by LMP and ultrasound are within 10 days. Performed By: #### A FPMAT #### [facility] [address] [place] [address] Dr. Ashley Castaneda Insulin Dep Diabetes No Normal [facility] Comment on above: Performed By: #### A FPMAT #### [facility] [address] [address] [address] Ashley Castaneda Interpretation Comment Normal [facility] Comment on above: Result Comment: Inte [...] Customer Services to discuss available options. The [employer] recommends amniocentesis be offered to women age 35 and older. Performed By: #### A FPMAT #### [facility] [address] [place] [address] Dr. Ashley Castaneda [age] Normal [facility] Comment on above: Performed By: #### A FPMAT #### [facility] [address] [place] [address] Dr. Ashley Castaneda Multiple Gestation No Normal [facility] Comment on above: Performed By: #### A FPMAT #### [facility] [address] [place] [address] Dr. Ashley Castaneda [place] [id number] Normal [facility] Comment on above: Performed By: #### A FPMAT #### [facility] [address] [address] [address] Ashley Castaneda PDF . Normal [facility] Comment on above: Performed By: #### A FPMAT #### [facility] [address] [place] [address] Dr. Ashley Castaneda Race Normal [facility] Comment on above: Performed By: #### A FPMAT #### [facility] [address] [place] [address] Dr. Ashley Castaneda Test Results: Negative Normal [facility] Comment on above: Performed By: #### A FPMAT #### [facility] [address] [address] [address] Ashley Castaneda US PREG ANATOMY SINGLEon [...] YENI LINO Date: 2022-07-03 16:45 Normal [facility] HEP B SURFACE ANTIGEN SCREEN on 05-01-2022 HBsAg Screen Negative Normal Negative [facility] Comment on above: Performed By: #### H BSANS #### [facility] [address] [place] [address] Dr. Ashley Castaneda HEPATITIS C VIRUS AB W/ REFL EX QUANTon 05-01-2022 HCV AB <0.1 Normal 0.0-0.9 [facility] Comment on above: Performed By: #### V AGINT #### [facility] [address] [place] [address] Dr. Ashley Castaneda Interpretation: Comment Normal [facility] Comment on above: Result Comment: Nega tive Not infected with HCV, unless recent infection is suspected or other evidence exists to indicate HCV infection. Performed By: #### V AGINT #### [facility] [address] [place] [address] Dr. Ashley Castaneda HIV 1 AND 2 WITH REFLEXon HIV Screen 4th Generation wRfx Non-Reactive Normal Non Reactive [facility] Comment on above: Result Comment: HIV Negative HIV-1/HIV-2 antibodies and HIV-1 p24 antigen were NOT detected. There is no laboratory evidence of HIV infection. Performed By: #### B MP #### [facility] [address] [place] [address] Dr. Ashley Catsaneda RPR QUANTon 05-01-2022 Rapid Plasma Reagin, Quant Non-Reactive Normal NonRea< 1:1 [facility] Comment on above: Result Comment: Plea se Note: This test does not meet current guidelines for screening and diagnosis of syphilis. This test is intended for following treatment response in patients being treated for syphilis infection. To screen for syphilis infection, a reflex cascade that includes both RPR and a treponema-specific assay should be utilized, such as Treponema pallidum (Syphilis) Screening [place] (325129) or Rapid Plasma Reagin (RPR) Test With Reflex to Quantitative RPR and Confirmatory Treponema pallidum Antibodies (473510). Performed By: #### B MP #### [facility] [address] [place] [address] Dr. Ashley Castaneda RUBELLA AB IGGon 05-01-2022 Rubella Antibodies, IgG 4.62 index Normal Immune >0.99 [facility] Comment on above: Result Comment: Non- immune <0.90 Equivocal 0.90 - 0.99 Immune >0.99 Performed By: #### B MP #### [facility] [address] [place] [address] Dr. Ashley Castaneda CBC AUTO DIFFon 04-30-2022 BASO # 0.0 103/ul Normal 0.0-0.1 [facility] Comment on above: Performed By: #### H BSANS #### [facility] [address] [address] [address] Ashley Castaneda Basophils/100 WBC (Bld) 0.3 % Normal 0.2-2.0 [facility] Comment on above: Performed By: #### H BSANS #### [facility] [address] [address] [address] Ashley Castaneda EO # 0.1 103/ul Normal 0.0-0.7 [facility] Comment on above: Performed By: #### H BSANS #### [facility] [address] [address] [address] Ashley Castaneda Eosinophils/100 WBC (Bld) 0.9 % Normal 0.9-7.0 [facility] Comment on above: Performed By: #### H BSANS #### [facility] [address] [place] [address] Dr. Ashley Castaneda Erythrocyte distribution width (RBC) [Ratio] 12.2 % Normal 11.0-15.0 [facility] Comment on above: Performed By: #### H BSANS #### [facility] [address] [place] [address] Dr. Ashley Castaneda Hematocrit (Bld) [Volume fraction] 40.5 % Normal 36.0-48.0 [facility] Comment on above: Performed By: #### H BSANS #### [facility] [address] [place] [address] Dr. Ashley Castaneda Hemoglobin (Bld) [Mass/Vol] 14.0 g/dL Normal 12.0-16.0 [facility] Comment on above: Performed By: #### H BSANS #### [facility] [address] [address] [address] Ashley Castaneda IG # 0.08 10e3/ul Critically high 0.00-0.03 [facility] Comment on above: Performed By: #### H BSANS #### [facility] [address] [address] [address] Ashley Castaneda IG % 0.8 % Critically high 0.0-0.5 [facility] Comment on above: Performed By: #### H BSANS #### [facility] [address] [address] [address] Ashley Castaneda LYMPH # 1.9 103/ul Normal 1.2-3.8 [facility] Comment on above: Performed By: #### H BSANS #### [facility] [address] [address] [address] Ashley Castaneda Lymphocytes/100 WBC (Bld) 19.4 % Critically low 20.5-6 0.0 [facility] Comment on above: Performed By: #### H BSANS #### [facility] [address] [address] [address] Ashley Castaneda MANUAL DIFF REQ NO Normal [facility] Comment on above: Performed By: #### H BSANS #### [facility] [address] [address] [address] Ashley Castaneda MCH (RBC) [Entitic mass] 30.9 pg Normal 26.7-34.0 [facility] Comment on above: Performed By: #### H BSANS #### [facility] [address] [address] [address] Ashley Castaneda MCHC (RBC) [Mass/Vol] 34.6 g/dL Normal 29.9-35.2 [facility] Comment on above: Performed By: #### H BSANS #### [facility] [address] [address] [address] Ashley Castaneda MCV (RBC) [Entitic vol] 89.4 fL Normal 81.0-99.0 [facility] Comment on above: Performed By: #### H BSANS #### [facility] [address] [address] [address] Ashley Castaneda MONO # 0.8 103/ul Normal 0.3-0.8 [facility] Comment on above: Performed By: #### H BSANS #### [facility] [address] [address] [address] Ashley Castaneda Monocytes/100 WBC (Bld) 8.4 % Normal 1.7-12.0 [facility] Comment on above: Performed By: #### H BSANS #### [facility] [address] [address] [address] Ashley Castaneda NEUT # 7.0 103/ul Critically high 1.4-6.5 [facility] Comment on above: Performed By: #### H BSANS #### [facility] [address] [address] [address] Ashley Castaneda Neutrophils/100 WBC (Bld) 70.2 % Normal 43.0-75.0 [facility] Comment on above: Performed By: #### H BSANS #### [facility] [address] [address] [address] Ashley Castaneda Platelet mean volume (Bld) [Entitic vol] 10.1 fL Normal 9.5-13.5 [facility] Comment on above: Performed By: #### H BSANS #### [facility] [address] [address] [address] Ashley Castaneda PLT 234 103/ul Normal 150-450 [facility] Comment on above: Performed By: #### H BSANS #### [facility] [address] [address] [address] Ashley Castaneda RBC 4.53 106/ul Normal 4.20-5.40 [facility] Comment on above: Performed By: #### H BSANS #### [facility] [address] [address] [address] Ashley Castaneda WBC 10.0 103/ul Normal 4.0-11.0 [facility] Comment on above: Performed By: #### H BSANS #### [facility] [address] [address] [address] Ashley Castaneda CULTURE URINEon 04-30-2022 CULTURE URINE Culture Observations: NO GROWTH. Normal [facility] Comment on above: Performed By: #### H BSANS #### [facility] [address] [address] [address] Ashley Castaneda GLYCOHEMOGLOBIN A1Con 2021 ADA RECOMMENDATION SEE BELOW Normal [facility] Comment on above: Result Comment: ADA RECOMMENDED LIMIT 4.0 - 6.0 ADA THERAPEUTIC TARGET < 7.0 ACTION SUGGESTED > 7.0 Performed By: #### A FPMAT #### [facility] [address] [place] [address] Dr. Ashley Castaneda Glucose [Mass/Vol] 100 mg/dL Normal [facility] Comment on above: Performed By: #### A FPMAT #### [facility] [address] [place] [address] Dr. Ashley Castaneda HbA1c (Bld) [Mass fraction] 5.1 % Normal 4.5-6.2 [facility] Comment on above: Performed By: #### A FPMAT #### [facility] [address] [place] [address] Dr. Ashley Castaneda DELILAH BOX TEST PT SEND OUTo n 04-30-2022 SENT TO REF LAB 04/30/2022 Normal [facility] Comment on above: Performed By: #### V AGINT #### [facility] [address] [place] [address] Dr. Ashley Castaneda TYPE AND SCREENon 04-30-2022 TYPE AND SCREEN Negative Normal [facility] Comment on above: Performed By: #### T NS #### [facility] [address] [place] [address] Dr. Ashley Castaneda GENITAL CULTUREon 04-23-2022 Genital Culture, Routine Final report Normal [facility] Comment on above: Result Comment: Spec imen stability note: A swab transport (ie., ESwab, Amies agar gel) received by the lab more than 24 hours after collection may result in reduced recovery of Neisseria gonorrhoeae (GC). (This is informational only and may not apply to this specimen.) Performed By: #### G TT3P #### [facility] [address] [place] [address] Dr. Ashley Castaneda Result 1 Comment Normal [facility] Comment on above: Result Comment: Rout ine genital jordan. Performed By: #### G TT3P #### [facility] [address] [place] [address] Dr. Ashley Castaneda US PREG TVon 04-22-2022 [...] by: YENI LINO Date: 2022-04-22 18:29 Normal [facility] ABO AND RH TYPEon 04-16-2022 ABO and Rh group Nom (Bld) ABO Rh Typing A Rh Positive Normal [facility] Comment on above: Performed By: #### H BSANS #### [facility] [address] [place] [address] Dr. Ashley Castaneda CBC AUTO DIFFon 04-16-2022 BASO # 0.0 103/ul Normal 0.0-0.1 [facility] Comment on above: Performed By: #### H BSANS #### [facility] [address] [place] [address] Dr. Ashley Castaneda Basophils/100 WBC (Bld) 0.2 % Normal 0.2-2.0 [facility] Comment on above: Performed By: #### H BSANS #### [facility] [address] [place] [address] Dr. Ashley Castaneda EO # 0.1 103/ul Normal 0.0-0.7 [facility] Comment on above: Performed By: #### H BSANS #### [facility] [address] [place] [address] Dr. Ashley Castaneda Eosinophils/100 WBC (Bld) 0.5 % Critically low 0.9-7. 0 [facility] Comment on above: Performed By: #### H BSANS #### [facility] [address] [address] [address] Ashley Castaneda Erythrocyte distribution width (RBC) [Ratio] 12.0 % Normal 11.0-15.0 [facility] Comment on above: Performed By: #### H BSANS #### [facility] [address] [address] [address] Ashley Castaneda Hematocrit (Bld) [Volume fraction] 40.2 % Normal 36.0-48.0 [facility] Comment on above: Performed By: #### H BSANS #### [facility] [address] [place] [address] Dr. Ashley Castaneda Hemoglobin (Bld) [Mass/Vol] 13.8 g/dL Normal 12.0-16.0 [facility] Comment on above: Performed By: #### H BSANS #### [facility] [address] [place] [address] Dr. Ashley Castaneda IG # 0.07 10e3/ul Critically high 0.00-0.03 [facility] Comment on above: Performed By: #### H BSANS #### [facility] [address] [place] [address] Dr. Ashley Castaneda IG % 0.5 % Normal 0.0-0.5 [facility] Comment on above: Performed By: #### H BSANS #### [facility] [address] [place] [address] Dr. Ashley Castaneda LYMPH # 2.7 103/ul Normal 1.2-3.8 [facility] Comment on above: Performed By: #### H BSANS #### [facility] [address] [place] [address] Dr. Ashley Castaneda Lymphocytes/100 WBC (Bld) 19.8 % Critically low 20.5-6 0.0 [facility] Comment on above: Performed By: #### H BSANS #### [facility] [address] [place] [address] Dr. Ashley Castaneda MANUAL DIFF REQ NO Normal [facility] Comment on above: Performed By: #### H BSANS #### [facility] [address] [address] [address] Ashley Castaneda MCH (RBC) [Entitic mass] 30.7 pg Normal 26.7-34.0 [facility] Comment on above: Performed By: #### H BSANS #### [facility] [address] [place] [address] Dr. Ashley Castaneda MCHC (RBC) [Mass/Vol] 34.3 g/dL Normal 29.9-35.2 [facility] Comment on above: Performed By: #### H BSANS #### [facility] [address] [place] [address] Dr. Ashley Castaneda MCV (RBC) [Entitic vol] 89.5 fL Normal 81.0-99.0 [facility] Comment on above: Performed By: #### H BSANS #### [facility] [address] [place] [address] Dr. Ashley Castaneda MONO # 1.0 103/ul Critically high 0.3-0.8 [facility] Comment on above: Performed By: #### H BSANS #### [facility] [address] [place] [address] Dr. Ashley Castaneda Monocytes/100 WBC (Bld) 7.7 % Normal 1.7-12.0 [facility] Comment on above: Performed By: #### H BSANS #### [facility] [address] [place] [address] Dr. Ashley Castaneda NEUT # 9.6 103/ul Critically high 1.4-6.5 [facility] Comment on above: Performed By: #### H BSANS #### [facility] [address] [place] [address] Dr. Ashley Castaneda Neutrophils/100 WBC (Bld) 71.3 % Normal 43.0-75.0 [facility] Comment on above: Performed By: #### H BSANS #### [facility] [address] [place] [address] Dr. Ashley Castaneda Platelet mean volume (Bld) [Entitic vol] 10.2 fL Normal 9.5-13.5 [facility] Comment on above: Performed By: #### H BSANS #### [facility] [address] [place] [address] Dr. Ashley Castaneda PLT 243 103/ul Normal 150-450 [facility] Comment on above: Performed By: #### H BSANS #### [facility] [address] [place] [address] Dr. Ashley Castaneda RBC 4.49 106/ul Normal 4.20-5.40 [facility] Comment on above: Performed By: #### H BSANS #### [facility] [address] [place] [address] Dr. Ashley Castaneda WBC 13.5 103/ul Critically high 4.0-11.0 [facility] Comment on above: Performed By: #### H BSANS #### [facility] [address] [place] [address] Dr. Ashley Castaneda ER URINE PROFILEon 2 Bilirubin Ql (U) Negative Normal NEGATIVE [facility] Comment on above: Performed By: #### A FPMAT #### [facility] [address] [place] [address] Dr. Ashley Castaneda Clarity (U) CLEAR Normal CLEAR [facility] Comment on above: Performed By: #### A FPMAT #### [facility] [address] [place] [address] Dr. Ashley Castaneda Color (U) LT. YELLOW Normal YELLOW [facility] Comment on above: Performed By: #### A FPMAT #### [facility] [address] [place] [address] Dr. Ashley Shah micrscopic examination will be performed if indicated. Normal [facility] Comment on above: Performed By: #### A FPMAT #### [facility] [address] [place] [address] Dr. Ashley Castaneda Glucose Ql (U) Negative Normal NEGATIVE [facility] Comment on above: Performed By: #### A FPMAT #### [facility] [address] [place] [address] Dr. Ashley Castaneda Hemoglobin Ql (U) Negative Normal NEGATIVE [facility] Comment on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 documented in this encounter [facility] Evaluation note Note Date & Type Note Facility [facility] Evaluation note Note Date & Type Note Facility Evaluation note Diagnosis Encounter to discuss test results Other specified counseling Vaginal bleeding Other specified noninflammatory disorder of vagina Uterine leiomyoma, unspecified location documented in this encounter [facility] Summary Purpose Family History No Family History Records FoundNo Family History Records FoundNo Family History Records FoundNo Family History Records FoundNo Family History Records Found Advance Directives Advance Directive Response Recorded Date/ Time Advance Directives No April 16, 2 022 2:03am Chief Complaint and Reason for Visit Chief Complaint Additional Source Comments INFORMATION SOURCE (unrecogn ized section and content) DATE CREATED AUTHOR 04/26/2022 [facility] DATE CREATED AUTHOR AUTHOR'S ORGANIZ ATION 11/24/2022 [facility] DATE CREATED AUTHOR AUTHOR'S ORGANIZ ATION 04/17/2024 [facility] DATE CREATED AUTHOR AUTHOR'S ORGANIZ ATION 06/26/2024 [facility] DATE CREATED AUTHOR AUTHOR'S ORGANIZ ATION 07/11/2024 [facility] EPIC Care Teams (unrecognized sec tion and content) Team Status: Inactive Member Role Status Dates Swetha Phoenix MD Primary Care Provider Active Stoney Good MD Attending Provider Active Team Status: Active Member Role Status Dates Swetha Phoenix MD Primary Care Provider Active Billing Coordinator Relationship Specialty Start Date End Date Swetha Phoenix MD [address] [place] [address] PCP - General Pediatrics 03/23/23 Billing Coordinator Relationship Specialty Start Date End Date Swetha Phoenix MD [address] [place] [address] PCP - General Pediatrics 03/23/23 Goals (unrecognized section and content) Goals may be documented in a n alternate section Reason for Visit (unrecogniz ed section and content) Reason Comments Follow-up Pt present today for follow up US visit. Pt had an US for vaginal bleeding w/clotting. FOR RECORDS PERTAINING TO PATIENTS WHO ARE [...] BE BASED ON THE PRIMARY CLINICAL RECORDS. [employer] provides no warranty or guarantee of the accuracy or completeness of information in this document.
--- NOTE | 2024-07-19 10:15 | ED_ITS ---
HPI HPI - General Adult General Chief complaint: Extremity Injury, Upper Stated complaint: UPPER EXTREMITY INJURY Time Seen by Provider: 07/19/24 10:01 Source: patient Mode of arrival: walk-in Limitations: no limitations History of Present Illness HPI narrative: 29-year-old female to the emergency department chief complaint of strain in her left shoulder area after picking her child up out of a crib this morning. She reports she picked her 35 pound child up out of a crib and felt a tearing sensation in her left trapezius muscle. She denies any numbness, weakness, tingling. She denies any pain in her neck. She has never had anything like this before. Pain is worse when she raises her shoulder or turns her head away from the affected shoulder. Related Data Home Medications ?Medication ?Instructions ?Recorded ?Confirmed citalopram 40 mg tablet 40 mg PO DAILY 07/19/24 07/19/24 verapamil 180 mg tablet,extended 180 mg PO DAILY 07/19/24 07/19/24 release Previous Rx's ?Medication ?Instructions ?Recorded cyclobenzaprine 10 mg tablet 10 mg PO BID PRN muscle spasm #10 07/19/24 tabs naproxen 500 mg tablet 500 mg PO BID PRN pain #14 tabs 07/19/24 Allergies Allergy/AdvReac Type Severity Reaction Status Date / Time No Known Drug Allergies Allergy Verified 07/19/24 09:47 Opioid HPI Opioid Management Most Recent Opioid Data: No Data to Display Review of Systems ROS Status of ROS 10 or more systems reviewed and unremark able except as noted in history and below PFSH PFSH Social History Little interest or pleasure in doing things: not at all Feeling down, depressed, or hopeless: not at all Exam Narrative Exam Narrative: VITALS: I have reviewed the triage vital signs. GENERAL: Well developed, well appearing adult in no acute distress. NEURO: Alert and oriented. Moves all extremities. Face is symmetric and expressive. EYES: PERRL. No scleral icterus or conjunctival injection. No discharge. HENT: Normocephalic, atraumatic. Hearing is grossly intact. Nares grossly patent and without discharge. Mucous membranes moist. NECK: No JVD. Patient moves neck without restriction. No midline cervical tenderness. Left upper extremity: Radial pulse intact. Sensation is intact of the arm. Wrist flexion extension, elbow flexion extension, shoulder abduction adduction, flexion extension are intact by functional testing. There is tenderness throughout the belly of the upper trapezius. No deformity noted. SKIN: Warm and dry. Normal turgor. No rash or lesions appreciated. PSYCH: Mood, affect, and interaction is appropriate to the setting. Constitutional Vital Signs, click to edit/add: Last Vital Signs Temp 98.2 F 07/19/24 09:44 Pulse 70 07/19/24 09:44 Resp 16 07/19/24 09:44 BP 127/67 07/19/24 09:44 Pulse Ox 99 07/19/24 09:44 O2 Del Method Room Air 07/19/24 09:44 Course Vital Signs Vital signs: Vital Signs Temperature 98.2 F 07/19/24 09:44 Pulse Rate 70 07/19/24 09:44 Respiratory Rate 16 07/19/24 09:44 Blood Pressure 127/67 07/19/24 09:44 Pulse Oximetry 99 07/19/24 09:44 Oxygen Delivery Method Room Air 07/19/24 09:44 Temperature 98.2 F 07/19/24 09:44 Pulse Rate 70 07/19/24 09:44 Respiratory Rate 16 07/19/24 09:44 Blood Pressure 127/67 07/19/24 09:44 Pulse Oximetry 99 07/19/24 09:44 Oxygen Delivery Method Room Air 07/19/24 09:44 Medical Decision Making MDM Narrative Medical decision making narrative: 29-year-old female to the emergency department pain in her left shoulder extending to the neck after picking up her child out of a crib. No significant traumatic injury. No radicular pain. The left upper extremity is neurovascul debbie intact. Suspect a muscle strain in the trapezius. Naproxen and Flexeril. Return precautions were discussed. All questions were answered. The patient was discharged home. Medical Records Medical records reviewed: Yes I reviewed the patient's medical records Discharge Plan Discharge Chief Complaint: Extremity Injury, Upper Clinical Impression: Trapezius muscle strain Patient Disposition: Home, Self-Care Time of Disposition Decision: 10:10 Condition: Good Mode of Transportation: Private Vehicle Prescriptions / Home Meds: New cyclobenzaprine 10 mg tablet 10 mg PO BID PRN (Reason: muscle spasm) Qty: 10 0RF naproxen 500 mg tablet 500 mg PO BID PRN (Reason: pain) Qty: 14 0RF No Action citalopram 40 mg tablet 40 mg PO DAILY verapamil 180 mg tablet extended release 180 mg PO DAILY Print Language: Icelandic Instructions: Muscle Strain (ED) Additional Instructions: Call the office of your primary care doctor to arrange for follow-up within the above-stated timeframe. Your ED visit was focused on your acute issue and does not replace primary care. You should review your labs, imaging, and diagnoses from this ED visit with your primary care physician. There may be non-emergent/ incidental findings that need further evaluation. You should review your vital signs including blood pressure with your PCP. If you were prescribed medications you should discuss possible side-effects and drug interactions with your pharmacist. Call 911 or go to the nearest Emergency Department if you develop any new or worsening symptoms. Referrals: Swetha Phoenix [Primary Care Provider] - 1 week Sebastien Bazan MD [Physician] - 1 week (Follow-up with orthopedics if not improving)
== END 2024-07-19 10:21 | disposition home or self-care (01) ==
PROVIDERS: Emergency Provider Student in an Organized Health Care Education/Training Program
DX: S46.812A Strain of other muscles, fascia and tendons at shoulder and upper arm level, left arm, initial encounter (principal); X50.9XXA Other and unspecified overexertion or strenuous movements or postures, initial encounter
CPT/HCPCS: 99283

== ENCOUNTER 2024-09-12 09:00 | Outpatient (OUT) | payer OTHER, SELFPAY ==
--- NOTE | 2024-09-12 09:07 | US_ITS ---
[address] [address] Patient Name: BRYON PONCE MRN: [id number] date: 1995 Sex: F Assigned Patient Location: US Current Patient Location: Accession/Order Number: [id number] Exam Date: 09/12/2024 09:08 Report Date: 09/12/2024 10:22 At the request of: ILIR DWYER Procedure: US pelvis w/ transvaginal EXAMINATION: US pelvis w/ transvaginal HISTORY: Leiomyoma Of Uterus COMPARISON: Ultrasound pelvis 07/04/2024 TECHNIQUE: Transabdominal and/or transvaginal sonographic examination was performed as indicated by examination type. FINDINGS: UTERUS: 2.1 x 1.7 x 1.3 cm isoechoic round mass within anterior fundal myometrium. Uterus size: 8.2 x 3.9 x 4.8 cm ENDOMETRIUM: Normal homogeneous appearance. Endometrial thickness: 8 mm RIGHT OVARY: Contains a 1.7 cm dominant follicle. Duplex Doppler demonstrates normal waveform and flow; resistive index 0.6. Ovary size: 3.4 x 3.1 x 2.6 cm LEFT OVARY: Normal size and appearance. Duplex Doppler demonstrates normal waveform and flow; resistive index 0.3. Ovary size: 2.7 x 1.4 x 2.4 cm CUL-DE-SAC: Unremarkable. No significant free fluid. BLADDER: Unremarkable. OTHER: None. US/US pelvis w/ transvaginal IMPRESSION: 1. Grossly stable anterior-fundal myometrial mass; nonspecific but most suggestive of a leiomyoma. Electronically authenticated by: ASPEN KIRKLAND Date: 09/12/2024 10:22
--- OUTSIDE RECORDS SUMMARY | 2024-09-12 09:19 | XMS_ITS | CCD ---
Author Organization [facility] CliniSyva Care Team Providers Care Tear Down Man Name Role Phone MD Swetha Phoenix Primary Care Provider MD Stoney Good Attending Provider CAT ., DR HAZEL Admitting Unavailable CAT ., DR HAZEL Attending Unavailable MISC, DR CHAMPION Primary Care Unavailable CAT ., DR HAZEL Consulting Unavailable ZIEBER, DR ASPEN Abrams Consulting Unavailable CAT ., DR HAZEL Admitting Unavailable CAT ., DR HAZEL Attending Unavailable MISC, DR CHAMPION Primary Care Unavailable [place], DR YENI Cuenca Consulting Unavailable CAT ., DR HAZEL Consulting Unavailable CAT ., DR HAZEL Admitting Unavailable CAT ., DR HAZEL Attending Unavailable [facility] Primary Care Unava ilable CAT ., DR HAZEL Consulting Unavailable CAT ., DR HAZEL Admitting Unavailable CAT ., DR HAZEL Attending Unavailable [facility] Primary Care Unava ilable CAT ., DR HAZEL Admitting Unavailable CAT ., DR HAZEL Attending Unavailable [facility] Primary Care Unava ilable CAT ., DR [...] Unavailable CAT ., DR HAZEL Attending Unavailable [facility] Primary Care Unava ilable CAT ., DR [...] Unavailable MISC, DR CHAMPION Primary Care Unavailable [place], DR YENI Cuenca Consulting Unavailable CASSANDRA ., [...] Unavailable CAT ., DR HAZEL Attending Unavailable [facility] Primary [facility] Unava ilable CAT ., DR HAZEL Consulting Unavailable CAT ., DR HAZEL Admitting Unavailable CAT ., DR HAZEL Attending Unavailable [facility] Primary Care Unavailable CAT ., DR HAZEL Admitting Unavailable CAT ., DR HAZEL Attending Unavailable [facility] Primary Care Unava ilable [place], DR YENI Cuenca Consulting Unavailable CAT ., [...] Unavailable CAT ., DR HAZEL Attending Unavailable [facility], DR CHAMPION Primary Care Unavailable CAT ., [...] Primary Care Provider ILIR SHELTON Attending Unavailable CAT, ILIR Attending Unavailable CAT, ILIR Attending Unavailable CATILIR Attending Unavailable CAT, ILIR Attending Unavailable CAT, ILIR Attending Unavailable TYRA LIVINGSTON Attending Unavailable PHOENIX, SWETHA L Referring Unavailable PHOENIX, SWETHA L Primary Care Unavailable TYRA LIVINGSTON Attending Unavailable PHOENIX, WSETHA L Referring Unavailable PHOENIX, SWETHA L Primary Care Unavailable TYRA LIVINGSTON Attending Unavailable PHOENIX, SWETHA L Referring Unavailable PHOENIX, SWETHA L Primary Care Unavailable TYRA LIVINGSTON Attending Unavailable PHOENIX, SWETHA L Referring Unavailable PHOENIX, SWETHA L Primary Care Unavailable TYRA LIVINGSTON Attending Unavailable PHOENIX, SWETHA L Referring Unavailable PHOENIX, SWETHA L Primary Care Unavailable Medications Current Medications Medication Drug Class(es) Dates Sig (Normalized) Sig (Original) citalopram 40 mg oral tablet (10 sources) Serotonin Reuptake Inhibitor Start: 05-05-2024 End: [...] hydrochloride 120 mg extended release oral tablet (5 sources) Calcium Channel Hayden Start: 04-06-2022 take 1 tablet by mouth in the morning verapamil SR (Calan SR) 120 MG ER tablet Take 120 mg by mouth in the morning. 04/06/2022 Active Completed/Discontinued Medications Medication Drug Class(es) Dates Sig (Normalized) Sig (Original) ferrous sulfate 325 mg oral tablet (5 sources) Start: 03-25-2024 End: 07-11-2024 take 1 [...] counseling and advice on procreation; Translations: [ENC OT GEN ORIENTAL RUG STRETCHER ADVICE PROCREAT] Onset: 01-16-2022 Episodic Diabetes mellitus without complication (4 sources) Impaired glucose tolerance (oral); Translations: [IMPAIRED GLUCOSE TOLERANCE ORAL] Onset: 08-09-2022 Episodic Immunizations and screening for infectious disease (3 sources) Encounter for screening for human papillomavirus (HPV); Translations: [Encounter for screening for infections with a predominantly sexual mode of transmission] Onset: 05-01-2022 Episodic Other complications of ; puerperium affecting management of mother (2 sources) Complication of the puerperium; Translations: [Other complications of the puerperium, not elsewhere classified] 05-05-2024 Episodic Other complications of (3 sources) Spotting complicating , first trimester; Translations: [SPOTTING COMP FIRST TRI] Onset: 04-16-2022 Episodic Other female genital disorders (1 source) Other specified noninflammatory disorders of vagina; Translations: [OTH SPEC NONINFLAMMATORY D/O VAGINA] Onset: 08-20-2022 Episodic Other gastrointestinal disorders (5 sources) Diarrhea; Translations: [Diarrhea, unspecified] Onset: 03-19-2023 [...] Range Facility CBC AND AUTO DIFFon 03-24-20 ABSOLUTE BASOPHIL 0.0 X10E9/L Normal 0.0-0.2 [facility] Comment on above: Performed By: #### Sadie PACHECO 67158-5 #### [facility] ([id number]) [address] [place] [address] ABSOLUTE NEUTROPHIL 11.4 X10E9/L High 1.5-6.6 [facility] Comment on above: Performed By: #### Sadie PACHECO 43157-2 #### [facility] ([id number]) [address], [address] [address] Basophils/100 WBC (Bld) 0.1 % Normal [facility] Comment on above: Performed By: #### Sadie PACHECO 93360-0 #### [facility] ([id number]) [address], [address] [place] [address] Eosinophils (Bld) [#/Vol] 0.0 10*3/uL Normal 0.0-0.4 [facility] Comment on above: Performed By: #### Sadie PACHECO, 77067-9 #### [facility] ([id number]) [address] [address] [place] [address] Eosinophils/100 WBC (Bld) 0.1 % Normal [facility] Comment on above: Performed By: #### Sadie PACHECO 12343-2 #### [facility] ([id number]) [address], [address] [place] [address] Erythrocyte distribution width (RBC) [Ratio] 13.0 % Normal 11.5-15.0 [facility] Comment on above: Performed By: #### C , 64936-2 #### [facility] ([id number]) [address], [address] [place] [address] Hematocrit (Bld) [Volume fraction] 35.0 % Normal 35-47 [facility] Comment on above: Performed By: #### Sadie , 08178-0 #### [facility] ([id number]) [address] [address] [place] [address] Hemoglobin (Bld) [Mass/Vol] 11.9 g/dL Normal 11.7-15.5 [facility] Comment on above: Performed By: #### Sadie , 41861-9 #### [facility] ([id number]) [address] [address] [place] [address] Lymphocytes (Bld) [#/Vol] 1.2 10*3/uL Normal 1.0-3.5 [facility] Comment on above: Performed By: #### Sadie , 73576-6 #### [facility] ([id number]) [address], [facility] [address] [place] [address] Lymphocytes/100 WBC (Bld) 8.7 % Normal [facility] Comment on above: Performed By: #### Sadie , 27886-9 #### [facility] ([id number]) [address] [address] [place] [address] MCH (RBC) [Entitic mass] 30.7 pg Normal 27-34 [facility] Comment on above: Performed By: #### Sadie , 40708-4 #### [facility] ([id number]) [address], [address] [place] [address] MCHC (RBC) [Mass/Vol] 34.0 g/dL Normal 32-36 [facility] Comment on above: Performed By: #### Sadie PACHECO, 14871-8 #### [facility] ([id number]) [address], [address] [place] [address] MCV (RBC) [Entitic vol] 91 fL Normal 80-100 P [facility] Comment on above: Performed By: #### Sadie PACHECO, 62471-6 #### [facility] ([id number]) [address], [address] [place] [address] Monocytes (Bld) [#/Vol] 1.3 10*3/uL High 0-0.9 [facility] Comment on above: Performed By: #### Sadie PACHECO, 75290-2 #### [facility] ([id number]) [address] [place] [address] Monocytes/100 WBC (Bld) 9.2 % Normal P [facility] Comment on above: Performed By: #### Sadie PACHECO, 84541-0 #### [facility] ([id number]) [address] [place] [address] Neutrophils/100 WBC (Bld) 81.9 % Normal [facility] Comment on above: Performed By: #### Sadie PACHECO, 56547-8 #### [facility] ([id number]) [address], [address] [place] [address] Platelet mean volume (Bld) [Entitic vol] 8.9 fL Normal 7-12 [facility] Comment on above: Performed By: #### Sadie PACHECO, 73342-4 #### [facility] ([id number]) [address], [address] [place] [address] Platelets (Bld) [#/Vol] 202 10*3/uL Normal 150-450 [facility] Comment on above: Performed By: #### C , 49689-2 #### [facility] ([id number]) [address], [address] [place] [address] RBC COUNT 3.87 X10E12/L Normal 3.80-5.20 [facility] Comment on above: Performed By: #### C , 39245-2 #### [facility] ([id number]) [address], [address] [place] [address] WBC (Bld) [#/Vol] 13.9 10*3/uL High 4.0-11.0 [facility] Comment on above: Performed By: #### C , 87016-1 #### [facility] ([id number]) [address], [address] [place] [address] CHLAMYDIA/GC PCR, Uon 2023 CHLAMYDIA/GC PCR, U [...] are dependent on adequate specimen collection. Normal [facility] Comment on above: Performed By: #### C GUPCR #### [facility] ([id number]) [address], [address] [place] [address] CORD ARTERIAL GASon 03-23-20 24 TESHA'S TEST Normal [facility] Comment on above: Performed By: #### C ELECTRIC HOIST OPERATOR #### [facility] ([id number]) [address] [place] [address] BASE,DEFICIT 4.0 MMOL/L High 0.0-2.0 [facility] Comment on above: Performed By: #### C ELECTRIC HOIST OPERATOR #### [facility] ([id number]) [address] [place] [address] HCO3 (Bld) [Moles/Vol] 22.0 mmol/L Normal 22-26 P [facility] Comment on above: Performed By: #### C ELECTRIC HOIST OPERATOR #### [facility] ([id number]) [address] [facility] [address] INSP. O2 CONC. 21 % Normal [facility] Comment on above: Performed By: #### C ELECTRIC HOIST OPERATOR #### [facility] ([id number]) [address] [place] [address] Oxygen (Bld) [Partial pressure] 18 mm[Hg] Normal 12-24 [facility] Comment on above: Performed By: #### C ELECTRIC HOIST OPERATOR #### [facility] ([id number]) [address] [place] [address] Oxygen saturation in Blood 24.0 % Normal 7.1-39.5 [facility] Comment on above: Performed By: #### C ELECTRIC HOIST OPERATOR #### [facility] ([id number]) [address] [place] [address] OXYGEN SOURCE [employer] [facility] Comment on above: Performed By: #### C ELECTRIC HOIST OPERATOR #### [facility] ([id number]) [address] [place] [address] PCO2 42.7 MMHG Normal 40.8-57.6 [facility] Comment on above: Performed By: #### C ELECTRIC HOIST OPERATOR #### [facility] ([id number]) [address] [facility] [place] [address] pH (Bld) 7.319 [pH] High 7.24-7.30 [facility] Comment on above: Performed By: #### C ELECTRIC HOIST OPERATOR #### [facility] ([id number]) [address] [facility] [place] [address] SAMPLE SITE [employer] [facility] Comment on above: Performed By: #### C ELECTRIC HOIST OPERATOR #### [facility] ([id number]) [address] [place] [address] SAMPLE TYPE UMBILICALCORD Normal [facility] Comment on above: Performed By: #### C ELECTRIC HOIST OPERATOR #### [facility] ([id number]) [address] [place] [address] CORD VENOUS GASon 03-23-2024 TESHA'S TEST Normal [facility] Comment on above: Performed By: #### C RDV #### [facility] ([id number]) [address] [place] [address] BASE,DEFICIT 3.0 MMOL/L High 0.0-2.0 [facility] Comment on above: Performed By: #### C RDV #### [facility] ([id number]) [address] [place] [address] HCO3 (Bld) [Moles/Vol] 22.1 mmol/L Normal 20.0-24.0 [facility] Comment on above: Performed By: #### C RDV #### [facility] ([id number]) [address] [place] [address] INSP. O2 CONC. 21 % [facility] Comment on above: Performed By: #### C RDV #### [facility] ([id number]) [address] [place] [address] Oxygen (Bld) [Partial pressure] 35 mm[Hg] Normal 22-35 [facility] Comment on above: Performed By: #### C RDV #### [facility] ([id number]) [address] [place] [address] Oxygen saturation in Blood 66.0 % Normal 32.5-66.3 [facility] Comment on above: Performed By: #### C RDV #### [facility] ([id number]) [address] [place] [address] OXYGEN SOURCE [employer] [facility] Comment on above: Performed By: #### C RDV #### [facility] ([id number]) [address] [place] [address] PCO2 37.7 MMHG Normal 32.6-43.8 [facility] Comment on above: Performed By: #### C RDV #### [facility] ([id number]) [address] [place] [address] pH (Bld) 7.376 [pH] High 7.25-7.37 [facility] Comment on above: Performed By: #### C RDV #### [facility] ([id number]) [address] [place] [address] SAMPLE SITE [employer] [facility] Comment on above: Performed By: #### C RDV #### [facility] ([id number]) [address] [place] [address] SAMPLE TYPE UMBILICALCORD [facility] Comment on above: Performed By: #### C RDV #### [facility] ([id number]) [address] [place] [address] DRUG SCREEN, URINEon 024 AMPHETAMINE/METHAMP Negative Normal NEG [facility] Comment on above: Result Comment: AMPH /METH screening cut off = 1000 ng/mL Performed By: #### D JARQUIN #### [facility] ([id number]) [address] [facility] [place] [address] BARBITURATES Negative Normal NEG [facility] Comment on above: Result Comment: Zahra iturates screening cut off value = 200 ng/mL Performed By: #### D JARQUIN #### [facility] ([id number]) [address] [facility], [address] [place] [address] BENZODIAZEPINES Negative Normal NEG [facility] Comment on above: Result Comment: Artur odiazepines screening cut off value = 200 ng/mL Performed By: #### D JARQUIN #### [facility] ([id number]) [address], [address] [place] [address] CANNABINOIDS Negative Normal [facility] Comment on above: Result Comment: Natasha abinoids/THC screening cut off value = 50 ng/mL Performed By: #### D JARQUIN #### [facility] ([id number]) [address], [address] [place] [address] COCAINE METABOLITE Negative Normal NEG [facility] Comment on above: Result Comment: Coca ine screening cut off value = 300 ng/mL Performed By: #### D JARQUIN #### [facility] ([id number]) [address] [place] [address] ECSTASY Negative Normal [facility] Comment on above: Result Comment: Ecst asy screening cut off value = 500 ng/mL This report is intended for use in clinical monitoring or management of patients. Performed By: #### D JARQUIN #### [facility] ([id number]) [address], [address] [place] [address] METHADONE Negative Normal [facility] Comment on above: Result Comment: Meth adone screening cut off value = 300 ng/mL. Performed By: #### D JARQUIN #### [facility] ([id number]) [address], [address] [place] [address] OPIATES Negative Normal [facility] Comment on above: Result Comment: Opia eva screening cut off value = 300 ng/mL NOTE: This test is used for the detection of codeine, hydrocodone (>1000 ng/mL), morphine and hydromorphone (>900 ng/mL) in urine. Performed By: #### D JARQUIN #### [facility] ([id number]) [address], [address] [place] [address] OXYCODONE Negative Normal NEG [facility] Comment on above: Result Comment: Oxyc odone screening cut off value = 300 ng/mL NOTE: This test is used for the detection of oxycodone and oxymorphone in urine. Performed By: #### D JARQUIN #### [facility] ([id number]) [address] [place] [address], [facility] [address] [place] [address] PHENCYCLIDINE Negative Normal NEG [facility] Comment on above: Result Comment: Phen cyclidine screening cut off value = 25 ng/mL Performed By: #### D JARQUIN #### [facility] ([id number]) [address] [place] [address] [address] [place] [address] STREP B PCR VAG/RECTon 03-23 S. agalactiae Org specific cx Ql (Vag+Rectum) Negative Normal NEG [facility] Comment on above: Performed By: #### 7 2607-5 #### [facility] ([id number]) [address] [place] [address] Surgical Pathologyon 024 Surgical Pathology Normal [facility] Comment on above: Result Comment: [facility] [address] [place] [address] Surgical Pathology Consultation Patient Name:ABRIL PONCE:1995 (Age: 28)Gender:FTaken:4Reported:4Physician(s):Tata Fleming DO ([phone])Copy To:Yeni Mata [facility] #:[id number]. Rec. #:[id number]: #[id number] Final Pathologic Diagnosis Placenta: Premature placenta (210 g, ~75th percentile for gestational age of 23 weeks) showing focal distal villous hypoplasia. Negative membranes. Unremarkable three-vessel umbilical cord with eccentric insertion. Report Electronically Signed Out ao/4Afernando Ashraf MD [facility] [place] [address], License number: [id number]. Clinical History 23w6d per [facility]. Gross Description Received in formalin labeled KRIS, placenta : Single MEMBRANES: Placenta Sac Rupture (cm [...] Rolled membrane, two sections of cord [employer] sections of placenta (4, ss, [id number], m5) [facility]/4RG Specimen(s) Received Placenta Fee Codes(s): 1; 09035 URINALYSISon 03-23-2024 Bilirubin Ql (U) Negative Normal NEG [facility] Comment on above: Performed By: #### U A #### [facility] ([id number]) [address], [address] [place] [address] BLOOD/HGB Small Abnormal NEG [facility] Comment on above: Performed By: #### U A #### [facility] ([id number]) [address], [address] [place] [address] Color (U) YELLOW Normal YELLOW [facility] Comment on above: Performed By: #### U A #### [facility] ([id number]) [address], [address] [place] [address] Glucose Ql (U) Negative Normal NEG [facility] Comment on above: Performed By: #### U A #### [facility] ([id number]) [address], [address] [place] [address] Ketones Ql (U) 10 mg/dL Abnormal NEG [facility] Comment on above: Performed By: #### U A #### [facility] ([id number]) [address] [place] [address] [address] [place] [address] Leukocyte esterase Test strip Ql (U) Negative Normal NEG [facility] Comment on above: Performed By: #### U A #### [facility] ([id number]) [address] [place] [address] Nitrite Ql (U) Negative Normal NEG [facility] Comment on above: Performed By: #### U A #### [facility] ([id number]) [address] [place] [address] pH (U) 7.5 [pH] Normal 5.0-8.5 [facility] Comment on above: Performed By: #### U A #### [facility] ([id number]) [address] [place] [address] [place] [address] Protein Ql (U) Negative Normal NEG [facility] Comment on above: Performed By: #### U A #### [facility] ([id number]) [address] [place] [address] R.B.CELLS 68 /hpf High 0-5 [facility] Comment on above: Performed By: #### U A #### [facility] ([id number]) [address] [place] [address] [address] [place] [address] Specific gravity (U) [Rel density] 1.015 Normal 1.003-1.035 [facility] Comment on above: Performed By: #### U A #### [facility] ([id number]) [address] [place] [address] TURBIDITY HAZY Abnormal CLEAR [facility] Comment on above: Performed By: #### U A #### [facility] ([id number]) [address] [address] Urinalysis dipstick W Reflex Microscopic panel (U) URINE RECEIVED WITHOUT PRESERVATIVE-DELAYS IN TRANSPORT MAY AFFECT RESULTS.INTERPRET WITH CAUTION AND CLINICAL CORRELATION IS RECOMMENDED. Normal [facility] Comment on above: Performed By: #### U A #### [facility] ([id number]) [address] [address] Urobilinogen (U) [Mass/Vol] mg/dL Normal <1.1 [facility] Comment on above: Performed By: #### U A #### [facility] ([id number]) [address] [address] W.B.CELLS <1 Normal 0-5 [facility] Comment on above: Performed By: #### U A #### [facility] ([id number]) [address] [address] URINE CULTUREon 03-23-2024 Bacteria identified Cx Nom (U) SPECIMEN NOTES URINE RECEIVED WITHOUT PRESERVATIVE CULTURE RESULTS NO GROWTH AT <1000 CFU/mL Normal [facility] Comment on above: Performed By: #### 6 30-4 #### [facility] ([id number]) [address] [address] VAGINITIS PANEL PCRon 2023 VAGINITIS PANEL PCR [...] clinical presentation to determine patient diagnosis. Normal [facility] Comment on above: Performed By: #### V PPCR #### [facility] ([id number]) [address] [address] COMPLETE BLOOD COUNTon 03-22 Erythrocyte distribution width (RBC) [Ratio] 12.9 % Normal 11.5-15.0 [facility] Comment on above: Performed By: #### Sadie PACHECO, 40320-1 #### [facility] ([id number]) [address] [address] Hematocrit (Bld) [Volume fraction] 40.4 % Normal 35-47 [facility] Comment on above: Performed By: #### Sadie PACHECO, 36479-1 #### [facility] ([id number]) [address] [address] Hemoglobin (Bld) [Mass/Vol] 14.1 g/dL Normal 11.7-15.5 [facility] Comment on above: Performed By: #### Sadie PACHECO, 19161-2 #### [facility] ([id number]) [address] [address] MCH (RBC) [Entitic mass] 31.0 pg Normal 27-34 [facility] Comment on above: Performed By: #### Sadie PACHECO, 17771-7 #### [facility] ([id number]) [address] [address] MCHC (RBC) [Mass/Vol] 35.0 g/dL Normal 32-36 [facility] Comment on above: Performed By: #### Sadie PACHECO, 35362-5 #### [facility] ([id number]) [address] [place] [place] [address] MCV (RBC) [Entitic vol] 89 fL Normal 80-100 P [facility] Comment on above: Performed By: #### Sadie PACHECO, 65691-0 #### [facility] ([id number]) [address], [facility] [address] [place] [address] Platelet mean volume (Bld) [Entitic vol] 8.8 fL Normal 7-12 [facility] Comment on above: Performed By: #### Sadie PACHECO, 80145-2 #### [facility] ([id number]) [address] [address] [place] [address] Platelets (Bld) [#/Vol] 222 10*3/uL Normal 150-450 [facility] Comment on above: Performed By: #### Sadie PACHECO, [id number] #### [facility] ([id number]) [address] [place] [address] RBC COUNT 4.56 X10E12/L Normal 3.80-5.20 [facility] Comment on above: Performed By: #### Sadie PACHECO, [id number] #### [facility] ([id number]) [address] [address] WBC (Bld) [#/Vol] 15.1 10*3/uL High 4.0-11.0 [facility] Comment on above: Performed By: #### Sadie PACHECO, [id number] #### [facility] ([id number]) [address] [place] [address] T. pallidum IgG+IgM IA Ql (S )on 03-22-2024 Syphilis Total <0.2 Normal 0.0-0.8 [facility] Comment on above: Result Comment: NON REACTIVE No serologic evidence of infection to Treponema pallidum (syphilis). Repeat testing may be considered in patients with suspected acute or primary syphilis in 2 to 4 weeks. Performed By: #### Sadie PACHECO, [id number] #### [facility] ([id number]) [address] [place] [address] CBC AUTO DIFFon 11-05-2022 BASO # 0.0 103/ul Normal 0.0-0.1 [facility] Comment on above: Performed By: #### V AGINT #### [facility] [address] [place] [address] Dr. Ashley Castaneda Basophils/100 WBC (Bld) 0.1 % Critically low 0.2-2.0 [facility] Comment on above: Performed By: #### V AGINT #### [facility] [address] [place] [address] Dr. Ashley Castaneda EO # 0.0 103/ul Normal 0.0-0.7 [facility] Comment on above: Performed By: #### V AGINT #### [facility] [address] [place] [address] Dr. Ashley Castaneda Eosinophils/100 WBC (Bld) 0.0 % Critically low 0.9-7. 0 [facility] Comment on above: Performed By: #### V AGINT #### [facility] [address] [place] [address] Dr. Ashley Castaneda Erythrocyte distribution width (RBC) [Ratio] 14.8 % Normal 11.0-15.0 [facility] Comment on above: Performed By: #### V AGINT #### [facility] [address] [place] [address] Dr. Ashley Castaneda Hematocrit (Bld) [Volume fraction] 35.5 % Critically low 36.0-48.0 [facility] Comment on above: Performed By: #### V AGINT #### [facility] [address] [place] [address] Dr. Ashley Castaneda Hemoglobin (Bld) [Mass/Vol] 11.8 g/dL Critically low 12.0-16.0 [facility] Comment on above: Performed By: #### V AGINT #### [facility] [address] [place] [address] Dr. Ashley Castaneda IG # 0.07 10e3/ul Critically high 0.00-0.03 [facility] Comment on above: Performed By: #### V AGINT #### [facility] [address] [place] [address] Dr. Ashley Castaneda IG % 0.5 % Normal 0.0-0.5 [facility] Comment on above: Performed By: #### V AGINT #### [facility] [address] [place] [address] Dr. Ashley Castaneda LYMPH # 1.7 103/ul Normal 1.2-3.8 [facility] Comment on above: Performed By: #### V AGINT #### [facility] [address] [place] [address] Dr. Ashley Castaneda Lymphocytes/100 WBC (Bld) 12.8 % Critically low 20.5-6 0.0 [facility] Comment on above: Performed By: #### V AGINT #### [facility] [address] [place] [address] Dr. Ashley Castaneda MANUAL DIFF REQ NO Normal [facility] Comment on above: Performed By: #### V AGINT #### [facility] [address] [place] [address] Dr. Ashley Castaneda MCH (RBC) [Entitic mass] 27.9 pg Normal 26.7-34.0 [facility] Comment on above: Performed By: #### V AGINT #### [facility] [address] [place] [address] Dr. Ashley Castaneda MCHC (RBC) [Mass/Vol] 33.2 g/dL Normal 29.9-35.2 [facility] Comment on above: Performed By: #### V AGINT #### [facility] [address] [place] [address] Dr. Ashley Castaneda MCV (RBC) [Entitic vol] 83.9 fL Normal 81.0-99.0 [facility] Comment on above: Performed By: #### V AGINT #### [facility] [address] [place] [address] Dr. Ashley Castaneda MONO # 1.3 103/ul Critically high 0.3-0.8 [facility] Comment on above: Performed By: #### V AGINT #### [facility] [address] [place] [address] Dr. Ashley Castaneda Monocytes/100 WBC (Bld) 9.7 % Normal 1.7-12.0 [facility] Comment on above: Performed By: #### V AGINT #### [facility] [address] [place] [address] Dr. Ashley Castaneda NEUT # 10.3 103/ul Critically high 1.4-6.5 [facility] Comment on above: Performed By: #### V AGINT #### [facility] [address] [place] [address] Dr. Ashley Castaneda Neutrophils/100 WBC (Bld) 76.9 % Critically high 43.0- 75.0 [facility] Comment on above: Performed By: #### V AGINT #### [facility] [address] [place] [address] Dr. Ashley Castaneda Platelet mean volume (Bld) [Entitic vol] 11.1 fL Normal 9.5-13.5 [facility] Comment on above: Performed By: #### V AGINT #### [facility] [address] [place] [address] Dr. Ashley Castaneda PLT 186 103/ul Normal 150-450 [facility] Comment on above: Performed By: #### V AGINT #### [facility] [address] [place] [address] Dr. Ashley Castaneda RBC 4.23 106/ul Normal 4.20-5.40 [facility] Comment on above: Performed By: #### V AGINT #### [facility] [address] [place] [address] Dr. Ashley Castaneda WBC 13.5 103/ul Critically high 4.0-11.0 [facility] Comment on above: Performed By: #### V AGINT #### [facility] [address] [place] [address] Dr. Ashley Castaneda CBC AUTO DIFFon 11-04-2022 BASO # 0.0 103/ul Normal 0.0-0.1 [facility] Comment on above: Performed By: #### B MP #### [facility] [address] [place] [address] Dr. Ashley Castaneda Basophils/100 WBC (Bld) 0.2 % Normal 0.2-2.0 [facility] Comment on above: Performed By: #### B MP #### [facility] [address] [place] [address] Dr. Ashley Castaneda EO # 0.0 103/ul Normal 0.0-0.7 [facility] Comment on above: Performed By: #### B MP #### [facility] [address] [place] [address] Dr. Ashley Castaneda Eosinophils/100 WBC (Bld) 0.1 % Critically low 0.9-7. 0 [facility] Comment on above: Performed By: #### B MP #### [facility] [address] [place] [address] Dr. Ashley Castaneda Erythrocyte distribution width (RBC) [Ratio] 14.6 % Normal 11.0-15.0 [facility] Comment on above: Performed By: #### B MP #### [facility] [address] [place] [address] Dr. Ashley Castaneda Hematocrit (Bld) [Volume fraction] 39.9 % Normal 36.0-48.0 [facility] Comment on above: Performed By: #### B MP #### [facility] [address] [place] [address] Dr. Ashley Castaneda Hemoglobin (Bld) [Mass/Vol] 13.6 g/dL Normal 12.0-16.0 [facility] Comment on above: Performed By: #### B MP #### [facility] [address] [place] [address] Dr. Ashley Castaneda IG # 0.06 10e3/ul Critically high 0.00-0.03 [facility] Comment on above: Performed By: #### B MP #### [facility] [address] [place] [address] Dr. Ashley Castaneda IG % 0.7 % Critically high 0.0-0.5 [facility] Comment on above: Performed By: #### B MP #### [facility] [address] [place] [address] Dr. Ashley Castaneda LYMPH # 1.6 103/ul Normal 1.2-3.8 [facility] Comment on above: Performed By: #### B MP #### [facility] [address] [place] [address] Dr. Ashley Castaneda Lymphocytes/100 WBC (Bld) 18.3 % Critically low 20.5-6 0.0 [facility] Comment on above: Performed By: #### B MP #### [facility] [address] [place] [address] Dr. Ashley Castaneda MANUAL DIFF REQ NO Normal [facility] Comment on above: Performed By: #### B MP #### [facility] [address] [place] [address] Dr. Ashley Castaneda MCH (RBC) [Entitic mass] 28.2 pg Normal 26.7-34.0 [facility] Comment on above: Performed By: #### B MP #### [facility] [address] [place] [address] Dr. Ashley Castaneda MCHC (RBC) [Mass/Vol] 34.1 g/dL Normal 29.9-35.2 [facility] Comment on above: Performed By: #### B MP #### [facility] [address] [place] [address] Dr. Ashley Castaneda MCV (RBC) [Entitic vol] 82.8 fL Normal 81.0-99.0 [facility] Comment on above: Performed By: #### B MP #### [facility] [address] [place] [address] Dr. Ashley Castaneda MONO # 0.8 103/ul Normal 0.3-0.8 [facility] Comment on above: Performed By: #### B MP #### [facility] [address] [place] [address] Dr. Ashley Castaneda Monocytes/100 WBC (Bld) 9.4 % Normal 1.7-12.0 [facility] Comment on above: Performed By: #### B MP #### [facility] [address] [place] [address] Dr. Ashley Castaneda NEUT # 6.3 103/ul Normal 1.4-6.5 [facility] Comment on above: Performed By: #### B MP #### [facility] [address] [place] [address] Dr. Ashley Castaneda Neutrophils/100 WBC (Bld) 71.3 % Normal 43.0-75.0 [facility] Comment on above: Performed By: #### B MP #### [facility] [address] [place] [address] Dr. Ashley Castaneda Platelet mean volume (Bld) [Entitic vol] 10.9 fL Normal 9.5-13.5 [facility] Comment on above: Performed By: #### B MP #### [facility] [address] [place] [address] Dr. Ashley Castaneda PLT 216 103/ul Normal 150-450 [facility] Comment on above: Performed By: #### B MP #### [facility] [address] [place] [address] Dr. Ashley Castaneda RBC 4.82 106/ul Normal 4.20-5.40 [facility] Comment on above: Performed By: #### B MP #### [facility] [address] [place] [address] Dr. Ashley Castaneda WBC 8.9 103/ul Normal 4.0-11.0 [facility] Comment on above: Performed By: #### B MP #### [facility] [address] [place] [address] Dr. Ashley Castaneda DRUG SCREEN RAPID (URINE)on 11-04-2022 AMP Negative Normal NEGATIVE [facility] Comment on above: Performed By: #### A FPMAT #### [facility] [address] [place] [address] Dr. Ashley Castaneda BAR Negative Normal NEGATIVE [facility] Comment on above: Performed By: #### A FPMAT #### [facility] [address] [place] [address] Dr. Ashley Castaneda BUP Negative Normal NEGATIVE [facility] Comment on above: Performed By: #### A FPMAT #### [facility] [address] [place] [address] Dr. Ashley Castaneda BZO Negative Normal NEGATIVE [facility] Comment on above: Performed By: #### A FPMAT #### [facility] [address] [place] [address] Dr. Ashley Castaneda ROMELIA Negative Normal NEGATIVE [facility] Comment on above: Performed By: #### A FPMAT #### [facility] [address] [place] [address] Dr. Ashley Castaneda CUT-OFFS SEE BELOW Normal [facility] Comment on above: Result Comment: [...] ng/mL Performed By: #### A FPMAT #### [facility] [address] [place] [address] Dr. Ashley Castaneda DRUG CUT HEADER DRUG CLASS TEST SYSTEM CUT-OFF CONCENTRATIONS ARE FOLLOWS: Normal [facility] Comment on above: Performed By: #### A FPMAT #### [facility] [address] [place] [address] Dr. Ashley Castaneda mAMP Negative Normal NEGATIVE [facility] Comment on above: Performed By: #### A FPMAT #### [facility] [address] [place] [address] Dr. Ashley Castaneda MTD Negative Normal NEGATIVE [facility] Comment on above: Performed By: #### A FPMAT #### [facility] [address] [place] [address] Dr. Ashley Castaneda OPI Negative Normal NEGATIVE [facility] Comment on above: Performed By: #### A FPMAT #### [facility] [address] [place] [address] Dr. Ashley Castaneda OXY Negative Normal NEGATIVE [facility] Comment on above: Performed By: #### A FPMAT #### [facility] [address] [place] [address] Dr. Ashley Castaneda PCP Negative Normal NEGATIVE [facility] Comment on above: Performed By: #### A FPMAT #### [facility] [address] [place] [address] Dr. Ashley Castaneda PPX Negative Normal NEGATIVE [facility] Comment on above: Performed By: #### A FPMAT #### [facility] [address] [place] [address] Dr. Ashley Castaneda TCA Negative Normal NEGATIVE [facility] Comment on above: Performed By: #### A FPMAT #### [facility] [address] [place] [address] Dr. Ashley Castaneda THC Negative Normal NEGATIVE [facility] Comment on above: Performed By: #### A FPMAT #### [facility] [address] [place] [address] Dr. Ashley Castaneda TYPE AND SCREENon 11-04-2022 TYPE AND SCREEN Negative Normal [facility] Comment on above: Performed By: #### T NS #### [facility] [address] [place] [address] Dr. Ashley Castaneda CBC AUTO DIFFon 10-24-2022 BASO # 0.1 103/ul Normal 0.0-0.1 [facility] Comment on above: Performed By: #### V AGINT #### [facility] [address] [place] [address] Dr. Ashley Castaneda Basophils/100 WBC (Bld) 0.5 % Normal 0.2-2.0 [facility] Comment on above: Performed By: #### V AGINT #### [facility] [address] [place] [address] Dr. Ashley Castaneda EO # 0.0 103/ul Normal 0.0-0.7 [facility] Comment on above: Performed By: #### V AGINT #### [facility] [address] [place] [address] Dr. Ashley Castaneda Eosinophils/100 WBC (Bld) 0.4 % Critically low 0.9-7. 0 [facility] Comment on above: Performed By: #### V AGINT #### [facility] [address] [place] [address] Dr. Ashley Castaneda Erythrocyte distribution width (RBC) [Ratio] 14.2 % Normal 11.0-15.0 [facility] Comment on above: Performed By: #### V AGINT #### [facility] [address] [place] [address] Dr. Ashley Castaneda Hematocrit (Bld) [Volume fraction] 39.1 % Normal 36.0-48.0 [facility] Comment on above: Performed By: #### V AGINT #### [facility] [address] [place] [address] Dr. Ashley Castaneda Hemoglobin (Bld) [Mass/Vol] 13.4 g/dL Normal 12.0-16.0 [facility] Comment on above: Performed By: #### V AGINT #### [facility] [address] [place] [address] Dr. Ashley Castaneda IG # 0.14 10e3/ul Critically high 0.00-0.03 [facility] Comment on above: Performed By: #### V AGINT #### [facility] [address] [place] [address] Dr. Ashley Castaneda IG % 1.3 % Critically high 0.0-0.5 [facility] Comment on above: Performed By: #### V AGINT #### [facility] [address] [place] [address] Dr. Ashley Castaneda LYMPH # 2.6 103/ul Normal 1.2-3.8 [facility] Comment on above: Performed By: #### V AGINT #### [facility] [address] [place] [address] Dr. Ashley Castaneda Lymphocytes/100 WBC (Bld) 24.3 % Normal 20.5-60.0 [facility] Comment on above: Performed By: #### V AGINT #### [facility] [address] [place] [address] Dr. Ashley Castaneda MANUAL DIFF REQ NO Normal [facility] Comment on above: Performed By: #### V AGINT #### [facility] [address] [place] [address] Dr. Ashley Castaneda MCH (RBC) [Entitic mass] 28.6 pg Normal 26.7-34.0 [facility] Comment on above: Performed By: #### V AGINT #### [facility] [address] [place] [address] Dr. Ashley Castaneda MCHC (RBC) [Mass/Vol] 34.3 g/dL Normal 29.9-35.2 [facility] Comment on above: Performed By: #### V AGINT #### [facility] [address] [place] [address] Dr. Ashley Castaneda MCV (RBC) [Entitic vol] 83.5 fL Normal 81.0-99.0 [facility] Comment on above: Performed By: #### V AGINT #### [facility] [address] [place] [address] Dr. Ashley Castaneda MONO # 1.1 103/ul Critically high 0.3-0.8 [facility] Comment on above: Performed By: #### V AGINT #### [facility] [address] [place] [address] Dr. Ashley Castaneda Monocytes/100 WBC (Bld) 9.9 % Normal 1.7-12.0 [facility] Comment on above: Performed By: #### V AGINT #### [facility] [address] [place] [address] Dr. Ashley Castaneda NEUT # 6.9 103/ul Critically high 1.4-6.5 [facility] Comment on above: Performed By: #### V AGINT #### [facility] [address] [place] [address] Dr. Ashley Castaneda Neutrophils/100 WBC (Bld) 63.6 % Normal 43.0-75.0 [facility] Comment on above: Performed By: #### V AGINT #### [facility] [address] [place] [address] Dr. Ashley Castaneda Platelet mean volume (Bld) [Entitic vol] 11.2 fL Normal 9.5-13.5 [facility] Comment on above: Performed By: #### V AGINT #### [facility] [address] [place] [address] Dr. Ashley Castaneda PLT 260 103/ul Normal 150-450 [facility] Comment on above: Performed By: #### V AGINT #### [facility] [address] [place] [address] Dr. Ashley Castaneda RBC 4.68 106/ul Normal 4.20-5.40 [facility] Comment on above: Performed By: #### V AGINT #### [facility] [address] [place] [address] Dr. Ashley Castaneda WBC 10.9 103/ul Normal 4.0-11.0 [facility] Comment on above: Performed By: #### V AGINT #### [facility] [address] [place] [address] Dr. Ashley Castaneda TYPE AND SCREENon 10-24-2022 TYPE AND SCREEN Negative Normal [facility] Comment on above: Performed By: #### T NS #### [facility] [address] [place] [address] Dr. Ashley Castaneda UA (CLEAN/CATCH) SALAD MAKER/MICRO I F IND.on 10-23-2022 Bilirubin Ql (U) Negative Normal NEGATIVE [facility] Comment on above: Performed By: #### H BSANS #### [facility] [address] [place] [address] Dr. Ashley Castaenda Clarity (U) CLEAR Normal CLEAR [facility] Comment on above: Performed By: #### H BSANS #### [facility] [address] [place] [address] Dr. Ashley Castaneda Color (U) LT. YELLOW Normal YELLOW [facility] Comment on above: Performed By: #### H BSANS #### [facility] [address] [place] [address] Dr. Ashley Castaneda Glucose Ql (U) Negative Normal NEGATIVE [facility] Comment on above: Performed By: #### H BSANS #### [facility] [address] [place] [address] Dr. Ashley Castaneda Hemoglobin Ql (U) TRACE-INTACT Abnormal NEGATIVE [facility] Comment on above: Performed By: #### H BSANS #### [facility] [address] [place] [address] Dr. Ashley Castaneda Ketones Ql (U) Negative Normal NEGATIVE [facility] Comment on above: Performed By: #### H BSANS #### [facility] [address] [place] [address] Dr. Ashley Castaneda LEUKOCYTES SMALL Abnormal NEGATIVE [facility] Comment on above: Performed By: #### H BSANS #### [facility] [address] [place] [address] Dr. Ashley Castaneda Nitrite Ql (U) Negative Normal NEGATIVE [facility] Comment on above: Performed By: #### H BSANS #### [facility] [address] [place] [address] Dr. Ashley Castaneda pH (U) 7.0 [pH] Normal 5-9 [facility] Comment on above: Performed By: #### H BSANS #### [facility] [address] [place] [address] Dr. Ashley Castaneda SPEC GRAVITY 1.010 Normal 1.005-<=1.02 5 [facility] Comment on above: Performed By: #### H BSANS #### [facility] [address] [place] [address] Dr. Ashley Castaneda UA PROTEIN Negative Normal NEGATIVE/ TRACE [facility] Comment on above: Performed By: #### H BSANS #### [facility] [address] [place] [address] Dr. Ashley Castaneda UR MICRO IND INDICATED Normal [facility] Comment on above: Performed By: #### H BSANS #### [facility] [address] [place] [address] Dr. Ashley Castaneda Urobilinogen Qn (U) 0.2 {Dorothy'U}/dL Normal 0.2 - 1. 0 [facility] Comment on above: Performed By: #### H BSANS #### [facility] [address] [place] [address] Dr. Ashley Castaneda URINE MICROSCOPIC ONLYon BACTERIA NONE SEEN Normal NONE SEEN [facility] Comment on above: Performed By: #### H BSANS #### [facility] [address] [place] [address] Dr. Ashlye Castaneda Bacteria identified Cx Nom (U) NOT INDICATED Normal [facility] Comment on above: Performed By: #### H BSANS #### [facility] [address] [place] [address] Dr. Ashley Castaneda CAST NONE SEEN Normal NONE SEEN [facility] Comment on above: Performed By: #### H BSANS #### [facility] [address] [place] [address] Dr. Ashley Castaneda Crystals LM Nom (Urine sed) NONE SEEN Normal NONE SEEN [facility] Comment on above: Performed By: #### H BSANS #### [facility] [address] [place] [address] Dr. Ashley Castaneda Epithelial cells LM Ql (Urine sed) RARE Normal NONE SEEN /RARE [facility] Comment on above: Performed By: #### H BSANS #### [facility] [address] [place] [address] Dr. Ashley Castaneda MUCOUS NONE SEEN Normal NONE SEEN [facility] Comment on above: Performed By: #### H BSANS #### [facility] [address] [place] [address] Dr. Ashley Castaneda RBC 0-2 Normal 0-2 [facility] Comment on above: Performed By: #### H BSANS #### [facility] [address] [place] [address] Dr. Ashley Castaneda WBC 0-2 Abnormal NONE SEEN [facility] Comment on above: Performed By: #### H BSANS #### [facility] [address] [place] [id number] [address] Ashley Castaneda GROUP B STREP CULTUREon S. agalactiae Ag Ql (Unsp spec) Culture Observations: NEGATIVE FOR GROUP B STREPTOCOCCUS. Normal [facility] Comment on above: Performed By: #### G BSCX #### [facility] [address] [place] [id number] [address] Ashley Castaneda US PREG GROWTHon 10-21-2022 [...] ASPEN KIRKLAND Date: 2022-10-21 16:22 Normal [facility] US PREG GROWTHon 10-01-2022 US PREG [...] by: YENI LINO Date: 2022-10-01 16:02 Normal [facility] OVA AND PARASITE EXAMINATION on 09-18-2022 Ova + Parasite Exam Final report Normal [facility] Comment on above: Result Comment: Thes e results were obtained using wet preparation(s) and trichrome stained smear. This test does not include testing for Cryptosporidium parvum, Cyclospora, or Microsporidia. Performed By: #### B MP #### [facility] [address] [place] [address] Dr. Ashley Castaneda Result 1 Comment Normal [facility] Comment on above: Result Comment: No o va, cysts, or parasites seen. . One negative specimen does not rule out the possibility of a parasitic infection. Performed By: #### B MP #### [facility] [address] [address] [address] Ashley Castaneda PAP ACOG PANEL 2: 21 to 29on 08-28-2022 . . Normal [facility] Comment on above: Performed By: #### [id number] #### [facility] [address] [address] [address] Ashley Castaneda Age Gdln ACOG Testing - [facility] Comment on above: Performed By: #### [id number] #### [facility] [address] [place] [address] Dr. Ashley Castaneda DIAGNOSIS: Comment [facility] Comment on above: Result Comment: NEGA TIVE FOR INTRAEPITHELIAL LESION OR MALIGNANCY. Performed By: #### [id number] #### [facility] [address] [place] [address] Dr. Ashley Castaneda Methodology: Comment Normal [facility] Comment on above: Result Comment: This liquid based ThinPrep(R) pap test was screened with the use of an image guided system. Performed By: #### [id number] #### [facility] [address] [place] [address] Dr. Ashley Castaneda Note: Comment Normal [facility] Comment on above: Result Comment: The Pap smear is a screening test designed to aid in the detection of premalignant and malignant conditions of the uterine cervix. It is not a diagnostic procedure and should not be used as the sole means of detecting cervical cancer. Both false-positive and false-negative reports do occur. . Performed By: #### [id number] #### [facility] [address] [place] [address] Dr. Ashley Castaneda Performed by: Comment Normal [facility] Comment on above: Result Comment: Marialuisa Mo Agate Setter (ASCP) Performed By: #### [id number] #### [facility] [address] [place] [address] Dr. Ashley Castaneda Reflex Criteria: Comment Normal [facility] Comment on above: Result Comment: The HPV DNA reflex criteria were not met with this specimen result therefore, no HPV testing was performed. . Performed By: #### [id number] #### [facility] [address] [place] [address] Dr. Ashley Castaneda Specimen adequacy: Comment Normal [facility] Comment on above: Result Comment: Sati sfactory for evaluation. No endocervical component is identified. Performed By: #### [id number] #### [facility] [address] [place] [address] Dr. Ashley Castaneda CHLAMYDIA/GONOCOCCUS LANE (SW AB/URINE/PAPon 08-22-[address]ydia trachomatis, LANE Negative Normal Negative [facility] Comment on above: Performed By: #### H BSANS #### [facility] [address] [place] [address] Dr. Ashley Castaneda Neisseria gonorrhoeae, LANE Negative Normal Negative [facility] Comment on above: Performed By: #### H BSANS #### [facility] [address] [address] [address] Ashley Castaneda VAGINITIS/VAGINOSIS DNA PROB Stephon 08-21-2022 Brina species Negative Normal Negative [facility] Comment on above: Performed By: #### V AGINT #### [facility] [address] [address] [address] Ashley Castaneda Gardnerella vaginalis Negative Normal Negative [facility] Comment on above: Performed By: #### V AGINT #### [facility] [address] [address] [address] Ashley Castaneda Trichomonas vaginalis Negative Normal Negative [facility] Comment on above: Performed By: #### V AGINT #### [facility] [address] [place] [address] Dr. Ashley Castaneda US PREG PLACENTAon 2 [...] ASPEN KIRKLAND Date: 2022-08-20 06:34 Normal [facility] GTT 3 HR PREGon 08-09-2022 Glucose [Mass/Vol] 96 mg/dL Normal 74-106 [facility] Comment on above: Performed By: #### G TT3P #### [facility] [address] [address] [address] Ashley Castaneda Glucose [Mass/Vol] 155 mg/dL Normal [facility] Comment on above: Performed By: #### G TT3P #### [facility] [address] [address] [address] Ashley Castaneda Glucose [Mass/Vol] 141 mg/dL Normal [facility] Comment on above: Performed By: #### G TT3P #### [facility] [address] [address] [address] Ashley Castaneda Glucose [Mass/Vol] 129 mg/dL Normal [facility] Comment on above: Performed By: #### G TT3P #### [facility] [address] [place] [address] Dr. Ashley Castaneda CBC AUTO DIFFon 08-02-2022 BASO # 0.1 103/ul Normal 0.0-0.1 [facility] Comment on above: Performed By: #### B MP #### [facility] [address] [place] [address] Dr. Ashley Castaneda Basophils/100 WBC (Bld) 0.6 % Normal 0.2-2.0 [facility] Comment on above: Performed By: #### B MP #### [facility] [address] [place] [address] Dr. Ashley Castaneda EO # 0.1 103/ul Normal 0.0-0.7 [facility] Comment on above: Performed By: #### B MP #### [facility] [address] [place] [address] Dr. Ashley Castaneda Eosinophils/100 WBC (Bld) 0.9 % Normal 0.9-7.0 [facility] Comment on above: Performed By: #### B MP #### [facility] [address] [place] [address] Dr. Ashley Castaneda Erythrocyte distribution width (RBC) [Ratio] 13.4 % Normal 11.0-15.0 [facility] Comment on above: Performed By: #### B MP #### [facility] [address] [place] [address] Dr. Ashley Castaneda Hematocrit (Bld) [Volume fraction] 36.2 % Normal 36.0-48.0 [facility] Comment on above: Performed By: #### B MP #### [facility] [address] [place] [address] Dr. Ashley Castaneda Hemoglobin (Bld) [Mass/Vol] 12.6 g/dL Normal 12.0-16.0 [facility] Comment on above: Performed By: #### B MP #### [facility] [address] [place] [address] Dr. Ashley Castaneda IG # 0.18 10e3/ul Critically high 0.00-0.03 [facility] Comment on above: Performed By: #### B MP #### [facility] [address] [place] [address] Dr. Ashley Castaneda IG % 1.7 % Critically high 0.0-0.5 [facility] Comment on above: Performed By: #### B MP #### [facility] [address] [place] [address] Dr. Ashley Castaneda LYMPH # 1.7 103/ul Normal 1.2-3.8 [facility] Comment on above: Performed By: #### B MP #### [facility] [address] [place] [address] Dr. Ahsley Castaneda Lymphocytes/100 WBC (Bld) 16.6 % Critically low 20.5-6 0.0 [facility] Comment on above: Performed By: #### B MP #### [facility] [address] [place] [address] Dr. Ashley Castaneda MANUAL DIFF REQ NO Normal [facility] Comment on above: Performed By: #### B MP #### [facility] [address] [place] [address] Dr. Ashley Castaneda MCH (RBC) [Entitic mass] 30.3 pg Normal 26.7-34.0 [facility] Comment on above: Performed By: #### B MP #### [facility] [address] [place] [address] Dr. Ashley Castaneda MCHC (RBC) [Mass/Vol] 34.8 g/dL Normal 29.9-35.2 [facility] Comment on above: Performed By: #### B MP #### [facility] [address] [place] [address] Dr. Ashley Castaneda MCV (RBC) [Entitic vol] 87.0 fL Normal 81.0-99.0 [facility] Comment on above: Performed By: #### B MP #### [facility] [address] [place] [address] Dr. Ashley Castaneda MONO # 0.7 103/ul Normal 0.3-0.8 [facility] Comment on above: Performed By: #### B MP #### [facility] [address] [address] [address] Ashley Castaneda Monocytes/100 WBC (Bld) 6.8 % Normal 1.7-12.0 [facility] Comment on above: Performed By: #### B MP #### [facility] [address] [place] [address] Dr. Ashley Castaneda NEUT # 7.7 103/ul Critically high 1.4-6.5 [facility] Comment on above: Performed By: #### B MP #### [facility] [address] [place] [address] Dr. Ashley Castaneda Neutrophils/100 WBC (Bld) 73.4 % Normal 43.0-75.0 [facility] Comment on above: Performed By: #### B MP #### [facility] [address] [place] [address] Dr. Ashley Castaneda Platelet mean volume (Bld) [Entitic vol] 10.1 fL Normal 9.5-13.5 [facility] Comment on above: Performed By: #### B MP #### [facility] [address] [place] [address] Dr. Ashley Castaneda PLT 232 103/ul Normal 150-450 [facility] Comment on above: Performed By: #### B MP #### [facility] [address] [place] [address] Dr. Ashley Castaneda RBC 4.16 106/ul Critically low 4.20-5.40 [facility] Comment on above: Performed By: #### B MP #### [facility] [address] [place] [address] Dr. Ashley Castaneda WBC 10.5 103/ul Normal 4.0-11.0 [facility] Comment on above: Performed By: #### B MP #### [facility] [address] [place] [address] Dr. Ashley Castaneda GLUCOSE - 1HRon 08-02-2022 Glucose [Mass/Vol] 152 mg/dL Critically high 74-106 [facility] Comment on above: Performed By: #### V AGINT #### [facility] [address] [address] [address] Ashley Castaneda AFP MATERNAL FOR SPINA BIFID Aon 2022 AFP MoM 0.45 Normal [facility] Comment on above: Performed By: #### A FPMAT #### [facility] [address] [address] [address] Ashley Castaneda AFP Value 22.5 ng/mL Normal [facility] Comment on above: Performed By: #### A FPMAT #### [facility] [address] [address] [address] Ashley Castaneda AFP, Serum for Spina Bifida Report Normal [facility] Comment on above: Performed By: #### A FPMAT #### [facility] [address] [address] [address] Ashley Castaneda Comment Comment Normal [facility] Comment on above: Result Comment: Duncan Koo, Ph.D., [facility] Director . References: Available Upon Request. . Multiples Of Median Cutoffs For AFP Elevations Chavez 2.5 Black 2.8 IDD 2.0 Twins 4.5 Abbreviation Definitions IDD - Insulin Dep Diabetes OSBR - Open Spina Bifida Risk . For further inquiries contact [employer] at [phone]. . This test was developed and its performance characteristics determined by [employer]. It has not been cleared or approved by the Food and Drug Administration. Performed By: #### A FPMAT #### [facility] [address] [address] [address] Ashley Morin Age Collection Date 20.0 weeks Normal [facility] Comment on above: Performed By: #### A FPMAT #### [facility] [address] [address] [address] Ashley Castaneda Gestat, Age Based on ANTONIO [facility] Comment on above: Result Comment: 05/2023 Recalculations are not recommended when gestational dating by LMP and ultrasound are within 10 days. Performed By: #### A FPMAT #### [facility] [address] [place] [address] Dr. Ashley Castaneda Insulin Dep Diabetes No [facility] Comment on above: Performed By: #### A FPMAT #### [facility] [address] [place] [address] Dr. Ashley Castaneda Interpretation Comment Normal [facility] Comment on above: Result Comment: Inte [...] Customer Services to discuss available options. The [employer] recommends amniocentesis be offered to women age 35 and older. Performed By: #### A FPMAT #### [facility] [address] [place] [address] Dr. Ashley Castaneda [age] [facility] Comment on above: Performed By: #### A FPMAT #### [facility] [address] [place] [address] Dr. Ashley Castaneda Multiple Gestation No Normal [facility] Comment on above: Performed By: #### A FPMAT #### [facility] [address] [place] [address] Dr. Ashley Castaneda OSBR Risk 1 [place] [address] [facility] Comment on above: Performed By: #### A FPMAT #### [facility] [address] [place] [address] Dr. Ashley Castaneda PDF . [facility] Comment on above: Performed By: #### A FPMAT #### [facility] [address] [place] [address] Dr. Ashley Castaneda Race [facility] Comment on above: Performed By: #### A FPMAT #### [facility] [address] [address] [address] Ashley Castaneda Test Results: Negative Normal [facility] Comment on above: Performed By: #### A FPMAT #### [facility] [address] [address] [address] Ashley Castaneda US PREG ANATOMY SINGLEon [...] by: YENI LINO Date: 2022-07-03 16:45 Normal [facility] HEP B SURFACE ANTIGEN SCREEN on 05-01-2022 HBsAg Screen Negative Normal Negative [facility] Comment on above: Performed By: #### H BSANS #### [facility] [address] [address] [address] Ashley Castaneda HEPATITIS C VIRUS AB W/ REFL EX QUANTon 05-01-2022 HCV AB <0.1 Normal 0.0-0.9 [facility] Comment on above: Performed By: #### V AGINT #### [facility] [address] [place] [address] Dr. Ashley Castaneda Interpretation: Comment Normal [facility] Comment on above: Result Comment: Nega tive Not infected with HCV, unless recent infection is suspected or other evidence exists to indicate HCV infection. Performed By: #### V AGINT #### [facility] [address] [place] [address] Dr. Ashley Castaneda HIV 1 AND 2 WITH REFLEXon HIV Screen 4th Generation wRfx Non-Reactive Normal Non Reactive [facility] Comment on above: Result Comment: HIV Negative HIV-1/HIV-2 antibodies and HIV-1 p24 antigen were NOT detected. There is no laboratory evidence of HIV infection. Performed By: #### B MP #### [facility] [address] [place] [address] Dr. Ashley Castaneda RPR QUANTon 05-01-2022 Rapid Plasma Reagin, Quant Non-Reactive Normal NonRea< 1:1 [facility] Comment on above: Result Comment: Plea se Note: This test does not meet current guidelines for screening and diagnosis of syphilis. This test is intended for following treatment response in patients being treated for syphilis infection. To screen for syphilis infection, a reflex cascade that includes both RPR and a treponema-specific assay should be utilized, such as Treponema pallidum (Syphilis) Screening Morning View (117341) or Rapid Plasma Reagin (RPR) Test With Reflex to Quantitative RPR and Confirmatory Treponema pallidum Antibodies (318788). Performed By: #### B MP #### [facility] [address] [place] [address] Dr. Ashley Castaneda RUBELLA AB IGGon 05-01-2022 Rubella Antibodies, IgG 4.62 index Normal Immune >0.99 [facility] Comment on above: Result Comment: Non- immune <0.90 Equivocal 0.90 - 0.99 Immune >0.99 Performed By: #### B MP #### [facility] [address] [address] [address] Ashley Castaneda CBC AUTO DIFFon 04-30-2022 BASO # 0.0 103/ul Normal 0.0-0.1 [facility] Comment on above: Performed By: #### H BSANS #### [facility] [address] [place] [address] Dr. Ashley Castaneda Basophils/100 WBC (Bld) 0.3 % Normal 0.2-2.0 [facility] Comment on above: Performed By: #### H BSANS #### [facility] [address] [place] [address] Dr. Ashley Castaneda EO # 0.1 103/ul Normal 0.0-0.7 [facility] Comment on above: Performed By: #### H BSANS #### [facility] [address] [place] [address] Dr. Ashley Castaneda Eosinophils/100 WBC (Bld) 0.9 % Normal 0.9-7.0 [facility] Comment on above: Performed By: #### H BSANS #### [facility] [address] [place] [address] Dr. Ashley Castaneda Erythrocyte distribution width (RBC) [Ratio] 12.2 % Normal 11.0-15.0 [facility] Comment on above: Performed By: #### H BSANS #### [facility] [address] [place] [address] Dr. Ashley Castaneda Hematocrit (Bld) [Volume fraction] 40.5 % Normal 36.0-48.0 [facility] Comment on above: Performed By: #### H BSANS #### [facility] [address] [place] [address] Dr. Ashley Castaneda Hemoglobin (Bld) [Mass/Vol] 14.0 g/dL Normal 12.0-16.0 [facility] Comment on above: Performed By: #### H BSANS #### [facility] [address] [place] [address] Dr. Ashley Castaneda IG # 0.08 10e3/ul Critically high 0.00-0.03 [facility] Comment on above: Performed By: #### H BSANS #### [facility] [address] [place] [address] Dr. Ashley Castaneda IG % 0.8 % Critically high 0.0-0.5 [facility] Comment on above: Performed By: #### H BSANS #### [facility] [address] [address] [address] Ashley Castaneda LYMPH # 1.9 103/ul Normal 1.2-3.8 [facility] Comment on above: Performed By: #### H BSANS #### [facility] [address] [place] [address] Dr. Ashley Castaneda Lymphocytes/100 WBC (Bld) 19.4 % Critically low 20.5-6 0.0 [facility] Comment on above: Performed By: #### H BSANS #### [facility] [address] [place] [address] Dr. Ashley Castaneda MANUAL DIFF REQ NO Normal [facility] Comment on above: Performed By: #### H BSANS #### [facility] [address] [place] [address] Dr. Ashley Castaneda MCH (RBC) [Entitic mass] 30.9 pg Normal 26.7-34.0 [facility] Comment on above: Performed By: #### H BSANS #### [facility] [address] [place] [address] Dr. Ashley Castaneda MCHC (RBC) [Mass/Vol] 34.6 g/dL Normal 29.9-35.2 [facility] Comment on above: Performed By: #### H BSANS #### [facility] [address] [address] [address] Ashley Castaneda MCV (RBC) [Entitic vol] 89.4 fL Normal 81.0-99.0 [facility] Comment on above: Performed By: #### H BSANS #### [facility] [address] [place] [address] Dr. Ashley Castaneda MONO # 0.8 103/ul Normal 0.3-0.8 [facility] Comment on above: Performed By: #### H BSANS #### [facility] [address] [place] [address] Dr. Ashley Castaneda Monocytes/100 WBC (Bld) 8.4 % Normal 1.7-12.0 [facility] Comment on above: Performed By: #### H BSANS #### [facility] [address] [place] [address] Dr. Ashley Castaneda NEUT # 7.0 103/ul Critically high 1.4-6.5 [facility] Comment on above: Performed By: #### H BSANS #### [facility] [address] [place] [address] Dr. Ashley Castaneda Neutrophils/100 WBC (Bld) 70.2 % Normal 43.0-75.0 [facility] Comment on above: Performed By: #### H BSANS #### [facility] [address] [place] [address] Dr. Ashley Castaneda Platelet mean volume (Bld) [Entitic vol] 10.1 fL Normal 9.5-13.5 [facility] Comment on above: Performed By: #### H BSANS #### [facility] [address] [place] [address] Dr. Ashley Castaneda PLT 234 103/ul Normal 150-450 [facility] Comment on above: Performed By: #### H BSANS #### [facility] [address] [place] [address] Dr. Ashley Castaneda RBC 4.53 106/ul Normal 4.20-5.40 [facility] Comment on above: Performed By: #### H BSANS #### [facility] [address] [place] [address] Dr. Ashley Castaneda WBC 10.0 103/ul Normal 4.0-11.0 [facility] Comment on above: Performed By: #### H BSANS #### [facility] [address] [place] [address] Dr. Ashley Castaneda CULTURE URINEon 04-30-2022 CULTURE URINE Culture Observations: NO GROWTH. Normal [facility] Comment on above: Performed By: #### H BSANS #### [facility] [address] [address] [address] Ashley Castaneda GLYCOHEMOGLOBIN A1Con 2021 ADA RECOMMENDATION SEE BELOW Normal [facility] Comment on above: Result Comment: ADA RECOMMENDED LIMIT 4.0 - 6.0 ADA THERAPEUTIC TARGET < 7.0 ACTION SUGGESTED > 7.0 Performed By: #### A FPMAT #### [facility] [facility] [address] [address] [address] Ashley Castaneda Glucose [Mass/Vol] 100 mg/dL Normal [facility] Comment on above: Performed By: #### A FPMAT #### [facility] [address] [place] [address] Dr. Ashley Castaneda HbA1c (Bld) [Mass fraction] 5.1 % Normal 4.5-6.2 [facility] Comment on above: Performed By: #### A FPMAT #### [facility] [address] [place] [address] Dr. Ashley Castaneda DELILAH BOX TEST PT SEND OUTo n 04-30-2022 SENT TO REF LAB 04/30/2022 Normal [facility] Comment on above: Performed By: #### V AGINT #### [facility] [address] [place] [address] Dr. Ashley Castaneda TYPE AND SCREENon 04-30-2022 TYPE AND SCREEN Negative Normal [facility] Comment on above: Performed By: #### T NS #### [facility] [address] [place] [address] Dr. Ashley Castaneda GENITAL CULTUREon 04-23-2022 Genital Culture, Routine Final report Normal [facility] Comment on above: Result Comment: Spec imen stability note: A swab transport (ie., ESwab, Amies agar gel) received by the lab more than 24 hours after collection may result in reduced recovery of Neisseria gonorrhoeae (GC). (This is informational only and may not apply to this specimen.) Performed By: #### G TT3P #### [facility] [address] [place] [address] Dr. Ashley Castaneda Result 1 Comment Normal [facility] Comment on above: Result Comment: Rout ine genital jordan. Performed By: #### G TT3P #### [facility] [address] [place] [address] Dr. Ashley Castaneda US PREG TVon 04-22-2022 [...] by: YENI LINO Date: 2022-04-22 18:29 Normal [facility] ABO AND RH TYPEon 04-16-2022 ABO and Rh group Nom (Bld) ABO Rh Typing A Rh Positive Normal [facility] Comment on above: Performed By: #### H BSANS #### [facility] [address] [place] [address] Dr. Ashley Castaneda CBC AUTO DIFFon 04-16-2022 BASO # 0.0 103/ul Normal 0.0-0.1 [facility] Comment on above: Performed By: #### H BSANS #### [facility] [address] [place] [address] Dr. Ashley Castaneda Basophils/100 WBC (Bld) 0.2 % Normal 0.2-2.0 [facility] Comment on above: Performed By: #### H BSANS #### [facility] [address] [place] [address] Dr. Ashley Castaneda EO # 0.1 103/ul Normal 0.0-0.7 [facility] Comment on above: Performed By: #### H BSANS #### [facility] [address] [place] [address] Dr. Ashley Castaneda Eosinophils/100 WBC (Bld) 0.5 % Critically low 0.9-7. 0 [facility] Comment on above: Performed By: #### H BSANS #### [facility] [address] [place] [address] Dr. Ashley Castaneda Erythrocyte distribution width (RBC) [Ratio] 12.0 % Normal 11.0-15.0 [facility] Comment on above: Performed By: #### H BSANS #### [facility] [address] [place] [address] Dr. Ashley Castaneda Hematocrit (Bld) [Volume fraction] 40.2 % Normal 36.0-48.0 [facility] Comment on above: Performed By: #### H BSANS #### [facility] [address] [place] [address] Dr. Ashley Castaneda Hemoglobin (Bld) [Mass/Vol] 13.8 g/dL Normal 12.0-16.0 [facility] Comment on above: Performed By: #### H BSANS #### [facility] [address] [place] [address] Dr. Ashley Castaneda IG # 0.07 10e3/ul Critically high 0.00-0.03 [facility] Comment on above: Performed By: #### H BSANS #### [facility] [address] [place] [address] Dr. Ashley Castaneda IG % 0.5 % Normal 0.0-0.5 [facility] Comment on above: Performed By: #### H BSANS #### [facility] [address] [place] [address] Dr. Ashley Castaneda LYMPH # 2.7 103/ul Normal 1.2-3.8 [facility] Comment on above: Performed By: #### H BSANS #### [facility] [address] [place] [address] Dr. Ashley Castaneda Lymphocytes/100 WBC (Bld) 19.8 % Critically low 20.5-6 0.0 [facility] Comment on above: Performed By: #### H BSANS #### [facility] [address] [address] [address] Ashley Castaneda MANUAL DIFF REQ NO Normal [facility] Comment on above: Performed By: #### H BSANS #### [facility] [address] [address] [address] Ashley Castaneda MCH (RBC) [Entitic mass] 30.7 pg Normal 26.7-34.0 [facility] Comment on above: Performed By: #### H BSANS #### [facility] [address] [place] [address] Dr. Ashley Castaneda MCHC (RBC) [Mass/Vol] 34.3 g/dL Normal 29.9-35.2 [facility] Comment on above: Performed By: #### H BSANS #### [facility] [address] [place] [address] Dr. Ashley Castaneda MCV (RBC) [Entitic vol] 89.5 fL Normal 81.0-99.0 [facility] Comment on above: Performed By: #### H BSANS #### [facility] [address] [place] [address] Dr. Ashley Castaneda MONO # 1.0 103/ul Critically high 0.3-0.8 [facility] Comment on above: Performed By: #### H BSANS #### [facility] [address] [place] [address] Dr. Ashley Castaneda Monocytes/100 WBC (Bld) 7.7 % Normal 1.7-12.0 [facility] Comment on above: Performed By: #### H BSANS #### [facility] [address] [address] [address] Ashley Castaneda NEUT # 9.6 103/ul Critically high 1.4-6.5 [facility] Comment on above: Performed By: #### H BSANS #### [facility] [address] [place] [address] Dr. Ashley Castaneda Neutrophils/100 WBC (Bld) 71.3 % Normal 43.0-75.0 [facility] Comment on above: Performed By: #### H BSANS #### [facility] [address] [place] [address] Dr. Ashley Castaneda Platelet mean volume (Bld) [Entitic vol] 10.2 fL Normal 9.5-13.5 [facility] Comment on above: Performed By: #### H BSANS #### [facility] [address] [place] [address] Dr. Ashley Castaneda PLT 243 103/ul Normal 150-450 [facility] Comment on above: Performed By: #### H BSANS #### [facility] [address] [place] [address] Dr. Ashley Castaneda RBC 4.49 106/ul Normal 4.20-5.40 [facility] Comment on above: Performed By: #### H BSANS #### [facility] [address] [place] [address] Dr. Ashley Castaneda WBC 13.5 103/ul Critically high 4.0-11.0 [facility] Comment on above: Performed By: #### H BSANS #### [facility] [address] [place] [address] Dr. Ashley Castaneda ER URINE PROFILEon 2 Bilirubin Ql (U) Negative Normal NEGATIVE [facility] Comment on above: Performed By: #### A FPMAT #### [facility] [address] [place] [address] Dr. Ashley Castaneda Clarity (U) CLEAR Normal CLEAR [facility] Comment on above: Performed By: #### A FPMAT #### [facility] [address] [place] [address] Dr. Ashley Castaneda Color (U) LT. YELLOW Normal YELLOW [facility] Comment on above: Performed By: #### A FPMAT #### [facility] [address] [place] [address] Dr. Ashley Castaneda ERUQUIRINOD A micrscopic examination will be performed if indicated. Normal [facility] Comment on above: Performed By: #### A FPMAT #### [facility] [address] [address] [address] Ashley Castaneda Glucose Ql (U) Negative Normal NEGATIVE [facility] Comment on above: Performed By: #### A FPMAT #### [facility] [address] [place] [address] Dr. Ashley Castaneda Hemoglobin Ql (U) Negative Normal NEGATIVE [facility] Comment on above: Performed By: #### A FPMAT #### [facility] [address] [place] [address] Dr. Ashley Castaneda Ketones Ql (U) Negative Normal NEGATIVE [facility] Comment on above: Performed By: #### A FPMAT #### [facility] [address] [place] [address] Dr. Ashley Castaneda LEUKOCYTES Negative Normal NEGATIVE [facility] Comment on above: Performed By: #### A FPMAT #### [facility] [address] [place] [address] Dr. Ashley Castaneda Nitrite Ql (U) Negative Normal NEGATIVE [facility] Comment on above: Performed By: #### A FPMAT #### [facility] [address] [place] [address] Dr. Ashley Castaneda pH (U) 6.0 [pH] Normal 5-9 [facility] Comment on above: Performed By: #### A FPMAT #### [facility] [address] [place] [address] Dr. Ashley Castaneda SPEC GRAVITY 1.025 Normal 1.005-<=1.02 5 [facility] Comment on above: Performed By: #### A FPMAT #### [facility] [address] [place] [address] Dr. Ashley Castaneda UA PROTEIN Negative Normal NEGATIVE/ TRACE [facility] Comment on above: Performed By: #### A FPMAT #### [facility] [address] [place] [address] Dr. Ashley Castaneda UR MICRO IND NOT INDICATED Normal [facility] Comment on above: Performed By: #### A FPMAT #### [facility] [address] [place] [address] Dr. Ashley Castaneda Urobilinogen Qn (U) 0.2 {Dorothy'U}/dL Normal 0.2 - 1. 0 [facility] Comment on above: Performed By: #### A FPMAT #### [facility] [address] [place] [address] Dr. Ashley Castaneda HCG,Quantitativeon HCG,Quantitative 771025.00 m[iU]/mL Normal [facility] Comment on above: Order Comment: LISA Nogueira FAX TO [phone] Result Comment: Appr oximate Approximate hCG Gestational Age Range (mIU/ml) (weeks) 0.2-1 5-50 1-2 50-500 2-3 100-5,000 3-4 500-10,000 4-5 1,000-50,000 5-6 10,000-100,000 6-8 15,000-200,000 8-12 10,000-100,000 PERFORMED BY: [place] [address] PATHOLOGIST [employer]TER KASSANDRA JONES M.D. Performed By: #### H CGQNT #### [facility] [address] [place] [address] [place] PREG QUANT HCGon 04-16-2022 HCG QUANT [id number] mIU/mL Normal [facility] Comment on above: Performed By: #### B MP #### [facility] [address] [place] [address] Dr. Ashley Castaneda HCG RANGE SEE BELOW Normal [facility] Comment on above: Result Comment: 5-50 0.2-1 WEEK 50-500 1-2 WEEKS 100-5,000 2-3 WEEKS 500-10,000 3-4 WEEKS 1,000-50,000 4-5 WEEKS 10,000-100,000 5-6 WEEKS 15,000-200,000 6-8 WEEKS 10,000-100,000 2-3 MONTHS Performed By: #### B MP #### [facility] [address] [place] [address] Dr. Ashley Castaneda Result Comment: TEST PERFORMED AT: [facility] [address] [place] [address] URon 04-16-2022 , QUAL Positive Abnormal NEGATIVE [facility] Comment on above: Performed By: #### A FPMAT #### [facility] [address] [place] [address] Dr. Ashley Castaneda PROF CHEM 8 (BAS METB)on Anion gap [Moles/Vol] 13.3 mmol/L Normal [facility] Comment on above: Performed By: #### B MP #### [facility] [address] [place] [address] Dr. Ashley Castaneda Calcium [Mass/Vol] 9.4 mg/dL Normal 8.5-10.[address] [facility] Comment on above: Performed By: #### B MP #### [facility] [address] [place] [address] Dr. Ashley Castaneda Chloride [Moles/Vol] 101 mmol/L Normal 98-107 [facility] Comment on above: Performed By: #### B MP #### [facility] [address] [place] [address] Dr. Ashley Castaneda CO2 [Moles/Vol] 26.8 mmol/L Normal 21.0-32.0 [facility] Comment on above: Performed By: #### B MP #### [facility] [address] [place] [address] Dr. Ashley Castaneda Creatinine [Mass/Vol] 0.70 mg/dL Normal 0.55-1.02 [facility] Comment on above: Performed By: #### B MP #### [facility] [address] [place] [address] Dr. Ashley Castaneda EGFR-AF TAIWANESE >60 Normal >=60 [facility] Comment on above: Performed By: #### B MP #### [facility] [address] [place] [address] Dr. Ashley Castaneda EGFR-NON AF TAIWANESE >60 Normal >=60 [facility] Comment on above: Performed By: #### B MP #### [facility] [address] [place] [address] Dr. Ashley Castaneda Glucose [Mass/Vol] 99 mg/dL Normal 74-[address] [facility] Comment on above: Performed By: #### B MP #### [facility] [address] [address] [address] Ashley Castaneda Potassium [Moles/Vol] 4.1 mmol/L Normal 3.5-5.1 [facility] Comment on above: Performed By: #### B MP #### [facility] [address] [address] [address] Ashley Castaneda Sodium [Moles/Vol] 137 mmol/L Normal 136-[address] [facility] Comment on above: Performed By: #### B MP #### [facility] [address] [address] [address] Ashley Castaneda Urea nitrogen [Mass/Vol] 14.0 mg/dL Normal 7.0-18.0 [facility] Comment on above: Performed By: #### B MP #### [facility] [address] [address] [address] Ashley Castaneda Urea nitrogen/Creatinine [Mass ratio] 20.0 mg/mg Normal [facility] Comment on above: Performed By: #### B MP #### [facility] [address] [address] [address] Ashley Castaneda Serum or plasma beta choriog onadotropin measurement (units/volume)Ordered By: Stoney Good on 04-16-2022 HCG.beta subunit Qn 726929.00 m[IU]/mL [facility] Comment on above: Approximate Approxim ate [...] ASPEN KIRKLAND Date: 2022-04-16 17:18 Normal [facility] WET PREPon 04-16-2022 CLUE CELLS NONE SEEN Normal NONE SEEN [facility] Comment on above: Performed By: #### B MP #### [facility] [address] [place] [address] Dr. Ashley Castaneda FUNGAL ELEMENTS NONE SEEN Normal NONE SEEN [facility] Comment on above: Performed By: #### B MP #### [facility] [address] [place] [address] Dr. Ashley Castaneda RBC -WET PREP NONE SEEN Normal NONE SEEN [facility] Comment on above: Performed By: #### B MP #### [facility] [address] [place] [address] Dr. Ashley Castaneda TRICHOMONAS NONE SEEN Normal NONE SEEN [facility] Comment on above: Performed By: #### B MP #### [facility] [address] [place] [address] Dr. Ashley Castaneda WBC- WET PREP RARE Abnormal NONE SEEN [facility] Comment on above: Performed By: #### B MP #### [facility] [address] [place] [address] Dr. Ashley Castaneda WET PREP BACTERIA FEW Abnormal NONE SEEN [facility] Comment on above: Performed By: #### B MP #### [facility] [address] [place] [address] Dr. Ashley Castaneda PREG QUANT HCGon 03-13-2022 HCG QUANT 155 mIU/mL Normal [facility] Comment on above: Performed By: #### H BSANS #### [facility] [address] [place] [address] Dr. Ashley Castaneda HCG RANGE SEE BELOW Normal [facility] Comment on above: Result Comment: 5-50 0-1 WEEK 40-300 1-2 WEEKS 100-1,000 2-3 WEEKS 500-6,000 3-4 WEEKS 5,000-200,000 1-2 MONTHS 10,000-100,000 2-3 MONTHS 3,000-50,000 2ND TRIMESTER 1,000-50,000 3RD TRIMESTER Performed By: #### H BSANS #### [facility] [address] [place] [address] Dr. Ashley Castaneda PREG QUANT HCGon 03-11-2022 HCG QUANT 53 mIU/mL Normal [facility] Comment on above: Performed By: #### B MP #### [facility] [address] [place] [address] Dr. Ashley Castaneda HCG RANGE SEE BELOW Normal [facility] Comment on above: Result Comment: 5-50 0-1 WEEK 40-300 1-2 WEEKS 100-1,000 2-3 WEEKS 500-6,000 3-4 WEEKS 5,000-200,000 1-2 MONTHS 10,000-100,000 2-3 MONTHS 3,000-50,000 2ND TRIMESTER 1,000-50,000 3RD TRIMESTER Performed By: #### B MP #### [facility] [address] [place] [address] Dr. Ashley Castaneda DHEA SERUMon 01-29-2022 Dehydroepiandrosterone (DHEA) 459 ng/dL Normal 31-701 [facility] Comment on above: Result Comment: [...] 701 Performed By: #### V AGINT #### [facility] [address] [place] [address] Dr. Ashley Castaneda DHEA-SULFATEon 01-17-2022 DHEA-Sulfate 292.0 ug/dL Normal 84.8-378.0 [facility] Comment on above: Performed By: #### V AGINT #### [facility] [address] [place] [address] Dr. Ashley Castaneda FSHon 01-17-2022 FSH 5.2 mIU/mL Normal [facility] Comment on above: Result Comment: Adul t Female: Follicular phase 3.5 - 12.5 Ovulation phase 4.7 - 21.5 Luteal phase 1.7 - 7.7 Postmenopausal 25.8 - 134.8 Performed By: #### B MP #### [facility] [address] [address] [address] Ashley Castaneda LUTEINIZING HORMONE (LH)on 0 01-17-2022 LH 7.5 mIU/mL Normal [facility] Comment on above: Result Comment: Adul t Female: Follicular phase 2.4 - 12.6 Ovulation phase 14.0 - 95.6 Luteal phase 1.0 - 11.4 Postmenopausal 7.7 - 58.5 Performed By: #### V AGINT #### [facility] [address] [place] [address] Dr. Ashley Castaneda CBC AUTO DIFFon 01-16-2022 BASO # 0.0 103/ul Normal 0.0-0.1 [facility] Comment on above: Performed By: #### A FPMAT #### [facility] [address] [address] [address] Ashley Castaneda Basophils/100 WBC (Bld) 0.5 % Normal 0.2-2.0 [facility] Comment on above: Performed By: #### A FPMAT #### [facility] [address] [address] [address] Ashley Castaneda EO # 0.0 103/ul Normal 0.0-0.7 [facility] Comment on above: Performed By: #### A FPMAT #### [facility] [address] [address] [address] Ashley Castaneda Eosinophils/100 WBC (Bld) 0.5 % Critically low 0.9-7. 0 [facility] Comment on above: Performed By: #### A FPMAT #### [facility] [address] [address] [address] Ashley Castaneda Erythrocyte distribution width (RBC) [Ratio] 12.3 % Normal 11.0-15.0 [facility] Comment on above: Performed By: #### A FPMAT #### [facility] [address] [place] [address] Dr. Ashley Castaneda Hematocrit (Bld) [Volume fraction] 43.0 % Normal 36.0-48.0 [facility] Comment on above: Performed By: #### A FPMAT #### [facility] [address] [place] [address] Dr. Ashley Castaneda Hemoglobin (Bld) [Mass/Vol] 14.7 g/dL Normal 12.0-16.0 [facility] Comment on above: Performed By: #### A FPMAT #### [facility] [address] [place] [address] Dr. Ashley Castaneda IG # 0.02 10e3/ul Normal 0.00-0.03 [facility] Comment on above: Performed By: #### A FPMAT #### [facility] [address] [place] [address] Dr. Ashley Castaneda IG % 0.4 % Normal 0.0-0.5 [facility] Comment on above: Performed By: #### A FPMAT #### [facility] [address] [place] [address] Dr. Ashley Castaneda LYMPH # 2.0 103/ul Normal 1.2-3.8 [facility] Comment on above: Performed By: #### A FPMAT #### [facility] [address] [place] [address] Dr. Ashley Castaneda Lymphocytes/100 WBC (Bld) 36.0 % Normal 20.5-60.0 [facility] Comment on above: Performed By: #### A FPMAT #### [facility] [address] [place] [address] Dr. Ashley Castaneda MANUAL DIFF REQ NO Normal [facility] Comment on above: Performed By: #### A FPMAT #### [facility] [address] [place] [address] Dr. Ashley Castaneda MCH (RBC) [Entitic mass] 30.6 pg Normal 26.7-34.0 [facility] Comment on above: Performed By: #### A FPMAT #### [facility] [address] [place] [address] Dr. Ashley Castaneda MCHC (RBC) [Mass/Vol] 34.2 g/dL Normal 29.9-35.2 [facility] Comment on above: Performed By: #### A FPMAT #### [facility] [address] [place] [address] Dr. Ashley Castaneda MCV (RBC) [Entitic vol] 89.6 fL Normal 81.0-99.0 [facility] Comment on above: Performed By: #### A FPMAT #### [facility] [address] [place] [address] Dr. Ashley Castaneda MONO # 0.4 103/ul Normal 0.3-0.8 [facility] Comment on above: Performed By: #### A FPMAT #### [facility] [address] [place] [address] Dr. Ashley Castaneda Monocytes/100 WBC (Bld) 7.9 % Normal 1.7-12.0 [facility] Comment on above: Performed By: #### A FPMAT #### [facility] [address] [place] [address] Dr. Ashley Castaneda NEUT # 3.0 103/ul Normal 1.4-6.5 [facility] Comment on above: Performed By: #### A FPMAT #### [facility] [address] [place] [address] Dr. Ashley Castaneda Neutrophils/100 WBC (Bld) 54.7 % Normal 43.0-75.0 [facility] Comment on above: Performed By: #### A FPMAT #### [facility] [address] [place] [address] Dr. Ashley Castaneda Platelet mean volume (Bld) [Entitic vol] 9.8 fL Normal 9.5-13.5 [facility] Comment on above: Performed By: #### A FPMAT #### [facility] [address] [place] [address] Dr. Ashley Castaneda PLT 266 103/ul Normal 150-450 [facility] Comment on above: Performed By: #### A FPMAT #### [facility] [address] [address] [address] Ashley Castaneda RBC 4.80 106/ul Normal 4.20-5.40 [facility] Comment on above: Performed By: #### A FPMAT #### [facility] [address] [address] [address] Ashley Castaneda WBC 5.5 103/ul Normal 4.0-11.0 [facility] Comment on above: Performed By: #### A FPMAT #### [facility] [address] [address] [address] Ashley Castaneda FREE T3on 01-16-2022 FREE T3 2.66 pg/mlL Normal 2.18-3.98 [facility] Comment on above: Performed By: #### V AGINT #### [facility] [address] [address] [address] Ashley Castaneda GLYCOHEMOGLOBIN A1Con 2021 ADA RECOMMENDATION SEE BELOW Normal [facility] Comment on above: Result Comment: ADA RECOMMENDED LIMIT 4.0 - 6.0 ADA THERAPEUTIC TARGET < 7.0 ACTION SUGGESTED > 7.0 Performed By: #### H BSANS #### [facility] [address] [place] [address] Dr. Ashley Castaneda Glucose [Mass/Vol] 100 mg/dL Normal [facility] Comment on above: Performed By: #### H BSANS #### [facility] [address] [address] [address] Ashley Castaneda HbA1c (Bld) [Mass fraction] 5.1 % Normal 4.5-6.2 [facility] Comment on above: Performed By: #### H BSANS #### [facility] [address] [place] [address] Dr. Ashley Castaneda TSHon 01-16-2022 TSH 1.242 uIU/mL Normal 0.358-3.740 [facility] Comment on above: Performed By: #### V AGINT #### [facility] [address] [address] [address] Ashley Castaneda TSH RANGE SEE BELOW Normal [facility] Comment on above: Result Comment: <0.3 4 UIU/ml HYPERTHYROID 0.34-5.60 UIU/ml EUTHYROID >5.60 UIU/ml HYPOTHYROID Performed By: #### V AGINT #### [facility] [address] [address] [address] Ashley Castaneda Vital Signs Date Time Vital Sign Value Performing Clinician Facility 07-11-2024 10:08-0400 Body mass index (BMI) [Ratio] 30.12 kg/m2 Ilir Cat DO Work Phone: [facility] 07-11-2024 10:08-0400 Body weight 82.1 kg Ilir Cat DO Work Phone: [facility] 07-11-2024 10:08-0400 Diastolic blood pressure 68 mm[Hg] Ilir Cat DO Work Phone: [facility] 07-11-2024 10:08-0400 Systolic blood pressure 102 mm[Hg] Ilir Cat DO Work Phone: [facility] 05-05-2024 10:23-0400 Body mass index (BMI) [Ratio] 29.85 kg/m2 Ilir Cat DO Work Phone: [facility] 05-05-2024 10:23-0400 Body weight 81.38 kg Ilir Cat DO Work Phone: [facility] 05-05-2024 10:23-0400 Diastolic blood pressure 91 mm[Hg] Ilir Cat DO Work Phone: [facility] 05-05-2024 10:23-0400 Systolic blood pressure 141 mm[Hg] Ilir Cat DO Work Phone: [facility] 2022 17:06-0400 Body weight 89.[address] ILIR SHELTON . [facility] Comment on above: Performed By: #### AFPMAT #### [facility] [address] [address] [address] Ashley Castaneda Encounters Encounter Date Encounter Type Care Provider Facility Start: 07-27-2024 End: 07-27-2024 ambulatory [facility] Start: 07-11-2024 End: 07-11-2024 Bamboo flowsheet Ilir Cat DO Work Phone: [facility] Start: 07-11-2024 End: 07-11-2024 Bamboo flowsheet Ilir Cat DO Work Phone: [facility] Start: 07-11-2024 End: 07-11-2024 ambulatory ILIR CAT Not Available Start: 07-11-2024 End: 07-11-2024 Office outpatient visit 15 minutes Ilir Cat DO Work Phone: [facility] Comment on above: Encounter to discuss test results; Vaginal bleeding; Uterine leiomyoma, unspecified location Start: 06-23-2024 End: 06-23-2024 ambulatory [facility] Start: 05-18-2024 End: 05-18-2024 ambulatory [facility] Start: 05-05-2024 End: 05-05-2024 ambulatory ILIR CAT Not Available Start: 05-05-2024 End: 05-05-2024 care visit Ilir Cat DO Work Phone: [facility] Comment on above: 6 weeks f ollow-up; complication Start: 03-30-2024 End: 03-30-2024 ambulatory ILIR CAT Not Available Start: 03-25-2024 End: 03-25-2024 Evaluation and management of inpatient MICHAEL ESQUIVEL [facility] Start: 03-23-2024 End: 03-23-2024 Evaluation and management of inpatient AMY RADHA [facility] Start: 03-22-2024 End: 03-25-2024 Evaluation and management of inpatient CARL [facility] Start: 03-14-2024 End: 03-14-2024 ambulatory ILIR SCOTTO Not Available Start: 02-15-2024 End: 02-15-2024 ambulatory [facility] Start: 02-15-2024 End: 02-15-2024 ambulatory ILIR CAT Not Available Start: 01-18-2024 End: 01-18-2024 ambulatory ILIR CAT Not Available Start: 12-18-2023 End: 12-18-2023 ambulatory ILIR CAT Not Available Start: 11-16-2023 End: 11-16-2023 ambulatory [facility] Start: 11-11-2022 End: 11-11-[address] ILIR SHELTON . Facility:[facility] Start: 11-04-2022 End: 11-06-2022 Evaluation and management of inpatient DR ILIR SHELTON . Facility:[facility] Start: 10-23-2022 End: 10-24-2022 ambulatory SWETHAPAT GIRONPHOENIX Facility:[facility] Start: 10-21-2022 End: 10-21-[address] [...] Departed Referred MD Swetha Phoenix Work Phone: [facility] Start: 04-16-2022 End: 04-16-[address] DOCTOR AVALOS Facility:[facility] Start: 03-13-2022 End: 03-14-[address] ILIR SHELTON . Facility:[facility] Start: 03-11-2022 End: 03-12-[address] ILIR SHELTON . Facility:[facility] Start: 01-16-2022 End: 01-17-[address] ILIR SHELTON . Facility:[facility] Procedures Date Procedure Procedure Detail [...] unspecified location Expected: 07/11/2024 (Approximate), Expires: 07/11/2025 [facility] [employer] Work Phone: Comment on above: Expected: 07/11/2024 (Approximate), Expires: 07/11/2025 Start: 05-15-2024 Influenza vaccination Influenza Vacc ine (#1) [facility] Immunizations Immunization Date Immunization Notes Care Provider Gordon holly 06-07-2022 influenza virus vacc ine, unspecified formulation Ilir Shelton DO Work Phone: [facility] Payers Date Payer Category Payer Managed Care HMO (unspecified) [id number] 1996 Unknown [id number] 2.16.84 0.1.420846.3.579.2.593 1996 Unknown [id number] 2.16.84 0.1.414861.3.579.2.593 1996 Unknown [id number] 2.16.84 0.1.627485.3.579.2.593 1996 Unknown [id number] 2.16.84 0.1.906256.3.579.2.593 1996 Unknown [id number] 2.16.84 0.1.431714.3.579.2.593 1996 Unknown [id number] 2.16.84 0.1.869181.3.579.2.593 1996 Unknown [id number] 2.16.84 0.1.576051.3.579.2.593 1996 Unknown [id number] 2.16.84 0.1.294342.3.579.2.593 1996 Unknown [id number] 2.16.84 0.1.073452.3.579.2.593 1996 Unknown [id number] 2.16.84 0.1.835164.3.579.2.593 1996 Unknown [id number] 2.16.84 0.1.702835.3.579.2.593 1996 Unknown [id number] 2.16.84 0.1.127523.3.579.2.593 1996 Unknown [id number] 2.16.84 0.1.022068.3.579.2.593 1996 Unknown [id number] 2.16.84 0.1.465241.3.579.2.593 1996 Unknown [id number] 2.16.84 0.1.688758.3.579.2.593 1996 Unknown [id number] 2.16.84 0.1.709896.3.579.2.593 1996 Unknown [id number] 2.16.84 0.1.236792.3.579.2.593 1996 Unknown [id number] 2.16.84 0.1.631507.3.579.2.593 1996 Unknown [id number] 2.16.84 0.1.915803.3.579.2.593 1996 Unknown [id number] 2.16.84 0.1.668504.3.579.2.593 1996 Unknown [id number] 2.16.84 0.1.880559.3.579.2.593 1996 Unknown [id number] 2.16.84 0.1.155963.3.579.2.593 1996 Unknown [id number] 2.16.84 0.1.868044.3.579.2.593 1996 Unknown [id number] 2.16.840.1.148383.3.579.2.1286 1996 Unknown [id number] 2.16.840.1.913096.3.579.2.1286 1996 Unknown [id number] 2.16.840.1.806714.3.579.2.1286 1996 Unknown [id number] 2.16.840.1.511644.3.579.2.1286 1996 Unknown [id number] 2.16.840.1.981588.3.579.2.1259 1996 Unknown [id number] 2.16.840.1.365464.3.579.2.1259 1996 Unknown [id number] 2.16.840.1.196417.3.579.2.1259 1996 Unknown [id number] 2.16.840.1.799189.3.579.2.1259 1996 Unknown [id number] 2.16.840.1.112432.3.579.2.1259 1996 Unknown [id number] 2.16.840.1.749628.3.579.2.1259 1996 Unknown [id number] 2.16.840.1.684760.3.579.2.1259 1996 Unknown [id number] 2.16.840.1.910272.3.579.2.1286 1996 Unknown [id number] 2.16.840.1.525294.3.579.2.1286 1996 Unknown [id number] 2.16.840.1.389908.3.579.2.1286 1996 Unknown [id number] 2.16.840.1.530446.3.579.2.1286 1996 Unknown [id number] 2.16.840.1.018339.3.579.2.1286 1959 Private Health Insurance [id number] Self-pay [id number] Unknown [id number] 2.16.84 0.1.710055.3.579.2.593 Social History Date Type Detail Facility Tobacco smoking stat [facility] Unknown if ever smoked [facility] Work Phone: Start: 1995 Sex Assigned At Female F [facility] Start: 03-19-2023 [facility] Start: 03-19-2023 Tobacco use and exposure Smokeless tobacco non-user [facility] Start: 05-05-2024 End: 07-11-2024 Alcoholic beverage intake Ex-drinker (finding) [facility] Start: 12-18-2023 History of Social function [facility] Start: 12-18-2023 Tobacco use panel [facility] Start: 1995 Sex assigned at Not [...] nursing note reviewed. Exam conducted with a auto bench mechanic present. Vitals: Estimated body mass index is [...] DO documented in this encounter [facility] History of Present illness Narrative 05-05-2024 Urszula Mota LPN - 05/05/2024 10:10 AM EDT Note Date & Type Note Facility 05-05-2024 History of Presen t illness Narrative Reason for Appointment: Patient ID: Abril Ponce is a 28 y.o. female who presents for No chief complaint on file. Patient presents today for Post Follow Up appointment. MEDICATIONS Current Outpatient Medications Medication Instructions citalopram (CELEXA) 20 mg, Oral, Daily ferrous sulfate 325 mg, Oral, 2 times daily with meals verapamil SR (CALAN SR) 120 mg, Oral, Every morning ALLERGIES No Known Allergies PROBLEMS Active Ambulatory Problems Diagnosis Date Noted Diarrhea 03/19/2023 Resolved Ambulatory Problems Diagnosis Date Noted No [...] SYSTEMS Review of Systems: Review of Systems Psychiatric/Behavioral: Negative for self-injury and suicidal ideas. All other systems reviewed and are negative. [...] nursing note reviewed. Exam conducted with a auto bench mechanic present. Vitals: Estimated body mass index is 29.85 kg/m as calculated from the following: Height as of 03/30/24: 5' 5 . Weight as of this encounter: 179 lb 6.4 oz. BP: (!) 141/91 Patient's last menstrual period was 03/18/2023. Patient presents for appointment. Patient had delivered via in [place] at 23 weeks gestation due to cervical incompetence and baby passed. Patient stated that she sees a grief counselor and that her is very supportive and helping with the grieving process. Patient to reach out to office if she has any questions/concerns. Patient to increase Celexa to 40mg and updated prescription will be sent to mail order. Documented by Urszula Mota LPN on behalf of: Ilir Shelton DO documented in this encounter [facility] Evaluation note Note Date & Type Note Facility Evaluation note No assessment information availa [facility] Work Phone: Evaluation note Note Date & Type Note Facility Evaluation note Diagnosis Encounter to discuss test results Other specified counseling Vaginal bleeding Other specified noninflammatory disorder of vagina Uterine leiomyoma, unspecified location documented in this encounter [facility] Evaluation note Note Date & Type Note Facility Evaluation note Diagnosis 6 weeks follow-up complication documented in this encounter [facility] Summary [...] section and content) DATE CREATED AUTHOR 04/26/2022 [facility] DATE CREATED AUTHOR AUTHOR'S ORGANIZ ATION 11/24/2022 [facility] DATE CREATED AUTHOR AUTHOR'S ORGANIZ ATION 04/17/2024 [facility] DATE CREATED AUTHOR AUTHOR'S ORGANIZ ATION 07/11/2024 [facility] EPIC DATE CREATED AUTHOR AUTHOR'S ORGANIZ ATION 07/29/2024 [facility] Care Teams (unrecognized sec tion and content) Team Status: Inactive Member Role Status Dates Swetha Phoenix MD Primary Care Provider Active Stoney Good MD Attending Provider Active Team Status: Active Member Role Status Dates Swetha Phoenix MD Primary Care Provider Active Tear Down Man Relationship Specialty Start Date End Date Swetha Phoenix MD [address] [place] [address] PCP - General Pediatrics 03/23/23 Tear Down Man Relationship Specialty Start Date End Date Swetha Phoenix MD [address] [place] [address] PCP - General Pediatrics 03/23/23 Tear Down Man Relationship Specialty Start Date End Date Swetha Phoenix MD [address] [place] [address] PCP - General Pediatrics 03/23/23 Goals (unrecognized [...] BE BASED ON THE PRIMARY CLINICAL RECORDS. [employer] provides no warranty or guarantee of the accuracy or completeness of information in this document.
== END 2024-09-12 09:01 | disposition home or self-care (01) ==
LOC: US 09:00
PROVIDERS: Visit Provider Obstetrics & Gynecology
DX: D25.9 Leiomyoma of uterus, unspecified (principal)
CPT/HCPCS: 76830; 76856